=== PATIENT | female | born 1940 | race Caucasian/White ===

== ENCOUNTER 2016-10-11 13:47 | Emergency (ER) | payer BC ==
[~2016-10-11] VITALS: Ht 160 cm; Wt 98.6 kg
[2016-10-11 13:57] VITALS: TEMP 36.8; Ht 160 cm; Wt 98.6 kg
[2016-10-11 14:02] VITALS: O2SAT 97
[2016-10-11] MEDS ORDERED: LISI-787 PO (14:36)
[2016-10-11] MEDS ORDERED: MULT-506 PO (14:38)
[2016-10-11] MEDS ORDERED: IBUP-1050 PO (14:38)
--- NOTE | 2016-10-11 14:57 | EMERGENCY ROOM VISIT NOTE ---
History Report prepared by Francie: Cassandra Yoder Under the Supervision of: Eric RomeroO. First contact with patient: 14:45 Chief Complaint: FOOD BOLUS Stated Complaint: SOMETHING STUCK IN THROAT Nursing Triage Summary: Pt states around noon she was eating chicken and it got stuck in her throat. Wasn't able to swallow, But "it came lose in the waiting room", states she is able to swallow now. This has occured a number of time in the last year and a half, but it never stayed stuck that long, "usually I throw it up" History of Present Illness The patient is a 76 year old female who presents to the Emergency Room with complaints of a resolved food bolus that occurred prior to arrival today. The patient states that she has had them in the past but is usually able to relieve the obstruction with vomiting. The patient states that her bolus resolved upon arrival to the emergency department. She denies any pain or shortness of breath. The patient states that she has not consulted her PCP about this problem yet, but states that she plans to at her 6 month check up next month. She denies being on any reflux medications. The patient denies any tobacco use. Review of Systems See HPI for pertinent positives & negatives. A total of 10 systems reviewed and were otherwise negative. Past Medical & Surgical Medical Problems: (1) Hypertension (2) Pneumonia Surgical Problems: (1) H/O hernia repair (2) H/O: hysterectomy (3) History of breast biopsy Family History Cancer Gallbladder disease Social History Smoking Status: Never Smoker Smokeless Tobacco Use: No Alcohol Use: none Marital Status: Housing Status: lives alone Occupation Status: retired Current/Historical Medications Scheduled Atorvastatin (Lipitor), 10 MG PO HS Cyanocobalamin (Vitamin B-12), 1,000 MCG PO DAILY Lisinopril/Hctz (Zestoretic 20MG/12.5MG), 1 TAB PO DAILY Multivitamin (Multivitamin), 1 TAB PO DAILY Scheduled PRN Ibuprofen (Advil), 400-600 MG PO Q8H PRN for Pain Allergies Coded Allergies: No Known Allergies (Unverified , 10/11/16) Physical Exam Vital Signs Date Time Temp Pulse Resp B/P Pulse Ox O2 Delivery O2 Flow Rate FiO2 10/11/16 15:08 78 18 145/80 99 10/11/16 14:02 97 Room Air 97 10/11/16 13:57 36.8 101 17 148/81 99 Room Air Physical Exam GENERAL: The patient is a pleasant 76 year old female in no acute distress. VITALS: Afebrile, tachycardic, normal pulse oximetry on room air. THROAT: No pharyngeal injection, exudates, or tonsillar hypertrophy. Airway is patent. NECK: Supple, nontender, no lymphadenopathy or nuchal rigidity. THORAX : Symmetrical and nontender to palpation without deformity or palpable crepitus. LUNGS : Clear without wheezing, rhonchi, or rales HEART: Regular rate and rhythm without murmur, S3, S4, or rub. ABDOMEN: Soft and nontender without guarding, rigidity, or rebound tenderness. Bowel sounds are present in all 4 quadrants. There are no palpable masses organomegaly. No CVA tenderness. Femoral pulses are symmetrical EXTREMITIES : Without deformity or point tenderness. There are no palpable cords, edema, or erythema.. NEUROLOGIC: Intact without focal deficits Medical Decision & Procedures ED Course 1450: Past medical records reviewed. The patient was evaluated in room C2B. A complete history and physical examination was performed. On examination she was asymptomatic. Her discomfort and feeling as if she had a food impaction had resolved while she was waiting to be seen. I gave the patient a cup of water and she was able to drink it without problem. At this time I have advised the patient that she may have an esophageal stricture as she has had similar difficulties in the past with swallowing. I advised her to contact her personal physician for further evaluation and workup. In the meantime she is being placed on Zantac twice a day. She's been instructed on diet and symptomatic care. She's to return if she has recurrence or any worsening problems or concerns. The patient is comfortable with this treatment plan. I discussed all the exam findings with her and I discussed the treatment plan. She verbalized complete understanding and agreement. She is ready to go home. Medical Decision EMR, nurse's notes, diagnostic studies personally reviewed Differential diagnosis-see above The chart was completed utilizing [employer] Voice Recognition Software. Grammatical errors, random word insertions, pronoun errors, and incomplete sentences are an occasional consequence of this system due to software limitations, ambient noise, and hardware issues. Any formal questions or concerns about the content, text, or information contained within the body of this dictation should be directly addressed to the physician for clarification. Impression Primary Impression: Esophageal obstruction due to food impaction Scribe Attestation The scribe's documentation has been prepared under my direction and personally reviewed by me in its entirety. I confirm that the note above accurately reflects all work, treatment, procedures, and medical decision making performed by me. Departure Information Dispostion Home / Self-Care Referrals Marvin Viveros M.D. (PCP) Forms HOME CARE DOCUMENTATION FORM, IMPORTANT VISIT INFORMATION, WORK / SCHOOL INSTRUCTIONS Patient Instructions My [facility] Additional Instructions Soft diet as discussed Take [id number] Zantac twice a day Follow-up with Dr. Koenig-call for recheck Return if increasing problems or concerns
[2016-10-11 15:08] VITALS: BP 145/80; PULSE 78; O2SAT 99
[2017-03-29] MEDS ORDERED: CRFL PO (17:45)
[2017-04-12] MEDS ORDERED: LSN20 PO (08:07)
[2017-04-20] MEDS ORDERED: DILT120C43 PO (08:10)
[2017-04-20] MEDS ORDERED: ATOR10TA88 PO (14:36)
[2017-04-20] MEDS ORDERED: CYAN10005 PO (14:36)
== END 2016-10-11 15:10 | disposition home or self-care (01) ==
LOC: C.EDB 13:48 → C.EDC 15:10
DX: T18.128A Food in esophagus causing other injury, initial encounter (principal); X58.XXXA Exposure to other specified factors, initial encounter; I10 Essential (primary) hypertension; Z79.899 Other long term (current) drug therapy; Z90.710 Acquired absence of both cervix and uterus; Z98.890 Other specified postprocedural states; Z80.9 Family history of malignant neoplasm, unspecified; Z83.79 Family history of other diseases of the digestive system

== ENCOUNTER → 2016-11-21 | Outpatient (CLI) | payer BC ==
[~2016-11-21] MED LIST: AGMUDL4005 PO; ALBU18002 INH; AMOX875T PO; ATOR10TA82 PO; CEFD250S3 PO; CHOL1000 PO; CRFL PO; CYAN10005 PO; DILT120C43 PO; DILT120C68 PO; FLNIN NAE; FLUT0.15 NAE; FURO-85 PO; IBUP-1050 PO; LISI-725 PO; LISI-787 PO; LSN/20125 PO; LSN20 PO; MULT-506 PO; OMEP20TA PO; OXGN; PANT40TA PO; PRD5 PO; PRED10TA PO; PRT40 PO; SPRIN INH; SPRIN/30 INH
[2016-11-21 13:16] LABS: BASO % 0.9 %; BASO ABS # 0.07 K/uL (0-0.2); COMPLETE YES; EOS % 6.8 %; HEMATOCRIT 36.5 % (37-47); IG% 0.3 %; LYMPH % 20.6 %; LYMPH ABS # 1.54 K/uL (1.2-3.4); MEAN CELL VOLUME 90.3 fL (80-100); MEAN CORPUSCULAR HEMOGLOBIN 30.4 pg (25-34); MEAN CORPUSCULAR HGB CONC 33.7 g/dl (32-36); MEAN PLATELET VOLUME 9.7 fL (7.4-10.4); MONO % 6.2 %; NEUT % 65.2 %; PLATELET COUNT 245 K/uL (130-400); RED BLOOD COUNT 4.04 M/uL (4.2-5.4); WHITE BLOOD COUNT 7.47 K/uL (4.8-10.8)
--- NOTE | 2016-11-21 13:22 | DIAGNOSTIC IMAGING REPORT ---
(BARIUM SWALLOW) ESOPHAGUS CLINICAL HISTORY: Dysphagia COMPARISON STUDY: None FLUOROSCOPY TIME: 3.8 minutes. 20 fluoroscopic spot images were acquired. FINDINGS: The patient swallowed effervescent granules and barium without difficulty. There is no aspiration. There is a sliding hiatal hernia. There is a mild upper esophageal stricture. This appearance the past of a one half inch barium tablet. Gastroenterology consultation is recommended for direct visualization. IMPRESSION: 1. Mild upper esophageal stricture at approximately the T3 level. This impedes the passage of a one half inch barium tablet. 2. Hiatal hernia 3. Endoscopic correlation is recommended. Electronically signed by: Tomas White M.D. 11/21/2016 1:19 PM Dictated Date/Time: 11/21/2016 1:16 PM
[2016-11-21 13:26] LABS: CALCIUM 9.8 mg/dl (8.5-10.1)
[2016-11-21 13:33] LABS: BLOOD UREA NITROGEN 13 mg/dl (7-18); BUN/CREATININE RATIO 15.5 (10-20); CARBON DIOXIDE 28 mmol/L (21-32); CHLORIDE 100 mmol/L (98-107); CREATININE 0.84 mg/dl (0.60-1.20); GLUCOSE 109 mg/dl (70-99); POTASSIUM 4.1 mmol/L (3.5-5.1); SODIUM 136 mmol/L (136-145)
[2016-11-21 16:59] LABS: LYME DISEASE AB IGG NEG (NEG); LYME DISEASE AB IGM NEG (NEG)
== END | disposition home or self-care (01) ==
LOC: C.RAD 11:55
PROVIDERS: ATTEND Internal Medicine Geriatric Medicine
DX: R13.10 Dysphagia, unspecified (principal); K44.9 Diaphragmatic hernia without obstruction or gangrene; M54.16 Radiculopathy, lumbar region; I10 Essential (primary) hypertension; E78.5 Hyperlipidemia, unspecified; R73.9 Hyperglycemia, unspecified; D64.9 Anemia, unspecified

== ENCOUNTER → 2017-01-02 | Outpatient (CLI) | payer BC ==
--- NOTE | 2017-01-02 16:16 | MAMMOGRAPHY REPORT ---
BILATERAL DIGITAL SCREENING MAMMOGRAM WITH CAD: 01/02/2017 CLINICAL HISTORY: Routine screening examination. TECHNIQUE: Bilateral CC and MLO views were obtained. Current study was also evaluated with a Compute r Aided Detection (CAD) system. COMPARISON: Comparison is made to exams dated: 12/30/2015 mammogram, 12/25/2014 mammogram, 12/11/2013 ma mmogram, 12/05/2012 mammogram, 11/30/2011 mammogram, and 11/22/2010 mammogram - [facility] er. BREAST COMPOSITION: The tissue of both breasts is almost entirely fatty. FINDINGS: There are mild vascular calcifications in the breast. A benign coarse calcification bilate rally. No new suspicious mass, architectural distortion or cluster of microcalcifications is seen. IMPRESSION: ACR BI-RADS CATEGORY 1: NEGATIVE There is no mammographic evidence of malignancy. A 1 year screening mammogram is recommended. The pa tient will receive written notification of the results. Approximately 10% of breast cancers are not detected with mammography. A negative mammographic report should not delay biopsy if a clinically suggestive mass is present. Nina Cox M.D. ay/:01/02/2017 14:22:36 Snow Ranger: Estelle ACEVEDO(R)(M), [facility] letter sent: Normal 1/2 BI-RADS Code: ACR BI-RADS Category 1: Negative
== END | disposition home or self-care (01) ==
LOC: C.MAMM 09:00
PROVIDERS: ATTEND Internal Medicine Geriatric Medicine
DX: Z12.31 Encounter for screening mammogram for malignant neoplasm of breast (principal)

== ENCOUNTER → 2017-02-14 | Outpatient (CLI) | payer BC ==
[~2017-02-14] MED LIST changes: -ATOR10TA82 PO; +ATOR10TA88 PO
--- NOTE | 2017-02-14 09:35 | DIAGNOSTIC IMAGING REPORT ---
CHEST 2 VIEWS ROUTINE CLINICAL HISTORY: 76 years-old Female presenting with cough. TECHNIQUE: PA and lateral views of the chest were obtained. COMPARISON: Chest x-ray from 2008. FINDINGS: Cardiomediastinal silhouette normal. Lungs and pleural spaces clear. Osseous structures and upper abdomen normal. IMPRESSION: 1. No acute cardiopulmonary disease. Electronically signed by: Júnior Arboleda M.D. 02/14/2017 9:33 AM Dictated Date/Time: 02/14/2017 9:32 AM
== END | disposition home or self-care (01) ==
LOC: C.RADBC 09:05
PROVIDERS: ATTEND Internal Medicine Geriatric Medicine
DX: R05 Cough (principal)

== ENCOUNTER → 2017-03-02 | Outpatient (CLI) | payer BC ==
[2017-03-02 12:12] LABS: BASO % 0.7 %; BASO ABS # 0.05 K/uL (0-0.2); COMPLETE YES; EOS % 3.7 %; HEMATOCRIT 35.1 % (37-47); IG% 0.3 %; LYMPH % 18.5 %; MEAN CELL VOLUME 89.8 fL (80-100); MEAN CORPUSCULAR HEMOGLOBIN 29.9 pg (25-34); MEAN CORPUSCULAR HGB CONC 33.3 g/dl (32-36); MEAN PLATELET VOLUME 9.3 fL (7.4-10.4); MONO % 5.9 %; NEUT % 70.9 %; PLATELET COUNT 279 K/uL (130-400); RED BLOOD COUNT 3.91 M/uL (4.2-5.4); WHITE BLOOD COUNT 7.58 K/uL (4.8-10.8)
[2017-03-02 12:27] LABS: ALT/SGPT 25 U/L (12-78); BLOOD UREA NITROGEN 12 mg/dl (7-18); BUN/CREATININE RATIO 14.1 (10-20); CALCIUM 9.4 mg/dl (8.5-10.1); CARBON DIOXIDE 29 mmol/L (21-32); CHLORIDE 100 mmol/L (98-107); CHOLESTEROL 147 mg/dl (0-200); CREATININE 0.86 mg/dl (0.60-1.20); GLUCOSE 102 mg/dl (70-99); POTASSIUM 3.8 mmol/L (3.5-5.1); SODIUM 135 mmol/L (136-145)
[2017-03-02 12:37] LABS: ALB/GLOB RATIO 1.3 (0.9-2); ALKALINE PHOSPHATASE 92 U/L (45-117); AST/SGOT 20 U/L (15-37); CHOLESTEROL/HDL RATIO 2.3; HDL CHOLESTEROL 64 mg/dl; LDL CHOLESTEROL CALCULATED 62 mg/dl; TRIGLYCERIDES 105 mg/dl (0-150); VERY LOW DENSITY LIPOPROT CALC 21 mg/dl
[2017-03-02 12:48] LABS: ESTIMATED AVERAGE GLUCOSE 108 mg/dl; HA1C FLAG Normal (Normal)
== END | disposition home or self-care (01) ==
LOC: C.LAB 09:48
PROVIDERS: ATTEND Internal Medicine Geriatric Medicine
DX: I10 Essential (primary) hypertension (principal); R73.9 Hyperglycemia, unspecified; M19.90 Unspecified osteoarthritis, unspecified site; D64.9 Anemia, unspecified

== ENCOUNTER → 2017-03-08 | Outpatient (CLI) | payer BC ==
[~2017-03-08] MED LIST changes: +OPTIRAY 320 IV PRN
--- NOTE | 2017-03-08 11:05 | DIAGNOSTIC IMAGING REPORT ---
CHEST CTA for PULMONARY ARTERIES CT DOSE: 562.96 mGy.cm HISTORY: Atypical chest pain. Short of breath. TECHNIQUE: Multiaxial CT images of the chest were performed following the intravenous administration of contrast to evaluate the pulmonary arteries. Maximal intensity projection images were also obtained. A dose lowering technique was utilized adhering to the principles of ALARA. COMPARISON STUDY: Chest 02/14/2017. FINDINGS: No evidence for an aortic dissection or pulmonary embolus. No significant mediastinal or hilar lymphadenopathy. No pleural or pericardial effusions. The heart is normal in size. The visualized liver, spleen, and adrenal glands are unremarkable. No fractures within the visualized osseous structures. No pneumothorax. The central airways are patent. Small linear scarlike density within the left lung apex. A 4 mm subpleural nodule within the lingula on image 146. A 2 mm nodule within the right lung apex on image 209. A 5 mm groundglass nodule within the right lung apex on image 215. A 4 mm nodule within the right upper lobe on image 183. A 4 mm nodule within the right lower lobe on image 100. 4 mm subpleural nodule within the right lower lobe on image 110. No focal lung consolidations to suggest pneumonia. IMPRESSION: 1. No evidence for pulmonary embolus. 2. A few scattered subcentimeter indeterminate pulmonary nodules as described above. The largest in the right upper lobe is a 5 mm groundglass nodule. Please refer to the chart below for recommended follow-up. Please refer to below summary of Fleischner criteria recommendations for follow-up of incidental CT nodules (Yess[place], Guidelines for management of small pulmonary nodules detected on CT scans: A statement from the Fleischner Society, Radiology 237: [phone].) SOLID NODULES Solitary nodule size: <6 mm * Low risk patients: no follow-up needed * high risk patients: optional CT at 12 months Solitary nodule size: 6-8 mm * Low risk patients: follow-up at 6-12 months, then consider further follow-up at 18-24 months * high risk patients: initial follow-up CT at 6-12 months and then at 18-24 months if no change Solitary nodule size: >8 mm * either low or high risk patients - consider follow-up CT at 3 months, and/or CT-PET, and/or biopsy Multiple nodules size: <6 mm * Low risk patients: no routine follow-up * high risk patients: optional CT at 12 months Multiple nodules size: 6-8 mm * Low risk patients: follow-up at 3-6 months, then consider further follow-up at 18-24 months * high risk patients: follow-up at 3-6 months, then at 18-24 months if no change Multiple nodules size: >8 mm * Low risk patients: follow-up at 3-6 months, then consider further follow-up at 18-24 months * high risk patients: follow-up at 3-6 months, then at 18-24 months if no change Note: newly detected indeterminate nodule in persons 35 years of age or older. * Low risk patients: minimal or absent history of smoking and/or other known risk factors * high risk patients: history of smoking or of other known risk factors (e.g. first degree relative with lung cancer, or exposure to asbestos, radon, uranium) * if a nodule up to 8 mm is partly solid or is ground glass further follow-up is required after 24 months to exclude possible slow growing adenocarcinoma (MILAGROS) SUBSOLID NODULES Solitary pure ground-glass nodule * nodule size <6 mm - no CT follow-up required * nodule size >=6 mm - follow-up CT at 6-12 months, then every 2 years until 5 years Solitary part-solid nodule * nodule size <6 mm - no CT follow-up required * nodule size >=6 mm - follow-up CT at 3-6 months. If unchanged, and solid component remains <6 mm, then annual follow-up for 5 years Multiple subsolid nodules * nodule size <6 mm - follow-up CT at 3-6 months, consider further follow-up at 2 and 4 years if stable * nodule size >=6 mm - follow-up CT at 3-6 months, subsequent management based on the most suspicious nodule(s) Electronically signed by: Kulwinder Garcia M.D. 03/08/2017 11:04 AM Dictated Date/Time: 03/08/2017 10:55 AM
== END | disposition home or self-care (01) ==
LOC: C.CTS 09:57
PROVIDERS: ATTEND Internal Medicine Geriatric Medicine
DX: R06.02 Shortness of breath (principal); R06.09 Other forms of dyspnea; R91.8 Other nonspecific abnormal finding of lung field

== ENCOUNTER 2017-03-16 22:47 | Emergency (ER) | payer BC ==
[~2017-03-16] VITALS: Ht 162.6 cm; Wt 94.0 kg
[~2017-03-16 22:47] MED LIST changes: -AGMUDL4005 PO; -ALBU18002 INH; -AMOX875T PO; -ATOR10TA88 PO; -CEFD250S3 PO; -CHOL1000 PO; -CRFL PO; -CYAN10005 PO; -DILT120C43 PO; -DILT120C68 PO; -FLNIN NAE; -FLUT0.15 NAE; -FURO-85 PO; -LISI-725 PO; -LSN/20125 PO; -LSN20 PO; -OMEP20TA PO; -OPTIRAY 320 IV PRN; -OXGN; -PANT40TA PO; -PRD5 PO; -PRED10TA PO; -PRT40 PO; -SPRIN INH; -SPRIN/30 INH
[2017-03-16 22:51] VITALS: Ht 162.6 cm; Wt 94.0 kg
[2017-03-16 23:06] VITALS: O2SAT 95
[2017-03-16] MEDS ORDERED: OMEP20TA PO (23:44)
[2017-03-16] MEDS ORDERED: DILT120C68 PO (23:55)
[2017-03-17 00:16] LABS: BASO % 0.5 %; BASO ABS # 0.04 K/uL (0-0.2); COMPLETE YES; EOS % 5.6 %; HEMATOCRIT 35.4 % (37-47); IG% 0.2 %; LYMPH % 20.5 %; LYMPH ABS # 1.79 K/uL (1.2-3.4); MEAN CELL VOLUME 88.5 fL (80-100); MEAN CORPUSCULAR HEMOGLOBIN 30.5 pg (25-34); MEAN CORPUSCULAR HGB CONC 34.5 g/dl (32-36); MEAN PLATELET VOLUME 9.2 fL (7.4-10.4); MONO % 8.6 %; NEUT % 64.6 %; PLATELET COUNT 292 K/uL (130-400); WHITE BLOOD COUNT 8.74 K/uL (4.8-10.8)
--- NOTE | 2017-03-17 00:17 | EMERGENCY ROOM VISIT NOTE ---
History Report prepared by Francie: Umer Cross Under the Supervision of: Dr. Teresa Funez D.O. First contact with patient: 23:06 Chief Complaint: SHORTNESS OF BREATH Stated Complaint: CAN'T BREATH RIGHT - BAD COUGH History of Present Illness The patient is a 76 year old female who presents to the Emergency Room with complaints of a worsening cough beginning four months ago. The patient states her cough has progressively worsened over the past four days. She reports that she has to clear her throat frequently, and her cough is ongoing and productive. The patient notes that she cannot walk anywhere without getting short of breath. She states that she cannot lay down without coughing. The patient reports that she recently had: a CT that showed no PE and multiple, small, pulmonary nodules; a stress test that showed she had a heart rate of 100 ; and a pulmonary function test that she does not know the results of. She notes that she has an appointment with the retail performance specialist on Sunday, but she could not wait until then. The patient states that she takes medication for hypertension, hypercholesteremia, and GERD. She reports that she just started taking medication for GERD because food kept getting stuck in her throat. The patient notes that on the 27 of November she had an esophageal dilation, and she did not notice her symptoms until after then. She states that she has not been scoped since. The patient denies smoking, but everyone in her family did. She also denies abdominal pain, edema to her legs, and a history of asthma. The patient notes that her dad and sister both from emphysema, and her mother of liver disease. Source of History: patient Onset: four months ago Position: chest Quality: other (cough) Timing: worsening Modifying Factors (Worsening): other (lying down) Associated Symptoms: + SOB, No abdominal pain Note: Denies: edema to her legs Review of Systems See HPI for pertinent positives & negatives. A total of 10 systems reviewed and were otherwise negative. Past Medical & Surgical Medical Problems: (1) Hypertension (2) Pneumonia Surgical Problems: (1) H/O hernia repair (2) H/O: hysterectomy (3) History of breast biopsy Family History Cancer Gallbladder disease Hypertension Social History Smoking Status: Never Smoker Alcohol Use: none Marital Status: Housing Status: lives alone Occupation Status: retired Current/Historical Medications Scheduled Atorvastatin (Lipitor), 10 MG PO HS Cholecalciferol (Vitamin D3), 1,000 UNITS PO DAILY Cyanocobalamin (Vitamin B-12), 1,000 MCG PO QAM Diltiazem Hcl Ext Rel (Tiazac), 120 MG PO BID Lisinopril/Hctz (Zestoretic 20MG/12.5MG), 1 TAB PO QAM Omeprazole (Omeprazole), 40 MG PO DAILY Allergies Coded Allergies: Cetirizine (Verified Allergy, Unknown, RASH, 11/27/16) Simvastatin (Verified Allergy, Unknown, ABDOMINAL CRAMPS, 11/27/16) Physical Exam Vital Signs Date Time Temp Pulse Resp B/P (MAP) Pulse Ox O2 Delivery O2 Flow Rate FiO2 03/17/17 02:41 36.4 84 20 118/75 92 03/17/17 02:36 84 20 118/75 92 Room Air 03/17/17 01:30 84 22 140/76 92 Room Air 03/17/17 00:00 78 24 111/70 94 Room Air 03/16/17 23:07 95 Room Air 03/16/17 23:06 95 Room Air 03/16/17 23:03 76 03/16/17 22:51 36.4 76 16 122/84 94 Room Air Physical Exam HEENT: Head - normocephalic and atraumatic Pupils are equal, round, and reactive to light. Extraocular eye muscles are intact, and sclera are anicteric. Nose - moist nasal mucosa without discharge. Mouth - moist buccal mucosa. Oropharynx is nonerythematous and there is no tonsillar exudate or edema noted. Neck: Supple; no JVD, nuchal rigidity, cervical lymphadenopathy, or auscultated bruits. Heart: Regular rate and rhythm. There is a normal S1 and S2 with no murmurs, clicks, or gallops appreciated. Lungs: Clear to auscultation bilaterally with no wheezes, rales, or rhonchi. Abdomen: Soft, completely nontender, nondistended, with good bowel sounds. There are no palpable pulsatile masses or hepatosplenomegaly. There is no guarding, rigidity, or rebound noted. Extremities: No evidence of cyanosis, clubbing, or edema. There are easily palpable peripheral pulses. Skin: warm and dry with good turgor and no rashes. Medical Decision & Procedures ER Provider Diagnostic Interpretation: X-ray results as stated below per interpretation by me: Chest X-ray: no cardiomegaly, no pulmonary findings Laboratory Results 03/16/17 23:10 Red Blood Count 4.00, Mean Corpuscular Volume 88.5, Mean Corpuscular Hemoglobin 30.5, Mean Corpuscular Hemoglobin Concent 34.5, Mean Platelet Volume 9.2, Neutrophils (%) (Auto) 64.6, Lymphocytes (%) (Auto) 20.5, Monocytes (%) (Auto) 8.6, Eosinophils (%) (Auto) 5.6, Basophils (%) (Auto) 0.5, Neutrophils # (Auto) 5.65, Lymphocytes # (Auto) 1.79, Monocytes # (Auto) 0.75, Eosinophils # (Auto) 0.49, Basophils # (Auto) 0.04 03/16/17 23:10 Test 03/16/17 23:10 White Blood Count 8.74 K/uL (4.8-10.8) Red Blood Count 4.00 M/uL (4.2-5.4) Hemoglobin 12.2 g/dL (12.0-16.0) Hematocrit 35.4 % (37-47) Mean Corpuscular Volume 88.5 fL (80-100) Mean Corpuscular Hemoglobin 30.5 pg (25-34) Mean Corpuscular Hemoglobin Concent 34.5 g/dl (32-36) Platelet Count 292 K/uL (130-400) Mean Platelet Volume 9.2 fL (7.4-10.4) Neutrophils (%) (Auto) 64.6 % Lymphocytes (%) (Auto) 20.5 % Monocytes (%) (Auto) 8.6 % Eosinophils (%) (Auto) 5.6 % Basophils (%) (Auto) 0.5 % Neutrophils # (Auto) 5.65 K/uL (1.4-6.5) Lymphocytes # (Auto) 1.79 K/uL (1.2-3.4) Monocytes # (Auto) 0.75 K/uL (0.11-0.59) Eosinophils # (Auto) 0.49 K/uL (0-0.5) Basophils # (Auto) 0.04 K/uL (0-0.2) RDW Standard Deviation 44.7 fL (36.4-46.3) RDW Coefficient of Variation 13.8 % (11.5-14.5) Immature Granulocyte % (Auto) 0.2 % Immature Granulocyte # (Auto) 0.02 K/uL (0.00-0.02) Anion Gap 8.0 mmol/L (3-11) Est Creatinine Clear Calc Drug Dose 59.7 ml/min Estimated GFR () 71.1 Estimated GFR (Non- 61.3 BUN/Creatinine Ratio 22.1 (10-20) Calcium Level 9.3 mg/dl (8.5-10.1) Total Bilirubin 0.5 mg/dl (0.2-1) Aspartate Amino Transf (AST/SGOT) 17 U/L (15-37) Alanine Aminotransferase (ALT/SGPT) 27 U/L (12-78) Alkaline Phosphatase 91 U/L (45-117) Total Creatine Kinase 99 U/L (26-192) Creatine Kinase MB 2.7 ng/ml (0.5-3.6) Creatine Kinase MB Ratio 2.7 (0-3.0) Troponin I < 0.015 ng/ml (0-0.045) Pro-B-Type Natriuretic Peptide 70 pg/ml (0-900) Total Protein 7.5 gm/dl (6.4-8.2) Albumin 4.1 gm/dl (3.4-5.0) Globulin 3.4 gm/dl (2.5-4.0) Albumin/Globulin Ratio 1.2 (0.9-2) Laboratory results per my review. ECG Indication: SOB/dyspnea Rate (beats per minute): 72 Findings: no acute ischemic change, no ectopy ED Course 2346: The patient was evaluated in room A02. A complete history and physical examination were performed. Nursing notes and previous electronic medical records were reviewed. I reviewed her CT scan from last week. It showed no PE and multiple small pulmonary nodules. IV lock was established and labs were drawn as above. A twelve-lead EKG was obtained. The patient was noted to have persistent cough while here in the emergency department. She was continually clearing her throat of mucus. She did have a productive cough. We were able to collect a sputum specimen for culture 0149: Upon reevaluation, the patient's situation is the same. Since she was in there, she was able to produce more mucus. She is going to try and give a larger sample than before. The patient informed me she was prescribed fluticasone, and the sputum production was significantly more, so she stopped using it. I discussed findings and results with her. She verbalized agreement of the treatment plan. The patient was discharged home. Medical Decision The patient is a 76 year old female who presents to the ED with a worsening, productive cough. Differential diagnosis includes CHF, GERD, pneumonia, bronchitis, obstructive lung disease, PE. Lab results show: normal WBC, normal H&H, BUN of 20, Creatinine of 0.9, glucose of 97, normal LFTs, negative cardiac enzymes, BNP of 70. This patient has had a significant workup for her increasing exertional shortness of breath. She's undergone cardiac stress testing, pulmonary function tests, chest x-ray, and CT scan of the chest. She is scheduled to follow-up with Dr. Jimenez on Sunday for review of the pulmonary function tests. On this acute visit to the emergency department, no new findings were noted. We did obtain a sputum specimen for culture. I've encouraged the patient to keep her appointment with pulmonary medicine. We spent some time talking about possible causes of her persistent productive cough and thick mucus in the back of her throat. We talked about GERD and eosinophilia. She will follow with Dr. Jimenez in 2 days. Medication Reconcilliation Current Medication List: was personally reviewed by me Blood Pressure Screening Patient's blood pressure: Normal blood pressure Blood pressure disposition: Did not require urgent referral Impression Primary Impression: Dyspnea Scribe Attestation The scribe's documentation has been prepared under my direction and personally reviewed by me in its entirety. I confirm that the note above accurately reflects all work, treatment, procedures, and medical decision making performed by me. Departure Information Dispostion Home / Self-Care Referrals Marvin Viveros M.D. (PCP) Forms HOME CARE DOCUMENTATION FORM, IMPORTANT VISIT INFORMATION Patient Instructions ED Dyspnea Shortness of Breath, My [facility] Additional Instructions Rest Follow up with Dr. Jimenez on Sunday. Return to the ER if symptoms worsen. Problem Qualifiers Primary Impression: Dyspnea Dyspnea type: dyspnea on exertion Qualified Codes: R06.09 - Other forms of dyspnea
[2017-03-17 00:21] LABS: ALT/SGPT 27 U/L (12-78); AST/SGOT 17 U/L (15-37); BLOOD UREA NITROGEN 20 mg/dl (7-18); BUN/CREATININE RATIO 22.1 (10-20); CALCIUM 9.3 mg/dl (8.5-10.1); CARBON DIOXIDE 28 mmol/L (21-32); CHLORIDE 98 mmol/L (98-107); CREATININE 0.92 mg/dl (0.60-1.20); GLUCOSE 97 mg/dl (70-99); POTASSIUM 3.5 mmol/L (3.5-5.1); SODIUM 134 mmol/L (136-145)
[2017-03-17 00:26] LABS: ALB/GLOB RATIO 1.2 (0.9-2); ALKALINE PHOSPHATASE 91 U/L (45-117); CKMB/CK RATIO 2.7 (0-3.0)
[2017-03-17 02:41] VITALS: BP 118/75; PULSE 84; TEMP 36.4; O2SAT 92
--- NOTE | 2017-03-17 08:04 | DIAGNOSTIC IMAGING REPORT ---
CHEST 2 VIEWS ROUTINE CLINICAL HISTORY: Worsening shortness of breath. COMPARISON STUDY: Chest radiograph February 14, [address] March 08, 2017. FINDINGS: The lung volumes are normal. There is no pneumothorax or pleural effusion. There is no evidence of pulmonary edema. No consolidation is identified. Cardiomediastinal silhouette is normal. IMPRESSION: No acute cardiopulmonary findings. Electronically signed by: Varinder Goode M.D. 03/17/2017 8:03 AM Dictated Date/Time: 03/17/2017 8:02 AM
[2017-03-29] MEDS ORDERED: CRFL PO (17:45)
[2017-04-12] MEDS ORDERED: LSN20 PO (08:07)
[2017-04-20] MEDS ORDERED: DILT120C43 PO (08:10)
[2017-04-20] MEDS ORDERED: ATOR10TA88 PO (14:36)
[2017-04-20] MEDS ORDERED: CYAN10005 PO (14:36)
[2017-05-04] MEDS ORDERED: LISI-725 PO (13:41)
== END 2017-03-17 02:42 | disposition home or self-care (01) ==
LOC: C.EDB 22:48 → C.EDA 03-17 02:42
DX: R06.09 Other forms of dyspnea (principal); I10 Essential (primary) hypertension; E78.00 Pure hypercholesterolemia, unspecified; K21.9 Gastro-esophageal reflux disease without esophagitis; Z87.01 Personal history of pneumonia (recurrent); Z80.9 Family history of malignant neoplasm, unspecified; Z83.79 Family history of other diseases of the digestive system; Z82.49 Family history of ischemic heart disease and other diseases of the circulatory system; Z79.899 Other long term (current) drug therapy

== ENCOUNTER → 2017-03-20 | Outpatient (CLI) | payer BC ==
[~2017-03-20] MED LIST changes: +AGMUDL4005 PO; +ALBU18002 INH; +AMOX875T PO; +ATOR10TA88 PO; +CEFD250S3 PO; +CHOL1000 PO; +CRFL PO; +CYAN10005 PO; +DILT120C43 PO; +DILT120C68 PO; +FLNIN NAE; +FLUT0.15 NAE; +FURO-85 PO; -IBUP-1050 PO; +LISI-725 PO; +LSN/20125 PO; +LSN20 PO; -MULT-506 PO; +OMEP20TA PO; +OXGN; +PANT40TA PO; +PRD5 PO; +PRED10TA PO; +PRT40 PO; +SPRIN INH; +SPRIN/30 INH
[2017-03-20 13:26] LABS: BASO % 0.7 %; BASO ABS # 0.05 K/uL (0-0.2); COMPLETE YES; EOS % 3.4 %; HEMATOCRIT 34.6 % (37-47); IG% 0.3 %; LYMPH % 13.6 %; LYMPH ABS # 1.01 K/uL (1.2-3.4); MEAN CELL VOLUME 86.5 fL (80-100); MEAN CORPUSCULAR HGB CONC 34.7 g/dl (32-36); MEAN PLATELET VOLUME 9.6 fL (7.4-10.4); MONO % 7.7 %; NEUT % 74.3 %; PLATELET COUNT 278 K/uL (130-400)
[2017-03-20 13:34] LABS: PARTIAL THROMBOPLASTIN RATIO 1.1; PROTHROMBIN TIME (PATIENT) 10.8 SECONDS (9.0-12.0)
[2017-03-20 14:09] LABS: ALT/SGPT 23 U/L (12-78); BLOOD UREA NITROGEN 14 mg/dl (7-18); BUN/CREATININE RATIO 17.8 (10-20); CALCIUM 9.3 mg/dl (8.5-10.1); CARBON DIOXIDE 28 mmol/L (21-32); CHLORIDE 95 mmol/L (98-107); CREATININE 0.78 mg/dl (0.60-1.20); GLUCOSE 96 mg/dl (70-99); POTASSIUM 4.1 mmol/L (3.5-5.1); SODIUM 130 mmol/L (136-145)
[2017-03-20 14:11] LABS: ALB/GLOB RATIO 1.4 (0.9-2); ALKALINE PHOSPHATASE 87 U/L (45-117); AST/SGOT 18 U/L (15-37)
== END | disposition home or self-care (01) ==
LOC: C.LAB1850 11:21
PROVIDERS: ATTEND Internal Medicine Pulmonary Disease
DX: J31.0 Chronic rhinitis (principal); R05 Cough; R06.02 Shortness of breath

== ENCOUNTER 2017-03-26 19:58 | Inpatient (IN) | payer BC, OTHER ==
[~2017-03-26] VITALS: Ht 162.6 cm; Wt 92.4 kg
[~2017-03-26 19:58] MED LIST changes: -AGMUDL4005 PO; -ALBU18002 INH; -AMOX875T PO; -ATOR10TA88 PO; -CEFD250S3 PO; -CHOL1000 PO; -CRFL PO; -CYAN10005 PO; -DILT120C43 PO; -FLNIN NAE; -FLUT0.15 NAE; -FURO-85 PO; -LISI-725 PO; -LSN/20125 PO; -LSN20 PO; -OXGN; -PANT40TA PO; -PRD5 PO; -PRED10TA PO; -PRT40 PO; -SPRIN INH; -SPRIN/30 INH
[2017-03-26] MEDS ORDERED: METOCLOPRAMIDE HCL INJ 5 MG/ML 2 ML VIAL IV STA (20:43)
[2017-03-26] MEDS ORDERED: DIAZEPAM INJ 5 MG/ML 2 ML CARP IV STA (20:43)
[2017-03-26] MEDS ORDERED: GLUCAGON INJ 1 MG in SYRINGE 0 ML IV STA (20:43)
[2017-03-26] MEDS ORDERED: NITROGLYCERIN OINT 2% 1GM PACKET EXT STA (20:43)
--- NOTE | 2017-03-26 20:45 | EMERGENCY ROOM VISIT NOTE ---
History Report prepared by Francie: Keyshawn Pacheco Under the Supervision of: Dr. Randy Parada M.D. First contact with patient: 20:34 Chief Complaint: RESPIRATORY PROBLEMS Stated Complaint: PILL STUCK IN THROAT Nursing Triage Summary: Patient states "I have an antibiotic pill stuck in my throat. I also have difficulty breathing not from the pill. I've had difficulty breathing for 4 months but it has gotten worse in the past 2 weeks. I broke out in a sweat tonight." History of Present Illness The patient is a 76 year old female who presents to the Emergency Room with complaints of respiratory problems that began 4 weeks ago. She notes that it has worsened over the past 2 weeks. The patient had her esophagus stretched in November, but then developed a breathing a coughing "condition." Tonight, she took a pill, and it got stuck in her throat. She cannot swallow her own saliva. She also had diaphoresis as well. She denies any other abnormal symptoms. Source of History: patient Onset: 2 weeks ago Position: other (Respiratory System) Symptom Intensity: moderate Quality: other (Respiratory Problems) Timing: worsening Associated Symptoms: + diaphoresis, + cough, + SOB Note: She cannot swallow her saliva. She denies any other abnormal symptoms. Review of Systems See HPI for pertinent positives & negatives. A total of 10 systems reviewed and were otherwise negative. Past Medical & Surgical Medical Problems: (1) Hypertension (2) Pneumonia Surgical Problems: (1) H/O hernia repair (2) H/O: hysterectomy (3) History of breast biopsy Family History Cancer Gallbladder disease Hypertension Social History Smoking Status: Never Smoker Alcohol Use: none Marital Status: Housing Status: lives alone Occupation Status: retired Current/Historical Medications Scheduled Amoxicillin & Pot Clavulanate (Augmentin 875-125 mg), 1 TAB PO BID Amoxicillin/Clavulanate Potas (Augmentin 400MG/5ML), 10 ML PO BID Atorvastatin (Lipitor), 10 MG PO HS Cholecalciferol (Vitamin D3), 1,000 UNITS PO DAILY Cyanocobalamin (Vitamin B-12), 1,000 MCG PO QAM Diltiazem Hcl Ext Rel (Tiazac), 120 MG PO BID Lisinopril/Hctz (Zestoretic 20MG/12.5MG), 1 TAB PO QAM Omeprazole (Omeprazole), 40 MG PO DAILY Prednisone Tab (Prednisone), 10 MG PO DAILY/UD Allergies Coded Allergies: Cetirizine (Verified Allergy, Unknown, RASH, 11/27/16) Simvastatin (Verified Allergy, Unknown, ABDOMINAL CRAMPS, 11/27/16) Physical Exam Vital Signs Date Time Temp Pulse Resp B/P (MAP) Pulse Ox O2 Delivery O2 Flow Rate FiO2 03/27/17 00:21 88 Room Air 03/27/17 00:02 111/82 03/27/17 00:01 100/73 03/27/17 00:00 121 23 96 Nasal Cannula 2.0 03/26/17 23:31 115/80 03/26/17 23:30 122 24 96 Nasal Cannula 2.0 03/26/17 23:01 142/89 03/26/17 23:00 119 20 142/89 99 Nebulizer 10.0 03/26/17 23:00 118 22 100 Nasal Cannula 2.0 03/26/17 22:32 99 18 95 Nasal Cannula 2.0 03/26/17 22:09 99 24 113/80 95 Nasal Cannula 2.0 03/26/17 21:54 102 22 129/86 95 Nasal Cannula 2.0 03/26/17 21:33 91 03/26/17 21:24 93 20 134/88 96 Nasal Cannula 2.0 03/26/17 20:51 94 Nasal Cannula 2.0 03/26/17 20:39 93 Room Air 03/26/17 20:10 93 Room Air 03/26/17 20:04 36.7 105 18 141/90 93 Room Air Physical Exam GENERAL: Patient is a healthy-appearing well-nourished female, actively spitting out saliva. HEAD: Normocephalic atraumatic EYES: Ocular movements intact pupils equal and react to light OROPHARYNX mucous membranes are moist no exudates present no erythema or edema present NECK: Supple no nuchal rigidity CHEST: Good equal expansion LUNGS: Clear and equal to auscultation CARDIAC: Normal S1 and S2 ABDOMEN: Soft nontender no guarding BACK: No CVA tenderness EXTREMITIES: No pain upon palpation normal muscle strength in all groups no clubbing cyanosis or edema NEURO: Patient is following commands and answering questions appropriately. Alert and oriented x3 Cranial Nerves 2-12 grossly intact Medical Decision & Procedures ER Provider Diagnostic Interpretation: Radiology results as stated below per my review and radiologist interpretation: CHEST ONE VIEW PORTABLE CLINICAL HISTORY: Food bolus impaction. COMPARISON STUDY: Chest radiograph March 17, 2017. FINDINGS: Lung volumes are normal. No pneumothorax or pleural effusion is present. Pulmonary vascularity is normal. Cardiomediastinal silhouette is normal. There is no evidence for pneumomediastinum. No radiopaque foreign body is identified. IMPRESSION: No acute cardiopulmonary findings. Electronically signed by: Varinder Goode M.D. 03/26/2017 9:15 PM Dictated Date/Time: 03/26/2017 9:[address] ANGIOGRAPHY OF THE CHEST, PULMONARY EMBOLUS PROTOCOL CLINICAL HISTORY: Shortness of breath. Pill stuck in throat. COMPARISON STUDY: Chest CT March 08, 2017. TECHNIQUE: Following IV administration of 77 mL of Optiray-320, helical axial images of the chest were obtained utilizing the pulmonary embolus protocol. Maximal intensity projections and sagittal and coronal reformats were viewed on an independent 3D workstation. IV contrast was administered without complication. A dose lowering technique was utilized adhering to the principles of ALARA. CT DOSE: 476.82 mGy.cm FINDINGS: No pulmonary emboli are identified. There is no evidence of thoracic aortic dissection. The size of the heart is normal. There is no pericardial effusion. Central airways are patent. There is no consolidation to suggest pneumonia. Multiple pulmonary nodules are similar to exam of March 08, 2017 and include a 5 mm groundglass right upper lobe nodule shown image 203. There is no consolidation to suggest pneumonia. No pneumothorax or pleural effusion is present. Bony thorax and upper abdomen are unremarkable. No radiopaque foreign bodies identified within the chest. IMPRESSION: 1. No pulmonary emboli identified. 2. No acute intrathoracic findings. 3. No change in several pulmonary nodules since exam of March 08, 2017. These can be followed according to recommendations provided on that exam. Electronically signed by: Varinder Goode M.D. 03/26/2017 10:55 PM Dictated Date/Time: 03/26/2017 10:48 PM Laboratory Results 03/26/17 21:19 Red Blood Count 3.97, Mean Corpuscular Volume 85.4, Mean Corpuscular Hemoglobin 30.2, Mean Corpuscular Hemoglobin Concent 35.4, Mean Platelet Volume 9.0, Neutrophils (%) (Auto) 92.0, Lymphocytes (%) (Auto) 6.3, Monocytes (%) (Auto) 1.0, Eosinophils (%) (Auto) 0.1, Basophils (%) (Auto) 0.3, Neutrophils # (Auto) 6.72, Lymphocytes # (Auto) 0.46, Monocytes # (Auto) 0.07, Eosinophils # (Auto) 0.01, Basophils # (Auto) 0.02 03/26/17 21:19 Test 03/26/17 21:19 White Blood Count 7.30 K/uL (4.8-10.8) Red Blood Count 3.97 M/uL (4.2-5.4) Hemoglobin 12.0 g/dL (12.0-16.0) Hematocrit 33.9 % (37-47) Mean Corpuscular Volume 85.4 fL (80-100) Mean Corpuscular Hemoglobin 30.2 pg (25-34) Mean Corpuscular Hemoglobin Concent 35.4 g/dl (32-36) Platelet Count 260 K/uL (130-400) Mean Platelet Volume 9.0 fL (7.4-10.4) Neutrophils (%) (Auto) 92.0 % Lymphocytes (%) (Auto) 6.3 % Monocytes (%) (Auto) 1.0 % Eosinophils (%) (Auto) 0.1 % Basophils (%) (Auto) 0.3 % Neutrophils # (Auto) 6.72 K/uL (1.4-6.5) Lymphocytes # (Auto) 0.46 K/uL (1.2-3.4) Monocytes # (Auto) 0.07 K/uL (0.11-0.59) Eosinophils # (Auto) 0.01 K/uL (0-0.5) Basophils # (Auto) 0.02 K/uL (0-0.2) RDW Standard Deviation 41.7 fL (36.4-46.3) RDW Coefficient of Variation 13.4 % (11.5-14.5) Immature Granulocyte % (Auto) 0.3 % Immature Granulocyte # (Auto) 0.02 K/uL (0.00-0.02) Anion Gap 9.0 mmol/L (3-11) Est Creatinine Clear Calc Drug Dose 65.1 ml/min Estimated GFR () 80.5 Estimated GFR (Non- 69.5 BUN/Creatinine Ratio 17.7 (10-20) Calcium Level 9.1 mg/dl (8.5-10.1) Total Bilirubin 0.5 mg/dl (0.2-1) Aspartate Amino Transf (AST/SGOT) 17 U/L (15-37) Alanine Aminotransferase (ALT/SGPT) 25 U/L (12-78) Alkaline Phosphatase 85 U/L (45-117) Total Creatine Kinase 75 U/L (26-192) Creatine Kinase MB 3.3 ng/ml (0.5-3.6) Creatine Kinase MB Ratio 4.4 (0-3.0) Troponin I < 0.015 ng/ml (0-0.045) Total Protein 7.1 gm/dl (6.4-8.2) Albumin 3.8 gm/dl (3.4-5.0) Globulin 3.3 gm/dl (2.5-4.0) Albumin/Globulin Ratio 1.1 (0.9-2) Labs reviewed by ED physician. Medications Administered Medications (Trade) Dose Ordered Sig/[place] Route Start Time Stop Time Status Last Admin Dose Admin Metoclopramide HCl (Reglan Inj) 10 mg NOW STAT IV 03/26/17 20:43 03/26/17 20:47 DC 03/26/17 21:21 10 MG Diazepam (Valium Inj) 5 mg NOW STAT IV 03/26/17 20:43 03/26/17 20:47 DC 03/26/17 21:21 5 MG Glucagon (Glucagon Inj) 1 mg STK-MED ONCE .ROUTE 03/26/17 21:04 03/26/17 21:05 DC 03/26/17 21:21 1 MG Nitroglycerin (Nitroglycerin 2% Oint) 1 inch STK-MED ONCE .ROUTE 03/26/17 21:04 03/26/17 21:05 DC 03/26/17 21:20 1 INCH Albuterol/ Ipratropium (Duoneb) 12 ml ONE ONCE INH 03/26/17 22:15 03/26/17 22:16 DC 03/26/17 22:32 12 ML Methylprednisolone Sodium Succinate (Solu-Medrol IV) 125 mg NOW STAT IV 03/26/17 22:05 03/26/17 22:07 DC 03/26/17 22:15 125 MG Sodium Chloride 500 ml @ 999 mls/hr Q31M STAT IV 03/26/17 22:05 03/26/17 22:35 DC 03/26/17 22:15 999 MLS/HR Lorazepam (Ativan Inj) 0.5 mg NOW STAT IV 03/26/17 23:15 03/26/17 23:17 DC 03/26/17 23:23 0.5 MG Amoxicillin/ Clavulanate Potassium (Augmentin Susp) 10 ml NOW STAT PO 03/27/17 00:09 03/27/17 00:11 DC 03/27/17 00:09 10 ML ECG Indication: SOB/dyspnea Rate (beats per minute): 96 Rhythm: normal sinus Findings: no acute ischemic change, no ectopy ED Course 2033: Past medical records reviewed. The patient was evaluated in room A4. A complete history and physical examination was performed. 2042: Ordered Valium Inj 5 mg IV, Nitroglycerin 1 inch EXT, Reglan Inj 10 mg IV 2100: Ordered Glucagon 1 mg/ Syringe 1 ml @ 0.333 mls/min IV 2104: Ordered Nitroglycerin 1 inch .ROUTE, Glucagon 1 mg .ROUTE 2205: Ordered Sodium Chloride 500 ml @ 999 mls/hr IV 2214: The patient can swallow water again. 2215: Ordered Duoneb 12 ml INH 1215: Ordered Ativan Inj 0.5 mg IV 2344: She is doing much better at this time. 0009: Ordered Augmentin Susp 10 ml PO 0025: Upon reexamination the patient is resting. I discussed results and treatment plan with the patient. She verbalizes agreement and understanding. I spoke with Dr. Johnson from the [facility]. The patient will be evaluated for further management. Medical Decision This is a 76-year-old female who presents emergency department unable to swallow her own saliva after getting a pill stuck in her throat. The patient has a history of esophageal stretching. Based on the patient's symptoms an IV was established, the patient was given 10 mg of Reglan, Nitropaste, Valium. Repeat examination revealed improvement the patient's symptoms. The patient is also complaining of shortness of breath which has been ongoing for the past several weeks. She was in to see Dr. Ceja today who placed the patient on prednisone as well as Augmentin. After the patient was able swallow her own saliva she began receiving breathing treatments as well as Solu-Medrol. The patient remained hypoxic after her treatments therefore she was discussed with the hospitalist service. Medication Reconcilliation Current Medication List: was personally reviewed by me Blood Pressure Screening Patient's blood pressure: Normal blood pressure Blood pressure disposition: Did not require urgent referral Consults Time Called: 19 Consulting Physician: Dr. Johnson - [facility] Returned Call: [phone] I discussed the patient's case with Dr. Johnson, he has agreed to evaluate the patient for further management and care. Impression Primary Impression: Dysphagia Additional Impression: COPD exacerbation Scribe Attestation The scribe's documentation has been prepared under my direction and personally reviewed by me in its entirety. I confirm that the note above accurately reflects all work, treatment, procedures, and medical decision making performed by me. Departure Information Dispostion Being Evaluated By Hospitalist Prescriptions Amoxicillin/Clavulanate Potas (AUGMENTIN 400MG/5ML) 400 Mg/5 Ml Susp 10 ML PO BID for 7 Days, #140 ML Prov: Randy Parada MD 03/27/17 Referrals Marvin Vivreos M.D. (PCP) Forms HOME CARE DOCUMENTATION FORM, IMPORTANT VISIT INFORMATION, WORK / SCHOOL INSTRUCTIONS Patient Instructions Dysphagia, Dysphagia Tx, ED Diet Clear Liquid, My [facility] Health Problem Qualifiers Primary Impression: Dysphagia Dysphagia type: unspecified Qualified Codes: R13.10 - Dysphagia, unspecified
[2017-03-26] MEDS ORDERED: GLUCAGON INJ 1 MG in SYRINGE 0 ML IV ONE (21:00)
[2017-03-26] MEDS ORDERED: NITROGLYCERIN OINT 2% 1GM PACKET ONE (21:04)
[2017-03-26] MEDS ORDERED: GLUCAGON FOR INJ 1 MG VIAL ONE (21:04)
--- NOTE | 2017-03-26 21:16 | DIAGNOSTIC IMAGING REPORT ---
CHEST ONE VIEW PORTABLE CLINICAL HISTORY: Food bolus impaction. COMPARISON STUDY: Chest radiograph March 17, 2017. FINDINGS: Lung volumes are normal. No pneumothorax or pleural effusion is present. Pulmonary vascularity is normal. Cardiomediastinal silhouette is normal. There is no evidence for pneumomediastinum. No radiopaque foreign body is identified. IMPRESSION: No acute cardiopulmonary findings. Electronically signed by: Varinder Goode M.D. 03/26/2017 9:15 PM Dictated Date/Time: 03/26/2017 9:14 PM
[2017-03-26] MEDS ORDERED: PRED10TA PO ×2 (21:24→21:25)
[2017-03-26] MEDS ORDERED: AMOX875T PO (21:27)
[2017-03-26 21:41] LABS: BASO % 0.3 %; BASO ABS # 0.02 K/uL (0-0.2); COMPLETE YES; EOS % 0.1 %; HEMATOCRIT 33.9 % (37-47); IG% 0.3 %; LYMPH % 6.3 %; LYMPH ABS # 0.46 K/uL (1.2-3.4); MEAN CELL VOLUME 85.4 fL (80-100); MEAN CORPUSCULAR HEMOGLOBIN 30.2 pg (25-34); MEAN CORPUSCULAR HGB CONC 35.4 g/dl (32-36); PLATELET COUNT 260 K/uL (130-400); RED BLOOD COUNT 3.97 M/uL (4.2-5.4)
[2017-03-26 21:59] LABS: ALT/SGPT 25 U/L (12-78); BLOOD UREA NITROGEN 15 mg/dl (7-18); BUN/CREATININE RATIO 17.7 (10-20); CALCIUM 9.1 mg/dl (8.5-10.1); CARBON DIOXIDE 26 mmol/L (21-32); CHLORIDE 94 mmol/L (98-107); CREATININE 0.83 mg/dl (0.60-1.20); GLUCOSE 177 mg/dl (70-99); POTASSIUM 3.9 mmol/L (3.5-5.1); SODIUM 129 mmol/L (136-145)
[2017-03-26 22:04] LABS: ALB/GLOB RATIO 1.1 (0.9-2); ALKALINE PHOSPHATASE 85 U/L (45-117); AST/SGOT 17 U/L (15-37); CKMB/CK RATIO 4.4 (0-3.0)
[2017-03-26] MEDS ORDERED: METHYLPREDNISOLONE 125 MG VIAL IV STA (22:05)
[2017-03-26] MEDS ORDERED: SODIUM CHLORIDE 0.9% 500ML 500 ML IV STA (22:05)
[2017-03-26] MEDS ORDERED: ALBUT/IPRATROP 3MG/0.5MG NEB 3 ML VIAL INH ONE (22:15)
[2017-03-26] MEDS ORDERED: OPTIRAY 320 IV PRN (22:15)
[2017-03-26 22:32] VITALS: PULSE 99; O2SAT 95
--- NOTE | 2017-03-26 22:56 | DIAGNOSTIC IMAGING REPORT ---
CT ANGIOGRAPHY OF THE CHEST, PULMONARY EMBOLUS PROTOCOL CLINICAL HISTORY: Shortness of breath. Pill stuck in throat. COMPARISON STUDY: Chest CT March 08, 2017. TECHNIQUE: Following IV administration of 77 mL of Optiray-320, helical axial images of the chest were obtained utilizing the pulmonary embolus protocol. Maximal intensity projections and sagittal and coronal reformats were viewed on an independent 3D workstation. IV contrast was administered without complication. A dose lowering technique was utilized adhering to the principles of ALARA. CT DOSE: 476.82 mGy.cm FINDINGS: No pulmonary emboli are identified. There is no evidence of thoracic aortic dissection. The size of the heart is normal. There is no pericardial effusion. Central airways are patent. There is no consolidation to suggest pneumonia. Multiple pulmonary nodules are similar to exam of March 08, 2017 and include a 5 mm groundglass right upper lobe nodule shown image 203. There is no consolidation to suggest pneumonia. No pneumothorax or pleural effusion is present. Bony thorax and upper abdomen are unremarkable. No radiopaque foreign bodies identified within the chest. IMPRESSION: 1. No pulmonary emboli identified. 2. No acute intrathoracic findings. 3. No change in several pulmonary nodules since exam of March 08, 2017. These can be followed according to recommendations provided on that exam. Electronically signed by: Varinder Goode M.D. 03/26/2017 10:55 PM Dictated Date/Time: 03/26/2017 10:48 PM
[2017-03-26] MEDS ORDERED: LORAZEPAM 2 MG/ML 1 ML VIAL IV STA (23:15)
[2017-03-27] VITALS (10 sets, daily range): BP systolic 110–153; BP diastolic 75–86; PULSE 77–112; TEMP 36.4–36.9; O2SAT 94–98; Ht 162.6 cm; Wt 92.4 kg
[2017-03-27] MEDS ORDERED: AMOXICILLIN/CLAVULANATE SUSP 400 MG/5 ML PO STA (00:09)
[2017-03-27] MEDS ORDERED: AGMUDL4005 PO (00:12)
[2017-03-27] MEDS ORDERED: ALUMINUM/MAGNESIUM/SIMETH (MAALOX MAX) 30 ML UDC PO PRN (02:15)
[2017-03-27] MEDS ORDERED: ACETAMINOPHEN 325 MG TAB PO PRN (02:15)
[2017-03-27] MEDS ORDERED: ONDANSETRON INJ 2 MG/ML 2 ML VIAL IV PRN (02:15)
[2017-03-27] MEDS ORDERED: MAGNESIUM HYDROXIDE SUSP 30 ML UDC PO PRN (02:15)
[2017-03-27] MEDS ORDERED: POLYETHYLENE (MIRALAX) 17 GM PACK PO PRN (02:15)
[2017-03-27] MEDS ORDERED: LEVALBUTEROL 1.25MG/0.5ML NEB INH PRN (02:15)
--- NOTE | 2017-03-27 02:57 | History and Physical ---
History & Physical Date & Time of Service: Mar 27, 2017 at 02:20 Chief Complaint: Pill Stuck In Throat Primary Care Physician: Marvin Viveros M.D. History of Present Illness Source: patient, family 76 y/o F Hx HTN, HPL, esophageal stricture, chronic dyspnea which is being managed by pulmonary. The pt has been SOB for at least 2 months. She was at her pulmonologists office earlier in the day and had been placed on Augmentin and prednisone to treat a sinus infection. It was thought that this may be the cause of her chronic dyspnea. The pt swallowed an Augmentin tab which became lodged in her throat and she subsequently presented to the ER. She was successfully treated with NTG which lead to expectoration of the pill. Following expectoration however, she was notably hypoxic and tachycardic. She was sent for a CTA to r/o PE which proved negative. She does not normally have oxygen requirement and is requiring 2l 02 to maintain a sat above 90. Her HR has persisted at over 110 and her SBP has been in the 90s. She is therefore assigned to telemetry. She denies any CP, n/v, fevers or dysuria. Past Medical/Surgical History Medical Problems: (1) Hypertension Status: Chronic (2) Pneumonia Status: Resolved Surgical Problems: (1) H/O hernia repair Status: Resolved (2) H/O: hysterectomy Status: Resolved (3) History of breast biopsy Status: Resolved Family History Cancer Gallbladder disease Hypertension Social History Smoking Status: Never Smoker Marital Status: Occupational Status: retired Multi-Drug Resistant Organisms History of MDRO: No Allergies Coded Allergies: Cetirizine (Verified Allergy, Unknown, RASH, 11/27/16) Simvastatin (Verified Allergy, Unknown, ABDOMINAL CRAMPS, 11/27/16) Home Medications Scheduled Amoxicillin & Pot Clavulanate (Augmentin 875-125 mg), 1 TAB PO BID Amoxicillin/Clavulanate Potas (Augmentin 400MG/5ML), 10 ML PO BID Atorvastatin (Lipitor), 10 MG PO HS Cholecalciferol (Vitamin D3), 1,000 UNITS PO DAILY Cyanocobalamin (Vitamin B-12), 1,000 MCG PO QAM Diltiazem Hcl Ext Rel (Tiazac), 120 MG PO BID Lisinopril/Hctz (Zestoretic 20MG/12.5MG), 1 TAB PO QAM Omeprazole (Omeprazole), 40 MG PO DAILY Prednisone Tab (Prednisone), 10 MG PO DAILY/UD Review of Systems Constitutional: No fever, No chills, No sweats Eyes: No worsening of vision, No eye pain ENT: No hearing loss, No nasal symptoms Respiratory: + shortness of breath, + dyspnea on exertion, + dyspnea at rest, No cough, No sputum, No wheezing Cardiovascular: No chest pain, No orthopnea, No PND Abdomen: No pain, No nausea, No vomiting Musculoskeletal: No joint pain Genitourinary - Female: No dysuria, No urinary frequency, No urinary urgency Neurologic: No memory loss, No paralysis, No weakness Psychiatric: No depression symptoms Endocrine: No fatigue Hematologic / Lymphatic: No abnormal bleeding/bruising Allergic / Immunologic: No environmental allergies Physical Exam Vital Signs Date Time Temp Pulse Resp B/P (MAP) Pulse Ox O2 Delivery O2 Flow Rate FiO2 03/27/17 00:21 88 Room Air 03/27/17 00:02 111/82 03/27/17 00:01 100/73 03/27/17 00:00 121 23 96 Nasal Cannula 2.0 03/26/17 23:31 115/80 03/26/17 23:30 122 24 96 Nasal Cannula 2.0 03/26/17 23:01 142/89 03/26/17 23:00 119 20 142/89 99 Nebulizer 10.0 03/26/17 23:00 118 22 100 Nasal Cannula 2.0 03/26/17 22:32 99 18 95 Nasal Cannula 2.0 03/26/17 22:09 99 24 113/80 95 Nasal Cannula 2.0 03/26/17 21:54 102 22 129/86 95 Nasal Cannula 2.0 03/26/17 21:33 91 03/26/17 21:24 93 20 134/88 96 Nasal Cannula 2.0 03/26/17 20:51 94 Nasal Cannula 2.0 03/26/17 20:39 93 Room Air 03/26/17 20:10 93 Room Air 03/26/17 20:04 36.7 105 18 141/90 93 Room Air General Appearance: WD/WN, no apparent distress, + pertinent finding ( Overweight elderly female - resting comfortably with 2L 02 ) Head: normocephalic Eyes: normal inspection ENT: normal ENT inspection, hearing grossly normal, TMs normal Neck: supple, no JVD Respiratory/Chest: chest non-tender, lungs clear Cardiovascular: no edema, no gallop, no JVD, no murmur, normal peripheral pulses, + tachycardia Abdomen/GI: normal bowel sounds, non tender, soft Back: normal inspection, no CVA tenderness Extremities/Musculoskelatal: normal inspection, no calf tenderness, normal capillary refill 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, no motor/sensory deficits, alert, normal reflexes, oriented x 3 Skin: normal color, warm/dry Diagnostics Laboratory Results Results Past 24 Hours Test 03/26/17 21:19 Range/Units White Blood Count 7.30 4.8-10.8 K/uL Red Blood Count 3.97 4.2-5.4 M/uL Hemoglobin 12.0 12.0-16.0 g/dL Hematocrit 33.9 37-47 % Mean Corpuscular Volume 85.4 80-100 fL Mean Corpuscular Hemoglobin 30.2 25-34 pg Mean Corpuscular Hemoglobin Concent 35.4 32-36 g/dl Platelet Count 260 130-400 K/uL Mean Platelet Volume 9.0 7.4-10.4 fL Neutrophils (%) (Auto) 92.0 % Lymphocytes (%) (Auto) 6.3 % Monocytes (%) (Auto) 1.0 % Eosinophils (%) (Auto) 0.1 % Basophils (%) (Auto) 0.3 % Neutrophils # (Auto) 6.72 1.4-6.5 K/uL Lymphocytes # (Auto) 0.46 1.2-3.4 K/uL Monocytes # (Auto) 0.07 0.11-0.59 K/uL Eosinophils # (Auto) 0.01 0-0.5 K/uL Basophils # (Auto) 0.02 0-0.2 K/uL RDW Standard Deviation 41.7 36.4-46.3 fL RDW Coefficient of Variation 13.4 11.5-14.5 % Immature Granulocyte % (Auto) 0.3 % Immature Granulocyte # (Auto) 0.02 0.00-0.02 K/uL Sodium Level 129 136-145 mmol/L Potassium Level 3.9 3.5-5.1 mmol/L Chloride Level 94 98-107 mmol/L Carbon Dioxide Level 26 21-32 mmol/L Anion Gap 9.0 3-11 mmol/L Blood Urea Nitrogen 15 7-18 mg/dl Creatinine 0.83 0.60-1.20 mg/dl Est Creatinine Clear Calc Drug Dose 65.1 ml/min Estimated GFR () 80.5 Estimated GFR (Non- 69.5 BUN/Creatinine Ratio 17.7 10-20 Random Glucose 177 70-99 mg/dl Calcium Level 9.1 8.5-10.1 mg/dl Total Bilirubin 0.5 0.2-1 mg/dl Aspartate Amino Transf (AST/SGOT) 17 15-37 U/L Alanine Aminotransferase (ALT/SGPT) 25 12-78 U/L Alkaline Phosphatase 85 45-117 U/L Total Creatine Kinase 75 26-192 U/L Creatine Kinase MB 3.3 0.5-3.6 ng/ml Creatine Kinase MB Ratio 4.4 0-3.0 Troponin I < 0.015 0-0.045 ng/ml Total Protein 7.1 6.4-8.2 gm/dl Albumin 3.8 3.4-5.0 gm/dl Globulin 3.3 2.5-4.0 gm/dl Albumin/Globulin Ratio 1.1 0.9-[address] chest 1. No pulmonary emboli identified. 2. No acute intrathoracic findings. 3. No change in several pulmonary nodules since exam of March 08, 2017. EKG Sinus tach Impression Assessment and Plan 76 y/o F Hx HTN, HPL, esophageal stricture, chronic dyspnea which is being managed by pulmonary. The pt has been SOB for at least 2 months. She was at her pulmonologists office earlier in the day and had been placed on Augmentin and prednisone to treat a sinus infection. It was thought that this may be the cause of her chronic dyspnea. The pt swallowed an Augmentin tab which became lodged in her throat and she subsequently presented to the ER. She was successfully treated with NTG which lead to expectoration of the pill. Following expectoration however, she was notably hypoxic and tachycardic. She was sent for a CTA to r/o PE which proved negative. She does not normally have oxygen requirement and is requiring 2l 02 to maintain a sat above 90. Her HR has persisted at over 110 and her SBP has been in the 90s. She is therefore assigned to telemetry. She denies any CP, n/v, fevers or dysuria. 1) Choking episode - pill lodged on throat - pt appears to have coughed it up - will need f/u with her GI attending - [facility]. 2) Hypoxia - reason is not clear - maybe due to sinus infection - her CT is clear. We will supplement 02, provide nebs and continue her Augmentin as a suspension. We have provided her with a single dose of Solumedrol and will continue her AM Prednisone. We have requested a pulmonology consult. 3) Hypotension and tachycardia - she is borderline hypotensive, tachycardic and may be dehydrated - we will provide IVF and hold her AM diuretics. BP meds can then be provided with parameters. There is no clear etiology for her vitals - she has been stable since arrival 4) HPL - cont Lipitor Full code - Heparin prophylaxis Total time for this admit including review of labs, meds, imaging, records - discussion with pt, daughter and ER attending 34 min. Level of Care Telemetry Resuscitation Status FULL RESUSCITATION VTE Prophylaxis VTE Risk Assessment Done? Y/N: Yes Risk Level: Moderate Given or contraindicated: Unfractionated heparin SQ
[2017-03-27] MEDS ORDERED: METHYLPREDNISOLONE IV 60 MG in SYRINGE 0 ML IV SCH (04:45)
[2017-03-27] MEDS: SODIUM CHLORIDE 0.9% 1000ML 1,000 ML IV SCH ×2 (04:50→12:09)
[2017-03-27 05:20] LABS: PROTHROMBIN TIME (PATIENT) 10.6 SECONDS (9.0-12.0)
[2017-03-27 06:05] LABS: ESTIMATED AVERAGE GLUCOSE 108 mg/dl; HA1C FLAG Normal (Normal)
[2017-03-27] MEDS: HEPARIN SOD 5000 UNIT/0.5 ML CARP SQ SCH ×3 (06:10→21:16)
[2017-03-27 07:53] LABS: COMPLETE YES; HEMATOCRIT 35.6 % (37-47); IG% 0.3 %; LYMPH % 4.2 %; MEAN CELL VOLUME 85.6 fL (80-100); MEAN CORPUSCULAR HEMOGLOBIN 30.3 pg (25-34); MEAN CORPUSCULAR HGB CONC 35.4 g/dl (32-36); MEAN PLATELET VOLUME 8.8 fL (7.4-10.4); MONO % 0.7 %; NEUT % 94.8 %; PLATELET COUNT 269 K/uL (130-400); RED BLOOD COUNT 4.16 M/uL (4.2-5.4); WHITE BLOOD COUNT 7.13 K/uL (4.8-10.8)
[2017-03-27 08:22] LABS: CALCIUM 9.8 mg/dl (8.5-10.1); CREATININE 0.71 mg/dl (0.60-1.20); POTASSIUM 3.8 mmol/L (3.5-5.1)
[2017-03-27] MEDS: AMOXICILLIN/CLAVULANATE SUSP 400 MG/5 ML PO SCH ×2 (08:33→21:31)
[2017-03-27] MEDS: CHOLECALCIFEROL 1000 INTER.UNIT TAB PO SCH (08:34)
[2017-03-27] MEDS: CYANOCOBALAMIN 500 MCG TAB (VIT B-12) PO SCH (08:34)
[2017-03-27] MEDS: DILTIAZEM HCL 120 MG EXT REL CAP PO SCH ×2 (08:37→21:20)
[2017-03-27] MEDS ORDERED: AMOXICILLIN/CLAVULANATE SUSP 400 MG/5 ML PO SCH (09:00)
[2017-03-27] MEDS ORDERED: PANTOprazole SOD 40 MG TAB PO SCH (09:00)
[2017-03-27] MEDS ORDERED: LISINOPRIL/HCTZ 20/12.5MG TAB PO SCH (09:00)
--- NOTE | 2017-03-27 12:58 | Pulmonary Consultation ---
History General Date of Service: Mar 27, 2017. Stated Complaint: Choking Due To Foreign Body, Hypoxemia HPI The patient is a 76 year old female who presents to [facility] with complaints of Choking Due To Foreign Body, Hypoxemia. The patient's primary care provider is Marvin Viveros M.D.. Ms. Reza is a 76-year-old female with hypertension, hyperlipidemia, chronic sinusitis, esophageal stricture/esophageal web status post esophagus dilatation in November 2016 who has had chronic cough and dyspnea since procedure. She is currently being worked up for chronic cough by pulmonary as outpatient and seen Drs. Jimenez and Marcial. She was seen yesterday in pulmonary office and was prescribed Augmentin for possible sinus infection and steroid taper for COPD for drop in FEV1 of about 20%. She denies any fevers, chills or chest pain. She states that she does have intermittent chest pain when swallowing. She has chronic cough which is worsened when lying supine associated with intermittent mucus production that is yellowish to duffy in color. He uses 2-3 pillows due to orthopnea. She has mild lower extremity swelling. She often does awaken from sleep with episodes of coughing. Of late, she is having worsening exertional dyspnea and only walk a few feet without taking arrest. She denies any abdominal pain, but often has a sensation that food is "stuck" in esophagus which is associated with decreased satiety. She said that over the last few weeks she's had overall generalized weakness and lethargy associated with about a 10-15 pound weight loss. Last evening she swallowed Augmentin pill which got lodged in throat and presented to the emergency room for further evaluation. In the ER she was treated with nitroglycerin, which led to expectoration of the pill. Following expiration she became increasingly anxious and tachycardic. She was also noted to be hypoxic at the time. She was given Solu-Medrol 125 mg IV 1, Ativan 0.5 mg 1 dose, DuoNeb nebulizer as well as is Augmentin suspension. CT of the chest was done to rule out PE and was found to be negative however was consistent with previous CT that showed several subcentimeter pulmonary nodules on the right upper and lower lobes that were unchanged from previous CT done on 03/08/2017. She was admitted to telemetry for acute hypoxia and tachycardia. Vital signs since admission to a MAXIMUM TEMPERATURE of 36.6, blood pressure ranging between 92/64-148/86, pulse 89-121, respiratory rate 16-23, pulse ox 87- 98% on 3 L nasal cannula. Her current medications include atorvastatin 10 mg by mouth, vitamin D 1000 units by mouth daily, vitamin B12 1000 g by mouth daily, diltiazem 120 mg 3 times a day by mouth, prednisone 10 mg daily by mouth, pantoprazole 40 mg by mouth, Augmentin suspension 10 mL twice a day by mouth, acetaminophen 650 mg every 4 hours when necessary, and levalbuterol every 4 hours when necessary inhalation. Pulmonary workup for chronic cough is thus far has consisted of spirometry which showed a FEV1 to/FVC ratio for about 54% without significant bronchodilator response. There was significant air trapping. She underwent an exercise stress echocardiogram to rule out ischemia on 02/27/2017 which was negative. LV function was normal and there is no evidence to suggest pulmonary hypertension at that time. She was also on lisinopril which was thought to be contributing to her cough and this was switched to losartan but has made no significant difference in her symptoms and later recent resumed as. She has history of chronic GERD continues on omeprazole. Historian: patient, other (other notes) Onset: other Severity: moderate Complaint Status: worsened, persistent Modifying Factors: other (sitting forward) Review of Systems Constitutional: reports: malaise, weakness Eyes: reports: no symptoms ENT: reports: sore throat Cardiovascular: reports: chest pain, chest pressure, chest tightness Respiratory: reports: cough, orthopnea, shortness of breath, GIL, PND Gastrointestinal: reports: anorexia (dysphagia), appetite changes Genitourinary - Female: reports: urinary incontinence Musculoskeletal: reports: no symptoms Integumentary: reports: no symptoms Neurologic: reports: no symptoms Psychiatric: reports: no symptoms Endocrine: cold intolerance Hematologic / Lymphatic: no symptoms Allergic / Immunologic: no symptoms Past Medical History Past Medical History: Active Problems 1. Anemia (D64.9) 2. BMI 39.0-39.9,adult (Z68.39) 3. Carpal tunnel syndrome (G56.00) 4. Chronic osteoarthritis (M19.90) 5. Chronic sinusitis (J32.9) 6. Cough (R05) 7. Dermatitis (L30.9) 8. Dyslipidemia (E78.5) 9. Dysphagia (R13.10) 10. Esophagitis (K20.9) 11. Exertional dyspnea (R06.09) 12. Gastroesophageal reflux disease (K21.9) 13. Hyperglycemia (R73.9) 14. Hypertension (I10) 15. Lumbar radiculopathy (M54.16) 16. Multiple pulmonary nodules (R91.8) 17. Postnasal drip (R09.82) 18. Rhinitis (J31.0) 19. Shortness of breath (R06.02) 20. SOB (shortness of breath) on exertion (R06.02) Past Surgical History: Surgical History 1. History of Breast Surgery 2. History of Complete Colonoscopy 3. History of Diagnostic Esophagogastroduodenoscopy 4. History of Hysterectomy Family History Cancer Gallbladder disease Hypertension 1. Family history of Mother At Age 50 2. Family history of Father At Age 50 3. Family history of Emphysema Social History Never a smoker, denies alcohol and illicit drug use. She is . She has remote history of tobacco exposure in her youth from both parents and sister. She denies any active smoking history of her own. Smoking Status: Never Smoker Marital status: Occupational Status: retired History of MDRO History of MDRO: No Allergies Coded Allergies: Cetirizine (Verified Allergy, Unknown, RASH, 11/27/16) Simvastatin (Verified Allergy, Unknown, ABDOMINAL CRAMPS, 11/27/16) Current Medications Reported Home Medications Medications Dose Route/Sig Max Daily Dose Days Date Category Dose Instructions Augmentin 400MG/5ML (Amoxicillin/Clavulanate Potassium) 400 Mg/5 Ml Susp 10 Ml PO BID 7 03/27/17 Rx Augmentin 875-125 mg (Amoxicillin & Pot Clavulanate) 1 Tab Tab 1 Tab PO BID 7 03/26/17 Reported BEGIN 03/26/17 X 7 DAYS. Prednisone 10 Mg Tab 10 Mg PO DAILY/UD 03/26/17 Reported BEGIN 03/26/17 TAKE DAILY IN TAPERED -DOWN DOSE. Vitamin D3 (Cholecalciferol) 1,000 Unit Tab 1,000 Units PO DAILY 03/16/17 Reported Tiazac (Diltiazem HCl) 120 Mg Capcr 120 Mg PO BID 03/16/17 Reported Omeprazole 20 Mg Tab 40 Mg PO DAILY 03/16/17 Reported Lipitor (Atorvastatin Calcium) 10 Mg Tab 10 Mg PO HS 10/11/16 Reported Zestoretic 20MG/12.5MG (HCTZ/Lisinopril) Tab 1 Tab PO QAM 10/11/16 Reported Vitamin B-12 (Cyanocobalamin) 1,000 Mcg Tab 1,000 Mcg PO QAM 10/11/16 Reported Physical Physical Exam Vital Signs: Date Time Temp Pulse Resp B/P (MAP) Pulse Ox O2 Delivery O2 Flow Rate FiO2 03/27/17 08:36 111 137/80 (99) 03/27/17 08:12 36.6 103 18 126/83 (97) 98 2.0 03/27/17 07:30 Nasal Cannula 2.0 03/27/17 07:30 98 Nasal Cannula 2.0 03/27/17 04:25 36.4 112 20 148/86 95 Nasal Cannula 2.0 03/27/17 04:02 108 20 110/79 96 03/27/17 02:30 111 22 106/70 93 Nasal Cannula 2.0 03/27/17 02:00 119 17 112/79 87 Room Air 03/27/17 01:31 92/64 03/27/17 01:30 113 23 94 Nasal Cannula 2.0 03/27/17 01:00 119 20 118/76 97 Nasal Cannula 2.0 03/27/17 00:31 95/66 03/27/17 00:30 118 22 92 Nasal Cannula 2.0 03/27/17 00:21 88 Room Air 03/27/17 00:02 111/82 03/27/17 00:01 100/73 03/27/17 00:00 121 23 96 Nasal Cannula 2.0 03/26/17 23:31 115/80 03/26/17 23:30 122 24 96 Nasal Cannula 2.0 03/26/17 23:01 142/89 03/26/17 23:00 119 20 142/89 99 Nebulizer 10.0 03/26/17 23:00 118 22 100 Nasal Cannula 2.0 03/26/17 22:32 99 18 95 Nasal Cannula 2.0 03/26/17 22:09 99 24 113/80 95 Nasal Cannula 2.0 03/26/17 21:54 102 22 129/86 95 Nasal Cannula 2.0 03/26/17 21:33 91 03/26/17 21:24 93 20 134/88 96 Nasal Cannula 2.0 03/26/17 20:51 94 Nasal Cannula 2.0 03/26/17 20:39 93 Room Air 03/26/17 20:10 93 Room Air 03/26/17 20:04 36.7 105 18 141/90 93 Room Air General Appearance: WELL-APPEARING, WD/WN, NO APPARENT DISTRESS, obese Head: NORMOCEPHALIC, ATRAUMATIC Eyes: PERRLA, NO DISCHARGE, EOMI, SCLERAE NORMAL, CONJUNCTIVAE NORMAL ENT: NORMAL MOUTH EXAM, NORMAL THROAT EXAM (Mallampati 2) Neck: NORMAL RANGE OF MOTION, NO TENDERNESS, TRACHEA MIDLINE Respiratory: BREATH SOUNDS NORMAL Cardiovasular: REGULAR RATE/RHYTHM, NORMAL S1S2 Abdomen: NON TENDER, NORMAL BOWEL SOUNDS, NO REBOUND Back: NORMAL INSPECTION Upper Extremities: NO EDEMA, other (no cyanosis, no clubbing) Lower Extremities: other (trace peripheral edema) Pulses: dorsalis pedis (R) (2+), dorsalis pedis (L) (2+) Neuro: ALERT, ORIENTED x 3, NORMAL MOTOR EXAM, NORMAL SENSATION, NORMAL CEREBELLAR EXAM, NORMAL SPEECH, NORMAL MEMORY Psychiatric: NORMAL AFFECT, NO SUICIDAL IDEATION, CONTRACTS FOR SAFETY Diagnostics Labs Results Past 24 Hours Test 03/26/17 21:19 03/27/17 04:57 03/27/17 07:42 03/27/17 09:55 Range/Units White Blood Count 7.30 7.13 4.8-10.8 K/uL Red Blood Count 3.97 4.16 4.2-5.4 M/uL Hemoglobin 12.0 12.6 12.0-16.0 g/dL Hematocrit 33.9 35.6 37-47 % Mean Corpuscular Volume 85.4 85.6 80-100 fL Mean Corpuscular Hemoglobin 30.2 30.3 25-34 pg Mean Corpuscular Hemoglobin Concent 35.4 35.4 32-36 g/dl Platelet Count 260 269 130-400 K/uL Mean Platelet Volume 9.0 8.8 7.4-10.4 fL Neutrophils (%) (Auto) 92.0 94.8 % Lymphocytes (%) (Auto) 6.3 4.2 % Monocytes (%) (Auto) 1.0 0.7 % Eosinophils (%) (Auto) 0.1 0.0 % Basophils (%) (Auto) 0.3 0.0 % Neutrophils # (Auto) 6.72 6.76 1.4-6.5 K/uL Lymphocytes # (Auto) 0.46 0.30 1.2-3.4 K/uL Monocytes # (Auto) 0.07 0.05 0.11-0.59 K/uL Eosinophils # (Auto) 0.01 0.00 0-0.5 K/uL Basophils # (Auto) 0.02 0.00 0-0.2 K/uL RDW Standard Deviation 41.7 42.3 36.4-46.3 fL RDW Coefficient of Variation 13.4 13.6 11.5-14.5 % Immature Granulocyte % (Auto) 0.3 0.3 % Immature Granulocyte # (Auto) 0.02 0.02 0.00-0.02 K/uL Sodium Level 129 130 136-145 mmol/L Potassium Level 3.9 3.8 3.5-5.1 mmol/L Chloride Level 94 96 98-107 mmol/L Carbon Dioxide Level 26 25 21-32 mmol/L Anion Gap 9.0 9.0 3-11 mmol/L Blood Urea Nitrogen 15 13 7-18 mg/dl Creatinine 0.83 0.71 0.60-1.20 mg/dl Est Creatinine Clear Calc Drug Dose 65.1 76.2 ml/min Estimated GFR () 80.5 97.3 Estimated GFR (Non- 69.5 83.9 BUN/Creatinine Ratio 17.7 18.0 10-20 Random Glucose 177 160 70-99 mg/dl Calcium Level 9.1 9.8 8.5-10.1 mg/dl Total Bilirubin 0.5 0.2-1 mg/dl Aspartate Amino Transf (AST/SGOT) 17 15-37 U/L Alanine Aminotransferase (ALT/SGPT) 25 12-78 U/L Alkaline Phosphatase 85 45-117 U/L Total Creatine Kinase 75 26-192 U/L Creatine Kinase MB 3.3 0.5-3.6 ng/ml Creatine Kinase MB Ratio 4.4 0-3.0 Troponin I < 0.015 0-0.045 ng/ml Total Protein 7.1 6.4-8.2 gm/dl Albumin 3.8 3.4-5.0 gm/dl Globulin 3.3 2.5-4.0 gm/dl Albumin/Globulin Ratio 1.1 0.9-2 Prothrombin Time 10.6 9.0-12.0 SECONDS Prothromb Time International Ratio 1.0 0.9-1.1 Estimated Average Glucose 108 mg/dl Hemoglobin A1c 5.4 4.5-5.6 % Diagnostic Radiology Chest x-ray from 03/26/2017 FINDINGS: Lung volumes are normal. No pneumothorax or pleural effusion is present. Pulmonary vascularity is normal. Cardiomediastinal silhouette is normal. There is no evidence for pneumomediastinum. No radiopaque foreign body is identified. IMPRESSION: No acute cardiopulmonary findings. FINDINGS: No pulmonary emboli are identified. There is no evidence of thoracic aortic dissection. The size of the heart is normal. There is no pericardial effusion. Central airways are patent. There is no consolidation to suggest pneumonia. Multiple pulmonary nodules are similar to exam of March 08, 2017 and include a 5 mm groundglass right upper lobe nodule shown image 203. There is no consolidation to suggest pneumonia. No pneumothorax or pleural effusion is present. Bony thorax and upper abdomen are unremarkable. No radiopaque foreign bodies identified within the chest. CT chest 03/26/2017 IMPRESSION: 1. No pulmonary emboli identified. 2. No acute intrathoracic findings. 3. No change in several pulmonary nodules since exam of March 08, 2017. These can be followed according to recommendations provided on that exam. Sinus CT 03/27/2017 FINDINGS: Focal area of mild mucosal thickening within the lateral aspect of the left frontal sinus and a small retention cyst within the left frontal sinus. The right frontal sinuses, ethmoid air cells, maxillary sinuses, sphenoid sinuses, and mastoid air cells are clear. Left-sided adilene bullosa. The lamina papyracea and orbital floors are intact. No evidence for carotid canal dehiscence. The bilateral ostiomeatal units are patent. No fluid levels within the paranasal sinuses. Mild right nasal septal deviation with a small right nasal spur. The orbits are unremarkable. IMPRESSION: Mild chronic sinus disease within the left frontal sinus as described above. Otherwise, the paranasal sinuses and mastoid air cells are clear. EKG EKG from 03/18/2017 Normal sinus rhythm with ventricular rate of 96 bpm Normal EKG Impression Assessment and Plan Hypoxia Chronic cough Subcentimeter pulmonary nodules Chronic rhinitis COPD Dysphagia GERD Patient has history of chronic cough since dilatation for esophageal web in November 2016. Her symptoms haven't been associated with progressive shortness of breath and dyspnea on exertion. Overnight she had episode of approximately 87% after pill was discharged from the esophagus. This may have been a bronchospasm. CT chest with contrast ruled out PE. PFT from outpatient shows that she does have moderate COPD with significant air trapping. These findings can precipitate increased shortness of breath and dyspnea. Continue with Xopenex every 4 hours when necessary as needed. Start Spiriva while inpatient. She can probably to be discharged home on Xopenex and ipratropium nebulizer. Continue with supplemental oxygen to maintain SaO2 between 88-92%. Continue steroid taper. I would also do overnight spirometry while inpatient. She should have full sleep study as outpatient. Send alpha anti trypsin with strong family history of emphysema and lack of smoking history. V/Q scan to rule out CTEPH. For subcentimeter pulmonary nodules, I recommend interval follow up with pulmonary in 12 months. I also suspect the patient may be silently aspirating and agree with video swallow. I agree with empiric antibiotic for sinusitis/rhinitis. Can consider adding Flonase regimen. For GERD continue with omeprazole. I suggest GI consult for dysphagia/ odynophagia, increased satiety and weight loss. I appreciate the consult and will continue to follow with you. If patients symptoms do not improve will consider bronchoscopy.
[2017-03-27 13:21] LABS: URINE APPEARANCE CLEAR (CLEAR); URINE BILIRUBIN NEG (NEG); URINE COLOR YELLOW; URINE NITRITE NEG (NEG); URINE PH 5.5 (4.5-7.5); URINE SPECIFIC GRAVITY > 1.045 (1.000-1.030); UROBILINOGEN NEG (NEG)
[2017-03-27 13:32] LABS: MANUAL MICROSCOPIC REQUIRED? NO; REVIEW REQ? NO
--- NOTE | 2017-03-27 15:48 | Family Medicine Progress Note ---
Progress Note Date of Service Mar 27, 2017. Subjective Pt evaluation today including: conversation w/ patient, physical exam, chart review, lab review, conversation w/ [facility] health consultant Pain: 0/10 PO Intake: WNL Voiding: no voiding problems Patient notes that she feels very comfortable and without shortness of breath when using 2 L of Oxygen She tried to walk to the bathroom without the oxygen and was SOB by the time she reached the bed She denies any chest pain at this time Constitutional: No fever Eyes: No worsening of vision ENT: No hearing loss Respiratory: + dyspnea on exertion, No cough, No sputum, No wheezing, No shortness of breath, No dyspnea at rest Cardiovascular: No chest pain Abdomen: + problem reported (no dysphagia noted), No pain, No nausea, No vomiting, No diarrhea, No constipation Musculoskeletal: No joint pain, No muscle pain Female : No dysuria Neurologic: No weakness, No balance problems Psychiatric: No depression symptoms Heme: No abnormal bleeding/bruising Endo: No fatigue Skin: No rash Medications Medications Administered Medications (Trade) Dose Ordered Sig/Jonh Paul Route Start Time Stop Time Status Last Admin Dose Admin Metoclopramide HCl (Reglan Inj) 10 mg NOW STAT IV 03/26/17 20:43 03/26/17 20:47 DC 03/26/17 21:21 10 MG Diazepam (Valium Inj) 5 mg NOW STAT IV 03/26/17 20:43 03/26/17 20:47 DC 03/26/17 21:21 5 MG Glucagon (Glucagon Inj) 1 mg STK-MED ONCE .ROUTE 03/26/17 21:04 03/26/17 21:05 DC 03/26/17 21:21 1 MG Nitroglycerin (Nitroglycerin 2% Oint) 1 inch STK-MED ONCE .ROUTE 03/26/17 21:04 03/26/17 21:05 DC 03/26/17 21:20 1 INCH Albuterol/ Ipratropium (Duoneb) 12 ml ONE ONCE INH 03/26/17 22:15 03/26/17 22:16 DC 03/26/17 22:32 12 ML Methylprednisolone Sodium Succinate (Solu-Medrol IV) 125 mg NOW STAT IV 03/26/17 22:05 03/26/17 22:07 DC 03/26/17 22:15 125 MG Sodium Chloride 500 ml @ 999 mls/hr Q31M STAT IV 03/26/17 22:05 03/26/17 22:35 DC 03/26/17 22:15 999 MLS/HR Lorazepam (Ativan Inj) 0.5 mg NOW STAT IV 03/26/17 23:15 03/26/17 23:17 DC 03/26/17 23:23 0.5 MG Amoxicillin/ Clavulanate Potassium (Augmentin Susp) 10 ml NOW STAT PO 03/27/17 00:09 03/27/17 00:11 DC 03/27/17 00:09 10 ML Methylprednisolone Sodium Succinate 60 mg/Syringe 0.96 ml @ 1.5 mls/min TODAY@0445 IV 03/27/17 04:45 03/27/17 04:46 DC 03/27/17 04:59 1.5 MLS/MIN Cholecalciferol (Vitamin D Tab) 1,000 inter.unit DAILY PO 03/27/17 09:00 04/26/17 08:59 03/27/17 08:34 1,000 INTER.UNIT Cyanocobalamin (Vitamin B-12 Tab) 1,000 mcg QAM PO 03/27/17 09:00 04/26/17 08:59 03/27/17 08:34 1,000 MCG Diltiazem HCl (TIAzac CAP) 120 mg BID PO 03/27/17 09:00 04/26/17 08:59 03/27/17 08:37 120 MG Prednisone (PredniSONE TAB) 10 mg DAILY PO 03/27/17 09:00 03/27/17 13:14 DC 03/27/17 08:34 10 MG Pantoprazole Sodium (Protonix Tab) 40 mg QAM PO 03/27/17 09:00 04/26/17 08:59 03/27/17 07:34 40 MG Heparin Sodium (Porcine) (Heparin Sq 5000 Unit/0.5ml) 5,000 unit Q8 SQ 03/27/17 06:00 04/26/17 05:59 03/27/17 14:16 5,000 UNIT Acetaminophen (Tylenol Tab) 650 mg Q4H PRN PO 03/27/17 02:15 04/26/17 02:14 03/27/17 09:52 650 MG Sodium Chloride 1,000 ml @ 125 mls/hr Q8H IV 03/27/17 04:30 03/27/17 20:29 03/27/17 12:09 125 MLS/HR Amoxicillin/ Clavulanate Potassium (Augmentin Susp) 10 ml BID PO 03/27/17 09:00 04/06/17 08:59 03/27/17 08:33 10 ML Prednisone (PredniSONE TAB) 25 mg TODAY@1315 PO 03/27/17 13:15 03/27/17 13:16 DC 03/27/17 15:05 25 MG Objective Vital Signs Date Time Temp Pulse Resp B/P (MAP) Pulse Ox O2 Delivery O2 Flow Rate FiO2 03/27/17 15:25 36.9 81 18 110/75 (87) 98 Nasal Cannula 2.0 03/27/17 12:40 Nasal Cannula 2.0 03/27/17 11:37 36.6 89 16 132/77 (95) 95 Nasal Cannula 3.0 03/27/17 08:36 111 137/80 (99) 03/27/17 08:12 36.6 103 18 126/83 (97) 98 2.0 03/27/17 07:30 Nasal Cannula 2.0 03/27/17 07:30 98 Nasal Cannula 2.0 03/27/17 04:25 36.4 112 20 148/86 95 Nasal Cannula 2.0 03/27/17 04:02 108 20 110/79 96 03/27/17 02:30 111 22 106/70 93 Nasal Cannula 2.0 03/27/17 02:00 119 17 112/79 87 Room Air 03/27/17 01:31 92/64 03/27/17 01:30 113 23 94 Nasal Cannula 2.0 03/27/17 01:00 119 20 118/76 97 Nasal Cannula 2.0 03/27/17 00:31 95/66 03/27/17 00:30 118 22 92 Nasal Cannula 2.0 03/27/17 00:21 88 Room Air 03/27/17 00:02 111/82 03/27/17 00:01 100/73 03/27/17 00:00 121 23 96 Nasal Cannula 2.0 03/26/17 23:31 115/80 03/26/17 23:30 122 24 96 Nasal Cannula 2.0 03/26/17 23:01 142/89 03/26/17 23:00 119 20 142/89 99 Nebulizer 10.0 03/26/17 23:00 118 22 100 Nasal Cannula 2.0 03/26/17 22:32 99 18 95 Nasal Cannula 2.0 03/26/17 22:09 99 24 113/80 95 Nasal Cannula 2.0 03/26/17 21:54 102 22 129/86 95 Nasal Cannula 2.0 03/26/17 21:33 91 03/26/17 21:24 93 20 134/88 96 Nasal Cannula 2.0 03/26/17 20:51 94 Nasal Cannula 2.0 03/26/17 20:39 93 Room Air 03/26/17 20:10 93 Room Air 03/26/17 20:04 36.7 105 18 141/90 93 Room Air Physical Exam General Appearance: no apparent distress Eyes: normal inspection ENT: normal ENT inspection Neck: supple, no adenopathy Respiratory/Chest: normal breath sounds, no respiratory distress, no accessory muscle use, + decreased breath sounds (bilat bases) Assessment and Plan This is a 76 yo f that has a history of HTN, HPL, esophageal stricture and chronic dyspnea that she has been suffering from for the last 2 months. 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 She notes she used to walk on a regular basis however she is now unable to walk a block without SOBOE. A CT of the chest was done by PCP which reveal several ground glass nodules and she was referred to pulmonary. Patient was evaluated with Spirometry . The mary revealed moderate obstructive pattern with no improvement with albuterol. A CT of the sinuses revealed chronic changes so patient was placed on empiric antibiotics and prednisone. After taking her first dose the patient started to choke and she went to the ED. After receiving NTG the pill was expectorated however patient suffered from hypoxia, hypotension and tachycardia requiring 2L of O2 Acute hypoxic respiratory failure; Moderate obs pattern on mary - patient has been hemodynamically stable all afternoon, will change to med surg - pulmonary consult and appreciate recs - Spiriva will be initiated in house - Xopenx and ipratropium nebs for d/c home - plan for overnight O2 sat and agree with rec for assess for sleep apnea - pending speech eval Chronic Sinusitis - continue augmentin however as a suspension - continue the prednisone taper per allscripts rx; 35 mg daily as of today and decrease by 5 mg every 2 days Hyponatremia; mild - this is new in onset since november of 2016 - the patient will be evaluated for SIADH - Serum osm, urine osm and urine sodium reflects a hypovolemic/ hyponatremic state more than SIADH - the serum osmol was 279 which is barely abnormal - will hold NSS IVF and reassess BMP in the am HTN - Patient is currently on Diltiazem 120 mg daily and Lisinopril 20 mg daily per allscripts - When the patient first started to suffer from dyspnea the patient had trialled losartan with no improvement so patient was changed back to lisinopril - the patient states that she had underwent a stress echo which was WNL except for mild diastolic dysfunction HPL - continue atorvastatin 10 mg daily GERD - continue protonix - will order Gi consult per suggestion of Pulmonary DVT Prophylaxis - heparin Continued [facility] stay due to: other Discharge planning: uncertain Reviewed: Pt Seen/Exam by Me History Resident Physician Supervision Note: I interviewed and examined the patient. Discussed with Dr. Lauren and agree with findings and plan as documented in the note. Any exceptions or clarifications are listed here: Pt here with acute hypoxemic respiratory failure after pill impaction in esophagus. She has been having chronic GIL x 3 months after an esophageal dilation and biopsy for esophageal web. 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 She does report that her Dad in his early 50s from emphysema but was a smoker, sister in her early 60s from emphysema but was a smoker, and her 28 yo grandson also has COPD (thought to be from "using drugs" and "being in [place]"). No liver problems in the family except her Mom of cirrhosis in her 50s with chronic hepatitis. Feeling better now, seen by Speech who recommended GI consult. Seen by GI who ordered CT abd/pel and barium swallow as well as Video swallow. CT abd/pel with large ventral hernia but otherwise unremarkable but limited without contrast. Vitals reviewed NAD, sitting up in bed, very pleasant RRR no mgr Lungs with some fine crackles at bases bilat and with decreased breath sounds and poor air movement throughout, no wheezes Abd +BS, +large ventral hernia reducible and nontender Ext no calf tenderness, no edema, 2+ DP pulses, fingers with clubbing, no cyanosis SKin no rashes 76 yo female with mod-severe COPD, with acute respiratory failure s/p pill impaction. Dyspnea could be from GERD, COPD, or combination. -increased PPI to bid as per GI recommendation -checking video swallow and Barium swallow tomorrow -may need repeat EGD in future -continue tx for sinusitis and prednisone taper -2 step prior to dc for home O2 assessment -given significant +FH for COPD, will check for A1-AT deficiency -added Spiriva, needs rescue inhaler at home Documented By: Ellen Maldonado
--- NOTE | 2017-03-27 17:38 | Gastrointestinal Consultation ---
Gastrointestinal Consultation Date of Consultation: Mar 27, 2017 Attending Physician: Kristian Johnson Consulting Physician: Unruly Ferrell Reason for Consultation: pill impaction in esophagus, s/u esophageal web stretching History of Present Illness Patient is a 76 year old female with chief complaint of shortness of breath. On review of [facility] records patient had EGD by DR Knight done 11/29/16 during which esophageal web noted which was dilated and also grade B esophagitis. Random bx of esophagus negative for EOE. Dysphagia overall improved but she noted some more reflux and developed chronic cough and worsening sob since then. Was at doctor office day of admit and given augmentin and prednisone. Augmentin stuck while swallowing. She was unable to handle her saliva. NTG/ Valium and Reglan given with resolution of her acute obstruction but then noted she had desaturation and tachycardia. CTA of chest neg for PE but showed lung nodules She denies bloody or black stools. Since on prilosec post EGD her chronic constipation somewhat better. She states early satiety with unintentional wt loss of 10 lbs over the last 3 weeks. CBC and CMP noted with Na low. Past Medical/Surgical History Medical Problems: (1) COPD exacerbation Status: Acute (2) Dysphagia Status: Acute (3) Dyspnea Status: Acute (4) Esophageal obstruction due to food impaction Status: Acute Family History Cancer Gallbladder disease Hypertension Social History Smoking Status: Never Smoker Alcohol Use: none Marital Status: Housing Status: lives alone Occupation Status: retired Allergies Coded Allergies: Cetirizine (Verified Allergy, Unknown, RASH, 11/27/16) Simvastatin (Verified Allergy, Unknown, ABDOMINAL CRAMPS, 11/27/16) Current Medications Home Meds and Scripts Medications Dose Route/Sig Max Daily Dose Days Date Category Dose Instructions Augmentin 400MG/5ML (Amoxicillin/Clavulanate Potassium) 400 Mg/5 Ml Susp 10 Ml PO BID 7 03/27/17 Rx Augmentin 875-125 mg (Amoxicillin & Pot Clavulanate) 1 Tab Tab 1 Tab PO BID 7 03/26/17 Reported BEGIN 03/26/17 X 7 DAYS. Prednisone 10 Mg Tab 10 Mg PO DAILY/UD 03/26/17 Reported BEGIN 03/26/17 TAKE DAILY IN TAPERED -DOWN DOSE. Vitamin D3 (Cholecalciferol) 1,000 Unit Tab 1,000 Units PO DAILY 03/16/17 Reported Tiazac (Diltiazem HCl) 120 Mg Capcr 120 Mg PO BID 03/16/17 Reported Omeprazole 20 Mg Tab 40 Mg PO DAILY 03/16/17 Reported Lipitor (Atorvastatin Calcium) 10 Mg Tab 10 Mg PO HS 10/11/16 Reported Zestoretic 20MG/12.5MG (HCTZ/Lisinopril) Tab 1 Tab PO QAM 10/11/16 Reported Vitamin B-12 (Cyanocobalamin) 1,000 Mcg Tab 1,000 Mcg PO QAM 10/11/16 Reported Review of Systems 10 sets of ROS otherwise negative. Physical Exam Date Time Temp Pulse Resp B/P (MAP) Pulse Ox O2 Delivery O2 Flow Rate FiO2 03/27/17 15:25 36.9 81 18 110/75 (87) 98 Nasal Cannula 2.0 03/27/17 12:40 Nasal Cannula 2.0 03/27/17 11:37 36.6 89 16 132/77 (95) 95 Nasal Cannula 3.0 03/27/17 08:36 111 137/80 (99) 03/27/17 08:12 36.6 103 18 126/83 (97) 98 2.0 03/27/17 07:30 Nasal Cannula 2.0 03/27/17 07:30 98 Nasal Cannula 2.0 03/27/17 04:25 36.4 112 20 148/86 95 Nasal Cannula 2.0 03/27/17 04:02 108 20 110/79 96 03/27/17 02:30 111 22 106/70 93 Nasal Cannula 2.0 03/27/17 02:00 119 17 112/79 87 Room Air 03/27/17 01:31 92/64 03/27/17 01:30 113 23 94 Nasal Cannula 2.0 03/27/17 01:00 119 20 118/76 97 Nasal Cannula 2.0 03/27/17 00:31 95/66 03/27/17 00:30 118 22 92 Nasal Cannula 2.0 03/27/17 00:21 88 Room Air 03/27/17 00:02 111/82 03/27/17 00:01 100/73 03/27/17 00:00 121 23 96 Nasal Cannula 2.0 03/26/17 23:31 115/80 03/26/17 23:30 122 24 96 Nasal Cannula 2.0 03/26/17 23:01 142/89 03/26/17 23:00 119 20 142/89 99 Nebulizer 10.0 03/26/17 23:00 118 22 100 Nasal Cannula 2.0 03/26/17 22:32 99 18 95 Nasal Cannula 2.0 03/26/17 22:09 99 24 113/80 95 Nasal Cannula 2.0 03/26/17 21:54 102 22 129/86 95 Nasal Cannula 2.0 03/26/17 21:33 91 03/26/17 21:24 93 20 134/88 96 Nasal Cannula 2.0 03/26/17 20:51 94 Nasal Cannula 2.0 03/26/17 20:39 93 Room Air 03/26/17 20:10 93 Room Air 03/26/17 20:04 36.7 105 18 141/90 93 Room Air General Appearance: WD/WN, no apparent distress ENT: hearing grossly normal, pharynx normal Neck: no adenopathy, trachea midline Respiratory/Chest: chest non-tender, no respiratory distress Cardiovascular: no edema, no murmur Abdomen: normal bowel sounds, non tender, soft, no organomegaly Neurologic/Psych: nailer machine II-XII nml as tested, normal mood/affect, oriented x 3 Skin: normal color, no jaundice Laboratory Results Last 24 Hours Test 03/26/17 21:19 03/27/17 04:57 03/27/17 06:20 03/27/17 07:42 White Blood Count 7.30 K/uL 7.13 K/uL Red Blood Count 3.97 M/uL 4.16 M/uL Hemoglobin 12.0 g/dL 12.6 g/dL Hematocrit 33.9 % 35.6 % Mean Corpuscular Volume 85.4 fL 85.6 fL Mean Corpuscular Hemoglobin 30.2 pg 30.3 pg Mean Corpuscular Hemoglobin Concent 35.4 g/dl 35.4 g/dl Platelet Count 260 K/uL 269 K/uL Mean Platelet Volume 9.0 fL 8.8 fL Neutrophils (%) (Auto) 92.0 % 94.8 % Lymphocytes (%) (Auto) 6.3 % 4.2 % Monocytes (%) (Auto) 1.0 % 0.7 % Eosinophils (%) (Auto) 0.1 % 0.0 % Basophils (%) (Auto) 0.3 % 0.0 % Neutrophils # (Auto) 6.72 K/uL 6.76 K/uL Lymphocytes # (Auto) 0.46 K/uL 0.30 K/uL Monocytes # (Auto) 0.07 K/uL 0.05 K/uL Eosinophils # (Auto) 0.01 K/uL 0.00 K/uL Basophils # (Auto) 0.02 K/uL 0.00 K/uL RDW Standard Deviation 41.7 fL 42.3 fL RDW Coefficient of Variation 13.4 % 13.6 % Immature Granulocyte % (Auto) 0.3 % 0.3 % Immature Granulocyte # (Auto) 0.02 K/uL 0.02 K/uL Sodium Level 129 mmol/L 130 mmol/L Potassium Level 3.9 mmol/L 3.8 mmol/L Chloride Level 94 mmol/L 96 mmol/L Carbon Dioxide Level 26 mmol/L 25 mmol/L Anion Gap 9.0 mmol/L 9.0 mmol/L Blood Urea Nitrogen 15 mg/dl 13 mg/dl Creatinine 0.83 mg/dl 0.71 mg/dl Est Creatinine Clear Calc Drug Dose 65.1 ml/min 76.2 ml/min Estimated GFR () 80.5 97.3 Estimated GFR (Non- 69.5 83.9 BUN/Creatinine Ratio 17.7 18.0 Random Glucose 177 mg/dl 160 mg/dl Calcium Level 9.1 mg/dl 9.8 mg/dl Total Bilirubin 0.5 mg/dl Aspartate Amino Transf (AST/SGOT) 17 U/L Alanine Aminotransferase (ALT/SGPT) 25 U/L Alkaline Phosphatase 85 U/L Total Creatine Kinase 75 U/L Creatine Kinase MB 3.3 ng/ml Creatine Kinase MB Ratio 4.4 Troponin I < 0.015 ng/ml Total Protein 7.1 gm/dl Albumin 3.8 gm/dl Globulin 3.3 gm/dl Albumin/Globulin Ratio 1.1 Prothrombin Time 10.6 SECONDS Prothromb Time International Ratio 1.0 Estimated Average Glucose 108 mg/dl Hemoglobin A1c 5.4 % Urine Color YELLOW Urine Appearance CLEAR Urine pH 5.5 Urine Specific [place] > 1.045 Urine Protein NEG Urine Glucose (UA) NEG Urine Ketones NEG Urine Occult Blood NEG Urine Nitrite NEG Urine Bilirubin NEG Urine Urobilinogen NEG Urine Leukocyte Esterase NEG Urine Osmolality 569 mOms/kg Urine Random Sodium 13 mEq/L Test 8/29/17 14:00 03/27/17 17:04 Osmolality 279 mOsm/kg Impression Dysphagia---recommend VFS for oropharyngeal dysphagia and barium swallow with barium tablet as functional study of esophagus Esophagitis--continue PPI but give bid in case reflux causing cough and SOB early satiety/wt loss--check A/P CT of evaluate for intra abdominal malignancy. Dr Wooten assuming GI care now. .
[2017-03-27 17:43] LABS: BUN/CREATININE RATIO 17.5 (10-20); CALCIUM 9.2 mg/dl (8.5-10.1); CREATININE 0.79 mg/dl (0.60-1.20); POTASSIUM 4.2 mmol/L (3.5-5.1)
--- NOTE | 2017-03-27 18:23 | DIAGNOSTIC IMAGING REPORT ---
CT OF THE ABDOMEN AND PELVIS WITHOUT CONTRAST CLINICAL HISTORY: Early satiety. Weight loss. COMPARISON STUDY: No previous studies for comparison. TECHNIQUE: Axial images of the abdomen and pelvis were obtained without IV contrast. Images were reviewed in the axial, sagittal, and coronal planes. A dose lowering technique was utilized adhering to the principles of ALARA. FINDINGS: Visualized portions of the lower chest demonstrate multiple pulmonary nodules which are better depicted on chest CT of March 26, 2017. Evaluation of the abdomen and pelvis is suboptimal given the lack of IV and oral contrast. Unenhanced images of the liver, spleen, adrenal glands and pancreas are unremarkable. There is no biliary or pancreatic ductal dilatation. There is contrast within the collecting systems and bladder from recent contrast-enhanced CT. No hydronephrosis is present. The appendix is normal. Note is made of a large midline lower abdominal ventral hernia which contains multiple loops of small and large bowel. There is no resultant bowel obstruction. The bowel is not completely imaged on this exam as it extends below the inferior aspect of the study. No pneumatosis, free air or portal venous gas is present. This extensive sigmoid diverticulosis without evidence for acute diverticulitis. No abdominal or pelvic lymphadenopathy is present. There are no suspicious osseous lesions. IMPRESSION: 1. No acute process within the abdomen or pelvis. 2. Study compromised given the lack of IV and oral contrast. 3. No evidence for malignancy; however, CT has decreased sensitivity for detection of mucosal lesions. 4. Large lower abdominal ventral hernia which contains multiple loops of small and large bowel which are partially imaged on this exam. No resultant bowel obstruction. 5. Extensive sigmoid diverticulosis without evidence for acute diverticulitis. Electronically signed by: Varinder Goode M.D. 03/27/2017 6:22 PM Dictated Date/Time: 03/27/2017 6:13 PM
[2017-03-27] MEDS: FLUTICASONE PROPIONATE NA SPR 16 GM BTL NAE SCH (21:18)
[2017-03-27] MEDS: PANTOprazole SOD 40 MG TAB PO SCH (21:20)
[2017-03-27] MEDS: ATORVASTATIN 10 MG TAB PO SCH (21:20)
[2017-03-28 00:23] VITALS: BP 148/86; PULSE 71; TEMP 36.4; O2SAT 97
[2017-03-28 06:13] VITALS: BP 158/88; PULSE 70; TEMP 36.5; O2SAT 98
[2017-03-28] MEDS: HEPARIN SOD 5000 UNIT/0.5 ML CARP SQ SCH ×3 (06:25→20:33)
[2017-03-28 07:40] VITALS: BP 137/77; PULSE 74; TEMP 36.6; O2SAT 96
[2017-03-28 07:48] LABS: BASO % 0.1 %; BASO ABS # 0.01 K/uL (0-0.2); BUN/CREATININE RATIO 19.9 (10-20); CALCIUM 9.2 mg/dl (8.5-10.1); COMPLETE YES; CREATININE 0.74 mg/dl (0.60-1.20); HEMATOCRIT 33.4 % (37-47); IG% 0.3 %; LYMPH % 4.4 %; LYMPH ABS # 0.77 K/uL (1.2-3.4); MEAN CELL VOLUME 88.1 fL (80-100); MEAN CORPUSCULAR HEMOGLOBIN 30.3 pg (25-34); MEAN CORPUSCULAR HGB CONC 34.4 g/dl (32-36); NEUT % 91.2 %; PLATELET COUNT 281 K/uL (130-400); POTASSIUM 4.3 mmol/L (3.5-5.1); RED BLOOD COUNT 3.79 M/uL (4.2-5.4); WHITE BLOOD COUNT 17.32 K/uL (4.8-10.8)
[2017-03-28] MEDS: PANTOprazole SOD 40 MG TAB PO SCH ×2 (08:07→20:29)
[2017-03-28] MEDS: CYANOCOBALAMIN 500 MCG TAB (VIT B-12) PO SCH (08:09)
[2017-03-28] MEDS: LISINOPRIL 20 MG TAB PO SCH (08:09)
[2017-03-28] MEDS: DILTIAZEM HCL 120 MG EXT REL CAP PO SCH (08:09)
[2017-03-28] MEDS: CHOLECALCIFEROL 1000 INTER.UNIT TAB PO SCH (08:09)
[2017-03-28] MEDS: FLUTICASONE PROPIONATE NA SPR 16 GM BTL NAE SCH ×2 (08:10→20:30)
[2017-03-28] MEDS: AMOXICILLIN/CLAVULANATE SUSP 400 MG/5 ML PO SCH ×2 (08:18→20:30)
[2017-03-28] MEDS: TIOTROPIUM BROMIDE 5 PUFF/90 MCG INH INH SCH (08:19)
[2017-03-28 13:51] LABS: BASO % 0.1 %; BASO ABS # 0.01 K/uL (0-0.2); COMPLETE YES; IG% 0.3 %; LYMPH % 3.5 %; LYMPH ABS # 0.68 K/uL (1.2-3.4); MEAN CELL VOLUME 88.2 fL (80-100); MEAN CORPUSCULAR HEMOGLOBIN 30.5 pg (25-34); MEAN CORPUSCULAR HGB CONC 34.6 g/dl (32-36); MEAN PLATELET VOLUME 8.7 fL (7.4-10.4); MONO % 1.7 %; NEUT % 94.4 %; PLATELET COUNT 324 K/uL (130-400); RED BLOOD COUNT 3.97 M/uL (4.2-5.4); WHITE BLOOD COUNT 19.37 K/uL (4.8-10.8)
--- NOTE | 2017-03-28 14:41 | DIAGNOSTIC IMAGING REPORT ---
(BARIUM SWALLOW) ESOPHAGUS CLINICAL HISTORY: pill dysphagia, use barium pill also COMPARISON STUDY: Barium swallow 11/21/2016. FLUOROSCOPY TIME: 3.8 minutes.. FINDINGS: 28 images submitted. The patient swallowed barium and a barium tablet for the examination. There is again noted a mild upper esophageal stricture at approximately the T3 level. This has slightly improved compared the prior study. However, the barium tablet remained lodged at this level. The mid to distal esophagus is normal in course and caliber. No hiatus hernia identified at this time. No gastroesophageal reflux. The contours of the hypopharynx are within normal limits. IMPRESSION: Focal mild esophageal stricture which impedes the passage of the barium tablet. This is slightly improved compared to the prior study. Electronically signed by: Kulwinder Garcia M.D. 03/28/2017 2:40 PM Dictated Date/Time: 03/28/2017 2:35 PM
[2017-03-28] MEDS ORDERED: PRD5 PO (15:01)
[2017-03-28] MEDS ORDERED: AGMUDL4005 PO (15:01)
[2017-03-28] MEDS ORDERED: SPRIN INH (15:01)
[2017-03-28] MEDS ORDERED: ALBU18002 INH (15:01)
[2017-03-28] MEDS ORDERED: FLNIN NAE (15:01)
[2017-03-28] MEDS ORDERED: PRT40 PO (15:01)
[2017-03-28] MEDS: POLYETHYLENE (MIRALAX) 17 GM PACK PO SCH (15:19)
[2017-03-28 16:01] VITALS: BP 121/77; PULSE 71; TEMP 36.4; O2SAT 99
--- NOTE | 2017-03-28 16:05 | Pulmonology Progress Note ---
Pulmonary Progress Note Date of Service Mar 28, 2017. Attending Dr. Coreas Subjective I had a conversation with the patient this afternoon. She is feeling much improved. SOB is less when seated, but she continues to have some GIL. She continues to expectorate some duffy/white sputum throughout the day. She has continued swallowing problems. No chest pain/tightness. Feels that she is able to take deeper breath. No complaint of heart burn today. No complaint of post nasal drip today. Continues to have mild frontal sinus pressure. Labs reviewed: WBC 19.37 Hgb 12.1 Kidney and Liver function stable Electrolytes stable Alpha-1 pending Studies reviewed: Barium swallow showed focal mild esophagela stricture impeding the barium tablets which is slightly improved compared to prior study. CT of abdomen/pelvis showed no acute process in the abdomen/pelvis. Large ventral hernia noted along with extensive sigmoid diverticulosis but no diverticulitis. Discussed with Dr. Coreas Reviewed inpatient medications: Continues prednisone, Augmentin suspension, Flonase, Spiriva- tolerating well Objective General: Patient is awake, alert, cooperative, and in no acute distress. Well developed. Well-nourished. Head: Normocephalic, Atraumatic. ENT: PERRLA, No discharge, EOMI, Sclera normal Neck: Normal ROM. Trachea midline. No stridor Respiratory: No adventitious sounds heard on exam. Normal breath sounds. No respiratory distress. No accessory muscle use. Cardiovascular: Regular rate and rhythm. No murmur appreciate. Normal S1/S2. Abdomen: Normal bowel sounds hear throughout. Back: Normal inspection. Extremities: Normal ROM Neuro: Alert, Oriented x 3. CN II-XII grossly intact. Psych: Mood and affect are normal. CT OF THE ABDOMEN AND PELVIS WITHOUT CONTRAST IMPRESSION: 1. No acute process within the abdomen or pelvis. 2. Study compromised given the lack of IV and oral contrast. 3. No evidence for malignancy; however, CT has decreased sensitivity for detection of mucosal lesions. 4. Large lower abdominal ventral hernia which contains multiple loops of small and large bowel which are partially imaged on this exam. No resultant bowel obstruction. 5. Extensive sigmoid diverticulosis without evidence for acute diverticulitis. (BARIUM SWALLOW) ESOPHAGUS IMPRESSION: Focal mild esophageal stricture which impedes the passage of the barium tablet. This is slightly improved compared to the prior study. Assessment & Plan Is my Chronic sinusitis Moderate COPD with air trapping GIL SOB Cough Esophageal stricture s/p dilatation Hypoxia GERD -Patient overall is improving. Continues to have dyspnea on exertion, but is improved with nasal cannula O2. She is currently on 2L. She failed a walk test this afternoon, so likely she will need continued O2 therapy upon discharge pending Pulmonary follow up and re-evaluation. -She continues PO Augmentin suspension- recommend completing course. -Alpha-1 pending. Can follow up as outpatient. -Patient tolerating Spiriva well, and she could continue this upon discharge. Flonase also helping nasal symptoms- can also continue as outpatient. -Continue tapering steroid. Outpatient will likely need full sleep study, follow up on pending studies, and follow up CT scan for small pulmonary nodules in 12 months. Patient states that she will follow up with Dr. Jimenez. Otherwise, she is OK for discharge from pulmonary perspective once home O2 is set up and patient is medically cleared. Data Medications: Current Inpatient Medications Medications (Trade) Dose Ordered Sig/[place] Route Start Time Stop Time Status Last Admin Dose Admin Ioversol (Optiray 320) 100 ml UD PRN IV 03/26/17 22:15 03/30/17 22:14 Atorvastatin Calcium (Lipitor Tab) 10 mg HS PO 03/27/17 21:00 04/26/17 20:59 03/27/17 21:20 10 MG Cholecalciferol (Vitamin D Tab) 1,000 inter.unit DAILY PO 03/27/17 09:00 04/26/17 08:59 03/28/17 08:09 1,000 INTER.UNIT Cyanocobalamin (Vitamin B-12 Tab) 1,000 mcg QAM PO 03/27/17 09:00 04/26/17 08:59 03/28/17 08:09 1,000 MCG Heparin Sodium (Porcine) (Heparin Sq 5000 Unit/0.5ml) 5,000 unit Q8 SQ 03/27/17 06:00 04/26/17 05:59 03/28/17 06:25 5,000 UNIT Acetaminophen (Tylenol Tab) 650 mg Q4H PRN PO 03/27/17 02:15 04/26/17 02:14 03/27/17 09:52 650 MG Al Hydrox/Mg Hydrox/Simethicone (Maalox Max Susp) 15 ml Q4H PRN PO 03/27/17 02:15 04/26/17 02:14 Magnesium Hydroxide (Milk Of Magnesia Susp) 30 ml Q12H PRN PO 03/27/17 02:15 04/26/17 02:14 Ondansetron HCl (Zofran Inj) 4 mg Q6H PRN IV 03/27/17 02:15 04/26/17 02:14 Polyethylene (Miralax Powder Packet) 17 gm DAILY PRN PO 03/27/17 02:15 04/26/17 02:14 Levalbuterol (Xopenex 1.25MG/ 0.5ML Neb) 1.25 mg Q4H PRN INH 03/27/17 02:15 04/26/17 02:14 Amoxicillin/ Clavulanate Potassium (Augmentin Susp) 10 ml BID PO 03/27/17 09:00 04/06/17 08:59 03/28/17 08:18 10 ML Lisinopril (Zestril Tab) 20 mg QAM PO 03/28/17 09:00 04/27/17 08:59 03/28/17 08:09 20 MG Fluticasone Propionate (Flonase Nasal [place]) 1 sprays BID NINO 03/27/17 21:00 04/26/17 20:59 03/28/17 08:10 1 SPRAYS Tiotropium [place] (Spiriva Handihaler Inhaler) 1 puff QAM INH 03/28/17 09:00 04/27/17 08:59 03/28/17 08:19 1 PUFF Prednisone (PredniSONE TAB) 35 mg DAILY PO 03/28/17 09:00 04/26/17 08:59 03/28/17 08:08 35 MG Pantoprazole Sodium (Protonix Tab) 40 mg BID PO 03/27/17 21:00 04/26/17 08:59 03/28/17 08:07 40 MG Polyethylene (Miralax Powder Packet) 17 gm DAILY PO 03/28/17 09:00 04/27/17 08:59 Diltiazem HCl (Cardizem Tab) 30 mg QID PO 03/28/17 17:00 04/27/17 16:59 Vital Signs: Date Time Temp Pulse Resp B/P (MAP) Pulse Ox O2 Delivery O2 Flow Rate FiO2 03/28/17 09:00 Nasal Cannula 2.0 03/28/17 07:40 36.6 74 16 137/77 (97) 96 Nasal Cannula 2.0 03/28/17 06:13 36.5 70 18 158/88 (111) 98 2.0 03/28/17 00:23 36.4 71 18 148/86 (106) 97 Room Air 03/28/17 00:00 Nasal Cannula 2.0 03/27/17 20:45 36.6 77 20 130/83 (99) 96 Nasal Cannula 2.0 03/27/17 19:28 36.8 94 20 153/76 (101) 94 Nasal Cannula 2.0 03/27/17 19:20 98 Nasal Cannula 2.0 03/27/17 16:00 98 Nasal Cannula 2.0 Laboratory Results: Last 24 Hours Test 03/27/17 17:04 03/28/17 06:42 03/28/17 13:33 Sodium Level 131 mmol/L 133 mmol/L Potassium Level 4.2 mmol/L 4.3 mmol/L Chloride Level 99 mmol/L 100 mmol/L Carbon Dioxide Level 26 mmol/L 28 mmol/L Anion Gap 6.0 mmol/L 5.0 mmol/L Blood Urea Nitrogen 14 mg/dl 15 mg/dl Creatinine 0.79 mg/dl 0.74 mg/dl Est Creatinine Clear Calc Drug Dose 68.4 ml/min 73.5 ml/min Estimated GFR () 85.5 92.5 Estimated GFR (Non- 73.7 79.8 BUN/Creatinine Ratio 17.5 19.9 Random Glucose 145 mg/dl 115 mg/dl Calcium Level 9.2 mg/dl 9.2 mg/dl White Blood Count 17.32 K/uL 19.37 K/uL Red Blood Count 3.79 M/uL 3.97 M/uL Hemoglobin 11.5 g/dL 12.1 g/dL Hematocrit 33.4 % 35.0 % Mean Corpuscular Volume 88.1 fL 88.2 fL Mean Corpuscular Hemoglobin 30.3 pg 30.5 pg Mean Corpuscular Hemoglobin Concent 34.4 g/dl 34.6 g/dl Platelet Count 281 K/uL 324 K/uL Mean Platelet Volume 9.0 fL 8.7 fL Neutrophils (%) (Auto) 91.2 % 94.4 % Lymphocytes (%) (Auto) 4.4 % 3.5 % Monocytes (%) (Auto) 4.0 % 1.7 % Eosinophils (%) (Auto) 0.0 % 0.0 % Basophils (%) (Auto) 0.1 % 0.1 % Neutrophils # (Auto) 15.78 K/uL 18.29 K/uL Lymphocytes # (Auto) 0.77 K/uL 0.68 K/uL Monocytes # (Auto) 0.70 K/uL 0.33 K/uL Eosinophils # (Auto) 0.00 K/uL 0.00 K/uL Basophils # (Auto) 0.01 K/uL 0.01 K/uL RDW Standard Deviation 45.7 fL 45.4 fL RDW Coefficient of Variation 14.1 % 14.0 % Immature Granulocyte % (Auto) 0.3 % 0.3 % Immature Granulocyte # (Auto) 0.06 K/uL 0.06 K/uL
[2017-03-28] MEDS: DILTIAZEM HCL 30 MG TAB PO SCH ×2 (16:49→20:30)
--- NOTE | 2017-03-28 17:36 | Family Medicine Progress Note ---
Progress Note Date of Service Mar 28, 2017. Subjective Pt evaluation today including: conversation w/ patient, physical exam, chart review, lab review, review of studies Pain: 0/10 PO Intake: NPO Voiding: no voiding problems Patient notes she continues to have SOB with exertion especially without the oxygen. She feels very comfortable with the oxygen on She notes she was having a lot of trouble with the " big pill" this morning which was the diltiazem other [place] the other pills she had no issues She did discuss her barium results with Dr Knight and plan was for dilation tomorrow afternoon Constitutional: No fever Eyes: No worsening of vision ENT: No hearing loss Respiratory: + dyspnea on exertion, No cough, No sputum, No wheezing, No shortness of breath, No dyspnea at rest, No hemoptysis Cardiovascular: No chest pain Abdomen: + problem reported, No pain, No nausea, No vomiting, No diarrhea, No constipation Female : No dysuria Neurologic: No weakness, No balance problems Psychiatric: No depression symptoms Heme: No abnormal bleeding/bruising Endo: No fatigue Skin: No rash Medications Medications Administered Medications (Trade) Dose Ordered Sig/John Paul Route Start Time Stop Time Status Last Admin Dose Admin Metoclopramide HCl (Reglan Inj) 10 mg NOW STAT IV 03/26/17 20:43 03/26/17 20:47 DC 03/26/17 21:21 10 MG Diazepam (Valium Inj) 5 mg NOW STAT IV 03/26/17 20:43 03/26/17 20:47 DC 03/26/17 21:21 5 MG Glucagon (Glucagon Inj) 1 mg STK-MED ONCE .ROUTE 03/26/17 21:04 03/26/17 21:05 DC 03/26/17 21:21 1 MG Nitroglycerin (Nitroglycerin 2% Oint) 1 inch STK-MED ONCE .ROUTE 03/26/17 21:04 03/26/17 21:05 DC 03/26/17 21:20 1 INCH Albuterol/ Ipratropium (Duoneb) 12 ml ONE ONCE INH 03/26/17 22:15 03/26/17 22:16 DC 03/26/17 22:32 12 ML Methylprednisolone Sodium Succinate (Solu-Medrol IV) 125 mg NOW STAT IV 03/26/17 22:05 03/26/17 22:07 DC 03/26/17 22:15 125 MG Sodium Chloride 500 ml @ 999 mls/hr Q31M STAT IV 03/26/17 22:05 03/26/17 22:35 DC 03/26/17 22:15 999 MLS/HR Lorazepam (Ativan Inj) 0.5 mg NOW STAT IV 03/26/17 23:15 03/26/17 23:17 DC 03/26/17 23:23 0.5 MG Amoxicillin/ Clavulanate Potassium (Augmentin Susp) 10 ml NOW STAT PO 03/27/17 00:09 03/27/17 00:11 DC 03/27/17 00:09 10 ML Methylprednisolone Sodium Succinate 60 mg/Syringe 0.96 ml @ 1.5 mls/min TODAY@0445 IV 03/27/17 04:45 03/27/17 04:46 DC 03/27/17 04:59 1.5 MLS/MIN Atorvastatin Calcium (Lipitor Tab) 10 mg HS PO 03/27/17 21:00 04/26/17 20:59 03/27/17 21:20 10 MG Cholecalciferol (Vitamin D Tab) 1,000 inter.unit DAILY PO 03/27/17 09:00 04/26/17 08:59 03/28/17 08:09 1,000 INTER.UNIT Cyanocobalamin (Vitamin B-12 Tab) 1,000 mcg QAM PO 03/27/17 09:00 04/26/17 08:59 03/28/17 08:09 1,000 MCG Diltiazem HCl (TIAzac CAP) 120 mg BID PO 03/27/17 09:00 03/28/17 15:16 DC 03/28/17 08:09 120 MG Prednisone (PredniSONE TAB) 10 mg DAILY PO 03/27/17 09:00 03/27/17 13:14 DC 03/27/17 08:34 10 MG Pantoprazole Sodium (Protonix Tab) 40 mg QAM PO 03/27/17 09:00 03/27/17 18:27 DC 03/27/17 07:34 40 MG Heparin Sodium (Porcine) (Heparin Sq 5000 Unit/0.5ml) 5,000 unit Q8 SQ 03/27/17 06:00 04/26/17 05:59 03/28/17 06:25 5,000 UNIT Acetaminophen (Tylenol Tab) 650 mg Q4H PRN PO 03/27/17 02:15 04/26/17 02:14 03/27/17 09:52 650 MG Sodium Chloride 1,000 ml @ 125 mls/hr Q8H IV 03/27/17 04:30 03/27/17 17:09 DC 03/27/17 12:09 125 MLS/HR Amoxicillin/ Clavulanate Potassium (Augmentin Susp) 10 ml BID PO 03/27/17 09:00 04/06/17 08:59 03/28/17 08:18 10 ML Lisinopril (Zestril Tab) 20 mg QAM PO 03/28/17 09:00 04/27/17 08:59 03/28/17 08:09 20 MG Fluticasone Propionate (Flonase Nasal [place]) 1 sprays BID NINO 03/27/17 21:00 04/26/17 20:59 03/28/17 08:10 1 SPRAYS Tiotropium [place] (Spiriva Handihaler Inhaler) 1 puff QAM INH 03/28/17 09:00 04/27/17 08:59 03/28/17 08:19 1 PUFF Prednisone (PredniSONE TAB) 35 mg DAILY PO 03/28/17 09:00 03/28/17 17:18 DC 03/28/17 08:08 35 MG Prednisone (PredniSONE TAB) 25 mg TODAY@1315 PO 03/27/17 13:15 03/27/17 13:16 DC 03/27/17 15:05 25 MG Pantoprazole Sodium (Protonix Tab) 40 mg BID PO 03/27/17 21:00 04/26/17 08:59 03/28/17 08:07 40 MG Diltiazem HCl (Cardizem Tab) 30 mg QID PO 03/28/17 17:00 04/27/17 16:59 03/28/17 16:49 30 MG Objective Vital Signs Date Time Temp Pulse Resp B/P (MAP) Pulse Ox O2 Delivery O2 Flow Rate FiO2 03/28/17 16:01 36.4 71 18 121/77 (92) 99 Nasal Cannula 2.0 03/28/17 16:00 Nasal Cannula 2.0 03/28/17 09:00 Nasal Cannula 2.0 03/28/17 07:40 36.6 74 16 137/77 (97) 96 Nasal Cannula 2.0 03/28/17 06:13 36.5 70 18 158/88 (111) 98 2.0 03/28/17 00:23 36.4 71 18 148/86 (106) 97 Room Air 03/28/17 00:00 Nasal Cannula 2.0 03/27/17 20:45 36.6 77 20 130/83 (99) 96 Nasal Cannula 2.0 03/27/17 19:28 36.8 94 20 153/76 (101) 94 Nasal Cannula 2.0 03/27/17 19:20 98 Nasal Cannula 2.0 Physical Exam General Appearance: no apparent distress Eyes: normal inspection ENT: normal ENT inspection Neck: supple Respiratory/Chest: no respiratory distress, no accessory muscle use, + decreased breath sounds (bilat bases) Cardiovascular: regular rate, rhythm, no murmur Abdomen: normal bowel sounds, non tender, soft Extremities: normal range of motion, non-tender, no pedal edema, no calf tenderness Neurologic/Psychiatric: alert, normal mood/affect, oriented x 3 Skin: normal color, warm/dry, no rash Lymphatic: no adenopathy Laboratory Results Results Past 24 Hours Test 03/28/17 06:42 03/28/17 13:33 Range/Units White Blood Count 17.32 19.37 4.8-10.8 K/uL Red Blood Count 3.79 3.97 4.2-5.4 M/uL Hemoglobin 11.5 12.1 12.0-16.0 g/dL Hematocrit 33.4 35.0 37-47 % Mean Corpuscular Volume 88.1 88.2 80-100 fL Mean Corpuscular Hemoglobin 30.3 30.5 25-34 pg Mean Corpuscular Hemoglobin Concent 34.4 34.6 32-36 g/dl Platelet Count 281 324 130-400 K/uL Mean Platelet Volume 9.0 8.7 7.4-10.4 fL Neutrophils (%) (Auto) 91.2 94.4 % Lymphocytes (%) (Auto) 4.4 3.5 % Monocytes (%) (Auto) 4.0 1.7 % Eosinophils (%) (Auto) 0.0 0.0 % Basophils (%) (Auto) 0.1 0.1 % Neutrophils # (Auto) 15.78 18.29 1.4-6.5 K/uL Lymphocytes # (Auto) 0.77 0.68 1.2-3.4 K/uL Monocytes # (Auto) 0.70 0.33 0.11-0.59 K/uL Eosinophils # (Auto) 0.00 0.00 0-0.5 K/uL Basophils # (Auto) 0.01 0.01 0-0.2 K/uL RDW Standard Deviation 45.7 45.4 36.4-46.3 fL RDW Coefficient of Variation 14.1 14.0 11.5-14.5 % Immature Granulocyte % (Auto) 0.3 0.3 % Immature Granulocyte # (Auto) 0.06 0.06 0.00-0.02 K/uL Sodium Level 133 136-145 mmol/L Potassium Level 4.3 3.5-5.1 mmol/L Chloride Level 100 98-107 mmol/L Carbon Dioxide Level 28 21-32 mmol/L Anion Gap 5.0 3-11 mmol/L Blood Urea Nitrogen 15 7-18 mg/dl Creatinine 0.74 0.60-1.20 mg/dl Est Creatinine Clear Calc Drug Dose 73.5 ml/min Estimated GFR () 92.5 Estimated GFR (Non- 79.8 BUN/Creatinine Ratio 19.9 10-20 Random Glucose 115 70-99 mg/dl Calcium Level 9.2 8.5-10.1 mg/dl Assessment and Plan This is a 76 yo f that has a history of HTN, HPL, esophageal stricture and chronic dyspnea that she has been suffering from for the last 2 months. 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 She notes she used to walk on a regular basis however she is now unable to walk a block without SOBOE. A CT of the chest was done by PCP which reveal several ground glass nodules and she was referred to pulmonary. Patient was evaluated with Spirometry . The mary revealed moderate obstructive pattern with no improvement with albuterol. A CT of the sinuses revealed chronic changes so patient was placed on empiric antibiotics and prednisone. After taking her first dose the patient started to choke and she went to the ED. After receiving NTG the pill was expectorated however patient suffered from hypoxia, hypotension and tachycardia requiring 2L of O2. She was evaluated with a barium swallow considering her dysphagia and it revealed ongoing stricture. Plan was for EGD tomorrow. Acute hypoxic respiratory failure; Moderate obs pattern on mary - pulmonary consult and appreciate recs - Spiriva cont'd, rx will be given on d/c - Xopenx and ipratropium nebs and plan for proair on d/c home - Multiple family members with early onset COPD in patient's family; will order alpha 1antitrypsin - pending Esophageal stricture/ ongoing dysphagia - patient continues to have distress secondary to her dysphagia - patient was seen by GI and a video swallow/ barium was ordered for evaluation of her stricture - Barium reflected ongoing stricture and as patient continues to suffer from symptoms will plan for EGD and dilation tomorrow - NPO after midnight - also plan to change diltiazem ER to 30 mg qid so that it is easier to swallow , crush pills when not NPO for EGD - Soft mechanical diet as per speech rec, appreciate rec Chronic Sinusitis - continue augmentin however as a suspension - continue the prednisone taper per allscripts rx; 30 mg daily as of ihsan and decrease by 5 mg every 2 days, continue taper on d/c Hyponatremia; mild - this is new in onset since november of 2016 - the patient will be evaluated for SIADH - Serum osm, urine osm and urine sodium reflects a hypovolemic/ hyponatremic state more than SIADH - the serum osmol was 279 which is barely abnormal - will hold NSS IVF and reassess BMP in the am HTN - Patient is currently on Diltiazem 120 mg daily (changed as noted above) and Lisinopril 20 mg daily per allscripts - When the patient first started to suffer from dyspnea the patient had trialled losartan with no improvement so patient was changed back to lisinopril - the patient states that she had underwent a stress echo which was WNL except for mild diastolic dysfunction HPL - continue atorvastatin 10 mg daily GERD/ Hiatal hernia - continue protonix however at 40 mg bid DVT Prophylaxis - heparin Continued [facility] stay due to: other Discharge planning: uncertain Reviewed: Pt Seen/Exam by Me History Resident Physician Supervision Note: I interviewed and examined the patient. Discussed with Dr. Lauren and agree with findings and plan as documented in the note. Any exceptions or clarifications are listed here: Pt here with acute hypoxemic respiratory failure after pill impaction in esophagus. She has been having chronic GIL x 3 months after an esophageal dilation and biopsy for esophageal web. 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 She does report that her Dad in his early 50s from emphysema but was a smoker, sister in her early 60s from emphysema but was a smoker, and her 28 yo grandson also has COPD (thought to be from "using drugs" and "being in [place]"). No liver problems in the family except her Mom of cirrhosis in her 50s with chronic hepatitis. Feeling better now, seen by Speech who recommended GI consult. Seen by GI who ordered CT abd/pel and barium swallow as well as Video swallow. CT abd/pel with large ventral hernia but otherwise unremarkable but limited without contrast. Patient still feeling dyspneic on exertion, failed her two-step test today and will require 2 L of oxygen via nasal cannula at home. She will stay overnight and have an EGD tomorrow Vitals reviewed NAD, sitting up in bed, very pleasant RRR no mgr Lungs with some fine crackles at bases bilat and with decreased breath sounds and poor air movement throughout, no wheezes Abd +BS, +large ventral hernia reducible and nontender Ext no calf tenderness, no edema, 2+ DP pulses, fingers with clubbing, no cyanosis SKin no rashes Barium swallow test shows proximal stricture esophagus I discussed at length with GI today 76 yo female with mod-severe COPD, with acute respiratory failure s/p pill impaction. Dyspnea could be from GERD, COPD, or combination. -Continue PPI bid EGD tomorrow with possible dilation -continue tx for sinusitis with Augmentin and prednisone taper -O2 for home use -given significant +FH for COPD, will check for A1-AT deficiency-test pending -added Spiriva, needs rescue inhaler at home Documented By: Ellen Maldonado
[2017-03-28] MEDS: ATORVASTATIN 10 MG TAB PO SCH (20:30)
[2017-03-29] VITALS (8 sets, daily range): BP systolic 109–156; BP diastolic 67–93; PULSE 66–114; TEMP 36.4–36.9; O2SAT 95–98
[2017-03-29] MEDS: HEPARIN SOD 5000 UNIT/0.5 ML CARP SQ SCH ×2 (06:00→13:58)
--- NOTE | 2017-03-29 06:28 | GASTROENTEROLOGY PROGRESS NOTE ---
DATE: 03/28/2017 The patient with newly diagnosed COPD, who experienced a pill lodging in the throat, from which she reports difficulty handling saliva earlier this week. Initially, she had undergone upper endoscopy in November and reports that she had no symptoms since dilation in November and this was the first event where pills get stuck which historically have been a problem for her. She underwent a barium study and this revealed that the barium tablet does hang up in the esophagus, although the degree of dilation appears to be less so on this study than previous studies and is likely a result of dilation. The patient is resting comfortably sitting at the bedside and is able to tolerate her solid meals without difficulty. MEDICATIONS: Reviewed and updated version is in the EMR medical list. She is on pantoprazole 40 mg twice daily in addition to her other medications. ALLERGIES: SHE IS ALLERGIC TO CETIRIZINE AND SIMVASTATIN. REVIEW OF SYSTEMS: Otherwise noncontributory based on 13-point exam. PHYSICAL EXAMINATION: VITAL SIGNS: Include afebrile at 36.4, heart rate 71, respirations 18, blood pressure 121/77, she is 99% on 2 liters. GENERAL: The patient is awake, alert and oriented x3. HEENT: Sclerae anicteric. Conjunctivae moist. Oral mucosa moist. HEART: Normal S1, S2. LUNGS: Show diminished breath sounds bilaterally. No crackles are heard. ABDOMEN: Soft, nontender, nondistended with good bowel sounds. EXTREMITIES: Without clubbing, cyanosis or edema. RECTAL: Deferred. LABORATORY STUDIES: On 03/28/2017 in the afternoon showed a white count that is elevated at 19.3, hemoglobin 12.1, MCV is 88, platelets 324. Sodium 133, potassium is 4.3, BUN and creatinine are 15 and 0.74. INR is normal at 1.0. IMPRESSION: I spoke with the patient at length this evening regarding upper endoscopy. As she had perceived an essentially completely resolution of her dysphagia symptoms since her endoscopy in November, I believe it is reasonable to reassess this and dilate if necessary. We will plan this for afternoon. Would continue the Protonix twice daily. Regarding her pills, as she is able to tolerate solid food, it is difficult to know why she struggles with occasional tablets. However, in order to facilitate an endoscopy, I asked her to return to taking one tablet at a time with sips of water tomorrow morning in anticipation of endoscopy, to avoid any solid food intake or apple sauce. Further recommendation to follow. Thank you for allowing me to participate in this patient's care.
[2017-03-29] MEDS: CHOLECALCIFEROL 1000 INTER.UNIT TAB PO SCH ×2 (08:09→08:12)
[2017-03-29] MEDS: FLUTICASONE PROPIONATE NA SPR 16 GM BTL NAE SCH (08:10)
[2017-03-29] MEDS: TIOTROPIUM BROMIDE 5 PUFF/90 MCG INH INH SCH (08:11)
[2017-03-29] MEDS: PANTOprazole SOD 40 MG TAB PO SCH (08:11)
[2017-03-29] MEDS: CYANOCOBALAMIN 500 MCG TAB (VIT B-12) PO SCH ×2 (08:12→08:13)
[2017-03-29] MEDS: POLYETHYLENE (MIRALAX) 17 GM PACK PO SCH (08:12)
[2017-03-29] MEDS: DILTIAZEM HCL 30 MG TAB PO SCH ×3 (08:12→17:45)
[2017-03-29] MEDS: AMOXICILLIN/CLAVULANATE SUSP 400 MG/5 ML PO SCH (08:13)
[2017-03-29] MEDS: LISINOPRIL 20 MG TAB PO SCH (08:14)
[2017-03-29 10:53] LABS: HEMATOCRIT 37.2 % (37-47); MEAN CELL VOLUME 90.3 fL (80-100); MEAN CORPUSCULAR HEMOGLOBIN 29.9 pg (25-34); MEAN CORPUSCULAR HGB CONC 33.1 g/dl (32-36); MEAN PLATELET VOLUME 8.6 fL (7.4-10.4); PLATELET COUNT 272 K/uL (130-400); RED BLOOD COUNT 4.12 M/uL (4.2-5.4); WHITE BLOOD COUNT 10.38 K/uL (4.8-10.8)
[2017-03-29 11:17] LABS: BUN/CREATININE RATIO 23.5 (10-20); CALCIUM 9.7 mg/dl (8.5-10.1); CREATININE 0.81 mg/dl (0.60-1.20); POTASSIUM 3.7 mmol/L (3.5-5.1)
--- NOTE | 2017-03-29 12:04 | History & Physical Bridge Note ---
H&P Re-Evaluation Bridge Note: I have examined the patient, reviewed the History & Physical and in the interval since the performance of the History & Physical I have noted the following changes of clinical significance: No changes noted
--- NOTE | 2017-03-29 12:30 | Clinical Documentation Query ---
CLINICAL DOCUMENTATION QUERY 76 year old female who presents to the Emergency Room with complaints of pill in throat and difficulty breathing. Query #1/2 In your clinical opinion is this patient being managed for: ( ) COPD exacerbation in setting of pill impaction and chronic sinusitis treated with O2, Nebs, and IV Solumedrol. ( ) Not Agree ( ) Other explanation of clinical findings (Please Explain) ( ) Unable to determine (Please Define) ( ) Need to Discuss The medical record reflects the following clinical findings, treatment, and risk factors. Clinical Indicators: Per pulmonology patient has moderate to severe COPD by PFT's with significant air trapping. Episodic hypoxia (88%) & SOB with exertion. Treatment: O2, IV Solumedrol, Duonebs, Risk Factors: Age, COPD, sinusitis, pill impaction and airway irritation. Query #2/2 This patient is diagnosed with acute hypoxic respiratory failure. Diagnoses such as respiratory failure are being targeted by RAC audit for denial purposes. The RAC are stating lack of clinical evidence and or treatment as the reason for the denial. The only criteria that I can find is room air hypoxia of 88% by documented vitals. ED physician or any other physician/provider has not made any reference of this patient being in distress. Please provide more clinical evidence of respiratory failure to assure its' capture. In your clinical opinion is this patient being managed for: ( ) Acute respiratory failure with hypoxia (Please provide more clinical data other that episodic hypoxia) ( ) Acute hypoxic respiratory failure ruled out IF IN AGREEMENT, YOU MUST DOCUMENT ABOVE DIAGNOSTIC STATEMENT IN DAILY PROGRESS NOTES AND DISCHARGE SUMMARY. This document is not part of the patient's record. Thank You, Gene Neri, DEANNA [phone]
[2017-03-29] MEDS ORDERED: KETAMINE HCL INJ 50 MG/ML 10 ML VIAL ONE (12:43)
--- NOTE | 2017-03-29 13:25 | GI REPORT ---
Procedure Date: 03/29/2017 1:00 PM Procedure: Upper GI endoscopy Indications: Esophageal dysphagia Medicines: Propofol per Anesthesia Complications: No immediate complications. Estimated Blood Loss: Estimated blood loss was minimal. Procedure: Pre-Anesthesia Assessment: - Prior to the procedure, a History and Physical was performed, and patient medications and allergies were reviewed. The patient's tolerance of previous anesthesia was also reviewed. The risks and benefits of the procedure and the sedation options and risks were discussed with the patient. All questions were answered, and informed consent was obtained. Prior Anticoagulants: The patient has taken no previous anticoagulant or antiplatelet agents. ASA Grade Assessment: III - A patient with severe systemic disease. After reviewing the risks and benefits, the patient was deemed in satisfactory condition to undergo the procedure. After obtaining informed consent, the endoscope was passed under direct vision. Throughout the procedure, the patient's blood pressure, pulse, and oxygen saturations were monitored continuously. The scope was introduced through the mouth, and advanced to the second part of duodenum. The upper GI endoscopy was accomplished without difficulty. The patient tolerated the procedure well. Findings: A few mild benign-appearing, intrinsic stenoses were found in the upper third and lower third of the esophagus. The narrowest stenosis measured 1 cm (in length) and were easily traversed. A guidewire was placed and the scope was withdrawn. Dilation was performed with a Savary dilator with no resistance at 48 Fr and 51 Fr and mild resistance at 54 Fr. The middle third of the esophagus was normal. Biopsies were taken with a cold forceps for histology. Estimated blood loss was minimal. Verification of patient identification for the specimen was done by the physician and automobile technician using the patient's name and medical record number. The entire examined stomach was normal. The examined duodenum was normal. The cardia and gastric fundus were normal on retroflexion. A small hiatus hernia was present. Impression: - Benign-appearing esophageal stenoses. Dilated. - Normal middle third of esophagus. Biopsied. - Normal stomach. - Normal examined duodenum. Recommendation: - [facility]. - Advance diet as tolerated and mechanical soft diet today. - Continue present medications. - Use sucralfate suspension 1 gram PO QID for 2 weeks. MD Umer Alejandre MD 03/29/2017 1:25:07 PM This report has been signed electronically. Note Initiated On: 03/29/2017 1:00 PM I attest to the content of the Intraoperative Record and orders documented therein, exceptions below
--- NOTE | 2017-03-29 13:28 | Anesthesiology Progress Note ---
Anesthesia Post Op Note Date & Time Mar 29, 2017 at 13:28 Vital Signs Pain Intensity: 0.0 Vital Signs Past 12 Hours Date Time Temp Pulse Resp B/P (MAP) Pulse Ox O2 Delivery O2 Flow Rate FiO2 03/29/17 13:22 90 18 166/93 (117) 100 Nasal Cannula 2 03/29/17 11:42 36.8 88 18 148/84 (105) 95 Room Air 03/29/17 08:08 36.6 66 18 130/84 (99) 98 2.0 03/29/17 08:00 98 Nasal Cannula 2.0 Notes Mental Status: alert / awake / arousable, participated in evaluation Pt Amnestic to Procedure: Yes Nausea / Vomiting: adequately controlled Pain: adequately controlled Airway Patency, RR, SpO2: stable & adequate BP & HR: stable & adequate Hydration State: stable & adequate Anesthetic Complications: no major complications apparent Respiratory status equivalent to pre op. No pulmonary complications of procedure.
[2017-03-29] MEDS ORDERED: PROPOFOL IV EMULSION 10 MG/ML 20 ML VIAL IV ONE (13:31)
[2017-03-29] MEDS ORDERED: LIDOCAINE HCL 2% 2 ML VIAL (20MG/ML) ONE (13:31)
--- NOTE | 2017-03-29 16:53 | Discharge Instructions ---
Discharge Instructions Date of Service Mar 28, 2017. Admission Reason for Admission: Choking Due To Foreign Body, Hypoxemia Discharge Discharge Diagnosis / Problem: hypoxia Discharge Goals Goal(s): Diagnostic testing, Therapeutic intervention Activity Recommendations Activity Limitations: per Instructions/Follow-up section . Instructions / Follow-Up Instructions / Follow-Up You were admitted to the hospital for the evaluation of your shortness of breath and hypoxia ( low oxygen level) after an episode of choking/ inability to swallow a pill. We did check your blood work while you were in the hospital and fortunately there was no indication of infection. We did continue your antibiotics however in a liquid form as you did have signs of chronic sinusitis. We also continued your prednisone taper and sent a prescription to the pharmacy with new instructions for this taper which will be listed below. A road machine operator, Dr Coreas, had visited you in the hospital and felt that you would benefit from an inhaler called spiriva so a prescription for this inhaler has also been sent to the pharmacy. We have arranged a follow up for you with pulmonology. We have also arranged to send you home on oxygen as we completed a test called the " 2 step test" which allows us to evaluate your oxygen level while walking. As your oxygen level dropped we believe you would benefit from having the oxygen available to you at home. Pulmonology also suggested that you be evaluated by GI as an exacerbation of your acid reflux can also cause the symptom of shortness of breath. The Barium swallow was done and revealed your esophageal stricture but improved since the last time you had this test completed however as you are still symptomatic you had an EGD ( scope) completed to dilate the esophagus. They also recommended that you be placed on a PPI ( a medicine that helps control acid production) twice a day and Sucralfate Suspension four times a day for your GERD so a prescription was sent for this. You will take the sucralfate for two weeks. 1. Continue augmentin for a full 10 day course of antibiotics ( 7 more days) 2. Continue prednisone with the following instructions: 30 mg day 1 ( received while in the hospital today) and day 2 25 mg day 3 and day 4 20 mg day 5 and day 6 15 mg day 7 and day 8 10 mg day 9 and day 10 5 mg day 11 and day 12 3. Please follow the following instructions regarding your diet 1.SLIPPERY-Moist Mechanical soft diet (as pt. reguests)with thins for at least the next 48 hours, if you tolerate this you can return to regular diet 2.Safe swallow strategies (small bites, small sips, slow rate) 3.GERD precautions -Upright for all intake Remain upright for 30 min after all intake and no intake 30 min before bed. Keep head of bed elevated at least 30 degrees at all times-even sleep 4. Please follow up with Dr Jimenez, your PCP and Dr Knight 5. When you follow up with GI please discuss if you need to continue using the PPI twice daily and continue Sucralfate for 2 weeks. The follow up with GI is expected to be in 3-4 weeks. 6. For your breathing continue Spiriva daily and we provided you with a "rescue " inhaler which can be used when you are acutely short of breath, the oxygen has been arranged for at home use. We wish you well, Dr Andrea Lauren and Dr Andrea Maldonado Current Hospital Diet Patient's current hospital diet: AHA Diet (Heart Healthy) Discharge Diet Recommended Diet: Regular Diet Diet Texture: Mechanical Soft (ground) Procedures Procedures Performed: EGD with Dilation - few benign appearing intrinsic stenosis in the upper third and lower third of esophagus which were dilated - normal middle esophagus - biopsies taken of the esophagus Pending Studies Studies pending at discharge: yes List of pending studies: Alpha one antitrypsin level - biopsies of esophagus- histology Laboratory Results Hemoglobin A1c Test 03/27/17 04:57 Range/Units Estimated Average Glucose 108 mg/dl Hemoglobin A1c 5.4 4.5-5.6 % Lipid Panel Test 03/02/17 09:53 Range/Units Triglycerides Level 105 0-150 mg/dl Cholesterol Level 147 0-200 mg/dl HDL Cholesterol 64 mg/dl Cholesterol/HDL Ratio 2.3 LDL Cholesterol, Calculated 62 mg/dl Medical Emergencies . Who to Call and When: Medical Emergencies: If at any time you feel your situation is an emergency, please call 911 immediately. . Non-Emergent Contact Non-Emergency issues call your: Primary Care Provider . . "Provider Documentation" section prepared by Ela Lauren. . VTE Core Measure Inpt VTE Proph given/why not?: Unfractionated heparin SQ
[2017-03-29] MEDS ORDERED: CRFL PO (17:45)
--- NOTE | 2017-03-29 18:40 | Discharge Summary ---
Discharge Summary Date of Service Mar 29, 2017. (Ela Lauren MD) Discharge Summary Admission Date: Mar 27, 2017 at 02:11 Discharge Date: Mar 29, 2017 Discharge Disposition: Home Principal Diagnosis: Hypoxic respiratory failure Problems/Secondary Diagnoses: 1. esophageal stricture 2. COPD 3 HTN Procedures: EGD completed by Dr Knight- [place] esophageal strictures dilated in the upper 1/3rd and lower 1/3 of the esophagus Consultations: Dr Knight- GI Dr Coreas- Pulmonary (Ela Lauren MD) Problems/Secondary Diagnoses: Acute hypoxemic respiratory failure after pill impaction in esophagus Mod-severe COPD Large ventral hernia GERD Chronic sinusitis HTN B12 deficiency (Ellen Maldonado MD) Medication Reconciliation New Medications: Albuterol Sulfate (Proair Respiclick) 108 Mcg/Act Aer 1 PUFF INH Q6H for Shortness of Breath for 30 Days, #1 EA Prednisone (Prednisone) 5 Mg Tab 1 TAB PO DIRECTED, #45 TAB start at 30 mg daily and decrease by 5 mg every 2 days Sucralfate (Carafate) 1 Gm/10 Ml Caterina 10 ML PO QID for 14 Days, #560 ML Fluticasone Propionate (Fluticasone Propionate) 50 Mcg/Act Spr 1 SPRAYS NINO BID for 30 Days, #1 EA Pantoprazole (Pantoprazole Sodium) 40 Mg Tab 40 MG PO BID for 30 Days, #60 TAB Tiotropium [place] (Spiriva Handihaler) 5 Puff/90 Mcg Aerp 1 PUFF INH QAM for 30 Days, #1 EA Continued Medications: Amoxicillin/Clavulanate Pot[place] (Augmentin 400MG/5ML) 400 Mg/5 Ml Susp 10 ML PO BID for 8 Days, #160 ML (This prescription has been renewed) Atorvastatin (Lipitor) 10 Mg Tab 10 MG PO HS, TAB Cholecalciferol (Vitamin D3) 1,000 Unit Tab 1000 UNITS PO DAILY, TAB Cyanocobalamin (Vitamin B-12) 1,000 Mcg Tab 1000 MCG PO QAM, TAB Diltiazem Hcl Ext Rel (Tiazac) 120 Mg Capcr 120 MG PO BID, CAP Lisinopril (Lisinopril) 20 Mg Tab 1 TAB PO DAILY for 30 Days Discontinued Medications: Amoxicillin & Pot Clavulanate (Augmentin 875-125 mg) 1 Tab Tab 1 TAB PO BID for 7 Days, #14 TAB BEGIN 03/26/17 X 7 DAYS. Lisinopril/Hctz (Zestoretic 20MG/12.5MG) Tab 1 TAB PO QAM, TAB Omeprazole (Omeprazole) 20 Mg Tab 40 MG PO DAILY, TAB Prednisone Tab (Prednisone) 10 Mg Tab 10 MG PO DAILY/UD, TAB BEGIN 03/26/17 TAKE DAILY IN TAPERED -DOWN DOSE. Discharge Exam Patient notes that she is feeling very comfortable on the 2L of oxygen We did discuss discharge instructions, patient is anticipating discharge and concerns and questions were addressed Patient reflected understanding and agreeable to d/c home with the current instructions Review of Systems: Constitutional: No fever Eyes: No worsening of vision ENT: No hearing loss Respiratory: + dyspnea on exertion, No cough, No sputum, No wheezing, No shortness of breath, No dyspnea at rest Cardiovascular: No chest pain Abdomen: No pain, No nausea, No vomiting, No diarrhea, No constipation Musculoskeletal: No joint pain, No muscle pain Genitourinary - Female: No dysuria Neurologic: No weakness, No numbness/tingling, No balance problems Psychiatric: No depression symptoms Endocrine: No fatigue Hematologic / Lymphatic: No abnormal bleeding/bruising Integumentary: No rash Physical Exam: General Appearance: no apparent distress Eyes: normal inspection ENT: normal ENT inspection Neck: supple Respiratory/Chest: no respiratory distress, no accessory muscle use, + pertinent finding (improved air movement since admission) Cardiovascular: regular rate, rhythm, normal peripheral pulses Abdomen / GI: normal bowel sounds, non tender, soft Extremities: normal inspection, no calf tenderness, no pedal edema, normal range of motion Neurologic/Psychiatric: alert, normal mood/affect, oriented x 3 Skin: normal color, warm/dry, no rash (Ela Lauren MD) Hospital Course This is a 76 yo f that has a history of HTN, HPL, esophageal stricture and chronic dyspnea that she has been suffering from for the last 2 months. 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 She notes she used to walk on a regular basis however she is now unable to walk a block without SOBOE. A CT of the chest was done by PCP which reveal several ground glass nodules and she was referred to pulmonary. Patient was evaluated with Spirometry . The mary revealed moderate obstructive pattern with no improvement with albuterol. A CT of the sinuses revealed chronic changes so patient was placed on empiric antibiotics and prednisone. After taking her first dose the patient started to choke and she went to the ED. After receiving NTG the pill was expectorated however patient suffered from hypoxia, hypotension and tachycardia requiring 2L of O2. She was evaluated with a barium swallow considering her dysphagia and it revealed ongoing stricture. EGD was completed and the patient was noted to have a intrinsic stricture in the upper 1/3 and lower 1/3rd of the esophagus and dilation was completed. Esophageal biopsies were also completed and results are pending. As she was suffering from ongoing hypoxemia and failure of 2 Step test she was d/c home with home oxygen and Spiriva. Acute hypoxic respiratory failure; Moderate obs pattern on mary concerning for COPD - pulmonary consult - Dr Coreas - recs included initiation of Spiriva - A prescription for Proair was given as well as a "rescue inhaler" - Multiple family members with early onset COPD in patient's family; will order alpha 1antitrypsin - pending - Plan for follow up with pulmonary Esophageal stricture/ ongoing dysphagia/ s/p dilation of stricture - Barium reflected ongoing stricture and patient underwent EGD with dilation of the two strictures as noted above - Esophageal biopsies taken and pathology pending - soft mechanical diet x 48 hours from d/c and patient tolerates can return to normal diet - Speech therapy was consulted and recommended GERD precautions as well - GI rec was to continue sucralfate 1 Gm qid x 2 weeks - they recommend follow up in 3-4 weeks Chronic Sinusitis - continued augmentin however as a suspension x 7 more days to complete a full 10 day course - continued the prednisone taper per allscripts rx; 30 mg daily as of ihsan and decrease by 5 mg every 2 days, continued taper on d/c Hyponatremia; mild - this is new in onset since november of 2016 - the patient was evaluated for SIADH - Serum osm, urine osm and urine sodium reflects a hypovolemic/ hyponatremic state more than SIADH - the serum osmol was 279 which is barely abnormal - Would recommend follow up BMP in outpt setting during follow up HTN - Stable - Patient is currently on Diltiazem 120 mg daily (changed as noted above) and Lisinopril 20 mg daily per allscripts - When the patient first started to suffer from dyspnea the patient had trialled losartan with no improvement so patient was changed back to lisinopril - the patient states that she had underwent a stress echo which was WNL except for mild diastolic dysfunction - No changes in those medications were made HPL - continued atorvastatin 10 mg daily GERD/ Hiatal hernia - Changed omeprazole to protonix 40 mg bid per GI rec - Recommend reevaluate GERD at hospital follow and need to continue high dose PPI DVT Prophylaxis - heparin received while on inpatient Total Time Spent: Greater than 30 minutes This includes examination of the patient, discharge planning, medication reconciliation, and communication with other providers. (Ela Lauren MD) Discharge Instructions Please refer to the electronic Patient Visit Report (Discharge Instructions) for additional information. (Ela Lauren MD) Additional Copies To Júnior Viveros M.D. Reviewed: Pt Seen/Exam by Me (Ellen Maldonado MD) History Resident Physician Supervision Note: I interviewed and examined the patient. Discussed with Dr. Lauren and agree with findings and plan as documented in the note. Any exceptions or clarifications are listed here: Pt here with acute hypoxemic respiratory failure after pill impaction in esophagus. She has been having chronic GIL x 3 months after an esophageal dilation and biopsy for esophageal web. 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 She does report that her Dad in his early 50s from emphysema but was a smoker, sister in her early 60s from emphysema but was a smoker, and her 28 yo grandson also has COPD (thought to be from "using drugs" and "being in [place]"). No liver problems in the family except her Mom of cirrhosis in her 50s with chronic hepatitis. Feeling much better now, seen by Speech who recommended GI consult. Seen by GI who ordered CT abd/pel and barium swallow as well as Video swallow. CT abd/pel with large ventral hernia but otherwise unremarkable but limited without contrast. She will require 2 L of oxygen via nasal cannula at home. EGD with esophageal dilation performed on day of discharge and tolerating full liquid diet prior to discharge, feeling much better Vitals reviewed NAD, sitting up in bed, very pleasant RRR no mgr Lungs clear to auscultation bilat and moving wir better throughout today, no wheezes Abd +BS, +large ventral hernia reducible and nontender Ext no calf tenderness, no edema, 2+ DP pulses, fingers with clubbing, no cyanosis SKin no rashes 76 yo female with mod-severe COPD, with acute respiratory failure s/p pill impaction. Dyspnea could be from GERD, COPD, or combination. -Continue PPI bid and f/u with GI as outpt -continue tx for sinusitis with Augmentin and prednisone taper -O2 for home use -given significant +FH for COPD, will check for A1-AT deficiency-test pending at time of dc -added Spiriva, needs rescue inhaler at home Documented By: Ellen Maldonado (Ellen Maldonado MD)
[2017-04-12] MEDS ORDERED: LSN20 PO (08:07)
[2017-04-20] MEDS ORDERED: DILT120C43 PO (08:10)
[2017-04-20] MEDS ORDERED: CYAN10005 PO (14:36)
[2017-04-20] MEDS ORDERED: ATOR10TA88 PO (14:36)
[2017-05-04] MEDS ORDERED: LISI-725 PO (13:41)
== END 2017-03-29 19:51 | disposition home or self-care (01) | DRG 392 ==
LOC: C.EDB 20:03 → C.2T 03-27 02:11 → ENRESERV 03-27 03:53 → C.MED 03-27 18:50 → C.MS4W 03-28 22:22
PROVIDERS: ADMIT Internal Medicine; ATTEND Family Medicine
PROC: 0D718ZZ Dilation of Upper Esophagus, Via Natural or Artificial Opening Endoscopic (ICD-10-PCS; principal; 2017-03-29 11:38)
PROC: 0DB28ZX Excision of Middle Esophagus, Via Natural or Artificial Opening Endoscopic, Diagnostic (ICD-10-PCS; principal; 2017-03-29 11:38)
PROC: 0D738ZZ Dilation of Lower Esophagus, Via Natural or Artificial Opening Endoscopic (ICD-10-PCS; principal; 2017-03-29 11:38)
DX: K22.2 Esophageal obstruction (principal); E87.1 Hypo-osmolality and hyponatremia; J44.9 Chronic obstructive pulmonary disease, unspecified; K21.0 Gastro-esophageal reflux disease with esophagitis; R13.12 Dysphagia, oropharyngeal phase; R68.81 Early satiety; R63.4 Abnormal weight loss; J32.9 Chronic sinusitis, unspecified; T18.108A Unspecified foreign body in esophagus causing other injury, initial encounter; X58.XXXA Exposure to other specified factors, initial encounter; I10 Essential (primary) hypertension; E78.5 Hyperlipidemia, unspecified; Z79.899 Other long term (current) drug therapy; Z82.49 Family history of ischemic heart disease and other diseases of the circulatory system; J31.0 Chronic rhinitis; R05 Cough

== ENCOUNTER → 2017-03-26 | Outpatient (CLI) | payer BC ==
--- NOTE | 2017-03-26 09:22 | DIAGNOSTIC IMAGING REPORT ---
SINUS CT CT DOSE: 624.42 mGy.cm HISTORY: J31.0 [id number] Shortness of [id number] Chronic s TECHNIQUE: Multiaxial CT images of the paranasal sinuses were performed and reformatted in the coronal plane without the use of contrast. A dose lowering technique was utilized adhering to the principles of ALARA. COMPARISON: None. FINDINGS: Focal area of mild mucosal thickening within the lateral aspect of the left frontal sinus and a small retention cyst within the left frontal sinus. The right frontal sinuses, ethmoid air cells, maxillary sinuses, sphenoid sinuses, and mastoid air cells are clear. Left-sided adilene bullosa. The lamina papyracea and orbital floors are intact. No evidence for carotid canal dehiscence. The bilateral ostiomeatal units are patent. No fluid levels within the paranasal sinuses. Mild right nasal septal deviation with a small right nasal spur. The orbits are unremarkable. IMPRESSION: Mild chronic sinus disease within the left frontal sinus as described above. Otherwise, the paranasal sinuses and mastoid air cells are clear. Electronically signed by: Kulwinder Garcia M.D. 03/26/2017 9:21 AM Dictated Date/Time: 03/26/2017 9:16 AM
== END | disposition home or self-care (01) ==
LOC: C.CTS 09:01
PROVIDERS: ATTEND Internal Medicine Pulmonary Disease
DX: J31.0 Chronic rhinitis (principal); J32.9 Chronic sinusitis, unspecified; R06.02 Shortness of breath; R05 Cough

== ENCOUNTER 2017-04-09 07:24 | Day surgery (SDC) | payer BC ==
[2017-04-09] VITALS (15 sets, daily range): BP systolic 110–177; BP diastolic 73–116; PULSE 72–104; TEMP 36.4–36.7; O2SAT 96–100; Ht 160 cm; Wt 91.4 kg
[~2017-04-09] VITALS: Ht 160 cm; Wt 91.4 kg
[~2017-04-09 07:24] MED LIST changes: +AGMUDL4005 PO; +ALBU18002 INH; +CRFL PO; +FLNIN NAE; -LISI-787 PO; -OMEP20TA PO; +PRD5 PO; +PRT40 PO; +SPRIN INH
[2017-04-09] MEDS ORDERED: LEVALBUTEROL 1.25MG/3ML NEB INH ONE (07:25)
[2017-04-09] MEDS ORDERED: MIDAZOLAM HCL 5 MG/ML 1 ML VIAL IV ONE ×2 (07:25→10:15)
[2017-04-09] MEDS ORDERED: FENTANYL CITRATE 100 MCG 2 ML CARP IV ONE (07:25)
[2017-04-09] MEDS ORDERED: IPRATROPIUM BROMIDE NEB SOLN 0.02% 2.5 ML VIAL INH ONE (07:25)
--- NOTE | 2017-04-09 08:23 | Procedure Note ---
Pre-Mod Sedation Assessment General Date of Moderate Sedation: Apr 09, 2017. Pre-Sedation Airway Assessment Smoking Status: Never Smoker Mallampati Classification: Class II ASA Classification: Class II Procedure Planning Contraindications-for Mod Sed: None Yes Notes The planned sedation has been discussed with the patient and consent obtained. I have identified the patient, determined the appropriateness of sedation and have assessed the patient immediately prior to the procedure. All medicine(s) and interventions are by my order.
[2017-04-09] MEDS ORDERED: OXYMETAZOLINE HCL 0.05% NA SPR 15 ML BTL NAE ONE (10:15)
[2017-04-09] MEDS ORDERED: FENTANYL CITRATE INJ 50 MCG/1 ML 2 ML VIAL IV ONE (10:15)
[2017-04-09] MEDS ORDERED: NURSING VERBAL MED ORDER ONE (10:15)
--- NOTE | 2017-04-09 10:27 | Discharge Instructions ---
Discharge Instructions Date of Service Apr 09, 2017. Admission Reason for Admission: Cough, Shortness Of Breath Discharge Discharge Diagnosis / Problem: Epistaxis Discharge Goals Goal(s): Diagnostic testing, Therapeutic intervention Activity Recommendations Activity Limitations: resume your previous activity Lifting Limitations: none Exercise/Sports Limitations: none May Resume Sexual Activity: when tolerated Shower/Bathe: no limitations Driving or Machine Use: resume 1 day after discharge none . Instructions / Follow-Up Instructions / Follow-Up ACTIVITY RECOMMENDATIONS: * Rest today, resume normal activity tomorrow. * Do not drive today. SPECIAL CARE INSTRUCTIONS: * Call your physician if you experience any chest or shoulder pain, fever, coughing, spitting up blood (more than 2 teaspoons) or excessive shortness of breath. * Remove dressing from IV site (where needle was placed into the vein) after 2 hours. Apply a warm, moist compress to site if irritation occurs. Call physician if site becomes red or painful to touch. FOLLOW UP VISIT: * Keep any scheduled doctor appointments. Current Hospital Diet regularPatient's current hospital diet: Discharge Diet Recommended Diet: Regular Diet Fluid Restriction: None Pending Studies Studies pending at discharge: no Laboratory Results Hemoglobin A1c Test 03/27/17 04:57 Range/Units Estimated Average Glucose 108 mg/dl Hemoglobin A1c 5.4 4.5-5.6 % Lipid Panel Test 03/02/17 09:53 Range/Units Triglycerides Level 105 0-150 mg/dl Cholesterol Level 147 0-200 mg/dl HDL Cholesterol 64 mg/dl Cholesterol/HDL Ratio 2.3 LDL Cholesterol, Calculated 62 mg/dl Medical Emergencies . Who to Call and When: Medical Emergencies: If at any time you feel your situation is an emergency, please call 911 immediately. . Non-Emergent Contact Non-Emergency issues call your: Prototype Technician Call Non-Emergent contact if: temperature is above 101 . . "Provider Documentation" section prepared by Jose Eduardo Jimenez. . VTE Core Measure Inpt VTE Proph given/why not?: Treatment not indicated
--- NOTE | 2017-04-09 21:57 | OPERATIVE REPORT ---
DATE OF OPERATION: 04/09/2017 PROCEDURE: Fiberoptic bronchoscopy with bronchoalveolar lavage. INDICATIONS: Persistent chest congestion, refractory to outpatient therapy. ANESTHESIA PREOPERATIVELY: None. ANESTHESIA DURING PROCEDURE: 5 mg IV Versed, 50 mcg IV fentanyl, 20 mL 2% Xylocaine spray above the cords, 4% viscous intranasal Xylocaine. SURGEON: The fiberoptic bronchoscope was attempted to be inserted into the right naris, but was unable to pass the scope to the level of the cords after multiple attempts. No bleeding was encountered. The scope was then introduced into the left naris and although, I was able to pass the scope to the level of the vocal cords, a significant amount of bleeding was encountered. Just distal to the cords in the subglottic area, I was able to visualize a thick amount of mucopurulent secretion adherent to the tracheal wall in the subglottic region. But because of bleeding, I withdrew the scope and bleeding persisted for approximately 7 or 8 minutes. The patient was hemodynamically stable and never exhibited any respiratory embarrassment. Because of persistent bleeding, an oral guard was placed while the patient was being supplemented with oxygen. Dr. Ceja was called to assist the fiberoptic bronchoscope ____ orally and retroflexed into the nasopharynx. At that point, there was some dry blood involving the inferior turbinates on the left side, but there was no active bleeding, just some dry blood from previous bleeding. The scope was withdrawn and the patient was then transferred back to the medical treatment and hemodynamically stable with no signs of respiratory compromise and no further bleeding. The patient was informed that we were unable to complete the procedure because of significant epistaxis and that the patient will be rescheduled with the procedure to be done orally with the route being an oropharyngeal route in the future. ____ for her home oxygen would be ordered as well as an outpatient. I attest to the content of the Intraoperative Record and any orders documented therein. Any exception s are noted below.
[2017-04-12] MEDS ORDERED: LSN20 PO (08:07)
[2017-04-20] MEDS ORDERED: DILT120C43 PO (08:10)
[2017-04-20] MEDS ORDERED: ATOR10TA88 PO (14:36)
[2017-04-20] MEDS ORDERED: CYAN10005 PO (14:36)
[2017-05-04] MEDS ORDERED: LISI-725 PO (13:41)
== END 2017-04-09 12:34 | disposition home or self-care (01) ==
LOC: C.ACU 07:24
PROVIDERS: ATTEND Internal Medicine Pulmonary Disease
DX: R05 Cough (principal); J95.61 Intraoperative hemorrhage and hematoma of a respiratory system organ or structure complicating a respiratory system procedure; R04.0 Epistaxis; Y83.9 Surgical procedure, unspecified as the cause of abnormal reaction of the patient, or of later complication, without mention of misadventure at the time of the procedure; R06.02 Shortness of breath; R06.09 Other forms of dyspnea; K21.9 Gastro-esophageal reflux disease without esophagitis; R91.8 Other nonspecific abnormal finding of lung field; J44.9 Chronic obstructive pulmonary disease, unspecified

== ENCOUNTER 2017-04-12 16:38 | Emergency (ER) | payer BC ==
[~2017-04-12 16:38] MED LIST changes: -AGMUDL4005 PO; -DILT120C68 PO; +LSN20 PO
[2017-04-12 16:41] VITALS: TEMP 36.6; Ht 160 cm
[2017-04-12] MEDS ORDERED: FUROSEMIDE 40 MG/4 ML VIAL IV STA (17:01)
--- NOTE | 2017-04-12 17:31 | EMERGENCY ROOM VISIT NOTE ---
History First contact with patient: 16:48 Chief Complaint: SHORTNESS OF BREATH Stated Complaint: SHORTNESS OF BREATH,SWELLING IN LEGS AND FEET Nursing Triage Summary: Pt. reports increased difficulty breathing and shortness of breath x1 week. She was to have a bronch done on Sunday, but was unable to have it completed because she developed epistaxis. She reports not being able to lay flat because of difficulty breathing. Also reports lower extremity edema and decreased appetite , but no change in her weight. She wears 2L O2 chronically. History of Present Illness The patient is a 77 year old female who presents to the Emergency Room with complaints of increased shortness of breath over the last week. The patient does have a history of chronic respiratory failure and is typically on 2 L of oxygen per nasal cannula at all times. She was admitted to the hospital 2 weeks ago. She is currently undergoing pulmonary testing to nail down her respiratory failure. She does say that she was diagnosed with mild COPD. She does not have a history of smoking. She complains of a nonproductive cough that is not new. No fever or chills. Her symptoms are much worse when she tries to lay flat. She also notes swelling in her lower extremities bilaterally. She denies any pain. She denies any weight gain. She was seen a doctor Pro's office today and sent to the emergency department for evaluation. Of note, the patient has undergone to esophageal dilations over the last several months. She denies any choking symptoms or coughing while eating. Review of Systems 10 system review performed and negative unless noted in HPI or below Past Medical/Surgical History Medical Problems: (1) Choking due to foreign body (2) Hypertension (3) Hypoxemia (4) Pneumonia Surgical Problems: (1) H/O hernia repair (2) H/O: hysterectomy (3) History of breast biopsy Family History Cancer Gallbladder disease Hypertension Social History Smoking Status: Never Smoker Alcohol Use: none Marital Status: Housing Status: lives alone Occupation Status: retired Current/Historical Medications Scheduled Atorvastatin (Lipitor), 10 MG PO HS Cholecalciferol (Vitamin D3), 1,000 INTER.UNIT PO QAM Cyanocobalamin (Vitamin B-12), 1,000 MCG PO QAM Diltiazem Hcl Coated Beads (Cartia Xt), 120 MG PO QPM Fluticasone Propionate (Nasal) (Flonase Allergy Relief), 1 SPRAY NINO BID Furosemide (Lasix), 1 TAB PO DAILY Home O2 Therapy (Oxygen), 2 LITERS NA CONTINOUS Lisinopril (Lisinopril), 20 MG PO DAILY Pantoprazole (Protonix), 40 MG PO BID Sucralfate (Carafate), 10 ML PO QID Tiotropium [place] (Spiriva Handihaler), 1 CAP INH QAM Scheduled PRN Albuterol Sulfate (Proair Respiclick), 1 PUFF INH Q6H PRN for Shortness of Breath Physical Exam Vital Signs Date Time Temp Pulse Resp B/P (MAP) Pulse Ox O2 Delivery O2 Flow Rate FiO2 04/12/17 21:13 92 22 127/80 96 Room Air 04/12/17 20:46 84 20 113/82 94 Nasal Cannula 2.0 04/12/17 19:08 85 20 133/82 100 Nasal Cannula 2.0 04/12/17 18:00 86 22 154/87 99 Nasal Cannula 2.0 04/12/17 17:55 74 24 149/102 100 Nasal Cannula 2.0 04/12/17 17:14 78 04/12/17 17:05 99 Nasal Cannula 2.0 04/12/17 16:41 36.6 82 20 146/89 98 Nasal Cannula 2.0 Physical Exam VITALS: Vitals are noted on the nurse's note and reviewed by myself. Vital signs stable. GENERAL: 77-year-old female, mildly tachypneic,, in no acute distress, nondiaphoretic, SKIN: The skin was without rashes, erythema, edema, or bruising. HEAD: Normocephalic atraumatic. MOUTH: Mucous membranes slightly dry. NECK:. No JVD. HEART: Regular rate and rhythm questionable rub. LUNGS: Clear to auscultation bilaterally without wheezes, rales or rhonchi. Positive tachypnea ABDOMEN: Positive bowel sounds x 4.Soft, nontender, without organomegaly. No guarding or rebound tenderness. MUSCULOSKELETAL: +1 pitting edema in the lower extremities bilaterally without any erythema, tenderness or warmth appreciated. Strength 5/5 throughout. NEURO: Patient was alert and oriented to person place and time. Normal sensation to touch. No focal neurological deficits. Medical Decision & Procedures ER Provider Diagnostic Interpretation: CHEST 2 VIEWS ROUTINE CLINICAL HISTORY: SOB LEG SWELLING COMPARISON STUDY: 03/26/2017 FINDINGS: The cardiac and mediastinal contours are normal. There is no evidence of focal pulmonary consolidation. There is no evidence of failure. No pleural effusions are visualized.[ IMPRESSION: No active disease in the chest. Electronically signed by: Tomas White M.D. 04/12/2017 5:36 PM Dictated Date/Time: 04/12/2017 5:35 PM The status of this report is Signed. Draft = Not yet reviewed or approved by Radiologist. Signed = Reviewed and approved by Radiologist. <AttendingPhy></AttendingPhy> <FamilyPhy>Marvin Viveros M.D.</FamilyPhy> < PrimaryPhy>Marvin Viveros M.D.</PrimaryPhy> <UnitNumber>[id number]</UnitNumber > <VisitNumber>[id number]</VisitNumber> <PatientName>JASPAL RASMUSSENRA Garcia</PatientName > <DateOfBirth>1940</DateOfBirth> <Location>[facility]</Location> <ServiceDate> 04/12/17</ServiceDate> <MNE>ESINDI</MNE> <OrderingPhy>Alisa Huerta PA-C</ OrderingPhy> <OrderingPhyMNE>f rep ord dr phillips</OrderingPhyMNE> <DictatingPhyMNE> f rep dict dr phillips</DictatingPhyMNE> <CCListMNE>f rep ct mne</CCListMNE> < AdmittingPhyMNE>f pt admit dr phillips</AdmittingPhyMNE> <AttendingPhyMNE>f pt attend dr phillips</AttendingPhyMNE> <ConsultingPhyMNE>f pt consult dr phillips</ConsultingPhyMNE> <FamilyPhyMNE>f pt fam dr phillips</FamilyPhyMNE> <OtherPhyMNE>f pt other dr phillips</OtherPhyMNE> < PrimaryPhyMNE>f pt prim care dr phillips</PrimaryPhyMNE> <ReferringPhyMNE>f pt referring Laboratory Results 04/12/17 17:10 Red Blood Count 3.81, Mean Corpuscular Volume 91.1, Mean Corpuscular Hemoglobin 29.9, Mean Corpuscular Hemoglobin Concent 32.9, Mean Platelet Volume 8.9, Neutrophils (%) (Auto) 80.6, Lymphocytes (%) (Auto) 10.7, Monocytes (%) (Auto) 6.1, Eosinophils (%) (Auto) 1.9, Basophils (%) (Auto) 0.3, Neutrophils # (Auto) 7.61, Lymphocytes # (Auto) 1.01, Monocytes # (Auto) 0.58, Eosinophils # (Auto) 0.18, Basophils # (Auto) 0.03 04/12/17 17:10 Test 04/12/17 17:10 White Blood Count 9.45 K/uL (4.8-10.8) Red Blood Count 3.81 M/uL (4.2-5.4) Hemoglobin 11.4 g/dL (12.0-16.0) Hematocrit 34.7 % (37-47) Mean Corpuscular Volume 91.1 fL (80-100) Mean Corpuscular Hemoglobin 29.9 pg (25-34) Mean Corpuscular Hemoglobin Concent 32.9 g/dl (32-36) Platelet Count 218 K/uL (130-400) Mean Platelet Volume 8.9 fL (7.4-10.4) Neutrophils (%) (Auto) 80.6 % Lymphocytes (%) (Auto) 10.7 % Monocytes (%) (Auto) 6.1 % Eosinophils (%) (Auto) 1.9 % Basophils (%) (Auto) 0.3 % Neutrophils # (Auto) 7.61 K/uL (1.4-6.5) Lymphocytes # (Auto) 1.01 K/uL (1.2-3.4) Monocytes # (Auto) 0.58 K/uL (0.11-0.59) Eosinophils # (Auto) 0.18 K/uL (0-0.5) Basophils # (Auto) 0.03 K/uL (0-0.2) RDW Standard Deviation 47.1 fL (36.4-46.3) RDW Coefficient of Variation 14.2 % (11.5-14.5) Immature Granulocyte % (Auto) 0.4 % Immature Granulocyte # (Auto) 0.04 K/uL (0.00-0.02) D-Dimer 260 ug/L FEU (0-500) Anion Gap 5.0 mmol/L (3-11) Estimated GFR () 101.2 Estimated GFR (Non- 87.3 BUN/Creatinine Ratio 19.5 (10-20) Calcium Level 9.6 mg/dl (8.5-10.1) Magnesium Level 1.7 mg/dl (1.8-2.4) Total Bilirubin 0.7 mg/dl (0.2-1) Aspartate Amino Transf (AST/SGOT) 14 U/L (15-37) Alanine Aminotransferase (ALT/SGPT) 25 U/L (12-78) Alkaline Phosphatase 77 U/L (45-117) Total Creatine Kinase 49 U/L (26-192) Creatine Kinase MB 2.2 ng/ml (0.5-3.6) Creatine Kinase MB Ratio 4.5 (0-3.0) Troponin I < 0.015 ng/ml (0-0.045) Pro-B-Type Natriuretic Peptide 198 pg/ml (0-900) Total Protein 6.6 gm/dl (6.4-8.2) Albumin 3.8 gm/dl (3.4-5.0) Globulin 2.8 gm/dl (2.5-4.0) Albumin/Globulin Ratio 1.4 (0.9-2) Medications Administered Medications (Trade) Dose Ordered Sig/[place] Route Start Time Stop Time Status Last Admin Dose Admin Furosemide (Lasix Inj) 40 mg NOW STAT IV 04/12/17 17:01 04/12/17 17:04 DC 04/12/17 17:52 40 MG Methylprednisolone Sodium Succinate (Solu-Medrol IV) 125 mg NOW STAT IV 04/12/17 18:27 04/12/17 18:28 DC 04/12/17 19:08 125 MG Albuterol/ Ipratropium (Duoneb) 3 ml ONE STAT INH 04/12/17 18:27 04/12/17 18:28 DC 04/12/17 19:08 3 ML ECG Indication: SOB/dyspnea Rate (beats per minute): 80 Rhythm: normal sinus ED Course Patient was seen and examined Vital signs including blood pressure were reviewed medications list was verified with patient Labs were obtained, and a saline lock was established The patient was given 1 dose of Lasix 40 mg IV Imaging was performed and reviewed The patient was reevaluated. She was diuresing. She did not feel any better. The patient was given a dose of Solu-Medrol 125 mg IV. She was given a DuoNeb. Upon reevaluation again, the patient was still feeling the same. The case was discussed with my supervising physician who personally evaluated the patient. He spoke with pulmonology electronics detail draftsperson. The case was discussed. The findings were thoroughly discussed with the patient. She voiced understanding. She was comfortable being discharged home. I reviewed discharge instructions the patient. They voiced understanding and had no further questions. Medical Decision Differential diagnosis: Chronic respiratory failure, CHF exacerbation, pericardial effusion, PE Acute myocardial infarction, cardiac arrhythmia, anemia , thyroid abnormality, pneumothorax, pneumonia, bronchitis, pericarditis, electrolyte imbalance This patient is a pleasant 77-year-old female that presents to emergency department with worsening dyspnea over the last week or so. She also notes swelling in the legs. She does however state there has been no changes in her weight. Upon exam, she did have edema in her legs. No tenderness or warmth. Her lungs sounded clear. She was oxygenating at 100% on her typical 2 L. Her labs were unremarkable. Cardiac enzymes were negative. BNP was within normal limits. D-dimer was negative. I do not suspect PE. Chest x-ray was clear. EKG shows normal sinus rhythm with no signs of ischemia. The patient has a history of chronic respiratory failure. She is currently undergoing a workup with pulmonology. Her oxygen is stable on her current 2 L. After discussion with pulmonology, I believe she is stable to be discharged home with close follow-up. She is instructed to call the chief accountant office in the morning. She was started on a low-dose diuretic for the next 3 days to see if there is any improvement. She was instructed to weigh herself daily. She was also told to return to the emergency department with any new or worsening symptoms. She was comfortable with this plan, discharged in stable condition. This chart was completed in part utilizing [email or web address] Speech Voice Recognition software. Attempts were made to minimize the grammatical errors, random word insertions, pronoun errors and incomplete sentences. Any formal questions or concerns about the content, text or information contained within the body of this dictation should be directly addressed to the provider for clarification. Medication Reconcilliation Current Medication List: was personally reviewed by me Blood Pressure Screening Patient's blood pressure: Normal blood pressure Impression Primary Impression: Dyspnea Departure Information Dispostion Home / Self-Care Condition GOOD Prescriptions Furosemide (LASIX) 20 Mg Tab 1 TAB PO DAILY for 3 Days, #3 TAB 1 Refill Prov: Alisa Huerta PA-C 04/12/17 Referrals Marvin Viveros M.D. (PCP) Julius Ceja MD Patient Instructions My [facility] Additional Instructions You were evaluated in the emergency department for difficulty breathing. Please begin Lasix 20 mg 1 pill daily for the next 3 days Please weigh yourself daily. Please call Dr. Ceja's office in the morning for a follow-up appointment. Continue oxygen at 2 liters Activity as tolerated for shortness of breath. Return to the emergency department if you have any of the following symptoms: -Fever of 103F or greater -Chest pain -Worsening or severe Shortness of breath
[2017-04-12 17:33] LABS: BASO % 0.3 %; BASO ABS # 0.03 K/uL (0-0.2); COMPLETE YES; EOS % 1.9 %; HEMATOCRIT 34.7 % (37-47); IG% 0.4 %; LYMPH % 10.7 %; LYMPH ABS # 1.01 K/uL (1.2-3.4); MEAN CELL VOLUME 91.1 fL (80-100); MEAN CORPUSCULAR HEMOGLOBIN 29.9 pg (25-34); MEAN CORPUSCULAR HGB CONC 32.9 g/dl (32-36); MEAN PLATELET VOLUME 8.9 fL (7.4-10.4); MONO % 6.1 %; NEUT % 80.6 %; PLATELET COUNT 218 K/uL (130-400); RED BLOOD COUNT 3.81 M/uL (4.2-5.4); WHITE BLOOD COUNT 9.45 K/uL (4.8-10.8)
--- NOTE | 2017-04-12 17:38 | DIAGNOSTIC IMAGING REPORT ---
CHEST 2 VIEWS ROUTINE CLINICAL HISTORY: SOB LEG SWELLING COMPARISON STUDY: 03/26/2017 FINDINGS: The cardiac and mediastinal contours are normal. There is no evidence of focal pulmonary consolidation. There is no evidence of failure. No pleural effusions are visualized.[ IMPRESSION: No active disease in the chest. Electronically signed by: Tomas White M.D. 04/12/2017 5:36 PM Dictated Date/Time: 04/12/2017 5:35 PM
[2017-04-12 17:42] LABS: ALT/SGPT 25 U/L (12-78); BLOOD UREA NITROGEN 13 mg/dl (7-18); BUN/CREATININE RATIO 19.5 (10-20); CALCIUM 9.6 mg/dl (8.5-10.1); CARBON DIOXIDE 32 mmol/L (21-32); CHLORIDE 101 mmol/L (98-107); CREATININE 0.64 mg/dl (0.60-1.20); GLUCOSE 92 mg/dl (70-99); MAGNESIUM 1.7 mg/dl (1.8-2.4); POTASSIUM 3.5 mmol/L (3.5-5.1); SODIUM 138 mmol/L (136-145)
[2017-04-12 17:47] LABS: ALB/GLOB RATIO 1.4 (0.9-2); ALKALINE PHOSPHATASE 77 U/L (45-117); AST/SGOT 14 U/L (15-37); CKMB/CK RATIO 4.5 (0-3.0)
[2017-04-12] MEDS ORDERED: ALBUT/IPRATROP 3MG/0.5MG NEB 3 ML VIAL INH STA (18:27)
[2017-04-12] MEDS ORDERED: METHYLPREDNISOLONE 125 MG VIAL IV STA (18:27)
--- NOTE | 2017-04-12 18:47 | EMERGENCY ROOM VISIT NOTE ---
ED Visit Note First contact with patient: 16:48 The patient was seen and examined with Alisa Huerta PA-C. I agree with the history, physical and findings. Please see the note for disposition and details. I discussed the case with Dr. Coreas of pulmonology. She had seen the patient in the hospital and consultation. The underlying diagnosis is still unknown. She recommended close outpatient follow-up at the patient's vital signs and testing here are unremarkable. She will contact the patient's tank house supervisor, Dr. Ceja and the patient will call the office tomorrow. She will continue current medication. She felt it was not unreasonable to try a small dose of Lasix. If the patient worsens back to the emergency department.
[2017-04-12] MEDS ORDERED: FURO-85 PO (21:56)
[2017-04-12 22:52] VITALS: BP 136/101; PULSE 90; O2SAT 96
[2017-04-20] MEDS ORDERED: DILT120C43 PO (08:10)
[2017-04-20] MEDS ORDERED: CYAN10005 PO (14:36)
[2017-04-20] MEDS ORDERED: ATOR10TA88 PO (14:36)
[2017-05-04] MEDS ORDERED: LISI-725 PO (13:41)
== END 2017-04-12 22:35 | disposition home or self-care (01) ==
LOC: C.EDB 16:40
DX: R06.00 Dyspnea, unspecified (principal); J96.10 Chronic respiratory failure, unspecified whether with hypoxia or hypercapnia; I10 Essential (primary) hypertension; R60.0 Localized edema; Z87.01 Personal history of pneumonia (recurrent); Z99.81 Dependence on supplemental oxygen; Z90.710 Acquired absence of both cervix and uterus; Z98.890 Other specified postprocedural states; Z82.49 Family history of ischemic heart disease and other diseases of the circulatory system; Z79.899 Other long term (current) drug therapy

== ENCOUNTER 2017-04-20 14:48 | Emergency (ER) | payer BC ==
[~2017-04-20] VITALS: Ht 160 cm; Wt 88.0 kg
[~2017-04-20 14:48] MED LIST changes: -ALBU18002 INH; +ATOR10TA88 PO; -CRFL PO; +CYAN10005 PO; +DILT120C43 PO; -FLNIN NAE; +FURO-85 PO; -PRD5 PO; -PRT40 PO; -SPRIN INH
[2017-04-20 14:50] VITALS: TEMP 36.6; Ht 160 cm; Wt 88.0 kg
[2017-04-20] MEDS ORDERED: ONDANSETRON INJ 2 MG/ML 2 ML VIAL IV STA (15:54)
--- NOTE | 2017-04-20 16:05 | EMERGENCY ROOM VISIT NOTE ---
History Report prepared by Francie: Diego Hartley Under the Supervision of: Dr. Jose Eduardo Long D.O. First contact with patient: 15:47 Chief Complaint: HYPOTENSION Stated Complaint: LOW BLOOD PRESSURE, SOB History of Present Illness The patient is a 77 year old female who presents to the Emergency Room with complaints of an episode of low blood pressure that was detected earlier today. She says that she felt "funny" and unwell yesterday, in addition to some back pain, so she took her blood pressure earlier today, which revealed a low blood pressure. She adds that she has not taken her blood pressure medication yesterday or today. The patient notes that she was here last week for dyspnea, and saw her primary care doctor (Dr. Viveros) 2 days ago, who had the patient stop taking Lasix. The patient adds that she had a flu shot there. She says that while she was in the hospital last week, she was taking Lisinopril with HCTZ, but had the HCTZ removed. The patient states that Dr. Viveros then started the patient back on HCTZ 2 days ago. The patient says that she still does not feel well today, and she noticed that her legs were swollen upon waking today. She adds that she has been urinating more than usual. She says that she started to feel nauseated in the waiting room. The patient states that she called Dr. Viveros's office earlier today, and was told to come here. She denies any fevers, diarrhea, constipation, or leg redness. The patient also denies any worsened shortness of breath or cough. She says that she started being chronically short of breath in November, and they have been unable to determine why she has been having breathing difficulties. The patient is not on any blood thinners. Source of History: patient Onset: Detected earlier today Position: other (global - low blood pressure) Symptom Intensity: told to come to ED Associated Symptoms: + nausea, + urinary symptoms (increased frequency), No fevers, No cough (no worsening), No SOB (no worsening), No diarrhea Note: Associated symptoms: Feeling unwell. Leg swelling starting today. Denies constipation or leg redness. Review of Systems See HPI for pertinent positives & negatives. A total of 10 systems reviewed and were otherwise negative. Past Medical & Surgical Medical Problems: (1) Choking due to foreign body (2) Hypertension (3) Hypoxemia (4) Pneumonia Surgical Problems: (1) H/O hernia repair (2) H/O: hysterectomy (3) History of breast biopsy Family History Cancer Gallbladder disease Hypertension Social History Smoking Status: Never Smoker Alcohol Use: none Marital Status: Housing Status: lives alone Occupation Status: retired Current/Historical Medications Scheduled Atorvastatin (Lipitor), 10 MG PO HS Cefdinir (Omnicef), 6 ML PO Q12H Cholecalciferol (Vitamin D3), 1,000 INTER.UNIT PO QAM Cyanocobalamin (Vitamin B-12), 1,000 MCG PO QAM Diltiazem Hcl Coated Beads (Cartia Xt), 120 MG PO QPM Fluticasone Propionate (Nasal) (Flonase Allergy Relief), 1 SPRAY NINO BID Hctz/Lisinopril (Zestoretic 20MG/12.5MG), 1 TAB PO DAILY Home O2 Therapy (Oxygen), 2 LITERS NA CONTINOUS Pantoprazole (Protonix), 40 MG PO BID Tiotropium [place] (Spiriva Handihaler), 1 CAP INH QAM Scheduled PRN Albuterol Sulfate (Proair Respiclick), 1 PUFF INH Q6H PRN for Shortness of Breath Furosemide (Lasix), 20 MG PO DAILY PRN for Swelling of Feet Allergies Coded Allergies: Cetirizine (Verified Allergy, Unknown, RASH, 04/09/17) Simvastatin (Verified Allergy, Unknown, ABDOMINAL CRAMPS, 04/09/17) Physical Exam Vital Signs Date Time Temp Pulse Resp B/P (MAP) Pulse Ox O2 Delivery O2 Flow Rate FiO2 04/20/17 20:00 78 18 123/91 100 04/20/17 18:40 80 16 84/66 97 Nasal Cannula 2.0 04/20/17 16:45 80 16 97/66 79 Room Air 04/20/17 16:12 81 04/20/17 14:50 36.6 78 16 92/61 96 Nasal Cannula Physical Exam GENERAL: Patient is awake, alert, and in no acute distress. Patient is resting comfortably and showing no signs of anxiety EYES: The conjunctivae are clear. The pupils are round and reactive. EARS, NOSE, MOUTH AND THROAT: The nose is without any evidence of any deformity. Mucous membranes are moist tongue is midline NECK: The neck is nontender and supple. RESPIRATORY: Lung sounds were diminished throughout with rales at both bases. No tachypnea or conversational dyspnea. CARDIOVASCULAR: Regular rate and rhythm noted there no murmurs rubs or gallops normal S1 normal S2 GASTROINTESTINAL: The abdomen was mildly distended but soft. No tenderness, guarding or rigidity. MUSCULOSKELETAL/EXTREMITIES: There is no evidence of gross deformity full range of motion is noted in the hips and shoulders SKIN: Pedal edema bilaterally. NEUROLOGIC: Patient is awake alert and oriented x3. Medical Decision & Procedures ER Provider Diagnostic Interpretation: X-ray results as stated below per interpretation by me and the radiologist. CHEST ONE VIEW PORTABLE CLINICAL HISTORY: ABDOMINAL PAIN/GI pain COMPARISON STUDY: 04/12/2017 FINDINGS: The bones soft tissues and hemidiaphragms are normal. The cardiomediastinal silhouette is normal. The lungs are clear. The pulmonary vasculature is normal. IMPRESSION: Negative chest. The above report was generated using voice recognition software. It may contain grammatical, syntax or spelling errors. Electronically signed by: Palomo Keys M.D. 04/20/2017 4:23 PM Dictated Date/Time: 04/20/2017 4:23 PM Laboratory Results 04/20/17 16:25 Red Blood Count 3.80, Mean Corpuscular Volume 90.8, Mean Corpuscular Hemoglobin 29.7, Mean Corpuscular Hemoglobin Concent 32.8, Mean Platelet Volume 9.2, Neutrophils (%) (Auto) 70.5, Lymphocytes (%) (Auto) 15.9, Monocytes (%) (Auto) 6.6, Eosinophils (%) (Auto) 6.3, Basophils (%) (Auto) 0.4, Neutrophils # (Auto) 5.15, Lymphocytes # (Auto) 1.16, Monocytes # (Auto) 0.48, Eosinophils # (Auto) 0.46, Basophils # (Auto) 0.03 04/20/17 16:25 Test 04/20/17 16:15 04/20/17 16:25 04/20/17 16:47 Urine Color YELLOW Urine Appearance CLEAR (CLEAR) Urine pH 8.0 (4.5-7.5) Urine Specific [place] 1.017 (1.000-1.030) Urine Protein NEG (NEG) Urine Glucose (UA) NEG (NEG) Urine Ketones TRACE (NEG) Urine Occult Blood NEG (NEG) Urine Nitrite NEG (NEG) Urine Bilirubin NEG (NEG) Urine Urobilinogen NEG (NEG) Urine Leukocyte Esterase SMALL (NEG) Urine WBC (Auto) 10-30 /hpf (0-5) Urine RBC (Auto) 0-4 /hpf (0-4) Urine Hyaline Casts (Auto) 5-10 /lpf (0-5) Urine Epithelial Cells (Auto) 10-20 /lpf (0-5) Urine Bacteria (Auto) NEG (NEG) White Blood Count 7.30 K/uL (4.8-10.8) Red Blood Count 3.80 M/uL (4.2-5.4) Hemoglobin 11.3 g/dL (12.0-16.0) Hematocrit 34.5 % (37-47) Mean Corpuscular Volume 90.8 fL (80-100) Mean Corpuscular Hemoglobin 29.7 pg (25-34) Mean Corpuscular Hemoglobin Concent 32.8 g/dl (32-36) Platelet Count 263 K/uL (130-400) Mean Platelet Volume 9.2 fL (7.4-10.4) Neutrophils (%) (Auto) 70.5 % Lymphocytes (%) (Auto) 15.9 % Monocytes (%) (Auto) 6.6 % Eosinophils (%) (Auto) 6.3 % Basophils (%) (Auto) 0.4 % Neutrophils # (Auto) 5.15 K/uL (1.4-6.5) Lymphocytes # (Auto) 1.16 K/uL (1.2-3.4) Monocytes # (Auto) 0.48 K/uL (0.11-0.59) Eosinophils # (Auto) 0.46 K/uL (0-0.5) Basophils # (Auto) 0.03 K/uL (0-0.2) RDW Standard Deviation 46.3 fL (36.4-46.3) RDW Coefficient of Variation 13.9 % (11.5-14.5) Immature Granulocyte % (Auto) 0.3 % Immature Granulocyte # (Auto) 0.02 K/uL (0.00-0.02) Erythrocyte Sedimentation Rate 2 mm/hr (0-21) Prothrombin Time 10.7 SECONDS (9.0-12.0) Prothromb Time International Ratio 1.0 (0.9-1.1) Activated Partial Thromboplast Time 24.6 SECONDS (21.0-31.0) Partial Thromboplastin Ratio 0.9 Anion Gap 7.0 mmol/L (3-11) Est Creatinine Clear Calc Drug Dose 72.0 ml/min Estimated GFR () 96.6 Estimated GFR (Non- 83.3 BUN/Creatinine Ratio 15.4 (10-20) Calcium Level 9.6 mg/dl (8.5-10.1) Magnesium Level 1.8 mg/dl (1.8-2.4) Total Bilirubin 0.8 mg/dl (0.2-1) Direct Bilirubin 0.2 mg/dl (0-0.2) Aspartate Amino Transf (AST/SGOT) 14 U/L (15-37) Alanine Aminotransferase (ALT/SGPT) 23 U/L (12-78) Alkaline Phosphatase 77 U/L (45-117) Total Creatine Kinase 42 U/L (26-192) Creatine Kinase MB 1.6 ng/ml (0.5-3.6) Creatine Kinase MB Ratio 3.8 (0-3.0) Troponin I < 0.015 ng/ml (0-0.045) C-Reactive Protein 0.83 mg/dl (0-0.29) Pro-B-Type Natriuretic Peptide 64 pg/ml (0-900) Total Protein 6.7 gm/dl (6.4-8.2) Albumin 3.8 gm/dl (3.4-5.0) Lipase 246 U/L (73-393) Random Cortisol 14.10 mcg/dl Bedside Lactic Acid Venous 0.58 mmol/L (0.90-1.70) Laboratory results per my review. Medications Administered Medications (Trade) Dose Ordered Sig/[place] Route Start Time Stop Time Status Last Admin Dose Admin Ondansetron HCl (Zofran Inj) 4 mg NOW STAT IV 04/20/17 15:54 04/20/17 15:56 DC 04/20/17 15:54 4 MG Sodium Chloride 1,000 ml @ 999 mls/hr Q1H1M STAT IV 04/20/17 17:54 04/20/17 18:54 DC 04/20/17 17:54 999 MLS/HR Ceftriaxone Sodium (Rocephin Inj) 1 gm NOW STAT IV 04/20/17 17:54 04/20/17 17:55 DC 04/20/17 18:55 1 GM ECG Indication: nausea Rate (beats per minute): 86 Rhythm: normal sinus Findings: no ectopy, other (no acute ST segment abnormalities) Change: no significant change (from April 12 this year) ED Course 1548: The patient was evaluated in room A4B. A complete history and physical examination were performed. 1553: Ordered Zofran Inj 4 mg IV. 1753: Ordered Rocephin Inj 1 gm IV, NSS 1000 ml @ 999 mls/hr IV. 1757: I reevaluated the patient and we are giving her fluids. 1899: Upon reevaluation, the patient feeling much better and her pressure has improved. I discussed the results and treatment plan with her. She verbalized agreement of the treatment plan. She was discharged home. Medical Decision Differential diagnosis: Etiologies such as metabolic, infection, hypo/hyperglycemia, electrolyte abnormalities, cardiac sources, intracerebral event, toxicologic, neurologic, as well as others were entertained. Nursing notes reviewed. The patient's previous electronic medical records reviewed. The patient is a 77-year-old female who presented to the emergency department for an evaluation of fluctuations in blood pressure. The patient has had recent changes to her medication regimen including Lasix as well as HCTZ changes. The patient was found have signs of urinary tract infection on urinalysis. She was treated with IV fluids and IV antibiotics. Her blood pressure significantly improved. I reviewed the patient's recent history and she has had a CT the chest recently. She states that she's had ongoing issues that are still being worked up by her family doctor. I discussed the patient's laboratory and radiographic studies with her and her family nurse. She was encouraged to rest and avoid any strenuous activity. She was also encouraged to continue all medications as prescribed and follow-up with her family doctor soon as possible. She was also encouraged return to the emergency Department immediately if symptoms change worsen or the need arises. Medication Reconcilliation Current Medication List: was personally reviewed by me Blood Pressure Screening Patient's blood pressure: Normal blood pressure Impression Primary Impression: UTI (urinary tract infection) Additional Impressions: Dehydration Hypotension Scribe Attestation The scribe's documentation has been prepared under my direction and personally reviewed by me in its entirety. I confirm that the note above accurately reflects all work, treatment, procedures, and medical decision making performed by me. Departure Information Dispostion Home / Self-Care Prescriptions Cefdinir (OMNICEF) 250 Mg/5 Ml [place] 6 ML PO Q12H for 10 Days, #85 ML Prov: Jose Eduardo Long, DO 04/20/17 Referrals Marvin Viveros M.D. (PCP) Forms HOME CARE DOCUMENTATION FORM, IMPORTANT VISIT INFORMATION, WORK / SCHOOL INSTRUCTIONS Patient Instructions My [facility], Urinary Tract Infecs Women Additional Instructions Call your family to schedule a follow-up appointment. Rest and avoid any strenuous activity. Drink plenty of clear liquids. Return to the emergency Department immediately if symptoms change worsen or the need arises. Problem Qualifiers
--- NOTE | 2017-04-20 16:24 | DIAGNOSTIC IMAGING REPORT ---
CHEST ONE VIEW PORTABLE CLINICAL HISTORY: ABDOMINAL PAIN/GI pain COMPARISON STUDY: 04/12/2017 FINDINGS: The bones soft tissues and hemidiaphragms are normal. The cardiomediastinal silhouette is normal. The lungs are clear. The pulmonary vasculature is normal. IMPRESSION: Negative chest. The above report was generated using voice recognition software. It may contain grammatical, syntax or spelling errors. Electronically signed by: Palomo Keys M.D. 04/20/2017 4:23 PM Dictated Date/Time: 04/20/2017 4:23 PM
[2017-04-20 16:59] LABS: BASO % 0.4 %; BASO ABS # 0.03 K/uL (0-0.2); COMPLETE YES; EOS % 6.3 %; HEMATOCRIT 34.5 % (37-47); IG% 0.3 %; LYMPH % 15.9 %; LYMPH ABS # 1.16 K/uL (1.2-3.4); MEAN CELL VOLUME 90.8 fL (80-100); MEAN CORPUSCULAR HEMOGLOBIN 29.7 pg (25-34); MEAN CORPUSCULAR HGB CONC 32.8 g/dl (32-36); MEAN PLATELET VOLUME 9.2 fL (7.4-10.4); MONO % 6.6 %; NEUT % 70.5 %; PLATELET COUNT 263 K/uL (130-400)
[2017-04-20] MEDS ORDERED: LSN/20125 PO (17:03)
[2017-04-20] MEDS ORDERED: FURO-85 PO (17:04)
[2017-04-20 17:08] LABS: PARTIAL THROMBOPLASTIN RATIO 0.9; PROTHROMBIN TIME (PATIENT) 10.7 SECONDS (9.0-12.0)
[2017-04-20 17:11] LABS: URINE APPEARANCE CLEAR (CLEAR); URINE BILIRUBIN NEG (NEG); URINE COLOR YELLOW; URINE NITRITE NEG (NEG); URINE SPECIFIC GRAVITY 1.017 (1.000-1.030); UROBILINOGEN NEG (NEG)
[2017-04-20 17:16] LABS: CHLORIDE 95 mmol/L (98-107); POTASSIUM 3.4 mmol/L (3.5-5.1); SODIUM 135 mmol/L (136-145)
[2017-04-20 17:18] LABS: MANUAL MICROSCOPIC REQUIRED? NO; REVIEW REQ? NO
[2017-04-20 17:21] LABS: ALT/SGPT 23 U/L (12-78); BLOOD UREA NITROGEN 11 mg/dl (7-18); BUN/CREATININE RATIO 15.4 (10-20); C-REACTIVE PROTEIN 0.83 mg/dl (0-0.29); CALCIUM 9.6 mg/dl (8.5-10.1); CARBON DIOXIDE 33 mmol/L (21-32); CREATININE 0.71 mg/dl (0.60-1.20); GLUCOSE 112 mg/dl (70-99)
[2017-04-20 17:24] LABS: ALKALINE PHOSPHATASE 77 U/L (45-117); AST/SGOT 14 U/L (15-37); CKMB/CK RATIO 3.8 (0-3.0); MAGNESIUM 1.8 mg/dl (1.8-2.4)
[2017-04-20] MEDS ORDERED: SODIUM CHLORIDE 0.9% 1000ML 1,000 ML IV STA (17:54)
[2017-04-20] MEDS ORDERED: CEFTRIAXONE SOD INJ 1 GM ADDVIAL IV STA (17:54)
[2017-04-20] MEDS ORDERED: FLUT0.15 NAE (17:55)
[2017-04-20] MEDS ORDERED: SPRIN/30 INH (17:55)
[2017-04-20] MEDS ORDERED: PANT40TA PO (17:55)
[2017-04-20] MEDS ORDERED: ALBU18002 INH (17:55)
[2017-04-20] MEDS ORDERED: OXGN (17:56)
[2017-04-20] MEDS ORDERED: CEFD250S3 PO (19:35)
[2017-04-20 20:00] VITALS: BP 123/91; PULSE 78; O2SAT 100
[2017-04-20] MEDS ORDERED: CHOL1000 PO (23:58)
[2017-05-04] MEDS ORDERED: LISI-725 PO (13:41)
== END 2017-04-20 19:54 | disposition home or self-care (01) ==
LOC: C.EDB 14:50 → C.EDA 19:54
DX: N39.0 Urinary tract infection, site not specified (principal); E86.0 Dehydration; I95.9 Hypotension, unspecified; I10 Essential (primary) hypertension; Z87.01 Personal history of pneumonia (recurrent); Z90.710 Acquired absence of both cervix and uterus; Z98.890 Other specified postprocedural states; Z82.49 Family history of ischemic heart disease and other diseases of the circulatory system; Z79.899 Other long term (current) drug therapy

== ENCOUNTER 2017-04-25 07:26 | Day surgery (SDC) | payer BC ==
[~2017-04-25] VITALS: Ht 160 cm; Wt 88.0 kg
[2017-04-25] VITALS (19 sets, daily range): BP systolic 102–158; BP diastolic 71–116; PULSE 89–114; TEMP 36.4–36.9; O2SAT 91–100; Ht 160 cm; Wt 88.0 kg
[~2017-04-25 07:26] MED LIST changes: +ALBU18002 INH; +CEFD250S3 PO; +CHOL1000 PO; +FLUT0.15 NAE; +LSN/20125 PO; -LSN20 PO; +OXGN; +PANT40TA PO; +SPRIN/30 INH
[2017-04-25] MEDS ORDERED: LIDOCAINE HCL 2% LOCAL 50ML VIAL INFIL ONE (07:27)
[2017-04-25] MEDS ORDERED: LIDOCAINE 4% INH SOLN 4 ML BTL ONE (07:27)
[2017-04-25] MEDS ORDERED: FENTANYL CITRATE INJ 50 MCG/1 ML 2 ML VIAL IV ONE ×2 (07:27→10:15)
[2017-04-25] MEDS ORDERED: MIDAZOLAM HCL 5 MG/ML 1 ML VIAL IV ONE ×3 (07:27→10:15)
--- NOTE | 2017-04-25 08:02 | History and Physical ---
History & Physical Date Apr 25, 2017. Chief Complaint Progressive GIL with associated chronic cough History of Present Illness The patient is a 77 year old female with complaints of progressive GIL with associated chronic cough Dr. Jimenez saw the patient on 03/20/2017 for chronic cough and progressive dyspnea on exertion. She has been we simply worked up with CT angio on 2016 show no evidence of pulmonary embolism but there were multiple subcentimeter nodules with the largest in the right upper lobe 5 mm which is ground-glass in nature. Spirometry noted and FEV1/FVC ratio 54 with no significant bronchodilator response. Patient was noted to have dysphagia with food getting stuck and underwent EGD like dilation on 11/27/2016. She was sent for bronchoscopy for further evaluation of her chronic cough. Active Problems 1. Anemia 2. BMI 39.0-39.9,adult 3. Carpal tunnel syndrome 4. Chronic osteoarthritis 5. Chronic sinusitis 6. Cough 7. Dermatitis 8. Dyslipidemia 9. Dysphagia (status post EGD dilation) 10. Esophagitis 11. Exertional dyspnea 12. Gastroesophageal reflux disease 13. Hypertension 14. Lumbar radiculopathy 15. Multiple pulmonary nodules 16. Postnasal drip 17. Rhinitis 18. Shortness of breath 19. SOB (shortness of breath) on exertion Surgical History 1. History of Breast Surgery 2. History of Complete Colonoscopy 3. History of Diagnostic Esophagogastroduodenoscopy 4. History of Hysterectomy Family History 1. Family history of Mother At Age 50 2. Family history of Father At Age 50 3. Family history of Emphysema Social History Never a smoker Current Meds 1. B-12 1000 MCG Oral Capsule; one daily; 2. Atorvastatin Calcium 10 MG Oral Tablet; Take 1 tablet daily; 3. DilTIAZem HCl ER Coated Beads 120 MG Oral Capsule Extended Release TAKE 1 CAPSULE ONCE DAILY 4. Cartia XT 120 MG Oral Capsule Extended Release 24 Hour 5. Lisinopril 20 MG Oral Tablet; 6. Omeprazole 40 MG Oral Capsule Delayed Release; TAKE 1 CAPSULE BY MOUTH DAILY 7. Vitamin D 1000 UNIT Oral Tablet; TAKE DIRECTED Allergies 1. Lisinopril TABS 2. Zocor TABS Past Medical/Surgical History Medical Problems: (1) Choking due to foreign body (2) Hypertension (3) Hypoxemia (4) Pneumonia Surgical Problems: (1) H/O hernia repair (2) H/O: hysterectomy (3) History of breast biopsy Additional History Hepatic Disease: No Endocrine Disorder: No Kidney Disease: No Hypertension: Yes Heart Disease: No Bleeding Tendencies: No Infectious Diseases: No Allergies Coded Allergies: Cetirizine (Verified Allergy, Unknown, RASH, 04/25/17) Simvastatin (Verified Allergy, Unknown, ABDOMINAL CRAMPS, 04/25/17) Home Medications Scheduled Atorvastatin (Lipitor), 10 MG PO HS Cefdinir (Omnicef), 6 ML PO Q12H Cholecalciferol (Vitamin D3), 1,000 INTER.UNIT PO QAM Cyanocobalamin (Vitamin B-12), 1,000 MCG PO QAM Diltiazem Hcl Coated Beads (Cartia Xt), 120 MG PO QPM Fluticasone Propionate (Nasal) (Flonase Allergy Relief), 1 SPRAY NINO BID Hctz/Lisinopril (Zestoretic 20MG/12.5MG), 1 TAB PO DAILY Home O2 Therapy (Oxygen), 2 LITERS NA CONTINOUS Pantoprazole (Protonix), 40 MG PO BID Tiotropium [place] (Spiriva Handihaler), 1 CAP INH QAM Scheduled PRN Albuterol Sulfate (Proair Respiclick), 1 PUFF INH Q6H PRN for Shortness of Breath Furosemide (Lasix), 20 MG PO DAILY PRN for Swelling of Feet Physical Examination Skin: warm/dry, no rash Eyes: normal inspection, EOMI, sclerae normal ENT: normal ENT inspection, pharynx normal Head: normocephalic, atraumatic Neck: supple, no adenopathy, trachea midline Respiratory/Chest: lungs clear, normal breath sounds, no respiratory distress Cardiovascular: regular rate, rhythm, no edema, no murmur Abdomen / GI: normal bowel sounds, non tender Back: normal inspection Extremities: normal inspection, normal range of motion Neurologic/Psych: no motor/sensory deficits, alert, normal reflexes, oriented x 3 Diagnosis Progressive GIL with associated chronic cough ASA Classification: ASA Class III Plan of Treatment Bronchoscopy with BAL
--- NOTE | 2017-04-25 08:24 | Procedure Note ---
Pre-Mod Sedation Assessment General Date of Moderate Sedation: Apr 25, 2017. Review Cardiovascular: regular rate, rhythm, no edema, no gallop, no JVD Abdomen: normal bowel sounds, non tender, soft, no organomegaly, no pulsatile mass Lungs: chest non-tender, lungs clear, normal breath sounds, no respiratory distress, + pertinent finding (on O@ support) Pre-Sedation Airway Assessment Oral Cavity: WNL Able to Visualize Vocal Cords: Yes Short Thick Neck: Yes Hx of Sleep Apnea: No Smoking Status: Never Smoker ASA Classification: Class III Procedure Planning Contraindications-for Mod Sed: None Yes Notes The planned sedation has been discussed with the patient and consent obtained. I have identified the patient, determined the appropriateness of sedation and have assessed the patient immediately prior to the procedure. All medicine(s) and interventions are by my order.
[2017-04-25] MEDS ORDERED: NURSING VERBAL MED ORDER ONE ×2 (08:30→10:00)
[2017-04-25] MEDS ORDERED: SODIUM CHLORIDE 0.9% 1000ML 1,000 ML IV SCH (09:00)
--- NOTE | 2017-04-25 09:52 | Bronchoscopy Procedure Note ---
Bronchoscopy Procedure Note Procedure: Bronchoscopy, conscious sedation, bronchial washing left upper lobe Consent: Obtained through the patient placed into the chart Pre-procedural diagnosis: Progressive shortness of breath with chronic cough Post-procedural diagnosis: Progressive shortness of breath with chronic cough Start time: 924 End time: 939 Total time: minutes Analgesia: 2% liquid lidocaine: Via nebulizer 4% gel lidocaine: Via right naris 2% liquid lidocaine: Via bronchoscopy Sedation: Versed IV: 4mg Fentanyl IV: 50 g Procedure: The Olympus video bronchoscope was used for this procedure and passed down through the right naris Right naris/posterior naris/posterior oropharynx: Anatomically within normal limits Glottis: Anatomically within normal limits, diffuse secretions. The glottis and vocal cords possibly from the lung vs. esophagitis Vocal cords: Proper abduction and abduction, anatomically within normal limits Subglottis/trachea/[place]: Anatomically within normal limits Right bronchial tree: Right mainstem bronchus: Anatomically within normal limits Right upper lobe: Anatomically within normal limits, diffuse mucous secretions Bronchus intermedius: Anatomically within normal limits Right middle lobe: Anatomically within normal limits, mucous secretions Right lower lobe: Anatomically within normal limits Findings: No significant findings noted Left bronchial tree: Left mainstem bronchus: Anatomically within normal limits Left upper lobe: Anatomically within normal limits, mucous secretions Lingula: Anatomically within normal limits Left lower lobe: Anatomically within normal limits Findings: No significant findings noted Bronchial washing lavage: Left upper lobe EBL: None Complications: None Follow-up: In the [facility]
--- NOTE | 2017-04-25 09:52 | Procedure Note ---
Post-Moderate Sedation Plan General Date of Moderate Sedation Apr 25, 2017. Vital Signs: Vital Signs Past 12 Hours Date Time Temp Pulse Resp B/P (MAP) Pulse Ox O2 Delivery O2 Flow Rate FiO2 04/25/17 08:51 36.5 89 20 107/75 98 2.0 04/25/17 07:54 36.5 89 20 107/75 (86) 98 Nasal Cannula 2 Review - Discharge Plan Post Moderate Sedation Plan: On clinical assessment, the patient appears to have tolerated the conscious sedation without complications. Patient is recovering as anticipated. Patient will continue to be monitored by nursing and may be discharged when conscious sedation discharge criteria are met.
--- NOTE | 2017-04-25 09:55 | Discharge Instructions ---
Discharge Instructions Date of Service Apr 25, 2017. Admission Reason for Admission: Cough, Shortness Of Breath Discharge Discharge Diagnosis / Problem: progressive dyspnea on exertion with associated cough Discharge Goals Goal(s): Diagnostic testing Activity Recommendations Activity Limitations: resume your previous activity . Instructions / Follow-Up Instructions / Follow-Up Follow-up in the nontender pulmonary division Current Hospital Diet Patient's current hospital diet: Discharge Diet Recommended Diet: Regular Diet Procedures Procedures Performed: Bronchoscopy with bronchial washing of the left upper lobe Pending Studies Studies pending at discharge: no Laboratory Results Hemoglobin A1c Test 03/27/17 04:57 Range/Units Estimated Average Glucose 108 mg/dl Hemoglobin A1c 5.4 4.5-5.6 % Lipid Panel Test 03/02/17 09:53 Range/Units Triglycerides Level 105 0-150 mg/dl Cholesterol Level 147 0-200 mg/dl HDL Cholesterol 64 mg/dl Cholesterol/HDL Ratio 2.3 LDL Cholesterol, Calculated 62 mg/dl Medical Emergencies . Who to Call and When: Medical Emergencies: If at any time you feel your situation is an emergency, please call 911 immediately. . Non-Emergent Contact Non-Emergency issues call your: Cloth Shrinking Machine Operator Helper . . "Provider Documentation" section prepared by Julius Ceja. . VTE Core Measure Inpt VTE Proph given/why not?: Other Anticoagulation (on Plavix and aspirin)
[2017-05-04] MEDS ORDERED: LISI-725 PO (13:41)
== END 2017-04-25 12:52 | disposition home or self-care (01) ==
LOC: C.ACU 07:26
PROVIDERS: ATTEND Internal Medicine Critical Care Medicine
DX: R06.09 Other forms of dyspnea (principal); R05 Cough; R91.8 Other nonspecific abnormal finding of lung field; D64.9 Anemia, unspecified; M19.90 Unspecified osteoarthritis, unspecified site; J32.9 Chronic sinusitis, unspecified; E78.5 Hyperlipidemia, unspecified; K21.9 Gastro-esophageal reflux disease without esophagitis; I10 Essential (primary) hypertension; Z90.710 Acquired absence of both cervix and uterus

== ENCOUNTER 2017-04-30 18:28 | Emergency (ER) | payer BC ==
[~2017-04-30] VITALS: Ht 160 cm; Wt 87.0 kg
[2017-04-30 18:38] VITALS: TEMP 36.5; Ht 160 cm; Wt 87.0 kg
--- NOTE | 2017-04-30 19:09 | EMERGENCY ROOM VISIT NOTE ---
History Report prepared by Scribe: Radha Russo Under the Supervision of: Dr. Jose Eduardo Long D.O. First contact with patient: 19:01 Chief Complaint: RESPIRATORY PROBLEMS Stated Complaint: TO MUCH FLUID, HARD TO BREATH Nursing Triage Summary: patient presents with c/o increased shortness of breath since yesterday and patietn c/o retaining fluid in her legs. patient states she was seen by her project analyst today and was told to come here for further evaulation. patient wears 2L oxygen via nasal cannula at all times. denies COPD. History of Present Illness The patient is a 77 year old female who presents to the Emergency Room with complaints of worsening shortness of breath that started yesterday. She wears 2L NC chronically. Exertion worsens her symptoms. She has also experienced an intermittently productive cough. Inhalers have provided minimal relief. She last saw her Director Of Curriculum And Instruction earlier today and was referred here to the ED for further evaluation. She reports she recently underwent a bronchoscopy and a "small tear in the esophagus" and "extra fluid" was found. She admits to increased swelling in her legs and states she has lost 6 pounds in the past 2 weeks. She denies any recent fevers. She has experienced some chest pressure but denies any acute chest pain. She was recently on antibiotics for a UTI but states she finished the course. The patient denies any history of COPD. Source of History: patient Onset: yesterday Position: chest Timing: worsening Modifying Factors (Relieving): oxygen, other (inhalers) Associated Symptoms: + cough, No fevers, No chest pain Review of Systems See HPI for pertinent positives & negatives. A total of 10 systems reviewed and were otherwise negative. Past Medical & Surgical Medical Problems: (1) Choking due to foreign body (2) Hypertension (3) Hypoxemia (4) Pneumonia Surgical Problems: (1) H/O hernia repair (2) H/O: hysterectomy (3) History of breast biopsy Family History Cancer Gallbladder disease Hypertension Social History Smoking Status: Never Smoker Alcohol Use: none Marital Status: Housing Status: lives alone Occupation Status: retired Current/Historical Medications Scheduled Atorvastatin (Lipitor), 10 MG PO HS Cholecalciferol (Vitamin D3), 1,000 INTER.UNIT PO QAM Cyanocobalamin (Vitamin B-12), 1,000 MCG PO QAM Diltiazem Hcl Coated Beads (Cartia Xt), 120 MG PO QPM Fluticasone Propionate (Nasal) (Flonase Allergy Relief), 1 SPRAY NINO BID Hctz/Lisinopril (Zestoretic 20MG/12.5MG), 1 TAB PO DAILY Home O2 Therapy (Oxygen), 2 LITERS NA CONTINOUS Pantoprazole (Protonix), 40 MG PO BID Tiotropium Newton (Spiriva Handihaler), 1 CAP INH QAM Scheduled PRN Albuterol Sulfate (Proair Respiclick), 1 PUFF INH Q6H PRN for Shortness of Breath Furosemide (Lasix), 20 MG PO DAILY PRN for Swelling of Feet Allergies Coded Allergies: Cetirizine (Verified Allergy, Unknown, RASH, 04/25/17) Simvastatin (Verified Allergy, Unknown, ABDOMINAL CRAMPS, 04/25/17) Physical Exam Vital Signs Date Time Temp Pulse Resp B/P (MAP) Pulse Ox O2 Delivery O2 Flow Rate FiO2 04/30/17 21:24 78 20 119/70 98 Room Air 04/30/17 21:03 86 20 94/59 98 Room Air 04/30/17 19:42 83 20 121/79 100 Nasal Cannula 2.0 04/30/17 19:16 83 04/30/17 19:14 98 Nasal Cannula 2.0 04/30/17 19:14 98 Nasal Cannula 2.0 04/30/17 18:48 98 Nasal Cannula 2.0 04/30/17 18:38 36.5 85 20 106/67 100 Nasal Cannula 2.0 Physical Exam GENERAL: Patient is awake, alert, in no acute distress, patient is resting comfortably and showing no signs of anxiety EYES: The conjunctivae are clear. The pupils are round and reactive. EARS, NOSE, MOUTH AND THROAT: The nose is without any evidence of any deformity. Mucous membranes are moist tongue is midline NECK: The neck is nontender and supple. RESPIRATORY: Lung sounds are diminished at both bases, no tachypnea or conversational dyspnea CARDIOVASCULAR: Regular rate and rhythm noted to auscultation, there are no definite murmurs, rubs or gallops normal S1 normal S2 GASTROINTESTINAL: The abdomen is soft. Bowel sounds are present in all quadrants. Abdomen is nontender MUSCULOSKELETAL/EXTREMITIES: There is no evidence of gross deformity full range of motion is noted in the hips and shoulders SKIN: Venous stasis changes, no calf tenderness elicited. There is no obvious evidence of any rash. There are no petechiae, pallor or cyanosis noted. NEUROLOGIC: Patient is awake alert and oriented x3 Medical Decision & Procedures ER Provider Diagnostic Interpretation: Radiology results as stated below per my review and radiologist interpretation: CHEST ONE VIEW PORTABLE HISTORY: 77 years-old Female EVALUATE RESPIRATORY DISTRESS.DYSPNEA acute respiratory distress COMPARISON: Chest radiograph 04/20/2017 TECHNIQUE: Portable upright AP view of the chest FINDINGS: Cardiomediastinal and hilar silhouettes are within normal limits. No pneumothorax, pleural effusion or focal airspace consolidation. No overt pulmonary edema. Degenerative changes are seen about the shoulders and spine. IMPRESSION: No acute cardiopulmonary process. The above report was generated using voice recognition software. It may contain grammatical, syntax or spelling errors. Electronically signed by: Ronald Rahman M.D. 04/30/2017 7:30 PM Laboratory Results 04/30/17 19:25 Red Blood Count 3.55, Mean Corpuscular Volume 89.6, Mean Corpuscular Hemoglobin 30.1, Mean Corpuscular Hemoglobin Concent 33.6, Mean Platelet Volume 8.9, Neutrophils (%) (Auto) 73.1, Lymphocytes (%) (Auto) 14.1, Monocytes (%) (Auto) 8.0, Eosinophils (%) (Auto) 4.1, Basophils (%) (Auto) 0.4, Neutrophils # (Auto) 4.93, Lymphocytes # (Auto) 0.95, Monocytes # (Auto) 0.54, Eosinophils # (Auto) 0.28, Basophils # (Auto) 0.03 04/30/17 19:25 Test 04/30/17 19:25 White Blood Count 6.75 K/uL (4.8-10.8) Red Blood Count 3.55 M/uL (4.2-5.4) Hemoglobin 10.7 g/dL (12.0-16.0) Hematocrit 31.8 % (37-47) Mean Corpuscular Volume 89.6 fL (80-100) Mean Corpuscular Hemoglobin 30.1 pg (25-34) Mean Corpuscular Hemoglobin Concent 33.6 g/dl (32-36) Platelet Count 205 K/uL (130-400) Mean Platelet Volume 8.9 fL (7.4-10.4) Neutrophils (%) (Auto) 73.1 % Lymphocytes (%) (Auto) 14.1 % Monocytes (%) (Auto) 8.0 % Eosinophils (%) (Auto) 4.1 % Basophils (%) (Auto) 0.4 % Neutrophils # (Auto) 4.93 K/uL (1.4-6.5) Lymphocytes # (Auto) 0.95 K/uL (1.2-3.4) Monocytes # (Auto) 0.54 K/uL (0.11-0.59) Eosinophils # (Auto) 0.28 K/uL (0-0.5) Basophils # (Auto) 0.03 K/uL (0-0.2) RDW Standard Deviation 46.4 fL (36.4-46.3) RDW Coefficient of Variation 14.0 % (11.5-14.5) Immature Granulocyte % (Auto) 0.3 % Immature Granulocyte # (Auto) 0.02 K/uL (0.00-0.02) Prothrombin Time 11.0 SECONDS (9.0-12.0) Prothromb Time International Ratio 1.0 (0.9-1.1) Activated Partial Thromboplast Time 25.3 SECONDS (21.0-31.0) Partial Thromboplastin Ratio 1.0 Anion Gap 8.0 mmol/L (3-11) Est Creatinine Clear Calc Drug Dose 63.5 ml/min Estimated GFR () 83.6 Estimated GFR (Non- 72.1 BUN/Creatinine Ratio 13.6 (10-20) Calcium Level 9.6 mg/dl (8.5-10.1) Total Bilirubin 0.9 mg/dl (0.2-1) Aspartate Amino Transf (AST/SGOT) 16 U/L (15-37) Alanine Aminotransferase (ALT/SGPT) 21 U/L (12-78) Alkaline Phosphatase 82 U/L (45-117) Total Creatine Kinase 50 U/L (26-192) Creatine Kinase MB 1.8 ng/ml (0.5-3.6) Creatine Kinase MB Ratio 3.6 (0-3.0) Troponin I < 0.015 ng/ml (0-0.045) Pro-B-Type Natriuretic Peptide 98 pg/ml (0-900) Total Protein 6.9 gm/dl (6.4-8.2) Albumin 3.6 gm/dl (3.4-5.0) Globulin 3.3 gm/dl (2.5-4.0) Albumin/Globulin Ratio 1.1 (0.9-2) Laboratory results per my review. Medications Administered Medications (Trade) Dose Ordered Sig/John [place] Route Start Time Stop Time Status Last Admin Dose Admin Furosemide (Lasix Inj) 40 mg NOW STAT IV 04/30/17 20:55 04/30/17 20:56 DC 04/30/17 21:03 40 MG ECG Indication: SOB/dyspnea Rate (beats per minute): 78 Findings: no ectopy, other (No acute ST segments) Change: no significant change (No change from EKG on 04/20/17) ED Course 1903: The patient was evaluated in room A4B. A complete history and physical examination were performed. 2054: Lasix 40mg IV. 2119: I reevaluated the patient. She is feeling much better. I discussed her results and discharge instructions and she verbalized complete understanding and agreement. Medical Decision Prior records/ancillary studies reviewed. Triage Nursing notes reviewed. The patient's history was concerning for respiratory difficulties. Differential diagnosis: Etiologies such as infections, reactive airway disease, pneumonia, pneumothorax , COPD, CHF, cardiac ischemia, pulmonary embolism, musculoskeletal, gastrointestinal, as well as others were entertained. The patient is a 77-year-old female who presented to the emergency department for an evaluation of shortness of breath and lower extremity edema. The patient was seen by her primary project analyst today and was sent to the emergency department for further evaluation and for IV Lasix because of the peripheral edema. The patient did not appear to be in congestive heart failure. She was not tachycardic. She normally wears supplement oxygen and her oxygen saturation was acceptable. I discussed the patient's laboratory radiographic studies with her. She was given a dose of IV Lasix in the emergency department. She was encouraged to rest and avoid any strenuous activity. She was also encouraged to follow-up with her primary care physician for further evaluation but return to emergency department immediately if symptoms change worsen or the need arises. Medication Reconcilliation Current Medication List: was personally reviewed by me Blood Pressure Screening Patient's blood pressure: Normal blood pressure Blood pressure disposition: Did not require urgent referral Impression Primary Impression: Shortness of breath Additional Impression: Peripheral edema Scribe Attestation The scribe's documentation has been prepared under my direction and personally reviewed by me in its entirety. I confirm that the note above accurately reflects all work, treatment, procedures, and medical decision making performed by me. Departure Information Dispostion Home / Self-Care Referrals No Doctor, Assigned (PCP) Patient Instructions ED Leg Swelling Bilateral, My [facility] Additional Instructions Continue all medications as prescribed. Rest and avoid any strenuous activity. Follow-up with your family DrCarlton if this is possible. Return to the emergency apartment immediately if symptoms change, worsen, or need arises. Problem Qualifiers
[2017-04-30 19:14] VITALS: O2SAT 98
--- NOTE | 2017-04-30 19:32 | DIAGNOSTIC IMAGING REPORT ---
CHEST ONE VIEW PORTABLE HISTORY: 77 years-old Female EVALUATE RESPIRATORY DISTRESS.DYSPNEA acute respiratory distress COMPARISON: Chest radiograph 04/20/2017 TECHNIQUE: Portable upright AP view of the chest FINDINGS: Cardiomediastinal and hilar silhouettes are within normal limits. No pneumothorax, pleural effusion or focal airspace consolidation. No overt pulmonary edema. Degenerative changes are seen about the shoulders and spine. IMPRESSION: No acute cardiopulmonary process. The above report was generated using voice recognition software. It may contain grammatical, syntax or spelling errors. Electronically signed by: Ronald Rahman M.D. 04/30/2017 7:30 PM Dictated Date/Time: 04/30/2017 7:29 PM
[2017-04-30 19:43] LABS: BASO % 0.4 %; BASO ABS # 0.03 K/uL (0-0.2); COMPLETE YES; EOS % 4.1 %; HEMATOCRIT 31.8 % (37-47); IG% 0.3 %; LYMPH % 14.1 %; LYMPH ABS # 0.95 K/uL (1.2-3.4); MEAN CELL VOLUME 89.6 fL (80-100); MEAN CORPUSCULAR HEMOGLOBIN 30.1 pg (25-34); MEAN CORPUSCULAR HGB CONC 33.6 g/dl (32-36); MEAN PLATELET VOLUME 8.9 fL (7.4-10.4); NEUT % 73.1 %; PLATELET COUNT 205 K/uL (130-400); RED BLOOD COUNT 3.55 M/uL (4.2-5.4); WHITE BLOOD COUNT 6.75 K/uL (4.8-10.8)
[2017-04-30 20:06] LABS: ALT/SGPT 21 U/L (12-78); BLOOD UREA NITROGEN 11 mg/dl (7-18); BUN/CREATININE RATIO 13.6 (10-20); CALCIUM 9.6 mg/dl (8.5-10.1); CARBON DIOXIDE 33 mmol/L (21-32); CHLORIDE 94 mmol/L (98-107); GLUCOSE 89 mg/dl (70-99); POTASSIUM 3.4 mmol/L (3.5-5.1); SODIUM 135 mmol/L (136-145)
[2017-04-30 20:11] LABS: ALB/GLOB RATIO 1.1 (0.9-2); ALKALINE PHOSPHATASE 82 U/L (45-117); AST/SGOT 16 U/L (15-37); CKMB/CK RATIO 3.6 (0-3.0)
[2017-04-30] MEDS ORDERED: FUROSEMIDE 40 MG/4 ML VIAL IV STA (20:55)
[2017-04-30 21:24] VITALS: BP 119/70; PULSE 78; O2SAT 98
[2017-05-04] MEDS ORDERED: LISI-725 PO (13:41)
== END 2017-04-30 21:31 | disposition home or self-care (01) ==
LOC: C.EDB 18:30 → C.ED 21:31
DX: R06.02 Shortness of breath (principal); R60.9 Edema, unspecified; I10 Essential (primary) hypertension; R09.02 Hypoxemia; Z87.01 Personal history of pneumonia (recurrent); Z80.9 Family history of malignant neoplasm, unspecified; Z83.79 Family history of other diseases of the digestive system; Z82.49 Family history of ischemic heart disease and other diseases of the circulatory system; Z79.899 Other long term (current) drug therapy; Z99.81 Dependence on supplemental oxygen

== ENCOUNTER → 2017-05-03 | Outpatient (CLI) | payer BC ==
[~2017-05-03] MED LIST changes: -CEFD250S3 PO; +LISI-725 PO
[2017-05-03 12:52] LABS: HEMATOCRIT 34.8 % (37-47); MEAN CELL VOLUME 89.5 fL (80-100); MEAN CORPUSCULAR HEMOGLOBIN 28.8 pg (25-34); MEAN CORPUSCULAR HGB CONC 32.2 g/dl (32-36); MEAN PLATELET VOLUME 10.1 fL (7.4-10.4); PLATELET COUNT 253 K/uL (130-400); RED BLOOD COUNT 3.89 M/uL (4.2-5.4); WHITE BLOOD COUNT 8.08 K/uL (4.8-10.8)
[2017-05-03 13:05] LABS: BLOOD UREA NITROGEN 15 mg/dl (7-18); BUN/CREATININE RATIO 15.4 (10-20); CALCIUM 9.8 mg/dl (8.5-10.1); CARBON DIOXIDE 38 mmol/L (21-32); CHLORIDE 92 mmol/L (98-107); GLUCOSE 103 mg/dl (70-99); POTASSIUM 3.2 mmol/L (3.5-5.1); SODIUM 136 mmol/L (136-145)
== END | disposition home or self-care (01) ==
LOC: C.LAB1850 10:01
PROVIDERS: ATTEND Internal Medicine Interventional Cardiology
DX: Z01.818 Encounter for other preprocedural examination (principal); R60.9 Edema, unspecified; J44.9 Chronic obstructive pulmonary disease, unspecified

== ENCOUNTER → 2017-05-04 | Day surgery (SDC) | payer BC ==
[~2017-05-04] VITALS: Ht 160 cm; Wt 84.0 kg
[~2017-05-04] MED LIST changes: +FENTANYL CITRATE INJ 50 MCG/1 ML 2 ML VIAL ONE; +MIDAZOLAM HCL 1 MG/ML 2ML VIAL ONE
[2017-05-04 13:30] VITALS: BP 134/112; PULSE 109; TEMP 36.4; O2SAT 97; Ht 160 cm; Wt 84.0 kg
[2017-05-04 14:54] LABS: ISTAT ARTERIAL BLOOD GAS HCO3 35 meq/L (19-24); ISTAT ARTERIAL BLOOD GAS PCO2 52 mmHg (35-46); ISTAT ARTERIAL BLOOD GAS PO2 34 mmHg (80-95); ISTAT ARTERIAL BLOOD GAS pH 7.44 (7.35-7.45); ISTAT CARBON DIOXIDE 37 mEq/l (24-31)
--- NOTE | 2017-05-04 15:13 | Cardiac Catheterization ---
Procedure Note Procedure Date May 04, 2017. Pre-Procedure Diagnosis Cardiothoracic Symptom AUC Score 7 Post-Procedure Diagnosis Elevated Intracardiac Pressures Procedure(s) Performed Right Heart Cath Director [employer] Database [employer] Manager(s) Onel Estimated Blood Loss 15 Medication(s) Lidocaine 1% Summary of Findings RIGHT HEART CATHETERIZATION Indication: Progressive dyspnea on exertion. Access: 6Fr Slender right antecubital vein Resting SaO2 sat 100% on 2L RA 10 RV 24/9 PA 26/14 (18) PCW 12 PaSat 64% Jessie CO/CI 4.2/2.3 Thermo CO/CI 3.9/2.1 TPG 6 PVR 1.4 Summary: 1. Normal left sided filling pressures. 2. Elevated right sided filling pressures. 3. Preserved cardiac output. 4. No significant pulmonary hypertension. Recommendations: Follow-up with Dr. Ceja for further management of pulmonary disease Consider repeat limited echo to evaluate for constriction Hemodynamics Rest Ao: -- Final Ao: -- LV: -- Recommendations Medical therapy and/or Counseling Specimens None Radiation Exposure (mGy) 31 Contrast (mls) -- Fluids (cc crystalloids) 13 Drains none Anesthesia local Procedural Complication(s) None Disposition Degree Clerk Holding/Recovery ACC Data Cardiac Status Clinical evaluation leading to the procedure CAD Presntation: Sx unlikely to be ischemic Intraprocedure Events Significant Dissection: No Perforation: No
--- NOTE | 2017-05-04 15:16 | Discharge Instructions ---
Discharge Instructions Procedure Procedure Date: May 04, 2017. Reason for Visit: R Heart Cath, Chronic Obstructive Pulmonary Diseas. Discharge Discharge Date: May 04, 2017. Discharge Diagnosis: COPD Last Recorded Wt (Kilograms): 84 Anesthesia Post Anesthesia Instructions: * Do not drive today. * Call surgeon for: 1. Temperature elevations greater than 101 degrees F. 2. Uncontrollable pain. 3. Excessive bleeding. 4. Persistent nausea and vomiting. 5. Medication intolerance (nausea, vomiting or rash). * For nausea and vomiting use only clear liquids such as: tea, soda, bouillon until nausea subsides, then gradually increase diet as tolerated. * If you have any concerns or questions, call your surgeon's office. If physician is unavailable and it is an emergency, call 911 or go to the nearest emergency room. Instructions Activity Recommendations: limitations as noted below Recommended Home Diet: resume previous diet Allergies: Coded Allergies: Cetirizine (Verified Allergy, Unknown, RASH, 04/25/17) Simvastatin (Verified Allergy, Unknown, ABDOMINAL CRAMPS, 04/25/17) Follow Up Additional Instructions: ACTIVITY RECOMMENDATIONS: * Do not lift anything heavier than 10 pounds for the next three days. * Do not engage in vigorous exercise or any sports for the next 2 days. * You may shower the day after your procedure, but do not immerse the area for three days. Cleanse the site gently with soap and water. SPECIAL CARE INSTRUCTIONS: * You may replace the pressure dressing or band-aid the morning after the procedure. * After your procedure, it is normal to have a small bruise or small lump at the site. Examine your site daily for any change in the bruise or lump, redness, swelling, drainage or numbness. Notify your doctor if any change. BLEEDING: * If there is a small amount of bleeding at the site, lie down and apply firm pressure with a clean cloth for ten minutes. When the bleeding stops, lie quietly keeping the procedure limb straight for six hours. Notify your doctor as soon as possible. * If the bleeding does not stop after ten minutes or if there is a large amount of bleeding or spurting, call 911 immediately. Continue to lie down and hold firm pressure until help arrives. SKIN IRRITATION: * You may experience some redness and/or swelling in the area where radiation was administered. If any skin irritation occurs, please contact your family physician. FOLLOW UP VISIT: Keep any scheduled doctor appointments. Follow-up with: As scheduled with Dr. Marcial Nava Recommendations: Call your doctor if: * Temperature above 101 degrees * Pain not relieved by pain medicine ordered * There is increased drainage or redness from any incision * You have any unanswered questions or concerns. Your Doctors Instructions noted above were prepared by provider Navdeep Sharp. Patient Signature Section: Patient Instructions Signature Page Binta Reza Patient (or Guardian) Signature/Date: I have read and understand the instructions given to me by my caregivers. Caregiver/RN/Doctor Signature/Date: The above-named patient and/or guardian has received patient instructions on this date. + Original Patient Signature Page (only) stays with chart. Please make copy for patient.
[2017-05-04 15:31] VITALS: BP 98/60; PULSE 107; O2SAT 99
== END | disposition home or self-care (01) ==
LOC: C.CATH 13:09
PROVIDERS: ATTEND Internal Medicine Interventional Cardiology
DX: J44.9 Chronic obstructive pulmonary disease, unspecified (principal); R06.09 Other forms of dyspnea; R09.02 Hypoxemia; I10 Essential (primary) hypertension; E78.5 Hyperlipidemia, unspecified; K21.9 Gastro-esophageal reflux disease without esophagitis; M19.90 Unspecified osteoarthritis, unspecified site; M54.16 Radiculopathy, lumbar region; Z99.81 Dependence on supplemental oxygen; Z79.899 Other long term (current) drug therapy

== ENCOUNTER → 2017-06-29 | Outpatient (CLI) | payer BC ==
[~2017-06-29] MED LIST changes: +ATOR10TA82 PO; -ATOR10TA88 PO; -FENTANYL CITRATE INJ 50 MCG/1 ML 2 ML VIAL ONE; -LSN/20125 PO; -MIDAZOLAM HCL 1 MG/ML 2ML VIAL ONE
[2017-06-29 17:18] LABS: BLOOD UREA NITROGEN 19 mg/dl (7-18); BUN/CREATININE RATIO 18.1 (10-20); CALCIUM 8.7 mg/dl (8.5-10.1); CARBON DIOXIDE 36 mmol/L (21-32); CHLORIDE 97 mmol/L (98-107); CREATININE 1.06 mg/dl (0.60-1.20); GLUCOSE 103 mg/dl (70-99); POTASSIUM 3.8 mmol/L (3.5-5.1); SODIUM 137 mmol/L (136-145)
== END | disposition home or self-care (01) ==
LOC: C.LABBFT 13:38
PROVIDERS: ATTEND Internal Medicine
DX: I10 Essential (primary) hypertension (principal); E87.6 Hypokalemia

== ENCOUNTER → 2017-10-23 | Outpatient (CLI) | payer BC ==
--- NOTE | 2017-10-23 14:58 | DIAGNOSTIC IMAGING REPORT ---
CHEST 2 VIEWS ROUTINE CLINICAL HISTORY: 77 years-old Female presenting with R06.02 SOB (shortness of breath) on [id number]. TECHNIQUE: PA and lateral views of the chest were obtained. COMPARISON: 04/30/2017. FINDINGS: Atherosclerosis of the aortic arch. Cardiac silhouette normal in size. Lungs and pleural spaces clear. Degenerative changes of the thoracic spine. Upper abdomen normal. IMPRESSION: 1. No acute cardiopulmonary disease. Electronically signed by: Júnior Arboleda M.D. 10/23/2017 2:57 PM Dictated Date/Time: 10/23/2017 2:55 PM
[2017-10-23 15:33] LABS: BASO % 0.4 %; BASO ABS # 0.02 K/uL (0-0.2); EOS % 2.5 %; EOS ABS # 0.12 K/uL (0-0.5); HEMATOCRIT 33.1 % (37-47); HEMOGLOBIN 10.2 g/dL (12.0-16.0); IG# 0.01 K/uL (0.00-0.02); LYMPH % 18.9 %; LYMPH ABS # 0.92 K/uL (1.2-3.4); MEAN CELL VOLUME 96.2 fL (80-100); MEAN CORPUSCULAR HEMOGLOBIN 29.7 pg (25-34); MEAN CORPUSCULAR HGB CONC 30.8 g/dl (32-36); MEAN PLATELET VOLUME 10.3 fL (7.4-10.4); MONO % 7.2 %; MONO ABS # 0.35 K/uL (0.11-0.59); NEUT % 70.8 %; NEUT ABS # 3.45 K/uL (1.4-6.5); PLATELET COUNT 155 K/uL (130-400); RED CELL DISTRIBUTION WIDTH CV 13.4 % (11.5-14.5); RED CELL DISTRIBUTION WIDTH SD 47.4 fL (36.4-46.3); WHITE BLOOD COUNT 4.87 K/uL (4.8-10.8)
[2017-10-23 15:48] LABS: ALBUMIN 3.2 gm/dl (3.4-5.0); ALT/SGPT 14 U/L (12-78); AST/SGOT 14 U/L (15-37); BLOOD UREA NITROGEN 16 mg/dl (7-18); CALCIUM 9.1 mg/dl (8.5-10.1); CREATININE 0.54 mg/dl (0.60-1.20); GLUCOSE 84 mg/dl (70-99); POTASSIUM 3.8 mmol/L (3.5-5.1); SODIUM 134 mmol/L (136-145)
[2017-10-23 15:51] LABS: ALKALINE PHOSPHATASE 57 U/L (45-117); TOTAL PROTEIN 6.1 gm/dl (6.4-8.2)
[2017-10-23 16:04] LABS: CARBON DIOXIDE 48 mmol/L (21-32)
== END | disposition home or self-care (01) ==
LOC: C.RAD 13:22
PROVIDERS: ATTEND Physician Assistant
DX: R06.02 Shortness of breath (principal); J44.9 Chronic obstructive pulmonary disease, unspecified; R41.82 Altered mental status, unspecified

== ENCOUNTER 2017-11-09 15:22 | Inpatient (IN) | payer BC, OTHER ==
[~2017-11-09] VITALS: Ht 162.6 cm; Wt 63.4 kg
--- NOTE | 2017-11-09 15:31 | EMERGENCY ROOM VISIT NOTE ---
History Report prepared by Francie: Liliana Garrido Under the Supervision of: Dr. Unruly Hayes M.D. 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 She is accompanied by her daughter who reports that she has noticed her mother hallucinating which is abnormal for her. She reports that her mother is supposed to be wearing 2 liters of oxygen but has turned it up to 3, and her daughter turned it back down to 2. She states her mother denies any recent falls, coughing, abdominal pain, fevers, or urinary symptoms. She notes she is not eating, has SOB, and leg swelling and pain. Movement is a worsening factor for her SOB and weakness and oxygen improves it. Dr. Calle is her PCP at [facility]. 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 Negative recent falls Review of Systems See HPI for pertinent positives & negatives. A total of 10 systems reviewed and were otherwise negative. Past Medical & Surgical Medical Problems: (1) Choking due to foreign body (2) COPD (chronic obstructive pulmonary disease) (3) Hypercapnic respiratory failure (4) Hypertension (5) Hypoxemia (6) Pneumonia Surgical Problems: (1) H/O hernia repair (2) H/O: hysterectomy (3) History of breast biopsy Old medical records were reviewed. Nurse's notes were reviewed and I agree with. Family History Cancer Gallbladder disease Hypertension Social History Smoking Status: Never Smoker Alcohol Use: none Marital Status: Housing Status: lives alone Occupation Status: retired Current/Historical Medications Scheduled Atorvastatin (Lipitor), 10 MG PO HS Cholecalciferol (Vitamin D3), 1,000 INTER.UNIT PO QAM Cyanocobalamin (Vitamin B-12), 1,000 MCG PO QAM Diltiazem Hcl Coated Beads (Cartia Xt), 120 MG PO QPM Fluticasone Propionate (Nasal) (Flonase Allergy Relief), 1 SPRAY NINO BID Home O2 Therapy (Oxygen), 2 LITERS NA CONTINOUS Ipratropium-Albuterol (Duoneb), 1 TREATMENT INH QID Metoprolol Succinate (Toprol Xl), 25 MG PO DAILY Pantoprazole (Protonix), 40 MG PO BID Potassium Ext Rel (Klor-Con), 20 MEQ PO DAILY Tiotropium [place] (Spiriva Handihaler), 1 CAP INH QAM Scheduled PRN Albuterol Sulfate (Proair Respiclick), 1 PUFF INH Q6H PRN for Shortness of Breath Azelastine Hcl (Astelin Nasal [place]), 1 SPRAYS NA BID PRN for USE IN AFFECTED NOSTRIL Furosemide (Lasix), 20 MG PO DAILY PRN for Swelling of Feet Miscellaneous Medications Lisinopril (Zestril), 20 MG PO Allergies Coded Allergies: Cetirizine (Verified Allergy, Unknown, RASH, 04/25/17) Simvastatin (Verified Allergy, Unknown, ABDOMINAL CRAMPS, 04/25/17) Physical Exam Vital Signs Date Time Temp Pulse Resp B/P (MAP) Pulse Ox O2 Delivery O2 Flow Rate FiO2 11/09/17 18:14 85 20 142/75 92 Nasal Cannula 3.0 11/09/17 17:00 83 18 142/96 98 Room Air 11/09/17 15:25 36.6 87 18 112/69 95 Nasal Cannula 3.0 Physical Exam General: Chronically-ill appearing older female in no acute distress. On baseline oxygen nasal canula. HEENT: Normal cephalic atraumatic. Pupils are equal round and reactive to light. Extraocular movements are intact. Oropharynx is pink with moist mucous membranes. No swelling of the mouth lips or tongue. Neck: Supple with a midline trachea. No meningeal signs or stiffness, no JVD or bruits. No Stridor. Chest: Diminished breath sounds bilaterally. Heart: regular rate and rhythm. Abdomen: Soft nontender, nondistended without rebound guarding or rigidity. Extremities: Trace pedal edema bilaterally in the LE. Spine/Back. Non tender to palpation. No CVA tenderness Skin: Good turgor without rashes. Neurologic exam: Cranial nerves two through 12 are intact. Motor and sensation are intact and symmetrical throughout. Medical Decision & Procedures ER Provider Diagnostic Interpretation: Radiology results as stated below per my review and radiologist interpretation: CHEST ONE VIEW PORTABLE HISTORY: Atypical CHEST PAIN COMPARISON: Chest 10/23/2017. FINDINGS: The patient's chin overlaps the right lung apex. No definite pneumothorax. Small linear scarlike density within the right midlung zone. Otherwise, the lungs are clear. The heart is normal in size. No pleural effusions. No pneumothorax. IMPRESSION: No acute process. Electronically signed by: Kulwinder Garcia M.D. 11/09/2017 4:01 PM Dictated Date/Time: 11/09/2017 3:59 PM Laboratory Results 11/09/17 16:04 Red Blood Count 3.74, Mean Corpuscular Volume 95.2, Mean Corpuscular Hemoglobin 30.2, Mean Corpuscular Hemoglobin Concent 31.7, Mean Platelet Volume 9.5, Neutrophils (%) (Auto) 84.3, Lymphocytes (%) (Auto) 7.1, Monocytes (%) (Auto) 7.0, Eosinophils (%) (Auto) 1.1, Basophils (%) (Auto) 0.4, Neutrophils # (Auto) 6.16, Lymphocytes # (Auto) 0.52, Monocytes # (Auto) 0.51, Eosinophils # (Auto) 0.08, Basophils # (Auto) 0.03 11/09/17 16:04 Test 11/09/17 16:04 11/09/17 16:11 11/09/17 16:13 11/09/17 18:13 White Blood Count 7.31 K/uL (4.8-10.8) Red Blood Count 3.74 M/uL (4.2-5.4) Hemoglobin 11.3 g/dL (12.0-16.0) Hematocrit 35.6 % (37-47) Mean Corpuscular Volume 95.2 fL (80-100) Mean Corpuscular Hemoglobin 30.2 pg (25-34) Mean Corpuscular Hemoglobin Concent 31.7 g/dl (32-36) Platelet Count 182 K/uL (130-400) Mean Platelet Volume 9.5 fL (7.4-10.4) Neutrophils (%) (Auto) 84.3 % Lymphocytes (%) (Auto) 7.1 % Monocytes (%) (Auto) 7.0 % Eosinophils (%) (Auto) 1.1 % Basophils (%) (Auto) 0.4 % Neutrophils # (Auto) 6.16 K/uL (1.4-6.5) Lymphocytes # (Auto) 0.52 K/uL (1.2-3.4) Monocytes # (Auto) 0.51 K/uL (0.11-0.59) Eosinophils # (Auto) 0.08 K/uL (0-0.5) Basophils # (Auto) 0.03 K/uL (0-0.2) RDW Standard Deviation 46.0 fL (36.4-46.3) RDW Coefficient of Variation 13.2 % (11.5-14.5) Immature Granulocyte % (Auto) 0.1 % Immature Granulocyte # (Auto) 0.01 K/uL (0.00-0.02) Prothrombin Time 10.4 SECONDS (9.0-12.0) Prothromb Time International Ratio 1.0 (0.9-1.1) Activated Partial Thromboplast Time 24.5 SECONDS (21.0-31.0) Partial Thromboplastin Ratio 0.9 Anion Gap 2.0 mmol/L (3-11) Estimated GFR () 83.6 Estimated GFR (Non- 72.1 BUN/Creatinine Ratio 37.9 (10-20) Calcium Level 9.4 mg/dl (8.5-10.1) Total Bilirubin 0.5 mg/dl (0.2-1) Direct Bilirubin 0.2 mg/dl (0-0.2) Aspartate Amino Transf (AST/SGOT) 24 U/L (15-37) Alanine Aminotransferase (ALT/SGPT) 20 U/L (12-78) Alkaline Phosphatase 68 U/L (45-117) Total Creatine Kinase 130 U/L (26-192) Creatine Kinase MB 6.7 ng/ml (0.5-3.6) Creatine Kinase MB Ratio 5.2 (0-3.0) Total Protein 6.8 gm/dl (6.4-8.2) Albumin 3.5 gm/dl (3.4-5.0) Lipase 185 U/L (73-393) Bedside Troponin I < 0.030 ng/ml (0-0.045) Urine Color YELLOW Urine Appearance CLEAR (CLEAR) Urine pH 5.0 (4.5-7.5) Urine Specific [place] 1.017 (1.000-1.030) Urine Protein NEG (NEG) Urine Glucose (UA) NEG (NEG) Urine Ketones TRACE (NEG) Urine Occult Blood NEG (NEG) Urine Nitrite NEG (NEG) Urine Bilirubin NEG (NEG) Urine Urobilinogen NEG (NEG) Urine Leukocyte Esterase NEG (NEG) Venous Blood pH 7.22 (7.36-7.41) Venous Blood Partial Pressure CO2 112 mmHg (38.0-50.0) Venous Blood Partial Pressure O2 44 mmHg Venous Blood HCO3 45 mmol/L Venous Blood Oxygen Saturation 71.7 % Venous Blood Base Excess 13.1 mEq/L Laboratory studies as stated above per my review. Medications Administered Medications (Trade) Dose Ordered Sig/[place] Route Start Time Stop Time Status Last Admin Dose Admin Albuterol/ Ipratropium (Duoneb) 3 ml NOW STAT INH 11/09/17 15:41 11/09/17 15:43 DC 11/09/17 16:05 3 ML Lorazepam (Ativan Tab) 0.5 mg NOW STAT SL 11/09/17 19:01 11/09/17 19:31 DC 11/09/17 19:07 0.5 MG ECG Per My Interpretation Indication: SOB/dyspnea Rate (beats per minute): 76 Rhythm: normal sinus Findings: no acute ischemic change Comparison ECG Date: April 30, 2017 Change: no significant change ED Course 1531: Past medical records reviewed. The patient was evaluated in room B8, and a complete history and physical examination were performed. 1541: Duoneb 3 ml INH 1901: Lorazepam 0.5 mg SL 1904: Discussed the patient's case with Dr. Chaudhry, [facility] Hospitalist. The patient will be evaluated for further management. Medical Decision Differential diagnosis: Etiologies such as COPD exacerbation, OC2 retention, infection, cardiac disease , electrolyte or metabolic abnormality, as well as others were entertained. This patient comes in as described above. She was placed in room B8. She is brought in by daughter after this concerned that she has had some increasing confusion and hallucinations. She does have COPD and wears 2 L of oxygen. I reviewed her records and her CO2 about 2 and half weeks ago was in the 70s. She looks well on exam is alert oriented 3 at present. She has chronic shortness of breath but feels unchanged. Chest x-ray was obtained and shows no congestive heart failure, pneumonia, or pneumothorax. EKG does not show any ischemic changes. Blood testing was obtained. She was given a DuoNeb. She was observed and reassessed frequently. She seemed a little sleepier when I came back and checked her but she says she sleeps a lot recently subsequently she was much more awake. Her chest x-ray was clear. Blood work shows no acute abnormalities with exception of elevated CO2. Her VBG was very concerning however as she appears to have a respiratory acidosis. Her pH 722 and her CO2 is markedly high in the 110s. In light of this, I did order BiPAP and I do think she needs to be admitted unfortunate she did not tolerate the BiPAP as it made her very anxious. She was given a very small dose of Ativan 0.5 mg and this relaxed her but did not sedate her very much and she was able to tolerate the BiPAP well. I do think she needs to be admitted/observe for further treatment and evaluation of her hypercapnic respiratory failure. I have consulted Dr. Chaudhry who saw her in the ER for these measures. Medication Reconcilliation Current Medication List: was personally reviewed by me Blood Pressure Screening Patient's blood pressure: Normal blood pressure Blood pressure disposition: Did not require urgent referral Consults Time Called: 1899 Consulting Physician: Dr. Chaudhry, [facility] Hospitalist Returned Call: [phone] He will further evaluate the patient. Impression Primary Impression: Hypercapnic respiratory failure Additional Impressions: Altered mental status COPD (chronic obstructive pulmonary disease) Critical Care Due to the patient's need for BiPAP and frequent reassessment and reevaluation of her respiratory status, I have personally spent greater than 30 minutes of critical care time in the direct management of this patient. This includes bedside care, interpretation of diagnostic studies, and testing, discussion with consultants, patient, and family members, and other required patient management activities. This 30 minutes is in excess of all separately billable procedures. Scribe Attestation The scribe's documentation has been prepared under my direction and personally reviewed by me in its entirety. I confirm that the note above accurately reflects all work, treatment, procedures, and medical decision making performed by me. Departure Information Dispostion Being Evaluated By Hospitalist (Dr. Chaudhry, [facility] Hospitalist) Referrals Marcello Calle M.D. (PCP) Patient Instructions My [facility] Problem Qualifiers
[2017-11-09] MEDS ORDERED: ALBUT/IPRATROP 3MG/0.5MG NEB 3 ML VIAL INH STA (15:41)
--- NOTE | 2017-11-09 16:03 | DIAGNOSTIC IMAGING REPORT ---
CHEST ONE VIEW PORTABLE HISTORY: Atypical CHEST PAIN COMPARISON: Chest 10/23/2017. FINDINGS: The patient's chin overlaps the right lung apex. No definite pneumothorax. Small linear scarlike density within the right midlung zone. Otherwise, the lungs are clear. The heart is normal in size. No pleural effusions. No pneumothorax. IMPRESSION: No acute process. Electronically signed by: Kulwinder Garcia M.D. 11/09/2017 4:01 PM Dictated Date/Time: 11/09/2017 3:59 PM
[2017-11-09 16:18] LABS: BASO % 0.4 %; BASO ABS # 0.03 K/uL (0-0.2); EOS % 1.1 %; EOS ABS # 0.08 K/uL (0-0.5); HEMATOCRIT 35.6 % (37-47); HEMOGLOBIN 11.3 g/dL (12.0-16.0); IG# 0.01 K/uL (0.00-0.02); LYMPH % 7.1 %; LYMPH ABS # 0.52 K/uL (1.2-3.4); MEAN CELL VOLUME 95.2 fL (80-100); MEAN CORPUSCULAR HEMOGLOBIN 30.2 pg (25-34); MEAN CORPUSCULAR HGB CONC 31.7 g/dl (32-36); MEAN PLATELET VOLUME 9.5 fL (7.4-10.4); MONO ABS # 0.51 K/uL (0.11-0.59); NEUT % 84.3 %; NEUT ABS # 6.16 K/uL (1.4-6.5); PLATELET COUNT 182 K/uL (130-400); RED CELL DISTRIBUTION WIDTH CV 13.2 % (11.5-14.5); WHITE BLOOD COUNT 7.31 K/uL (4.8-10.8)
[2017-11-09 16:46] LABS: ALBUMIN 3.5 gm/dl (3.4-5.0); ALKALINE PHOSPHATASE 68 U/L (45-117); ALT/SGPT 20 U/L (12-78); AST/SGOT 24 U/L (15-37); BLOOD UREA NITROGEN 30 mg/dl (7-18); CALCIUM 9.4 mg/dl (8.5-10.1); CARBON DIOXIDE 42 mmol/L (21-32); CKMB 6.7 ng/ml (0.5-3.6); GLUCOSE 85 mg/dl (70-99); LIPASE 185 U/L (73-393); POTASSIUM 3.9 mmol/L (3.5-5.1); SODIUM 131 mmol/L (136-145); TOTAL PROTEIN 6.8 gm/dl (6.4-8.2)
[2017-11-09] MEDS ORDERED: LORAZEPAM 0.5 MG TAB SL STA (19:01)
[2017-11-09] MEDS ORDERED: ALUMINUM/MAGNESIUM/SIMETH (MAALOX MAX) 30 ML UDC PO PRN (19:15)
[2017-11-09] MEDS ORDERED: ALBUTEROL HFA 8 GM INHALER INH PRN (19:15)
[2017-11-09] MEDS ORDERED: ACETAMINOPHEN 325 MG TAB PO PRN (19:15)
[2017-11-09] MEDS ORDERED: POLYETHYLENE (MIRALAX) 17 GM PACK PO PRN (19:15)
[2017-11-09] MEDS ORDERED: ONDANSETRON INJ 2 MG/ML 2 ML VIAL IV PRN (19:15)
[2017-11-09] MEDS ORDERED: FUROSEMIDE 20 MG TAB PO PRN (19:15)
[2017-11-09] MEDS ORDERED: ASTN (19:46)
[2017-11-09] MEDS ORDERED: IPRASOL4 INH (19:46)
[2017-11-09] MEDS ORDERED: METO25TA4 PO (19:51)
[2017-11-09] MEDS ORDERED: POTA-639 PO (19:51)
[2017-11-09 20:06] VITALS: PULSE 78; O2SAT 92
[2017-11-09] MEDS ORDERED: ALBUT/IPRATROP 3MG/0.5MG NEB 3 ML VIAL INH PRN (20:45)
--- NOTE | 2017-11-09 21:05 | History and Physical ---
History & Physical Date & Time of Service: Nov 09, 2017 at 21:04 Chief Complaint: Weak,Sleeping All The Time, Altered Mental Status Primary Care Physician: Marcello Calle M.D. Past Medical/Surgical History Medical Problems: (1) Choking due to foreign body (2) COPD (chronic obstructive pulmonary disease) (3) COPD exacerbation (4) Dehydration (5) Dysphagia (6) Dyspnea (7) Dyspnea (8) Esophageal obstruction due to food impaction (9) Hypertension (10) Hypotension (11) Hypoxemia (12) Peripheral edema (13) Pneumonia (14) Shortness of breath (15) UTI (urinary tract infection) Surgical Problems: (1) H/O hernia repair (2) H/O: hysterectomy (3) History of breast biopsy Family History Cancer Gallbladder disease Hypertension Social History Smoking Status: Never Smoker Marital Status: Occupational Status: retired Allergies Coded Allergies: Cetirizine (Verified Allergy, Unknown, RASH, 04/25/17) Simvastatin (Verified Allergy, Unknown, ABDOMINAL CRAMPS, 04/25/17) Home Medications Scheduled Atorvastatin (Lipitor), 10 MG PO HS Cholecalciferol (Vitamin D3), 1,000 INTER.UNIT PO QAM Cyanocobalamin (Vitamin B-12), 1,000 MCG PO QAM Diltiazem Hcl Coated Beads (Cartia Xt), 120 MG PO QPM Fluticasone Propionate (Nasal) (Flonase Allergy Relief), 1 SPRAY NINO BID Home O2 Therapy (Oxygen), 2 LITERS NA CONTINOUS Ipratropium-Albuterol (Duoneb), 1 TREATMENT INH QID Metoprolol Succinate (Toprol Xl), 25 MG PO DAILY Pantoprazole (Protonix), 40 MG PO BID Potassium Ext Rel (Klor-Con), 20 MEQ PO DAILY Tiotropium [place] (Spiriva Handihaler), 1 CAP INH QAM Scheduled PRN Albuterol Sulfate (Proair Respiclick), 1 PUFF INH Q6H PRN for Shortness of Breath Azelastine Hcl (Astelin Nasal [place]), 1 SPRAYS NA BID PRN for USE IN AFFECTED NOSTRIL Furosemide (Lasix), 20 MG PO DAILY PRN for Swelling of Feet Miscellaneous Medications Lisinopril (Zestril), 20 MG PO Physical Exam Vital Signs Date Time Temp Pulse Resp B/P (MAP) Pulse Ox O2 Delivery O2 Flow Rate FiO2 11/09/17 20:20 66 28 94/64 95 BiPAP 30 11/09/17 20:06 78 92 30 11/09/17 18:14 85 20 142/75 92 Nasal Cannula 3.0 11/09/17 17:00 83 18 142/96 98 Room Air 11/09/17 15:25 36.6 87 18 112/69 95 Nasal Cannula 3.0 Diagnostics Laboratory Results Results Past 24 Hours Test 11/09/17 15:41 11/09/17 16:04 11/09/17 16:11 11/09/17 16:13 Range/Units Creatine Kinase MB Ratio 5.2 0-3.0 White Blood Count 7.31 4.8-10.8 K/uL Red Blood Count 3.74 4.2-5.4 M/uL Hemoglobin 11.3 12.0-16.0 g/dL Hematocrit 35.6 37-47 % Mean Corpuscular Volume 95.2 80-100 fL Mean Corpuscular Hemoglobin 30.2 25-34 pg Mean Corpuscular Hemoglobin Concent 31.7 32-36 g/dl Platelet Count 182 130-400 K/uL Mean Platelet Volume 9.5 7.4-10.4 fL Neutrophils (%) (Auto) 84.3 % Lymphocytes (%) (Auto) 7.1 % Monocytes (%) (Auto) 7.0 % Eosinophils (%) (Auto) 1.1 % Basophils (%) (Auto) 0.4 % Neutrophils # (Auto) 6.16 1.4-6.5 K/uL Lymphocytes # (Auto) 0.52 1.2-3.4 K/uL Monocytes # (Auto) 0.51 0.11-0.59 K/uL Eosinophils # (Auto) 0.08 0-0.5 K/uL Basophils # (Auto) 0.03 0-0.2 K/uL RDW Standard Deviation 46.0 36.4-46.3 fL RDW Coefficient of Variation 13.2 11.5-14.5 % Immature Granulocyte % (Auto) 0.1 % Immature Granulocyte # (Auto) 0.01 0.00-0.02 K/uL Sodium Level 131 136-145 mmol/L Potassium Level 3.9 3.5-5.1 mmol/L Chloride Level 87 98-107 mmol/L Carbon Dioxide Level 42 21-32 mmol/L Anion Gap 2.0 3-11 mmol/L Blood Urea Nitrogen 30 7-18 mg/dl Creatinine 0.80 0.60-1.20 mg/dl Estimated GFR () 83.6 Estimated GFR (Non- 72.1 BUN/Creatinine Ratio 37.9 10-20 Random Glucose 85 70-99 mg/dl Calcium Level 9.4 8.5-10.1 mg/dl Total Bilirubin 0.5 0.2-1 mg/dl Direct Bilirubin 0.2 0-0.2 mg/dl Aspartate Amino Transf (AST/SGOT) 24 15-37 U/L Alanine Aminotransferase (ALT/SGPT) 20 12-78 U/L Alkaline Phosphatase 68 45-117 U/L Total Creatine Kinase 130 26-192 U/L Creatine Kinase MB 6.7 0.5-3.6 ng/ml Total Protein 6.8 6.4-8.2 gm/dl Albumin 3.5 3.4-5.0 gm/dl Lipase 185 73-393 U/L Bedside Troponin I < 0.030 0-0.045 ng/ml Urine Color YELLOW Urine Appearance CLEAR CLEAR Urine pH 5.0 4.5-7.5 Urine Specific [place] 1.017 1.000-1.030 Urine Protein NEG NEG Urine Glucose (UA) NEG NEG Urine Ketones TRACE NEG Urine Occult Blood NEG NEG Urine Nitrite NEG NEG Urine Bilirubin NEG NEG Urine Urobilinogen NEG NEG Urine Leukocyte Esterase NEG NEG Test 11/09/17 18:13 11/09/17 20:33 Range/Units Venous Blood pH 7.22 7.36-7.41 Venous Blood Partial Pressure CO2 112 38.0-50.0 mmHg Venous Blood Partial Pressure O2 44 mmHg Venous Blood HCO3 45 mmol/L Venous Blood Oxygen Saturation 71.7 % Venous Blood Base Excess 13.1 mEq/L Microbiology Results 11/09/17 Urine Culture, Received Pending Impression Assessment and Plan admit #[id number] Resuscitation Status VTE Prophylaxis Will order VTE Prophylaxis: Yes
[2017-11-09 21:52] VITALS: PULSE 69; O2SAT 95
[2017-11-09 22:03] VITALS: BP 135/70; PULSE 75; TEMP 36.5; BMI 21.3
[2017-11-09 22:05] VITALS: BP 135/70; PULSE 75; TEMP 36.5; O2SAT 99; Ht 162.6 cm; Wt 63.4 kg
[2017-11-09 22:05] LABS: PTT PATIENT 24.5 SECONDS (21.0-31.0)
--- NOTE | 2017-11-09 22:07 | HISTORY & PHYSICAL EXAMINATION ---
DATE OF ADMISSION: 11/09/2017 CHIEF COMPLAINT: Confusion. HISTORY OF PRESENT ILLNESS: Patient is a very pleasant 77-year-old female accompanied by her family who notes about 2 days ago she started hallucinating and being a lot more sleepy. She turned up her oxygen, she probably feels a little bit more short of breath than her baseline. She definitely notes more dyspnea on exertion. She does not really notice any change in falls, fevers, chills, or sweats. She does get hot flashes late in the evening, but it is unclear if this is really related. She has no change in her cough. REVIEW OF SYSTEMS: Mostly only positive for above, most notably for the fatigue and the not acting right. Review of systems is otherwise negative except for as above. PAST MEDICAL HISTORY: Includes severe COPD, anxiety, arthritis, chronic respiratory failure related to COPD, dyslipidemia, GERD with esophagitis, hyperglycemia, hypertension, lumbar radiculopathy. MEDICATIONS: Include Lipitor, Astelin, Lexapro, Flonase, ipratropium/albuterol, lisinopril, hydrochlorothiazide, metoprolol succinate, Protonix, potassium, albuterol p.r.n., Spiriva daily, vitamin D 1000 IU daily. PAST SURGICAL HISTORY: Includes breast surgery, colonoscopy, hysterectomy, and an EGD. FAMILY HISTORY: Emphysema. SOCIAL HISTORY: She is not a current smoker. She is and has a very supportive family. ALLERGIES: CETIRIZINE AND SIMVASTATIN. PHYSICAL EXAMINATION: VITAL SIGNS: Temp 36.6, pulse 87, respiratory rate 18, blood pressure 112/69, 95% on 3 liters. GENERAL: She is awake, alert at times, somnolent at times. She is oriented, conversive, and appropriate but appears very fatigued. HEENT: Normocephalic, atraumatic. Mucous membranes are moist. CARDIOVASCULAR: Distant. No rubs, murmurs, or gallops. LUNGS: Markedly diminished even with amplification. There is barely any air entry. No rales, rhonchi, or wheezes. Good effort. No accessory muscle use. ABDOMEN: Soft, nondistended, nontender. No masses or organomegaly. EXTREMITIES: Without cyanosis, clubbing. She has trace bilateral lower extremity edema that she notes is chronic. SKIN: Shows no rashes, no pallor or icterus. NEUROLOGIC: Shows cranial nerves II-XII to be grossly intact. Gross motor and sensory are intact. MUSCULOSKELETAL: Yields no gross lesions. LABORATORY DATA AND DIAGNOSTICS: CBC shows a white count of 7.31, hemoglobin 11.3, platelets of 182. Venous blood gas shows a pH of 7.22 with a pCO2 of 112 and a pO2 of 44 and ABG only a few weeks ago showed a pH of 7.42 with a pCO2 of 77, a pO2 of 82, and the patient and family noted that was a fairly normal day for her. Complete metabolic panel with sodium 131, potassium 3.9, chloride 87, CO2 of 42, BUN 30, creatinine 0.8, calcium 9.4, glucose 85. Total bilirubin 0.5 with a direct of 0.2, AST 24, ALT 20, alkaline phosphatase 68. CK total of 130 with an MB of 6.7, troponin of less than 0.030. Total protein is 6.8, albumin 3.5, lipase 185. Urinalysis, yellow, clear, specific gravity of 1.017, trace ketones. Chest x-ray showed no active disease. EKG is sinus. ASSESSMENT AND PLAN: 1. Hypercapnic respiratory failure. This appears to be acute on very severe chronic reviewing her outpatient ABGs. Reviewing her outpatient PFTs shows that she has severe if not end-stage chronic obstructive pulmonary disease. She may not even have any acute exacerbating factors at play right now, which is very frightening and I discussed this with the patient and her daughters quite frankly in this respect. Because she does feel a little more short of breath and certainly with the severity of her chronic obstructive pulmonary disease signs would be subtle, we will treat as though there is acute exacerbation with steroids, nebulizers, and doxycycline in the hopes that we may be able to effect a degree of relief; however, more importantly we will need to utilize respiratory assistance in trying to blow off her CO2. The ER had ordered BiPAP, she had refused, and I expressed my fear that she is severe enough that without it she may . She does not currently want to . She also does not want to be intubated. We discussed this frankly and the daughters are in agreement. In that respect, will need to try again with the BiPAP. I have ordered a repeat ABG for about an hour from now and I have signed out the case to nighttime coverage and it appears that she would benefit from noninvasive home ventilator due to her chronic respiratory failure consequent to chronic obstructive pulmonary disease as something in the form of bilevel therapy without a rate would be an effective as the patient requires volume targeted mode and the ventilation is required to decrease the work of breathing and improve pulmonary status. Interruption of ventilator support would lead to decline in health status and I discussed this quite frankly with patient and daughter as the patient's refusal for having this set up at home just yet in her desire to get a second opinion is quite honestly the most likely factor as to why she is being admitted today. I discussed that whenever she is being told that she has a severe process such as severe chronic obstructive pulmonary disease or near end-stage chronic obstructive pulmonary disease, it is very reasonable to want to get second opinions and we will even try to facilitate this. However, in the meantime, we do not want her to come in to harm for not getting treatment that has been recommended and I discussed with them quite frankly that I fear for her even ability to survive without devices out of the hospital. 2. Deep venous thrombosis prophylaxis, Lovenox. 3. Hypertension. Continue her home meds. 4. Hyperglycemia. Her last A1c was 5.4 less than a year ago. DISPOSITION: [facility] and I confirmed with the patient and her daughters that she is a no code DNR for both cardiac and respiratory arrest.
[2017-11-09 22:19] VITALS: PULSE 71; O2SAT 100
[2017-11-09] MEDS: ALBUT/IPRATROP 3MG/0.5MG NEB 3 ML VIAL INH SCH (22:25)
[2017-11-09] MEDS: PATIENT'S HEIGHT AND/OR WEIGHT NEEDED SCH (22:46)
[2017-11-09] MEDS: FLUTICASONE PROPIONATE NA SPR 16 GM BTL NAE SCH (22:47)
[2017-11-09] MEDS: METHYLPREDNISOLONE IV 60 MG in SYRINGE 0 ML IV SCH (22:47)
[2017-11-09] MEDS: DILTIAZEM HCL 120 MG CAPCR PO SCH (22:49)
[2017-11-09] MEDS: DOXYCYCLINE HYCLATE 100 MG CAP PO SCH (22:50)
[2017-11-09] MEDS: PANTOprazole SOD 40 MG TAB PO SCH (22:50)
[2017-11-09] MEDS: ATORVASTATIN 10 MG TAB PO SCH (22:50)
[2017-11-10] VITALS (12 sets, daily range): BP systolic 85–126; BP diastolic 47–83; PULSE 67–108; TEMP 36.5–37.2; O2SAT 92–100
[2017-11-10] MEDS: ALBUT/IPRATROP 3MG/0.5MG NEB 3 ML VIAL INH SCH ×4 (06:55→19:25)
[2017-11-10] MEDS: PATIENT'S HEIGHT AND/OR WEIGHT NEEDED SCH (07:03)
[2017-11-10] MEDS: FLUTICASONE PROPIONATE NA SPR 16 GM BTL NAE SCH (07:33)
[2017-11-10] MEDS: ENOXAPARIN 40 MG/0.4 ML SYR SQ SCH (07:33)
[2017-11-10] MEDS: LISINOPRIL 20 MG TAB PO SCH (07:34)
[2017-11-10] MEDS: METHYLPREDNISOLONE IV 60 MG in SYRINGE 0 ML IV SCH ×3 (07:34→21:38)
[2017-11-10] MEDS: DOXYCYCLINE HYCLATE 100 MG CAP PO SCH ×2 (07:34→21:39)
[2017-11-10] MEDS: CHOLECALCIFEROL 1000 INTER.UNIT TAB PO SCH (07:34)
[2017-11-10] MEDS: PANTOprazole SOD 40 MG TAB PO SCH ×2 (07:34→21:39)
[2017-11-10] MEDS: CYANOCOBALAMIN 500 MCG TAB (VIT B-12) PO SCH (07:34)
[2017-11-10 08:02] LABS: HEMATOCRIT 33.8 % (37-47); HEMOGLOBIN 10.7 g/dL (12.0-16.0); IG# 0.01 K/uL (0.00-0.02); LYMPH % 13.9 %; LYMPH ABS # 0.69 K/uL (1.2-3.4); MEAN CELL VOLUME 94.9 fL (80-100); MEAN CORPUSCULAR HEMOGLOBIN 30.1 pg (25-34); MEAN CORPUSCULAR HGB CONC 31.7 g/dl (32-36); MEAN PLATELET VOLUME 9.6 fL (7.4-10.4); MONO % 2.2 %; MONO ABS # 0.11 K/uL (0.11-0.59); NEUT % 83.7 %; NEUT ABS # 4.14 K/uL (1.4-6.5); PLATELET COUNT 177 K/uL (130-400); RED CELL DISTRIBUTION WIDTH CV 13.1 % (11.5-14.5); RED CELL DISTRIBUTION WIDTH SD 45.8 fL (36.4-46.3); WHITE BLOOD COUNT 4.95 K/uL (4.8-10.8)
[2017-11-10 08:29] LABS: CALCIUM 9.2 mg/dl (8.5-10.1); CREATININE 0.63 mg/dl (0.60-1.20); PHOSPHORUS 4.2 mg/dl (2.5-4.9); POTASSIUM 4.3 mmol/L (3.5-5.1)
[2017-11-10] MEDS ORDERED: TIOTROPIUM BROMIDE 5 PUFF/90 MCG INH INH SCH (09:00)
--- NOTE | 2017-11-10 14:21 | Progress Note ---
Subjective Date of Service: Nov 10, 2017. Subjective Pt evaluation today including: conversation w/ patient, conversation w/ family , physical exam, chart review, review of studies, conversation w/ data migration consultant, review of inpatient medication list Off BiPAP from this morning, feeding doing a little bit better, but still has very labored breathing, on nasal cannula oxygen now, no wheezing however speaking a little broken sentences, awake alert orientated Problem List Medical Problems: (1) Altered mental status Status: Acute (2) COPD exacerbation Status: Acute (3) Dehydration Status: Acute (4) Dysphagia Status: Acute (5) Dyspnea Status: Acute (6) Dyspnea Status: Acute (7) Esophageal obstruction due to food impaction Status: Acute (8) Hypercapnia Status: Acute (9) Hypotension Status: Acute (10) Peripheral edema Status: Acute (11) Shortness of breath Status: Acute (12) UTI (urinary tract infection) Status: Acute Review of Systems Constitutional: + weakness, + fatigue Eyes: No worsening of vision, No eye pain, No redness, No discharge, No diplopia ENT: No hearing loss, No unusual epistaxis, No nasal symptoms, No sore throat, No tinnitus, No dental problems, No trouble swallowing Respiratory: + shortness of breath, + dyspnea on exertion, + dyspnea at rest, No cough, No sputum, No wheezing, No hemoptysis Cardiac: + edema (Trace), No chest pain, No orthopnea, No PND, No claudication , No palpitations Abdomen: No pain, No nausea, No vomiting, No diarrhea, No constipation Musculoskeletal: No joint pain, No muscle pain, No swelling, No calf pain Female : No dysuria, No urinary frequency, No hematuria, No incontinence, No abnormal vaginal bleeding, No vaginal discharge Neurologic: No memory loss, No paralysis, No weakness, No numbness/tingling, No vertigo, No balance problems Psychiatric: No depression symptoms, No anhedonism, No anxiety, No insomnia, No substance abuse Heme: No abnormal bleeding/bruising, No clotting problems, No swollen lymph nodes, No night sweats Endo: No fatigue, No excessive thirst, No excessive urination Skin: No rash, No itch, No new/changing skin lesions, No color change, No bleeding Objective Vital Signs Date Time Temp Pulse Resp B/P (MAP) Pulse Ox O2 Delivery O2 Flow Rate FiO2 11/10/17 14:00 36.5 79 22 85/47 (60) 97 BiPAP 30 11/10/17 13:22 68 21 95 BiPAP/CPAP 30 11/10/17 11:11 82 18 97 Nasal Cannula 3.0 11/10/17 08:00 Nasal Cannula 3.0 11/10/17 07:39 36.5 98 18 126/83 (97) 92 Nasal Cannula 3.0 11/10/17 06:55 75 18 92 BiPAP/CPAP 30 11/10/17 01:48 67 95 30 11/10/17 00:11 100 BiPAP 3.0 50 11/09/17 22:19 71 100 30 11/09/17 22:05 36.5 75 22 135/70 99 BiPAP 50 11/09/17 22:03 36.5 75 22 135/70 11/09/17 21:52 69 95 50 11/09/17 20:20 66 28 94/64 95 BiPAP 30 11/09/17 20:06 78 92 30 11/09/17 18:14 85 20 142/75 92 Nasal Cannula 3.0 11/09/17 17:00 83 18 142/96 98 Room Air 11/09/17 15:25 36.6 87 18 112/69 95 Nasal Cannula 3.0 Physical Exam General Appearance: WD/WN, no apparent distress, + thin, + pertinent finding ( Frail, chronically ill looking, mild pale) Eyes: normal inspection, PERRL, EOMI, sclerae normal ENT: normal ENT inspection, hearing grossly normal, pharynx normal Neck: supple, no adenopathy, thyroid normal, no JVD, no carotid bruits, trachea midline Respiratory/Chest: chest non-tender, + decreased breath sounds (Significant) Cardiovascular: regular rate, rhythm, no gallop, no JVD, no murmur, + pertinent finding (Trace edema) Abdomen: normal bowel sounds, non tender, soft, no organomegaly, no pulsatile mass Extremities: normal range of motion, non-tender, normal inspection, no pedal edema, no calf tenderness, normal capillary refill, pelvis stable Neurologic/Psychiatric: 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-XII nml as tested, no motor/sensory deficits, alert, normal mood/affect, oriented x 3 Skin: normal color, warm/dry, no rash Lymphatic: no adenopathy Laboratory Results Last 24 Hours Test 11/09/17 15:41 11/09/17 16:04 11/09/17 16:11 11/09/17 16:13 Creatine Kinase MB Ratio 5.2 White Blood Count 7.31 K/uL Red Blood Count 3.74 M/uL Hemoglobin 11.3 g/dL Hematocrit 35.6 % Mean Corpuscular Volume 95.2 fL Mean Corpuscular Hemoglobin 30.2 pg Mean Corpuscular Hemoglobin Concent 31.7 g/dl Platelet Count 182 K/uL Mean Platelet Volume 9.5 fL Neutrophils (%) (Auto) 84.3 % Lymphocytes (%) (Auto) 7.1 % Monocytes (%) (Auto) 7.0 % Eosinophils (%) (Auto) 1.1 % Basophils (%) (Auto) 0.4 % Neutrophils # (Auto) 6.16 K/uL Lymphocytes # (Auto) 0.52 K/uL Monocytes # (Auto) 0.51 K/uL Eosinophils # (Auto) 0.08 K/uL Basophils # (Auto) 0.03 K/uL RDW Standard Deviation 46.0 fL RDW Coefficient of Variation 13.2 % Immature Granulocyte % (Auto) 0.1 % Immature Granulocyte # (Auto) 0.01 K/uL Prothrombin Time 10.4 SECONDS Prothromb Time International Ratio 1.0 Activated Partial Thromboplast Time 24.5 SECONDS Partial Thromboplastin Ratio 0.9 Sodium Level 131 mmol/L Potassium Level 3.9 mmol/L Chloride Level 87 mmol/L Carbon Dioxide Level 42 mmol/L Anion Gap 2.0 mmol/L Blood Urea Nitrogen 30 mg/dl Creatinine 0.80 mg/dl Estimated GFR () 83.6 Estimated GFR (Non- 72.1 BUN/Creatinine Ratio 37.9 Random Glucose 85 mg/dl Calcium Level 9.4 mg/dl Total Bilirubin 0.5 mg/dl Direct Bilirubin 0.2 mg/dl Aspartate Amino Transf (AST/SGOT) 24 U/L Alanine Aminotransferase (ALT/SGPT) 20 U/L Alkaline Phosphatase 68 U/L Total Creatine Kinase 130 U/L Creatine Kinase MB 6.7 ng/ml Total Protein 6.8 gm/dl Albumin 3.5 gm/dl Lipase 185 U/L Bedside Troponin I < 0.030 ng/ml Urine Color YELLOW Urine Appearance CLEAR Urine pH 5.0 Urine Specific [place] 1.017 Urine Protein NEG Urine Glucose (UA) NEG Urine Ketones TRACE Urine Occult Blood NEG Urine Nitrite NEG Urine Bilirubin NEG Urine Urobilinogen NEG Urine Leukocyte Esterase NEG Test 11/09/17 18:13 11/09/17 20:33 11/10/17 07:52 Venous Blood pH 7.22 Venous Blood Partial Pressure CO2 112 mmHg Venous Blood Partial Pressure O2 44 mmHg Venous Blood HCO3 45 mmol/L Venous Blood Oxygen Saturation 71.7 % Venous Blood Base Excess 13.1 mEq/L Arterial Blood pH 7.30 7.35 Arterial Blood Partial Pressure CO2 91 mmHg 79 mmHg Arterial Blood Partial Pressure O2 65 mm/Hg 72 mm/Hg Arterial Blood HCO3 43 mmol/L 42 mmol/L Arterial Blood Oxygen Saturation 89.5 % 92.6 % Arterial Blood Base Excess 14.3 mEq/L 14.0 mEq/L Arterial Blood Gas Delivery 30% 2.5L [place] Test POS POS White Blood Count 4.95 K/uL Red Blood Count 3.56 M/uL Hemoglobin 10.7 g/dL Hematocrit 33.8 % Mean Corpuscular Volume 94.9 fL Mean Corpuscular Hemoglobin 30.1 pg Mean Corpuscular Hemoglobin Concent 31.7 g/dl Platelet Count 177 K/uL Mean Platelet Volume 9.6 fL Neutrophils (%) (Auto) 83.7 % Lymphocytes (%) (Auto) 13.9 % Monocytes (%) (Auto) 2.2 % Eosinophils (%) (Auto) 0.0 % Basophils (%) (Auto) 0.0 % Neutrophils # (Auto) 4.14 K/uL Lymphocytes # (Auto) 0.69 K/uL Monocytes # (Auto) 0.11 K/uL Eosinophils # (Auto) 0.00 K/uL Basophils # (Auto) 0.00 K/uL RDW Standard Deviation 45.8 fL RDW Coefficient of Variation 13.1 % Immature Granulocyte % (Auto) 0.2 % Immature Granulocyte # (Auto) 0.01 K/uL Sodium Level 133 mmol/L Potassium Level 4.3 mmol/L Chloride Level 87 mmol/L Carbon Dioxide Level 40 mmol/L Anion Gap 5.0 mmol/L Blood Urea Nitrogen 28 mg/dl Creatinine 0.63 mg/dl Est Creatinine Clear Calc Drug Dose 66.7 ml/min Estimated GFR () 101.7 Estimated GFR (Non- 87.7 BUN/Creatinine Ratio 43.9 Random Glucose 63 mg/dl Calcium Level 9.2 mg/dl Phosphorus Level 4.2 mg/dl Magnesium Level 2.0 mg/dl Assessment and Plan 77-year-old white female admitted on November 09, 2017 because of acute on chronic respirator failure and COPD exacerbation Severe COPD exacerbation Acute on chronic respiratory failure Hypercapnia and hypoxic upon admission Respiratory acidosis from acute respiratory failure upon admission In the emergency room patient declined options of intubation, Has been on BiPAP machine, Repeat ABG in this morning, pH normalized, Off BiPAP machine Severe medical conditions of acute on chronic respiratory failure COPD exacerbation, Continue Solu-Medrol, nebulizer treatment, IV antibiotic, supportive care, BiPAP machine, and cma or lpn consultation For BiPAP because of pH is compensated and PCO2 and PaO2 is improving, we can change to BiPAP 4 hours on and 4 hrs off, and can be up for meals Talk to patient and family about severe medical conditions confirmed again of her CODE STATUS which is do not resuscitation anxiety, arthritis, chronic, dyslipidemia, GERD with esophagitis, hypertension, lumbar radiculopathy; stable continue home medication hyperglycemia history and has no history of diabetic, when on Solu-Medrol will target blood glucose level at 180 highest GI DVT prophylaxis, Transfer to PCU for better monitoring Continued [facility] stay due to: multiple IV medications needed Discharge planning: home
--- NOTE | 2017-11-10 15:24 | Pulmonary Consultation ---
History General Date of Service: Nov 10, 2017. Stated Complaint: Copd (Chronic Obstructive Pulmonary Disease) HPI The patient is a 77 year old female who presents to [facility] with complaints of Copd (Chronic Obstructive Pulmonary Disease). The patient's primary care provider is Marcello Calle M.D.. 77-year-old female admitted for acute on chronic respiratory insufficiency/ failure with altered mental status. Patient is followed by the pulmonary division with a known history of severe COPD last FEV1 39% and a known history of hypercapnic respiratory insufficiency/failure. The patient has had progressive fatigue, increased work of breathing and mental status changes since 10/23/2017 when she was seen in the outpatient setting and an ABG 10/23/2017 : 7.4 2/77/82/48 on 3 L nasal cannula. During the patient's workup her VBG is an ABG is noted more CO2 retention and the patient was started on BiPAP therapy. Patient's mental status is overall improving on steroids, antibiotics and BiPAP therapy per the family. During our conversation she was still confused but orientated to person and place. She also denies: Fever, chills, productive cough, rhinitis, pleurisy or classic cardiac chest pain. PmHx: Severe COPD (FEV1: 39%), chronic hypoxemia: Oxygen-dependent, osteoarthritis, chronic sinusitis, dyslipidemia, esophageal stricture/web s/p dilation 11/2016, ventral hernia, GERD, hypertension, lumbar radiculopathy, pulmonary nodules, admission 02/2017 with hypoxic respiratory failure secondary to pill impaction in the esophagus CXR: No acute process EKG: Normal sinus rhythm rate 76 no signs of ischemic changes VBG 11/09/17-1812: 7.22/112 ABG 3: 7.30/91/65/43 on 30% ABG 11/10/20177.35/79/72/422.5L Previous prescriptions: Utibron, Spiriva (discontinue that she follows making her breathing worse), Pro-Air, canceled nebulized order by her PCP Inpatient medications/treatment 1. Enoxaparin 40 mg 2. Spiriva 1 puff q.day 3. Flonase nasal spray b.i.d. 4. Protonix b.i.d. 5. Methylprednisolone 60 mg IV t.i.d. 6. Doxycycline 100 mg b.i.d. 7. DuoNeb q.i.d./Q 2 p.r.n. 8. BiPAP 15/5, FiO2-30%, leak 41% Right heart catheterization performed 01/06/2017 Resting SaO2 sat 100% on 2L RA 10 RV 24/9 PA 26/14 (18) PCW 12 PaSat 64% Jessie CO/CI 4.2/2.3 Thermo CO/CI 3.9/2.1 TP TD PVR 1.4 Spirometry 04/30/2017 FEV1/FVC 32 FEV1 0.71/39% FVC 2.22/90% Review of Systems Constitutional: reports: as stated in HPI Eyes: reports: no symptoms ENT: reports: as stated in HPI Cardiovascular: reports: as stated in HPI Respiratory: reports: as stated in HPI Gastrointestinal: reports: no symptoms Genitourinary - Female: reports: no symptoms Musculoskeletal: reports: no symptoms Integumentary: reports: no symptoms Neurologic: reports: no symptoms Psychiatric: reports: no symptoms Endocrine: no symptoms Hematologic / Lymphatic: no symptoms Allergic / Immunologic: no symptoms Past Medical History Past Medical History: Please refer to HPI Past Surgical History: Please refer to HPI Family History Cancer Gallbladder disease Hypertension Please refer to HPI Social History Please refer to HPI Hx Tobacco Use In Past Year?: No Smoking Status: Former Smoker Marital status: Occupational Status: retired History of MDRO History of MDRO: No Allergies Coded Allergies: Cetirizine (Verified Allergy, Unknown, RASH, 04/25/17) Simvastatin (Verified Allergy, Unknown, ABDOMINAL CRAMPS, 04/25/17) Current Medications Reported Home Medications Medications Dose Route/Sig Max Daily Dose Days Date Category Klor-Con (Potassium Chloride) 20 Meq Tabcr 20 Meq PO DAILY 11/09/17 Reported Toprol Xl (Metoprolol Succinate) 25 Mg Tabcr 25 Mg PO DAILY 11/09/17 Reported Duoneb (Ipratropium-Albuterol) 3 Ml Nebu 1 Treatment INH QID 11/09/17 Reported Astelin Nasal [place] (Azelastine Hcl) 200 Sprays/30 Ml [place] 1 Sprays NA BID PRN 11/09/17 Reported Zestril (Lisinopril) 20 Mg Tab 20 Mg PO 05/04/17 Reported Lasix (Furosemide) 20 Mg Tab 20 Mg PO DAILY PRN 04/20/17 Reported Oxygen Gas 2 Liters NA CONTINOUS 04/12/17 Reported Protonix (Pantoprazole Sodium) 40 Mg Tab 40 Mg PO BID 04/12/17 Reported Spiriva [place]haler (Tiotropium [place]) 30 Puff/540 Mcg Aerp 1 Cap INH QAM 04/12/17 Reported Proair Respiclick (Albuterol Sulfate) 108 Mcg/Act Aer 1 Puff INH Q6H PRN 04/12/17 Reported Flonase Allergy Relief (Fluticasone Propionate (Nasal)) 50 Mcg/Act Spr 1 [place] NINO BID 04/12/17 Reported Cartia Xt (Diltiazem Hcl Coated Beads) 120 Mg Cap 120 Mg PO QPM 04/09/17 Reported Vitamin D3 (Cholecalciferol) 1,000 Unit Tab 1,000 Inter.unit PO QAM 03/16/17 Reported Lipitor (Atorvastatin Calcium) 10 Mg Tab 10 Mg PO HS 10/11/16 Reported Vitamin B-12 (Cyanocobalamin) 1,000 Mcg Tab 1,000 Mcg PO QAM 10/11/16 Reported Physical Physical Exam Vital Signs: Date Time Temp Pulse Resp B/P (MAP) Pulse Ox O2 Delivery O2 Flow Rate FiO2 11/10/17 14:00 36.5 79 22 85/47 (60) 97 BiPAP 30 11/10/17 13:22 68 21 95 BiPAP/CPAP 30 11/10/17 11:11 82 18 97 Nasal Cannula 3.0 11/10/17 08:00 Nasal Cannula 3.0 11/10/17 07:39 36.5 98 18 126/83 (97) 92 Nasal Cannula 3.0 11/10/17 06:55 75 18 92 BiPAP/CPAP 30 11/10/17 01:48 67 95 30 11/10/17 00:11 100 BiPAP 3.0 50 11/09/17 22:19 71 100 30 11/09/17 22:05 36.5 75 22 135/70 99 BiPAP 50 11/09/17 22:03 36.5 75 22 135/70 11/09/17 21:52 69 95 50 11/09/17 20:20 66 28 94/64 95 BiPAP 30 11/09/17 20:06 78 92 30 11/09/17 18:14 85 20 142/75 92 Nasal Cannula 3.0 11/09/17 17:00 83 18 142/96 98 Room Air 11/09/17 15:25 36.6 87 18 112/69 95 Nasal Cannula 3.0 General Appearance: severe distress, cachetic Head: NORMOCEPHALIC, ATRAUMATIC Eyes: PERRLA, NO DISCHARGE, EOMI ENT: other (BiPAP mask in place with audible leak at times) Neck: NORMAL RANGE OF MOTION, NO TENDERNESS, TRACHEA MIDLINE Respiratory: other (Decreased breath sounds globally) Cardiovasular: other (Tachycardic but regular rhythm) Abdomen: NON TENDER, NORMAL BOWEL SOUNDS, NO REBOUND, NO MASSES Genitourinary - Female: EXTERNAL GENITALIA NORMAL Back: NORMAL INSPECTION, NO MIDLINE TENDERNESS, NO CVA TENDERNESS Upper Extremities: NO EDEMA, NO DEFORMITY, NORMAL ROM Edema: Bilateral LE (1+) Pulses: carotid (R) (2+), carotid (L) (2+), dorsalis pedis (R) (2+), dorsalis pedis (L) (2+) Neuro: other (Orientated to person and place) Reflexes: biceps (R) (2+), bicpes (L) (2+), patellar (R) (2+), patellar (L) (2+ ) Babinski Testing: right (downgoing), left (downgoing) Psychiatric: NORMAL AFFECT Diagnostics Labs Results Past 24 Hours Test 11/09/17 15:41 11/09/17 16:04 11/09/17 16:11 11/09/17 16:13 Range/Units Creatine Kinase MB Ratio 5.2 0-3.0 White Blood Count 7.31 4.8-10.8 K/uL Red Blood Count 3.74 4.2-5.4 M/uL Hemoglobin 11.3 12.0-16.0 g/dL Hematocrit 35.6 37-47 % Mean Corpuscular Volume 95.2 80-100 fL Mean Corpuscular Hemoglobin 30.2 25-34 pg Mean Corpuscular Hemoglobin Concent 31.7 32-36 g/dl Platelet Count 182 130-400 K/uL Mean Platelet Volume 9.5 7.4-10.4 fL Neutrophils (%) (Auto) 84.3 % Lymphocytes (%) (Auto) 7.1 % Monocytes (%) (Auto) 7.0 % Eosinophils (%) (Auto) 1.1 % Basophils (%) (Auto) 0.4 % Neutrophils # (Auto) 6.16 1.4-6.5 K/uL Lymphocytes # (Auto) 0.52 1.2-3.4 K/uL Monocytes # (Auto) 0.51 0.11-0.59 K/uL Eosinophils # (Auto) 0.08 0-0.5 K/uL Basophils # (Auto) 0.03 0-0.2 K/uL RDW Standard Deviation 46.0 36.4-46.3 fL RDW Coefficient of Variation 13.2 11.5-14.5 % Immature Granulocyte % (Auto) 0.1 % Immature Granulocyte # (Auto) 0.01 0.00-0.02 K/uL Prothrombin Time 10.4 9.0-12.0 SECONDS Prothromb Time International Ratio 1.0 0.9-1.1 Activated Partial Thromboplast Time 24.5 21.0-31.0 SECONDS Partial Thromboplastin Ratio 0.9 Sodium Level 131 136-145 mmol/L Potassium Level 3.9 3.5-5.1 mmol/L Chloride Level 87 98-107 mmol/L Carbon Dioxide Level 42 21-32 mmol/L Anion Gap 2.0 3-11 mmol/L Blood Urea Nitrogen 30 7-18 mg/dl Creatinine 0.80 0.60-1.20 mg/dl Estimated GFR () 83.6 Estimated GFR (Non- 72.1 BUN/Creatinine Ratio 37.9 10-20 Random Glucose 85 70-99 mg/dl Calcium Level 9.4 8.5-10.1 mg/dl Total Bilirubin 0.5 0.2-1 mg/dl Direct Bilirubin 0.2 0-0.2 mg/dl Aspartate Amino Transf (AST/SGOT) 24 15-37 U/L Alanine Aminotransferase (ALT/SGPT) 20 12-78 U/L Alkaline Phosphatase 68 45-117 U/L Total Creatine Kinase 130 26-192 U/L Creatine Kinase MB 6.7 0.5-3.6 ng/ml Total Protein 6.8 6.4-8.2 gm/dl Albumin 3.5 3.4-5.0 gm/dl Lipase 185 73-393 U/L Bedside Troponin I < 0.030 0-0.045 ng/ml Urine Color YELLOW Urine Appearance CLEAR CLEAR Urine pH 5.0 4.5-7.5 Urine Specific [place] 1.017 1.000-1.030 Urine Protein NEG NEG Urine Glucose (UA) NEG NEG Urine Ketones TRACE NEG Urine Occult Blood NEG NEG Urine Nitrite NEG NEG Urine Bilirubin NEG NEG Urine Urobilinogen NEG NEG Urine Leukocyte Esterase NEG NEG Test 11/09/17 18:13 11/09/17 20:33 11/10/17 07:52 Range/Units Venous Blood pH 7.22 7.36-7.41 Venous Blood Partial Pressure CO2 112 38.0-50.0 mmHg Venous Blood Partial Pressure O2 44 mmHg Venous Blood HCO3 45 mmol/L Venous Blood Oxygen Saturation 71.7 % Venous Blood Base Excess 13.1 mEq/L Arterial Blood pH 7.30 7.35 7.35-7.45 Arterial Blood Partial Pressure CO2 91 79 35-46 mmHg Arterial Blood Partial Pressure O2 65 72 80-95 mm/Hg Arterial Blood HCO3 43 42 19-24 mmol/L Arterial Blood Oxygen Saturation 89.5 92.6 90-95 % Arterial Blood Base Excess 14.3 14.0 -9-1.8 mEq/L Arterial Blood Gas Delivery 30% 2.5L [place] Test POS POS POS White Blood Count 4.95 4.8-10.8 K/uL Red Blood Count 3.56 4.2-5.4 M/uL Hemoglobin 10.7 12.0-16.0 g/dL Hematocrit 33.8 37-47 % Mean Corpuscular Volume 94.9 80-100 fL Mean Corpuscular Hemoglobin 30.1 25-34 pg Mean Corpuscular Hemoglobin Concent 31.7 32-36 g/dl Platelet Count 177 130-400 K/uL Mean Platelet Volume 9.6 7.4-10.4 fL Neutrophils (%) (Auto) 83.7 % Lymphocytes (%) (Auto) 13.9 % Monocytes (%) (Auto) 2.2 % Eosinophils (%) (Auto) 0.0 % Basophils (%) (Auto) 0.0 % Neutrophils # (Auto) 4.14 1.4-6.5 K/uL Lymphocytes # (Auto) 0.69 1.2-3.4 K/uL Monocytes # (Auto) 0.11 0.11-0.59 K/uL Eosinophils # (Auto) 0.00 0-0.5 K/uL Basophils # (Auto) 0.00 0-0.2 K/uL RDW Standard Deviation 45.8 36.4-46.3 fL RDW Coefficient of Variation 13.1 11.5-14.5 % Immature Granulocyte % (Auto) 0.2 % Immature Granulocyte # (Auto) 0.01 0.00-0.02 K/uL Sodium Level 133 136-145 mmol/L Potassium Level 4.3 3.5-5.1 mmol/L Chloride Level 87 98-107 mmol/L Carbon Dioxide Level 40 21-32 mmol/L Anion Gap 5.0 3-11 mmol/L Blood Urea Nitrogen 28 7-18 mg/dl Creatinine 0.63 0.60-1.20 mg/dl Est Creatinine Clear Calc Drug Dose 66.7 ml/min Estimated GFR () 101.7 Estimated GFR (Non- 87.7 BUN/Creatinine Ratio 43.9 10-20 Random Glucose 63 70-99 mg/dl Calcium Level 9.2 8.5-10.1 mg/dl Phosphorus Level 4.2 2.5-4.9 mg/dl Magnesium Level 2.0 1.8-2.4 mg/dl Microbiology Results 11/09/17 Urine Culture - Preliminary, Resulted PIN-POINT GROWTH PRESENT, REINCUBATING. Diagnostic Radiology Please refer to HPI EKG Please refer to HPI Impression Assessment and Plan 77-year-old female admitted for acute on chronic hypercapnic respiratory failure : 1. Hypercapnic: Patient has a long history of COPD based off ATS standards very severe with progressive weight loss and CO2 retention over the last year. I had a long discussion with the family about her poor prognosis. The patient and the family were in [place] about the patient being a DNR/DNI. At this time the patient is responding well to BiPAP therapy, methylprednisolone and DuoNeb' s. Family does note decrease efficacy of her outpatient nebulizer treatment in the last 3-4 months. The patient is getting duo nebs at this time and she is unable to perform proper inhalation technique for a metered-dose inhaler I will stop her Spiriva, also the patient is on steroids I will discontinue her Flonase nasal spray as well per 2. ID: Patient currently on doxycycline but will chest x-ray as well as white blood cell count. Will order pro-calcitonin if within normal limits will discontinue current antibiotic therapy. 3. CODE STATUS: DNR/DNI.
[2017-11-10] MEDS: ATORVASTATIN 10 MG TAB PO SCH (21:38)
[2017-11-10] MEDS: DILTIAZEM HCL 120 MG CAPCR PO SCH (21:39)
[2017-11-11] VITALS (19 sets, daily range): BP systolic 95–145; BP diastolic 59–81; PULSE 64–104; TEMP 36.6–37; O2SAT 93–99
[2017-11-11] MEDS: ALBUT/IPRATROP 3MG/0.5MG NEB 3 ML VIAL INH SCH ×4 (07:19→19:09)
[2017-11-11] MEDS: ENOXAPARIN 40 MG/0.4 ML SYR SQ SCH (07:51)
[2017-11-11] MEDS: CYANOCOBALAMIN 500 MCG TAB (VIT B-12) PO SCH (07:51)
[2017-11-11] MEDS: METHYLPREDNISOLONE IV 60 MG in SYRINGE 0 ML IV SCH ×3 (07:51→21:11)
[2017-11-11] MEDS: PANTOprazole SOD 40 MG TAB PO SCH ×2 (07:52→21:11)
[2017-11-11] MEDS: CHOLECALCIFEROL 1000 INTER.UNIT TAB PO SCH (07:52)
[2017-11-11 07:54] LABS: BASO % 0.2 %; BASO ABS # 0.01 K/uL (0-0.2); HEMATOCRIT 31.9 % (37-47); HEMOGLOBIN 10.2 g/dL (12.0-16.0); IG# 0.01 K/uL (0.00-0.02); LYMPH % 7.3 %; LYMPH ABS # 0.41 K/uL (1.2-3.4); MEAN CELL VOLUME 93.8 fL (80-100); MEAN PLATELET VOLUME 9.7 fL (7.4-10.4); MONO % 6.6 %; MONO ABS # 0.37 K/uL (0.11-0.59); NEUT % 85.7 %; NEUT ABS # 4.79 K/uL (1.4-6.5); PLATELET COUNT 173 K/uL (130-400); RED CELL DISTRIBUTION WIDTH CV 13.5 % (11.5-14.5); RED CELL DISTRIBUTION WIDTH SD 46.3 fL (36.4-46.3); WHITE BLOOD COUNT 5.59 K/uL (4.8-10.8)
[2017-11-11 08:12] LABS: CALCIUM 9.2 mg/dl (8.5-10.1); CREATININE 0.92 mg/dl (0.60-1.20); PHOSPHORUS 2.8 mg/dl (2.5-4.9); POTASSIUM 3.7 mmol/L (3.5-5.1)
[2017-11-11] MEDS: LISINOPRIL 20 MG TAB PO SCH (09:07)
--- NOTE | 2017-11-11 10:23 | Pulmonology Progress Note ---
Pulmonary Progress Note Date of Service Nov 11, 2017. Attending Dr. Ceja Subjective Patient notably improving on 3 L nasal cannula at this time PmHx: Severe COPD (FEV1: 39%), chronic hypoxemia: Oxygen-dependent, osteoarthritis, chronic sinusitis, dyslipidemia, esophageal stricture/web s/p dilation 11/2016, ventral hernia, GERD, hypertension, lumbar radiculopathy, pulmonary nodules, admission 02/2017 with hypoxic respiratory failure secondary to pill impaction in the esophagus Vital signs: Stable on 3 L Respiratory: Decreased breath sounds Cardiac: S1-S2 regular rate Abdomen: Positive bowel sounds soft nontender Extremities: 1+ pitting edema but no clubbing or cyanosis noted SAMPLE PROCESSOR: Orientated 3 this morning LABS: WBC: 6K VBG 11/09/17-1813: 7.22/112 ABG 033: 7.30/91/65/43 on 30% ABG 11/10/20177.35/79/72/422.5L ABG (11/11/2017) 7.42/68/101/44 3Lnc Inpatient medications/treatment 1. Enoxaparin 40 mg 2. Protonix b.i.d. 3. Methylprednisolone 60 mg IV t.i.d. 4. DuoNeb q.i.d./Q 2 p.r.n. 5. BiPAP 15/5, FiO2-30%, leak 41% 6. 3Lnc Oxygen support Assessment & Plan 77-year-old female admitted for acute on chronic respiratory insufficiency with severe COPD FEV1 75%: #1 Acute on Chronic Respiratory Insufficiency/Hypercapnic Respiratory Insufficiency: Patient is currently responding well to medical regimen and BiPAP. This time I will order nocturnal desaturation study for evaluation of home BiPAP. Treated with continuing current medical regimen patient improving taper down tomorrow to p.o. steroids. Patient is difficult as we have tried multiple medical regimens in the past and the patient has been noncompliant or returned multiple inhalers. At this time to keep her regimen simple I suggest we continue duo nebs 4 times daily and steroids at this time. The patient can be reevaluated as an outpatient for inhalers and/or Brovana as well as steroid taper. #2 Infectious Disease: Patient currently doing well off doxycycline and pro- calcitonin level pending. #3 CODE STATUS: DNR/DNI. Data Medications: Current Inpatient Medications Medications (Trade) Dose Ordered Sig/John Paul Route Start Time Stop Time Status Last Admin Dose Admin Enoxaparin Sodium (Lovenox Inj) 40 mg Q24H SQ 11/10/17 09:00 12/10/17 08:59 11/11/17 07:51 40 MG Acetaminophen (Tylenol Tab) 650 mg Q4H PRN PO 11/09/17 19:15 12/09/17 19:14 Al Hydrox/Mg Hydrox/Simethicone (Maalox Max Susp) 15 ml Q4H PRN PO 11/09/17 19:15 12/09/17 19:14 Magnesium Hydroxide (Milk Of Magnesia Susp) 30 ml Q6H PRN PO 11/09/17 19:15 12/09/17 19:14 Polyethylene (Miralax Powder Packet) 17 gm DAILY PRN PO 11/09/17 19:15 12/09/17 19:14 Ondansetron HCl (Zofran Inj) 4 mg Q6H PRN IV 11/09/17 19:15 12/09/17 19:14 Atorvastatin Calcium (Lipitor Tab) 10 mg HS PO 11/09/17 21:00 12/09/17 20:59 11/10/17 21:38 10 MG Cholecalciferol (Vitamin D Tab) 1,000 inter.unit QAM PO 11/10/17 09:00 12/10/17 08:59 11/11/17 07:52 1,000 INTER.UNIT Cyanocobalamin (Vitamin B-12 Tab) 1,000 mcg QAM PO 11/10/17 09:00 12/10/17 08:59 11/11/17 07:51 1,000 MCG Diltiazem HCl (Cardizem Cd Cap) 120 mg QPM PO 11/09/17 21:00 12/09/17 20:59 11/10/17 21:39 120 MG Furosemide (Lasix Tab) 20 mg DAILY PRN PO 11/09/17 19:15 12/09/17 19:14 Lisinopril (Zestril Tab) 20 mg DAILY PO 11/10/17 09:00 12/10/17 08:59 11/11/17 09:07 20 MG Pantoprazole Sodium (Protonix Tab) 40 mg BID PO 4/13/18 21:00 12/09/17 20:59 11/11/17 07:52 40 MG Albuterol (Ventolin Hfa Inhaler) 1 puffs Q6H PRN INH 11/09/17 19:15 12/09/17 19:14 Methylprednisolone Sodium Succinate 60 mg/Syringe 0.96 ml @ 1.5 mls/min TID IV 11/09/17 21:00 12/09/17 20:59 11/11/17 07:51 1.5 MLS/MIN Albuterol/ Ipratropium (Duoneb) 3 ml QIDR INH 11/09/17 20:00 12/09/17 19:59 11/11/17 07:19 3 ML Albuterol/ Ipratropium (Duoneb) 3 ml Q2H PRN INH 11/09/17 20:45 12/09/17 20:44 Vital Signs: Date Time Temp Pulse Resp B/P (MAP) Pulse Ox O2 Delivery O2 Flow Rate FiO2 11/11/17 08:00 94 Nasal Cannula 3.0 11/11/17 07:36 83 22 98 Nasal Cannula 3.0 11/11/17 07:33 37.0 80 20 130/81 (97) 99 Nasal Cannula 4.5 11/11/17 04:00 BiPAP 30 11/11/17 03:11 36.8 73 20 95/59 (71) 97 BiPAP 11/11/17 02:26 68 95 30 11/11/17 00:52 64 95 30 11/11/17 00:03 37.0 104 19 145/71 (95) 95 Nasal Cannula 11/10/17 23:59 Nasal Cannula 3.0 11/10/17 20:00 BiPAP 30 11/10/17 19:50 67 95 30 11/10/17 19:42 36.8 108 26 120/71 (87) 93 Nasal Cannula 3.0 11/10/17 19:25 78 22 94 Nasal Cannula 3.0 11/10/17 16:00 97 BiPAP 30 11/10/17 15:29 37.2 93 22 106/69 (81) 92 BiPAP 11/10/17 14:00 36.5 79 22 85/47 (60) 97 BiPAP 30 11/10/17 13:22 68 21 95 BiPAP/CPAP 30 11/10/17 11:11 82 18 97 Nasal Cannula 3.0 Laboratory Results: Last 24 Hours Test 11/11/17 07:21 White Blood Count 5.59 K/uL Red Blood Count 3.40 M/uL Hemoglobin 10.2 g/dL Hematocrit 31.9 % Mean Corpuscular Volume 93.8 fL Mean Corpuscular Hemoglobin 30.0 pg Mean Corpuscular Hemoglobin Concent 32.0 g/dl Platelet Count 173 K/uL Mean Platelet Volume 9.7 fL Neutrophils (%) (Auto) 85.7 % Lymphocytes (%) (Auto) 7.3 % Monocytes (%) (Auto) 6.6 % Eosinophils (%) (Auto) 0.0 % Basophils (%) (Auto) 0.2 % Neutrophils # (Auto) 4.79 K/uL Lymphocytes # (Auto) 0.41 K/uL Monocytes # (Auto) 0.37 K/uL Eosinophils # (Auto) 0.00 K/uL Basophils # (Auto) 0.01 K/uL RDW Standard Deviation 46.3 fL RDW Coefficient of Variation 13.5 % Immature Granulocyte % (Auto) 0.2 % Immature Granulocyte # (Auto) 0.01 K/uL Arterial Blood pH 7.42 Arterial Blood Partial Pressure CO2 68 mmHg Arterial Blood Partial Pressure O2 101 mm/Hg Arterial Blood HCO3 44 mmol/L Arterial Blood Oxygen Saturation 97.2 % Arterial Blood Base Excess 16.7 mEq/L Arterial Blood Gas Delivery 3L [place] Test POS Sodium Level 131 mmol/L Potassium Level 3.7 mmol/L Chloride Level 87 mmol/L Carbon Dioxide Level 44 mmol/L Anion Gap 0.0 mmol/L Blood Urea Nitrogen 31 mg/dl Creatinine 0.92 mg/dl Est Creatinine Clear Calc Drug Dose 45.7 ml/min Estimated GFR () 70.6 Estimated GFR (Non- 60.9 BUN/Creatinine Ratio 34.0 Random Glucose 118 mg/dl Calcium Level 9.2 mg/dl Phosphorus Level 2.8 mg/dl Magnesium Level 1.9 mg/dl
--- NOTE | 2017-11-11 14:26 | Progress Note ---
Subjective Date of Service: Nov 11, 2017. Subjective Pt evaluation today including: conversation w/ patient, conversation w/ family , physical exam, chart review, lab review, review of studies, conversation w/ computing consultant, review of inpatient medication list Off BiPAP machine, eating lunch, generally feeling a little bit better, generally looks better, however still have wheezing and difficulty breathing, on NC O2 when eating lunch now Problem List Medical Problems: (1) Altered mental status Status: Acute (2) COPD exacerbation Status: Acute (3) Dehydration Status: Acute (4) Dysphagia Status: Acute (5) Dyspnea Status: Acute (6) Dyspnea Status: Acute (7) Esophageal obstruction due to food impaction Status: Acute (8) Hypercapnia Status: Acute (9) Hypotension Status: Acute (10) Peripheral edema Status: Acute (11) Shortness of breath Status: Acute (12) UTI (urinary tract infection) Status: Acute Review of Systems Constitutional: No fever, No chills, No sweats, No weight loss, No weakness, No fatigue, No problem reported Eyes: No worsening of vision, No eye pain, No redness, No discharge, No diplopia ENT: No hearing loss, No unusual epistaxis, No nasal symptoms, No sore throat, No tinnitus, No dental problems, No trouble swallowing Respiratory: + see HPI, + sputum, + wheezing, + shortness of breath, No cough, No dyspnea on exertion, No dyspnea at rest, No hemoptysis Cardiac: + edema (Trace), No chest pain, No orthopnea, No PND, No claudication , No palpitations Abdomen: No pain, No nausea, No vomiting, No diarrhea, No constipation Musculoskeletal: No joint pain, No muscle pain, No swelling, No calf pain Female : No dysuria, No urinary frequency, No hematuria, No incontinence, No abnormal vaginal bleeding, No vaginal discharge Neurologic: No memory loss, No paralysis, No weakness, No numbness/tingling, No vertigo, No balance problems Psychiatric: No depression symptoms, No anhedonism, No anxiety, No insomnia, No substance abuse Heme: No abnormal bleeding/bruising, No clotting problems, No swollen lymph nodes, No night sweats Endo: No fatigue, No excessive thirst, No excessive urination Skin: No rash, No itch, No new/changing skin lesions, No color change, No bleeding Objective Vital Signs Date Time Temp Pulse Resp B/P (MAP) Pulse Ox O2 Delivery O2 Flow Rate FiO2 11/11/17 12:00 94 Nasal Cannula 3.0 11/11/17 11:16 98 22 95 Nasal Cannula 3.0 11/11/17 10:51 36.8 102 20 106/65 (79) 93 Nasal Cannula 5.0 11/11/17 08:00 94 Nasal Cannula 3.0 11/11/17 07:36 83 22 98 Nasal Cannula 3.0 11/11/17 07:33 37.0 80 20 130/81 (97) 99 Nasal Cannula 4.5 11/11/17 04:00 BiPAP 30 11/11/17 03:11 36.8 73 20 95/59 (71) 97 BiPAP 11/11/17 02:26 68 95 30 11/11/17 00:52 64 95 30 11/11/17 00:03 37.0 104 19 145/71 (95) 95 Nasal Cannula 11/10/17 23:59 Nasal Cannula 3.0 11/10/17 20:00 BiPAP 30 11/10/17 19:50 67 95 30 11/10/17 19:42 36.8 108 26 120/71 (87) 93 Nasal Cannula 3.0 11/10/17 19:25 78 22 94 Nasal Cannula 3.0 11/10/17 16:00 97 BiPAP 30 11/10/17 15:29 37.2 93 22 106/69 (81) 92 BiPAP Physical Exam General Appearance: WD/WN, no apparent distress, + thin Eyes: normal inspection, PERRL, EOMI, sclerae normal ENT: normal ENT inspection, hearing grossly normal, pharynx normal Neck: supple, no adenopathy, thyroid normal, no JVD, no carotid bruits, trachea midline Respiratory/Chest: chest non-tender, normal breath sounds, no respiratory distress, no accessory muscle use, + decreased breath sounds (Significant), + wheezing (Occasional) Cardiovascular: regular rate, rhythm, no edema, no gallop, no JVD, no murmur Abdomen: normal bowel sounds, non tender, soft, no organomegaly, no pulsatile mass Extremities: normal range of motion, non-tender, normal inspection, no pedal edema, no calf tenderness, normal capillary refill, pelvis stable, + swelling ( Trace edema) Neurologic/Psychiatric: pattern generator operator II-XII nml as tested, no motor/sensory deficits, alert, normal mood/affect, oriented x 3 Skin: normal color, warm/dry, no rash Lymphatic: no adenopathy Laboratory Results Last 24 Hours Test 11/11/17 07:21 11/11/17 10:24 White Blood Count 5.59 K/uL Red Blood Count 3.40 M/uL Hemoglobin 10.2 g/dL Hematocrit 31.9 % Mean Corpuscular Volume 93.8 fL Mean Corpuscular Hemoglobin 30.0 pg Mean Corpuscular Hemoglobin Concent 32.0 g/dl Platelet Count 173 K/uL Mean Platelet Volume 9.7 fL Neutrophils (%) (Auto) 85.7 % Lymphocytes (%) (Auto) 7.3 % Monocytes (%) (Auto) 6.6 % Eosinophils (%) (Auto) 0.0 % Basophils (%) (Auto) 0.2 % Neutrophils # (Auto) 4.79 K/uL Lymphocytes # (Auto) 0.41 K/uL Monocytes # (Auto) 0.37 K/uL Eosinophils # (Auto) 0.00 K/uL Basophils # (Auto) 0.01 K/uL RDW Standard Deviation 46.3 fL RDW Coefficient of Variation 13.5 % Immature Granulocyte % (Auto) 0.2 % Immature Granulocyte # (Auto) 0.01 K/uL Arterial Blood pH 7.42 Arterial Blood Partial Pressure CO2 68 mmHg Arterial Blood Partial Pressure O2 101 mm/Hg Arterial Blood HCO3 44 mmol/L Arterial Blood Oxygen Saturation 97.2 % Arterial Blood Base Excess 16.7 mEq/L Arterial Blood Gas Delivery 3L [place] Test POS Sodium Level 131 mmol/L Potassium Level 3.7 mmol/L Chloride Level 87 mmol/L Carbon Dioxide Level 44 mmol/L Anion Gap 0.0 mmol/L Blood Urea Nitrogen 31 mg/dl Creatinine 0.92 mg/dl Est Creatinine Clear Calc Drug Dose 45.7 ml/min Estimated GFR () 70.6 Estimated GFR (Non- 60.9 BUN/Creatinine Ratio 34.0 Random Glucose 118 mg/dl Calcium Level 9.2 mg/dl Phosphorus Level 2.8 mg/dl Magnesium Level 1.9 mg/dl Procalcitonin < 0.05 ng/ml Assessment and Plan 77-year-old white female admitted on November 09, 2017 because of acute on chronic respirator failure and COPD exacerbation Severe COPD exacerbation Acute on chronic respiratory failure Hypercapnia and hypoxic upon admission Respiratory acidosis from acute respiratory failure upon admission In the emergency room patient declined options of intubation, Has been on BiPAP machine, PH was normalized in the repeated ABG in the second morning, Has changed BiPAP 4 hour on 4 hour of and continuous at nighttime, this morning ABG significantly improved, with PCO2 around 60s and PaO2 more than 100 patient general condition looks better Has been on steroid, nebulizer treatment, antibiotics, supportive care, BiPAP machine food service manager consultation reviewed and input appreciated, the patient can be reevaluated as an outpatient for inhalers and/or Brovana as well as steroid taper, follow-up nocturnal possible studies, possible need to evaluation for home BiPAP, needed to discuss with food service manager about anxiety, arthritis, chronic, dyslipidemia, GERD with esophagitis, hypertension, lumbar radiculopathy: stable continue home medication hyperglycemia history and has no history of diabetic, when on Solu-Medrol will target blood glucose level at 180 highest GI DVT prophylaxis Patient is DNR Continued [facility] stay due to: multiple IV medications needed Discharge planning: home
[2017-11-11] MEDS: ATORVASTATIN 10 MG TAB PO SCH (21:11)
[2017-11-11] MEDS: DILTIAZEM HCL 120 MG CAPCR PO SCH (21:11)
[2017-11-12] VITALS (11 sets, daily range): BP systolic 110–133; BP diastolic 65–76; PULSE 67–95; TEMP 36.6–37; O2SAT 96–98
[2017-11-12 06:20] LABS: HEMATOCRIT 31.7 % (37-47); HEMOGLOBIN 10.1 g/dL (12.0-16.0); MEAN CELL VOLUME 94.9 fL (80-100); MEAN CORPUSCULAR HEMOGLOBIN 30.2 pg (25-34); MEAN CORPUSCULAR HGB CONC 31.9 g/dl (32-36); MEAN PLATELET VOLUME 9.6 fL (7.4-10.4); PLATELET COUNT 167 K/uL (130-400); RED CELL DISTRIBUTION WIDTH CV 13.7 % (11.5-14.5); RED CELL DISTRIBUTION WIDTH SD 47.7 fL (36.4-46.3); WHITE BLOOD COUNT 4.22 K/uL (4.8-10.8)
[2017-11-12 06:56] LABS: CREATININE 0.75 mg/dl (0.60-1.20)
[2017-11-12] MEDS: ALBUT/IPRATROP 3MG/0.5MG NEB 3 ML VIAL INH SCH ×4 (07:05→19:14)
[2017-11-12] MEDS: METHYLPREDNISOLONE IV 60 MG in SYRINGE 0 ML IV SCH ×2 (09:39→13:17)
[2017-11-12] MEDS: ENOXAPARIN 40 MG/0.4 ML SYR SQ SCH (09:39)
[2017-11-12] MEDS: PANTOprazole SOD 40 MG TAB PO SCH ×2 (09:40→20:13)
[2017-11-12] MEDS: CHOLECALCIFEROL 1000 INTER.UNIT TAB PO SCH (09:40)
[2017-11-12] MEDS: CYANOCOBALAMIN 500 MCG TAB (VIT B-12) PO SCH (09:40)
[2017-11-12] MEDS: LISINOPRIL 20 MG TAB PO SCH (09:41)
[2017-11-12] MEDS ORDERED: DOCUSATE SODIUM 100 MG CAP PO ONE (11:43)
--- NOTE | 2017-11-12 11:58 | Hospitalist Progress Note ---
Hospitalist Progress Note Date of Service Nov 12, 2017. (Melisa Viveros .BABAK) Subjective Pt evaluation today including: conversation w/ patient, physical exam, chart review, lab review, review of inpatient medication list Voiding: no voiding problems Ms. Reza is breathing somewhat better today though she is still visibly working to breathe. She is on 4.5 liters O2, 3L NC is her baseline. Her urine output is low but she reports this is inaccurate as she missed the hat, however she does feel she has not been able to drink enough due to time on the bipap ROS Constitutional: no chills, aches, sweats or fever Respiratory: no sob,cough, sputum, or wheezing Cardiac: no chest pain, palpitations, edema, orthopnea or lightheadedness GI: no abdominal pain, nausea, vomiting, diarrhea or constipation : no dysuria or hesitancy Extremities: no joint pain or weakness Skin: no rash All other systems reviewed and negative (Melisa Viveros CRNP) Medications Medications Administered Medications (Trade) Dose Ordered Sig/John Paul Route Start Time Stop Time Status Last Admin Dose Admin Albuterol/ Ipratropium (Duoneb) 3 ml NOW STAT INH 11/09/17 15:41 11/09/17 15:43 DC 11/09/17 16:05 3 ML Lorazepam (Ativan Tab) 0.5 mg NOW STAT SL 11/09/17 19:01 11/09/17 19:31 DC 11/09/17 19:07 0.5 MG Enoxaparin Sodium (Lovenox Inj) 40 mg Q24H SQ 11/10/17 09:00 12/10/17 08:59 11/12/17 09:39 40 MG Atorvastatin Calcium (Lipitor Tab) 10 mg HS PO 11/09/17 21:00 12/09/17 20:59 11/11/17 21:11 10 MG Cholecalciferol (Vitamin D Tab) 1,000 inter.unit QAM PO 11/10/17 09:00 12/10/17 08:59 11/12/17 09:40 1,000 INTER.UNIT Cyanocobalamin (Vitamin B-12 Tab) 1,000 mcg QAM PO 11/10/17 09:00 12/10/17 08:59 11/12/17 09:40 1,000 MCG Diltiazem HCl (Cardizem Cd Cap) 120 mg QPM PO 11/09/17 21:00 12/09/17 20:59 11/11/17 21:11 120 MG Fluticasone Propionate (Flonase Nasal [place]) 1 sprays BID NINO 11/09/17 21:00 11/10/17 15:25 DC 11/10/17 07:33 1 SPRAYS Lisinopril (Zestril Tab) 20 mg DAILY PO 11/10/17 09:00 12/10/17 08:59 11/12/17 09:41 20 MG Pantoprazole Sodium (Protonix Tab) 40 mg BID PO 11/09/17 21:00 12/09/17 20:59 11/12/17 09:40 40 MG Tiotropium Ariton (Spiriva Handihaler Inhaler) 1 puff QAM INH 11/10/17 09:00 11/10/17 15:25 DC 11/10/17 07:32 1 PUFF Methylprednisolone Sodium Succinate 60 mg/Syringe 0.96 ml @ 1.5 mls/min TID IV 11/09/17 21:00 12/09/17 20:59 11/12/17 09:39 1.5 MLS/MIN Doxycycline Hyclate (Vibramycin Cap) 100 mg BID PO 11/09/17 21:00 11/11/17 07:31 DC 11/10/17 21:39 100 MG Albuterol/ Ipratropium (Duoneb) 3 ml QIDR INH 11/09/17 20:00 12/09/17 19:59 11/12/17 07:05 3 ML Miscellaneous Information (Patient'S Height And/Or Weight Needed) 1 ea Q2H N/A 11/09/17 20:00 11/10/17 07:48 DC 11/10/17 07:03 1 EA (Melisa Viveros CRNP) Objective Vital Signs Date Time Temp Pulse Resp B/P (MAP) Pulse Ox O2 Delivery O2 Flow Rate FiO2 11/12/17 10:38 80 97 11/12/17 07:25 36.6 73 20 132/75 (94) 98 BiPAP 11/12/17 07:06 67 20 98 BiPAP/CPAP 30 11/12/17 07:06 67 98 30 11/12/17 04:00 BiPAP 30 11/12/17 03:25 37.0 73 20 133/76 (95) 96 BiPAP 11/12/17 02:15 78 96 30 11/11/17 23:59 BiPAP 30 11/11/17 23:30 36.6 83 22 111/70 (84) 98 BiPAP 11/11/17 22:57 80 95 30 11/11/17 21:39 36.9 11/11/17 20:11 85 18 109/70 (83) 94 BiPAP 11/11/17 20:00 94 BiPAP 30 11/11/17 19:20 74 95 30 11/11/17 19:09 89 22 94 BiPAP/CPAP 30 11/11/17 16:00 36.8 94 22 128/68 (88) 96 BiPAP 30 11/11/17 16:00 BiPAP 11/11/17 15:12 85 22 94 Nasal Cannula 3.0 11/11/17 12:00 94 Nasal Cannula 3.0 (Melisa Viveros CRNP) Physical Exam Notes: General: no distress Eyes: normal inspection, PERLL Respiratory: chest non tender, diminished breath sounds throughout with faint scattered expiratory wheeze, no respiratory distress, no accessory muscle use Cardiac: regular rate and rhythm, no rub or gallop, no murmur, no edema, no jvd GI/: active bowel sounds, no abd pain or tenderness, soft, non distended Extremities: normal range of motion, normal strength, non tender Neuro/Psych: alert and oriented x 3, normal mood and affect Skin: normal color, dry (Melisa Viveros CRNP) Laboratory Results Last 24 Hours Test 11/12/17 05:17 White Blood Count 4.22 K/uL Red Blood Count 3.34 M/uL Hemoglobin 10.1 g/dL Hematocrit 31.7 % Mean Corpuscular Volume 94.9 fL Mean Corpuscular Hemoglobin 30.2 pg Mean Corpuscular Hemoglobin Concent 31.9 g/dl RDW Standard Deviation 47.7 fL RDW Coefficient of Variation 13.7 % Platelet Count 167 K/uL Mean Platelet Volume 9.6 fL Creatinine 0.75 mg/dl Est Creatinine Clear Calc Drug Dose 56.0 ml/min Estimated GFR () 90.4 Estimated GFR (Non- 78.0 (Melisa Viveros CRNP) Assessment and Plan Ms. 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 - continue steroids, nebulizers, and doxycycline - Continue bipap hs and prn, titrate O2 to baseline 3L per protocol - nocturnal pulse ox when able to tolerate off bipap - Palliative consult - Pulmonary consult Hypertension. - Continue lisinopril, diltiazem, furosemide Hyperglycemia. - Her last A1c was 5.4 less than a year ago. - continue to monitor, no ss necessary at this time Constipation - stool softners DNR Enoxaprin, SCDs (Melisa Viveros CRNP) [employer]IVET [employer] Physician Supervision Note: I interviewed and examined the patient. Discussed with Melisa Viveros RIVET [employer]ROWER and agree with findings and plan as documented in the note. Any exceptions or clarifications are listed here: None Patient feels better after sleeping with BiPAP overnight her COPD is slowly but gently improving she is currently still requiring oxygen her hypertension is treated with lisinopril and her diabetes is in acceptable control Temperature 37 pulse 67 respiration 20 BP 133/67 her lungs have prolonged expiratory phase no focal air loss but scant extra Tory wheezing her cardiac exam is distant but regular Acute and chronic respiratory failure with hypoxia with diagnosis of COPD continue supportive care with steroids will look towards having her qualify for home noninvasive ventilation as without noninvasive ventilation she seems to have recurrent hospitalizations Documented By: Julius Monroy (Julius Monroy M.D.)
--- NOTE | 2017-11-12 16:30 | Palliative Care Consultation ---
Consultation Date of Consultation: Nov 12, 2017. Requesting Physician: Yary HILLIARD Attending Physician: Dr Monroy Reason for Consultation: Discuss goals of care History of Present Illness Briefly patient is a 77-year-old with stage III COPD, FEV1 39%, hypertension, hyperlipidemia, GERD and anxiety who was admitted on 413 for increased weakness and shortness of breath 2 days prior to admission. Daughter noticed patient was more confused and her oxygen had been turned up to 3 L, of note in the ER her PCO2 on her blood gas was 112. Patient was placed on BiPAP , which required a as needed Ativan for her to tolerate it, and her CO2 is now down into the 60s. Patient has great insight into her disease as does her family, and they are very realistic in their expectations. Patient has a daughter that lives 2 doors away and 2 other children that live within approximately 30 minutes of her home. Patient already has a hospital bed in the home and O2. Patient will require home BiPAP. Discussed trajectory of patient's disease, patient would qualify for in-home hospice at this time since she has O2 dependent COPD, however she is not quite yet at that point. Gave daughter a list of area hospices to refer to in the future. With using home BiPAP patient' s prognosis could be greater than 6 months. Discussed when and how to contact hospice. Patient currently is a DNR. Past Medical/Surgical History Medical History: COPD, HTN, HLD, GERD, anxiety, history of esophageal web/stricture Surgical History: Hernia repair, [facility], breast biopsy, EGD with dilation in November 2016, colonoscopy Family History Positive for cancer, hypertension, COPD Social History Smoking Status: Never Smoker (Positive for secondhand smoke as a child, also worked in [employer]) History of Alcohol Use: No Marital Status: ( in 2007) Housing Status: lives alone (A daughter lives 2 doors away) Occupation Status: retired Daughter Jacqueline at bedside Review of Systems Constitutional: No fever, No chills Eyes: No worsening of vision ENT: No hearing loss Respiratory: + cough, + shortness of breath, + dyspnea on exertion Cardiac: + edema (Trace, patient states she controls it with diuretics), No chest pain Abdomen: No pain, No nausea Musculoskeletal: No joint pain Female : No dysuria Neurologic: No memory loss (Exceptionally sharp memory) Psychiatric: + anxiety (Only when wearing BiPAP, and has been improving), No depression symptoms Heme: No abnormal bleeding/bruising Endo: + fatigue Skin: No rash Allergies Coded Allergies: Cetirizine (Verified Allergy, Unknown, RASH, 04/25/17) Simvastatin (Verified Allergy, Unknown, ABDOMINAL CRAMPS, 04/25/17) Medications Current Inpatient Medications Medications (Trade) Dose Ordered Sig/John Paul Route Start Time Stop Time Status Last Admin Dose Admin Enoxaparin Sodium (Lovenox Inj) 40 mg Q24H SQ 11/10/17 09:00 12/10/17 08:59 11/12/17 09:39 40 MG Acetaminophen (Tylenol Tab) 650 mg Q4H PRN PO 11/09/17 19:15 12/09/17 19:14 Al Hydrox/Mg Hydrox/Simethicone (Maalox Max Susp) 15 ml Q4H PRN PO 11/09/17 19:15 12/09/17 19:14 Magnesium Hydroxide (Milk Of Magnesia Susp) 30 ml Q6H PRN PO 11/09/17 19:15 12/09/17 19:14 Polyethylene (Miralax Powder Packet) 17 gm DAILY PRN PO 11/09/17 19:15 12/09/17 19:14 Ondansetron HCl (Zofran Inj) 4 mg Q6H PRN IV 11/09/17 19:15 12/09/17 19:14 Atorvastatin Calcium (Lipitor Tab) 10 mg HS PO 11/09/17 21:00 12/09/17 20:59 11/11/17 21:11 10 MG Cholecalciferol (Vitamin D Tab) 1,000 inter.unit QAM PO 11/10/17 09:00 12/10/17 08:59 11/12/17 09:40 1,000 INTER.UNIT Cyanocobalamin (Vitamin B-12 Tab) 1,000 mcg QAM PO 11/10/17 09:00 12/10/17 08:59 11/12/17 09:40 1,000 MCG Diltiazem HCl (Cardizem Cd Cap) 120 mg QPM PO 11/09/17 21:00 12/09/17 20:59 11/11/17 21:11 120 MG Furosemide (Lasix Tab) 20 mg DAILY PRN PO 4/13/18 19:15 12/09/17 19:14 Lisinopril (Zestril Tab) 20 mg DAILY PO 11/10/17 09:00 12/10/17 08:59 11/12/17 09:41 20 MG Pantoprazole Sodium (Protonix Tab) 40 mg BID PO 11/09/17 21:00 12/09/17 20:59 11/12/17 09:40 40 MG Albuterol (Ventolin Hfa Inhaler) 1 puffs Q6H PRN INH 11/09/17 19:15 12/09/17 19:14 Methylprednisolone Sodium Succinate 60 mg/Syringe 0.96 ml @ 1.5 mls/min TID IV 11/09/17 21:00 12/09/17 20:59 11/12/17 13:17 1.5 MLS/MIN Albuterol/ Ipratropium (Duoneb) 3 ml QIDR INH 11/09/17 20:00 12/09/17 19:59 11/12/17 15:32 3 ML Albuterol/ Ipratropium (Duoneb) 3 ml Q2H PRN INH 11/09/17 20:45 12/09/17 20:44 Docusate Sodium (coLACE CAP) 100 mg BID PO 11/12/17 21:00 12/12/17 20:59 Miscellaneous Information (Order Awaiting Action) 1 ea QS N/A 11/12/17 16:00 12/12/17 15:59 Physical Exam Date Time Temp Pulse Resp B/P (MAP) Pulse Ox O2 Delivery O2 Flow Rate FiO2 11/12/17 15:32 70 18 96 Nasal Cannula 3.0 11/12/17 12:00 Nasal Cannula 3.0 11/12/17 11:24 36.8 82 20 113/75 (88) 97 Nasal Cannula 4.5 11/12/17 10:38 80 97 11/12/17 08:00 BiPAP 3.0 30 11/12/17 07:25 36.6 73 20 132/75 (94) 98 BiPAP 11/12/17 07:06 67 20 98 BiPAP/CPAP 30 11/12/17 07:06 67 98 30 11/12/17 04:00 BiPAP 30 11/12/17 03:25 37.0 73 20 133/76 (95) 96 BiPAP 11/12/17 02:15 78 96 30 11/11/17 23:59 BiPAP 30 11/11/17 23:30 36.6 83 22 111/70 (84) 98 BiPAP 11/11/17 22:57 80 95 30 11/11/17 21:39 36.9 11/11/17 20:11 85 18 109/70 (83) 94 BiPAP 11/11/17 20:00 94 BiPAP 30 11/11/17 19:20 74 95 30 11/11/17 19:09 89 22 94 BiPAP/CPAP 30 General Appearance: + pertinent finding (Very talkative, shortness of breath with speech, able to get out at least half to three quarters of a sentence between breaths) Eyes: EOMI ENT: hearing grossly normal Neck: supple Respiratory: + decreased breath sounds (Poor breath sounds all lung campa, no rhonchi or wheezes on exam) Cardiovascular: regular rate, rhythm Abdomen: non tender Musculoskeletal: normal tone Neurologic/Psychiatric: alert, oriented x 3 Skin: warm/dry Laboratory Results Last 24 Hours Test 11/12/17 05:17 White Blood Count 4.22 K/uL Red Blood Count 3.34 M/uL Hemoglobin 10.1 g/dL Hematocrit 31.7 % Mean Corpuscular Volume 94.9 fL Mean Corpuscular Hemoglobin 30.2 pg Mean Corpuscular Hemoglobin Concent 31.9 g/dl RDW Standard Deviation 47.7 fL RDW Coefficient of Variation 13.7 % Platelet Count 167 K/uL Mean Platelet Volume 9.6 fL Creatinine 0.75 mg/dl Est Creatinine Clear Calc Drug Dose 56.0 ml/min Estimated GFR () 90.4 Estimated GFR (Non- 78.0 Assessment & Plan Palliative Performance Scale: 40 % (Patient can walk 3 feet before she has to stop and rest) (1) Palliative care encounter Assessment & Plan: Discussed safety as patient wishes to return to her home where she lives alone. Discussed contacting hospice several months down the road if her condition continues to deteriorate. Patient excepting of future hospice care, list of area hospice is given to her daughter Jacqueline. Patient is currently a DNR (2) COPD (chronic obstructive pulmonary disease) Status: Chronic Assessment & Plan: Acute exacerbation with CO2 retention resulting in altered mental status, much improved on BiPAP (3) Hypercapnia Status: Acute Assessment & Plan: Improved on BiPAP, patient will require BiPAP at home and possibly as needed Ativan (4) Altered mental status Status: Acute Assessment & Plan: Resolved, due to hypercapnia Counseling and Coordination Total time spent 70 minutes with greater than 50% of the time spent at bedside discussing patient's prognosis, safety living alone, goals of care, and projecting needs in the near future, including hospice.
--- NOTE | 2017-11-12 17:10 | Pulmonology Progress Note ---
Pulmonary Progress Note Date of Service Nov 12, 2017. Attending Dr. Webb Subjective The patient continue to have shortness of breath, her dyspnea on exertion has been within 5-10 feet, has been worsening since November 2016, and review of her previous records, the patient did have a CAT scan last year which revealed mild bronchiectasis, the lung parenchyma appeared to be well preserved. I do not see any mucoid impaction. Small nodularity was noted which is insignificant. The patient retained carbon dioxide significantly and she just started on the BiPAP at night. She seems to tolerate it according to her overnight. She continues to have shortness of breath even with minimal exertion. Extensive workup done in the past including PA catheter which revealed mild reduction in the cardiac output but there is no significant elevation in her pulmonary artery. The patient also had a bronchoscopy done by Dr. Ceja without any revealing cause. All cultures were negative. Objective Her physical exam revealed vital signs remained stable, she does have distant breath sounds bilaterally with minimal wheezing in the right upper lung campa, heart examination S1-S2 regular rate and rhythm, abdomen is obese but benign no edema. I have reviewed her previous imaging as well including a CAT scan of the chest which revealed mild bronchiectasis. I did not see any evidence of significant COPD or bullae disease. Previous workup including PA catheter revealed mildly decreased cardiac output and mildly increased pulmonary hypertension. The patient did have a bronchoscopy by Dr. Ceja which did not reveal any pathology. Assessment & Plan 1. COPD, FEV1 of 39% dropped down from 56% within a period of 3 months. It is concerning to me that the patient might have been developing muscular weakness as well. This may not represent on the COPD exacerbation. 2. Hypoxia which is disproportionate to her level of exercise. 3. Acute on chronic hypercapnic respiratory failure, could be related to pump failure with muscular weakness. Plan: 1. I would repeat a CAT scan of the chest. And compared with the previous one done last year. 2. Continue with current doses of steroids but change of frequency and the dose to 40 mg every 6 hours. 3. Continue with bronchodilators and oxygen. 4. Continue with BiPAP, the patient qualifies for trilogy as an outpatient. 5. Obtain acetylcholine esterase antibodies level. 6. Recent echocardiogram was done which showed diastolic heart failure, I did not see any evidence of LV dysfunction. 7. If the above failed, the patient would benefit from EMG, can be done electively as an outpatient. Thank you, will follow. Data Medications: Current Inpatient Medications Medications (Trade) Dose Ordered Sig/John Paul Route Start Time Stop Time Status Last Admin Dose Admin Enoxaparin Sodium (Lovenox Inj) 40 mg Q24H SQ 11/10/17 09:00 12/10/17 08:59 11/12/17 09:39 40 MG Acetaminophen (Tylenol Tab) 650 mg Q4H PRN PO 11/09/17 19:15 12/09/17 19:14 Al Hydrox/Mg Hydrox/Simethicone (Maalox Max Susp) 15 ml Q4H PRN PO 11/09/17 19:15 12/09/17 19:14 Magnesium Hydroxide (Milk Of Magnesia Susp) 30 ml Q6H PRN PO 11/09/17 19:15 12/09/17 19:14 Polyethylene (Miralax Powder Packet) 17 gm DAILY PRN PO 11/09/17 19:15 12/09/17 19:14 Ondansetron HCl (Zofran Inj) 4 mg Q6H PRN IV 11/09/17 19:15 12/09/17 19:14 Atorvastatin Calcium (Lipitor Tab) 10 mg HS PO 11/09/17 21:00 12/09/17 20:59 11/11/17 21:11 10 MG Cholecalciferol (Vitamin D Tab) 1,000 inter.unit QAM PO 11/10/17 09:00 12/10/17 08:59 11/12/17 09:40 1,000 INTER.UNIT Cyanocobalamin (Vitamin B-12 Tab) 1,000 mcg QAM PO 11/10/17 09:00 12/10/17 08:59 11/12/17 09:40 1,000 MCG Diltiazem HCl (Cardizem Cd Cap) 120 mg QPM PO 11/09/17 21:00 12/09/17 20:59 11/11/17 21:11 120 MG Furosemide (Lasix Tab) 20 mg DAILY PRN PO 11/09/17 19:15 12/09/17 19:14 Lisinopril (Zestril Tab) 20 mg DAILY PO 11/10/17 09:00 12/10/17 08:59 11/12/17 09:41 20 MG Pantoprazole Sodium (Protonix Tab) 40 mg BID PO 11/09/17 21:00 12/09/17 20:59 11/12/17 09:40 40 MG Albuterol (Ventolin Hfa Inhaler) 1 puffs Q6H PRN INH 11/09/17 19:15 12/09/17 19:14 Albuterol/ Ipratropium (Duoneb) 3 ml QIDR INH 11/09/17 20:00 12/09/17 19:59 11/12/17 15:32 3 ML Albuterol/ Ipratropium (Duoneb) 3 ml Q2H PRN INH 11/09/17 20:45 12/09/17 20:44 Docusate Sodium (coLACE CAP) 100 mg BID PO 11/12/17 21:00 12/12/17 20:59 Miscellaneous Information (Order Awaiting Action) 1 ea QS N/A 11/12/17 16:00 12/12/17 15:59 Methylprednisolone Sodium Succinate 40 mg/Syringe 0.64 ml @ 1.5 mls/min Q6H IV 11/12/17 18:00 12/12/17 17:59 I & O: 24-Hour Column 11/13/17 08:00 Intake Total 220 ml Output Total 100 ml Balance 120 ml Vital Signs: Date Time Temp Pulse Resp B/P (MAP) Pulse Ox O2 Delivery O2 Flow Rate FiO2 11/12/17 15:32 70 18 96 Nasal Cannula 3.0 11/12/17 12:00 Nasal Cannula 3.0 11/12/17 11:24 36.8 82 20 113/75 (88) 97 Nasal Cannula 4.5 11/12/17 10:38 80 97 11/12/17 08:00 BiPAP 3.0 30 11/12/17 07:25 36.6 73 20 132/75 (94) 98 BiPAP 11/12/17 07:06 67 20 98 BiPAP/CPAP 30 11/12/17 07:06 67 98 30 11/12/17 04:00 BiPAP 30 11/12/17 03:25 37.0 73 20 133/76 (95) 96 BiPAP 11/12/17 02:15 78 96 30 11/11/17 23:59 BiPAP 30 11/11/17 23:30 36.6 83 22 111/70 (84) 98 BiPAP 11/11/17 22:57 80 95 30 11/11/17 21:39 36.9 11/11/17 20:11 85 18 109/70 (83) 94 BiPAP 11/11/17 20:00 94 BiPAP 30 11/11/17 19:20 74 95 30 11/11/17 19:09 89 22 94 BiPAP/CPAP 30 Laboratory Results: Last 24 Hours Test 11/12/17 05:17 11/12/17 16:45 White Blood Count 4.22 K/uL Red Blood Count 3.34 M/uL Hemoglobin 10.1 g/dL Hematocrit 31.7 % Mean Corpuscular Volume 94.9 fL Mean Corpuscular Hemoglobin 30.2 pg Mean Corpuscular Hemoglobin Concent 31.9 g/dl RDW Standard Deviation 47.7 fL RDW Coefficient of Variation 13.7 % Platelet Count 167 K/uL Mean Platelet Volume 9.6 fL Creatinine 0.75 mg/dl Est Creatinine Clear Calc Drug Dose 56.0 ml/min Estimated GFR () 90.4 Estimated GFR (Non- 78.0
--- NOTE | 2017-11-12 17:44 | DIAGNOSTIC IMAGING REPORT ---
(CHEST) THORAX WITHOUT CT DOSE: 286.55 mGy.cm CLINICAL HISTORY: 77 years-old Female with high resolution ct , eval for ILD. Chronic shortness of breath. TECHNIQUE: Multiaxial CT images of the chest were performed without contrast. A dose lowering technique was utilized adhering to the principles of ALARA. COMPARISON: Chest radiograph 11/09/2017, CTA of the chest 03/26/2017 and 03/08/2017. FINDINGS: Heterogeneous thyroid with a millimeter right thyroid nodule. Evaluation for adenopathy is limited without the use of IV contrast. No pathologically enlarged lymph nodes by CT size criteria. Heart is normal in size with trace pericardial effusion. Coronary arterial disease. No thoracic aortic aneurysm identified. No pneumothorax, pleural effusion, focal airspace consolidation or overt pulmonary edema. There is mild bronchiectasis without honeycombing or subpleural reticulation to suggest interstitial lung disease. Mild biapical pleural-parenchymal scarring. Mild tree-in-bud subsegmental nodularity of the right lower lobe as seen on images 147 and 160 of series 4 for example compatible with areas of infectious bronchiolitis. There are scattered solid pulmonary nodules of the bilateral lungs redemonstrated measuring up to 4 mm within the inferior segment lingula and 5 mm within the apical segment right upper lobe which are unchanged dating back to 03/08/2017 no new or progressively enlarged pulmonary nodules are identified. Central airways are patent. No acute process of the imaged upper abdomen. Mild subcutaneous body wall edema. Degenerative changes are seen about the shoulders and spine. The bones appear mildly demineralized. Mild levoscoliosis of the thoracic spine. IMPRESSION: 1. No acute intrathoracic abnormality identified. 2. Mild bilateral bronchiectasis without evidence of significant honeycombing or subpleural reticulation to suggest associated interstitial lung disease. 3. Subsegmental tree-in-bud nodularity of the right lower lobe compatible with infectious bronchiolitis. 4. Scattered unchanged pulmonary nodules throughout the bilateral lungs appear stable dating back to 03/08/2017 study measuring up to 5 mm. No new or progressively enlarged pulmonary nodules are identified. Electronically signed by: Ronald Rahman M.D. 11/12/2017 5:43 PM Dictated Date/Time: 11/12/2017 5:34 PM
[2017-11-12] MEDS: METHYLPREDNISOLONE IV 40 MG in SYRINGE 0 ML IV SCH (18:13)
[2017-11-12] MEDS: ATORVASTATIN 10 MG TAB PO SCH (20:13)
[2017-11-12] MEDS: DOCUSATE SODIUM 100 MG CAP PO SCH (20:14)
[2017-11-12] MEDS: DILTIAZEM HCL 120 MG CAPCR PO SCH (20:14)
[2017-11-13] VITALS (13 sets, daily range): BP systolic 111–132; BP diastolic 69–82; PULSE 69–100; TEMP 36.3–36.8; O2SAT 94–100
[2017-11-13] MEDS: METHYLPREDNISOLONE IV 40 MG in SYRINGE 0 ML IV SCH ×5 (06:05→23:46)
[2017-11-13] MEDS: ALBUT/IPRATROP 3MG/0.5MG NEB 3 ML VIAL INH SCH ×4 (06:59→19:24)
[2017-11-13] MEDS: CYANOCOBALAMIN 500 MCG TAB (VIT B-12) PO SCH (09:14)
[2017-11-13] MEDS: ENOXAPARIN 40 MG/0.4 ML SYR SQ SCH (09:14)
[2017-11-13] MEDS: DOCUSATE SODIUM 100 MG CAP PO SCH ×2 (09:14→21:11)
[2017-11-13] MEDS: PANTOprazole SOD 40 MG TAB PO SCH ×2 (09:14→21:11)
[2017-11-13] MEDS: LISINOPRIL 20 MG TAB PO SCH (09:15)
[2017-11-13] MEDS: CHOLECALCIFEROL 1000 INTER.UNIT TAB PO SCH (09:15)
[2017-11-13] MEDS ORDERED: DOCUSATE SODIUM 100 MG CAP PO ONE (11:00)
--- NOTE | 2017-11-13 11:34 | Pulmonology Progress Note ---
Pulmonary Progress Note Date of Service Nov 13, 2017. Attending Dr. Webb Subjective The patient continued to have shortness of breath with exercise, however he she has not tried any physical therapy yet. She did not have any wheezing, she tolerated overnight sleep with the BiPAP. Did not have any chest pain. No new data available yet except for the CAT scan which I repeated and showed mild case of bronchiectasis. No evidence of mucoid impaction interstitial changes or fibrotic changes. Objective Her physical exam revealed vital signs remained stable, she does have distant breath sounds bilaterally with minimal wheezing in the right upper lung campa, heart examination S1-S2 regular rate and rhythm, abdomen is obese but benign no edema. I have reviewed her previous imaging as well including a CAT scan of the chest which revealed mild bronchiectasis. I did not see any evidence of significant COPD or bullae disease. Previous workup including PA catheter revealed mildly decreased cardiac output and mildly increased pulmonary hypertension. The patient did have a bronchoscopy by Dr. Ceja which did not reveal any pathology. Her physical exam on 11/13/2017 revealed vital signs were stable, O2 saturation 95% on nasal cannula at 3 L, distant breath sounds bilaterally without wheezing , S1-S2 regular rate and rhythm, abdomen is benign, trace edema in the periphery. No new data. Imaging showed on the CAT scan findings consistent with mild bronchiectasis. Otherwise it was unremarkable. However the bronchiectasis appeared to be slightly increased compared to the previous exam. Assessment & Plan 1. COPD, FEV1 of 39% dropped down from 56% within a period of 3 months. 2. Mild bronchiectasis noted on the CAT scan that has been increasing in size. The patient started to have symptoms after esophageal dilation. Unclear to me the patient could have GERD that has gone untreated. 3. Hypoxia which is disproportionate to her level of exercise. Which is concerning for muscular weakness, MG antibodies has been sent. 4. Acute on chronic hypercapnic respiratory failure, could be related to pump failure with muscular weakness. 5. Echocardiogram with normal EF and no significant pulmonary hypertension. Only mild case. Plan: 1. Ambulate the patient with physical therapy. 2. Continue with current doses of steroids at 40 mg IV every 6 hours for another day then change the patient to prednisone 40 mg p.o. twice daily. 3. Continue with bronchodilators and oxygen. 4. Continue with BiPAP, the patient qualifies for trilogy as an outpatient. Please arrange for trilogy with the disease case manager rn as an outpatient. 5. acetylcholine esterase antibodies level was sent, results are pending.. 6. Recent echocardiogram was done which showed diastolic heart failure, I did not see any evidence of LV dysfunction. Pulmonary artery pressure was just slightly above than 25. 7. Consider EMG as an outpatient. Thank you, will follow. Data Medications: Current Inpatient Medications Medications (Trade) Dose Ordered Sig/John Paul Route Start Time Stop Time Status Last Admin Dose Admin Enoxaparin Sodium (Lovenox Inj) 40 mg Q24H SQ 11/10/17 09:00 12/10/17 08:59 11/13/17 09:14 40 MG Acetaminophen (Tylenol Tab) 650 mg Q4H PRN PO 11/09/17 19:15 12/09/17 19:14 Al Hydrox/Mg Hydrox/Simethicone (Maalox Max Susp) 15 ml Q4H PRN PO 11/09/17 19:15 12/09/17 19:14 Magnesium Hydroxide (Milk Of Magnesia Susp) 30 ml Q6H PRN PO 11/09/17 19:15 12/09/17 19:14 Polyethylene (Miralax Powder Packet) 17 gm DAILY PRN PO 11/09/17 19:15 12/09/17 19:14 Ondansetron HCl (Zofran Inj) 4 mg Q6H PRN IV 11/09/17 19:15 12/09/17 19:14 Atorvastatin Calcium (Lipitor Tab) 10 mg HS PO 11/09/17 21:00 12/09/17 20:59 11/12/17 20:13 10 MG Cholecalciferol (Vitamin D Tab) 1,000 inter.unit QAM PO 11/10/17 09:00 12/10/17 08:59 11/13/17 09:15 1,000 INTER.UNIT Cyanocobalamin (Vitamin B-12 Tab) 1,000 mcg QAM PO 11/10/17 09:00 12/10/17 08:59 11/13/17 09:14 1,000 MCG Diltiazem HCl (Cardizem Cd Cap) 120 mg QPM PO 11/09/17 21:00 12/09/17 20:59 11/12/17 20:14 120 MG Furosemide (Lasix Tab) 20 mg DAILY PRN PO 11/09/17 19:15 5/13/18 19:14 Lisinopril (Zestril Tab) 20 mg DAILY PO 11/10/17 09:00 12/10/17 08:59 11/13/17 09:15 20 MG Pantoprazole Sodium (Protonix Tab) 40 mg BID PO 11/09/17 21:00 12/09/17 20:59 11/13/17 09:14 40 MG Albuterol (Ventolin Hfa Inhaler) 1 puffs Q6H PRN INH 11/09/17 19:15 12/09/17 19:14 Albuterol/ Ipratropium (Duoneb) 3 ml QIDR INH 11/09/17 20:00 12/09/17 19:59 11/13/17 11:15 3 ML Albuterol/ Ipratropium (Duoneb) 3 ml Q2H PRN INH 11/09/17 20:45 12/09/17 20:44 Docusate Sodium (coLACE CAP) 100 mg BID PO 11/12/17 21:00 12/12/17 20:59 11/13/17 09:14 100 MG Miscellaneous Information (Order Awaiting Action) 1 ea QS N/A 11/12/17 16:00 12/12/17 15:59 Methylprednisolone Sodium Succinate 40 mg/Syringe 0.64 ml @ 1.5 mls/min Q6H IV 11/12/17 18:00 12/12/17 17:59 11/13/17 06:05 1.5 MLS/MIN Vital Signs: Date Time Temp Pulse Resp B/P (MAP) Pulse Ox O2 Delivery O2 Flow Rate FiO2 11/13/17 11:18 81 18 97 Nasal Cannula 3.0 11/13/17 11:13 36.8 89 20 124/70 (88) 97 Nasal Cannula 3.0 11/13/17 08:00 36.5 83 16 132/75 (94) 100 Nasal Cannula 3.0 11/13/17 08:00 Nasal Cannula 3.0 11/13/17 07:00 78 18 98 Nasal Cannula 3.0 11/13/17 05:31 77 16 94 11/13/17 04:05 99 Nasal Cannula 3.0 11/13/17 03:51 36.5 69 19 111/69 (83) 99 Nasal Cannula 3.0 11/13/17 00:05 98 Nasal Cannula 3.0 11/12/17 23:46 36.8 85 20 110/67 (81) 98 Nasal Cannula 3.0 11/12/17 20:15 97 Nasal Cannula 3.5 11/12/17 19:40 36.8 95 18 111/65 (80) 97 Nasal Cannula 3.5 11/12/17 19:14 91 18 97 Nasal Cannula 3.0 11/12/17 16:00 Nasal Cannula 3.0 11/12/17 15:32 70 18 96 Nasal Cannula 3.0 11/12/17 12:00 Nasal Cannula 3.0 Laboratory Results: Last 24 Hours Test 11/13/17 07:14
--- NOTE | 2017-11-13 12:37 | Hospitalist Progress Note ---
Hospitalist Progress Note Date of Service Nov 13, 2017. (Melisa Viveros CRNP) Subjective Pt evaluation today including: conversation w/ patient, physical exam, chart review, lab review, review of inpatient medication list Voiding: no voiding problems Ms. Reza continues to be sob especially with exertion. She is back to her baseline 3L NC. ROS Constitutional: no chills, aches, sweats or fever Respiratory: see HPI Cardiac: no chest pain, palpitations, edema, orthopnea or lightheadedness GI: no abdominal pain, nausea, vomiting, diarrhea or constipation : no dysuria or hesitancy Extremities: no joint pain or weakness Skin: no rash All other systems reviewed and negative (Melisa Viveros CRNP) Medications Medications Administered Medications (Trade) Dose Ordered Sig/John Paul Route Start Time Stop Time Status Last Admin Dose Admin Albuterol/ Ipratropium (Duoneb) 3 ml NOW STAT INH 11/09/17 15:41 11/09/17 15:43 DC 11/09/17 16:05 3 ML Lorazepam (Ativan Tab) 0.5 mg NOW STAT SL 11/09/17 19:01 11/09/17 19:31 DC 11/09/17 19:07 0.5 MG Enoxaparin Sodium (Lovenox Inj) 40 mg Q24H SQ 11/10/17 09:00 12/10/17 08:59 11/13/17 09:14 40 MG Atorvastatin Calcium (Lipitor Tab) 10 mg HS PO 11/09/17 21:00 12/09/17 20:59 11/12/17 20:13 10 MG Cholecalciferol (Vitamin D Tab) 1,000 inter.unit QAM PO 11/10/17 09:00 12/10/17 08:59 11/13/17 09:15 1,000 INTER.UNIT Cyanocobalamin (Vitamin B-12 Tab) 1,000 mcg QAM PO 11/10/17 09:00 12/10/17 08:59 11/13/17 09:14 1,000 MCG Diltiazem HCl (Cardizem Cd Cap) 120 mg QPM PO 11/09/17 21:00 12/09/17 20:59 11/12/17 20:14 120 MG Fluticasone Propionate (Flonase Nasal [place]) 1 sprays BID NINO 11/09/17 21:00 11/10/17 15:25 DC 11/10/17 07:33 1 SPRAYS Lisinopril (Zestril Tab) 20 mg DAILY PO 11/10/17 09:00 12/10/17 08:59 11/13/17 09:15 20 MG Pantoprazole Sodium (Protonix Tab) 40 mg BID PO 11/09/17 21:00 12/09/17 20:59 11/13/17 09:14 40 MG Tiotropium [place] (Spiriva Handihaler Inhaler) 1 puff QAM INH 11/10/17 09:00 11/10/17 15:25 DC 11/10/17 07:32 1 PUFF Methylprednisolone Sodium Succinate 60 mg/Syringe 0.96 ml @ 1.5 mls/min TID IV 11/09/17 21:00 11/12/17 16:58 DC 11/12/17 13:17 1.5 MLS/MIN Doxycycline Hyclate (Vibramycin Cap) 100 mg BID PO 11/09/17 21:00 11/11/17 07:31 DC 11/10/17 21:39 100 MG Albuterol/ Ipratropium (Duoneb) 3 ml QIDR INH 11/09/17 20:00 12/09/17 19:59 11/13/17 11:15 3 ML Miscellaneous Information (Patient'S Height And/Or Weight Needed) 1 ea Q2H N/A 11/09/17 20:00 11/10/17 07:48 DC 11/10/17 07:03 1 EA Docusate Sodium (coLACE CAP) 100 mg BID PO 11/12/17 21:00 12/12/17 20:59 11/13/17 09:14 100 MG Docusate Sodium (coLACE CAP) 100 mg 1143 ONCE PO 11/12/17 11:43 11/12/17 11:51 DC 11/12/17 13:17 100 MG Methylprednisolone Sodium Succinate 40 mg/Syringe 0.64 ml @ 1.5 mls/min Q6H IV 11/12/17 18:00 12/12/17 17:59 11/13/17 11:42 1.5 MLS/MIN Docusate Sodium (coLACE CAP) 100 mg NOW ONCE PO 11/13/17 11:00 11/13/17 11:16 DC 11/13/17 11:41 100 MG (Melisa Viveros CRNP) Objective Vital Signs Date Time Temp Pulse Resp B/P (MAP) Pulse Ox O2 Delivery O2 Flow Rate FiO2 11/13/17 12:00 Nasal Cannula 3.0 11/13/17 11:18 81 18 97 Nasal Cannula 3.0 11/13/17 11:13 36.8 89 20 124/70 (88) 97 Nasal Cannula 3.0 11/13/17 08:00 36.5 83 16 132/75 (94) 100 Nasal Cannula 3.0 11/13/17 08:00 Nasal Cannula 3.0 11/13/17 07:00 78 18 98 Nasal Cannula 3.0 11/13/17 05:31 77 16 94 11/13/17 04:05 99 Nasal Cannula 3.0 11/13/17 03:51 36.5 69 19 111/69 (83) 99 Nasal Cannula 3.0 11/13/17 00:05 98 Nasal Cannula 3.0 11/12/17 23:46 36.8 85 20 110/67 (81) 98 Nasal Cannula 3.0 11/12/17 20:15 97 Nasal Cannula 3.5 11/12/17 19:40 36.8 95 18 111/65 (80) 97 Nasal Cannula 3.5 11/12/17 19:14 91 18 97 Nasal Cannula 3.0 11/12/17 16:00 Nasal Cannula 3.0 11/12/17 15:32 70 18 96 Nasal Cannula 3.0 (Melisa Viveros CRNP) Physical Exam Notes: General: no distress Eyes: normal inspection, PERLL Respiratory: chest non tender, diminished breath sounds bilaterally, labored breathing Cardiac: regular rate and rhythm, no rub or gallop, no murmur, no edema, no jvd GI/: active bowel sounds, no abd pain or tenderness, soft, non distended Extremities: normal range of motion, normal strength, non tender Neuro/Psych: alert and oriented x 3, normal mood and affect Skin: normal color, dry (Melisa Viveros CRNP) Laboratory Results Last 24 Hours Test 11/13/17 07:14 (Melisa Viveros CRNP) Assessment and Plan Ms. 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 - continue 40 mg IV solu medrol today, titrate down to 40 prednisone bid tomorrow per pulm rec, continue nebulizers, abx dc'd - Continue bipap hs and prn, titrate O2 to baseline 3L per protocol - nocturnal pulse ox completed, pulm recommending Trilogy for home - CT chest yesterday showed mild bronchiectasis but otherwise no acute changes - Palliative consult - Pulmonary consult Hypertension. - Continue lisinopril, diltiazem, furosemide - blood pressures well controlled Hyperglycemia. - Her last A1c was 5.4 less than a year ago. - continue to monitor, no ss necessary at this time Constipation - continue stool softners DNR Enoxaprin, SCDs Dispo - transfer to med surg (Melisa Viveros ., BABAK) [employer]ICAN [employer]UD[employer] PROFESSOR Physician Supervision Note: I interviewed and examined the patient. Discussed with Melisa Viveros AFRICAN STUDIES PROFESSOR and agree with findings and plan as documented in the note. Any exceptions or clarifications are listed here: None Patient is improving slightly last p.m. did not have CPAP because she was with a nocturnal oximetry study she has improved breathing by her account during the day temperature 36 5 pulse 70 respiration 18 BP 111/69 her pulmonary exam still has prolonged expiratory phase with some scant wheezes her cardiac exam is regular Patient is improving COPD with is really acute and chronic respiratory failure with hypoxia likely going to require noninvasive ventilation at home to help prevent decompensation and frequent hospitalizations her diabetes and hypertension are acceptable at this time Documented By: Julius Monroy (Julius Monroy M.D.)
[2017-11-13] MEDS: DILTIAZEM HCL 120 MG CAPCR PO SCH (21:11)
[2017-11-13] MEDS: ATORVASTATIN 10 MG TAB PO SCH (21:11)
[2017-11-14] VITALS (9 sets, daily range): BP systolic 114–132; BP diastolic 70–82; PULSE 61–100; TEMP 36.6–36.9; O2SAT 94–99
[2017-11-14] MEDS: METHYLPREDNISOLONE IV 40 MG in SYRINGE 0 ML IV SCH ×2 (06:08→12:38)
[2017-11-14 06:28] LABS: CALCIUM 8.8 mg/dl (8.5-10.1); CREATININE 0.69 mg/dl (0.60-1.20); POTASSIUM 4.3 mmol/L (3.5-5.1)
[2017-11-14] MEDS: ALBUT/IPRATROP 3MG/0.5MG NEB 3 ML VIAL INH SCH ×5 (07:10→19:33)
[2017-11-14] MEDS: PANTOprazole SOD 40 MG TAB PO SCH ×2 (08:24→20:01)
[2017-11-14] MEDS: CHOLECALCIFEROL 1000 INTER.UNIT TAB PO SCH (08:24)
[2017-11-14] MEDS: CYANOCOBALAMIN 500 MCG TAB (VIT B-12) PO SCH (08:24)
[2017-11-14] MEDS: DOCUSATE SODIUM 100 MG CAP PO SCH ×2 (08:24→20:02)
[2017-11-14] MEDS: LISINOPRIL 20 MG TAB PO SCH (08:24)
[2017-11-14] MEDS: ENOXAPARIN 40 MG/0.4 ML SYR SQ SCH (08:25)
[2017-11-14] MEDS: MAGNESIUM HYDROXIDE SUSP 30 ML UDC PO PRN (08:36)
--- NOTE | 2017-11-14 13:19 | Pulmonology Progress Note ---
Pulmonary Progress Note Date of Service Nov 14, 2017. Attending Dr. Webb Subjective The patient is feeling better, however she was minimally ambulatory, she was able to ambulate with the nursing staff and with oxygen. Denies any chest pain or shortness of breath. She is using the oxygen at 3 L/min. No events occurred overnight. Laboratory for myasthenia gravis is still pending Objective Her physical exam revealed vital signs remained stable, she does have distant breath sounds bilaterally with minimal wheezing in the right upper lung campa, heart examination S1-S2 regular rate and rhythm, abdomen is obese but benign no edema. I have reviewed her previous imaging as well including a CAT scan of the chest which revealed mild bronchiectasis. I did not see any evidence of significant COPD or bullae disease. Previous workup including PA catheter revealed mildly decreased cardiac output and mildly increased pulmonary hypertension. The patient did have a bronchoscopy by Dr. Ceja which did not reveal any pathology. Her physical exam on 11/13/2017 revealed vital signs were stable, O2 saturation 95% on nasal cannula at 3 L, distant breath sounds bilaterally without wheezing , S1-S2 regular rate and rhythm, abdomen is benign, trace edema in the periphery. No new data. Imaging showed on the CAT scan findings consistent with mild bronchiectasis. Otherwise it was unremarkable. However the bronchiectasis appeared to be slightly increased compared to the previous exam. Her physical exam on 11/14/2017 revealed stable vital signs, O2 saturation is 96 % on 3 L, S1-S2 regular rate and rhythm, distant breath sounds bilaterally, minimal crackles mainly at the right base, abdomen is benign, no edema. Assessment & Plan 1. COPD, FEV1 of 39% dropped down from 56% within a period of 3 months. 2. Mild bronchiectasis noted on the CAT scan that has been increasing in size. 3. Hypoxia which is disproportionate to her level of exercise. Which is concerning for muscular weakness, MG antibodies has been sent. 4. Acute on chronic hypercapnic respiratory failure, responded well to BiPAP. 5. Multiple small pulmonary nodules. Plan: 1. Ambulate the patient with physical therapy. 2. Change steroids to 40 mg p.o. twice daily. 3. Continue with bronchodilators and oxygen. 4. Continue with BiPAP, I have signed out the prescription for trilogy for this patient who had PCO2 higher than 55, and she was trialed before on BiPAP and she did better with it. The patient does have also evidence of bronchiectasis, respiratory muscle fatigue, she is on 3 L of oxygen. She did have multiple admissions to the hospital due to altered mental status from CO2 retention. 5. acetylcholine esterase antibodies level was sent, results are pending.. 6. Recent echocardiogram was done which showed diastolic heart failure, I did not see any evidence of LV dysfunction. Pulmonary artery pressure was just slightly above than 25. 7. Consider EMG as an outpatient. 8. Disposition plan to pulmonary rehab. Thank you, will follow. Data Medications: Current Inpatient Medications Medications (Trade) Dose Ordered Sig/John [place] Route Start Time Stop Time Status Last Admin Dose Admin Enoxaparin Sodium (Lovenox Inj) 40 mg Q24H SQ 11/10/17 09:00 12/10/17 08:59 11/14/17 08:25 40 MG Acetaminophen (Tylenol Tab) 650 mg Q4H PRN PO 11/09/17 19:15 12/09/17 19:14 Al Hydrox/Mg Hydrox/Simethicone (Maalox Max Susp) 15 ml Q4H PRN PO 11/09/17 19:15 12/09/17 19:14 Magnesium Hydroxide (Milk Of Magnesia Susp) 30 ml Q6H PRN PO 11/09/17 19:15 12/09/17 19:14 11/14/17 08:36 30 ML Polyethylene (Miralax Powder Packet) 17 gm DAILY PRN PO 11/09/17 19:15 12/09/17 19:14 Ondansetron HCl (Zofran Inj) 4 mg Q6H PRN IV 11/09/17 19:15 12/09/17 19:14 Atorvastatin Calcium (Lipitor Tab) 10 mg HS PO 11/09/17 21:00 12/09/17 20:59 11/13/17 21:11 10 MG Cholecalciferol (Vitamin D Tab) 1,000 inter.unit QAM PO 11/10/17 09:00 12/10/17 08:59 11/14/17 08:24 1,000 INTER.UNIT Cyanocobalamin (Vitamin B-12 Tab) 1,000 mcg QAM PO 11/10/17 09:00 12/10/17 08:59 11/14/17 08:24 1,000 MCG Diltiazem HCl (Cardizem Cd Cap) 120 mg QPM PO 11/09/17 21:00 12/09/17 20:59 11/13/17 21:11 120 MG Furosemide (Lasix Tab) 20 mg DAILY PRN PO 11/09/17 19:15 12/09/17 19:14 Lisinopril (Zestril Tab) 20 mg DAILY PO 11/10/17 09:00 12/10/17 08:59 11/14/17 08:24 20 MG Pantoprazole Sodium (Protonix Tab) 40 mg BID PO 11/09/17 21:00 12/09/17 20:59 11/14/17 08:24 40 MG Albuterol (Ventolin Hfa Inhaler) 1 puffs Q6H PRN INH 11/09/17 19:15 12/09/17 19:14 Albuterol/ Ipratropium (Duoneb) 3 ml QIDR INH 11/09/17 20:00 12/09/17 19:59 11/14/17 11:06 3 ML Albuterol/ Ipratropium (Duoneb) 3 ml Q2H PRN INH 11/09/17 20:45 12/09/17 20:44 Docusate Sodium (coLACE CAP) 100 mg BID PO 11/12/17 21:00 12/12/17 20:59 11/14/17 08:24 100 MG Miscellaneous Information (Order Awaiting Action) 1 ea QS N/A 11/12/17 16:00 12/12/17 15:59 Methylprednisolone Sodium Succinate 40 mg/Syringe 0.64 ml @ 1.5 mls/min Q6H IV 11/12/17 18:00 12/12/17 17:59 11/14/17 12:38 1.5 MLS/MIN Vital Signs: Date Time Temp Pulse Resp B/P (MAP) Pulse Ox O2 Delivery O2 Flow Rate FiO2 11/14/17 11:06 61 18 96 Nasal Cannula 3.0 11/14/17 08:00 Nasal Cannula 3.0 11/14/17 07:14 80 18 96 Nasal Cannula 3.0 11/14/17 07:00 36.6 74 18 132/82 (99) 99 Nasal Cannula 3.0 11/13/17 23:59 Nasal Cannula 3.0 11/13/17 23:25 72 98 30 11/13/17 22:45 36.3 100 18 129/82 (98) 97 Nasal Cannula 3.0 11/13/17 19:26 88 18 98 Nasal Cannula 3.0 11/13/17 16:30 Nasal Cannula 3.0 11/13/17 15:45 36.6 75 18 114/71 (85) 98 3.0 11/13/17 15:36 75 18 97 Nasal Cannula 3.0 Laboratory Results: Last 24 Hours Test 11/14/17 05:48 Sodium Level 135 mmol/L Potassium Level 4.3 mmol/L Chloride Level 93 mmol/L Carbon Dioxide Level 41 mmol/L Anion Gap 1.0 mmol/L Blood Urea Nitrogen 24 mg/dl Creatinine 0.69 mg/dl Est Creatinine Clear Calc Drug Dose 60.9 ml/min Estimated GFR () 98.7 Estimated GFR (Non- 85.2 BUN/Creatinine Ratio 35.3 Random Glucose 115 mg/dl Calcium Level 8.8 mg/dl
--- NOTE | 2017-11-14 13:49 | Hospitalist Progress Note ---
Hospitalist Progress Note Date of Service Nov 14, 2017. (Melisa Viveros .BABAK) Subjective Pt evaluation today including: conversation w/ patient, physical exam, chart review, lab review, review of inpatient medication list Voiding: no voiding problems Ms. Reza is feeling somewhat better today. She has continued sob especially on exertion. She is requiring 3L NC which is her baseline. She did have a small bowel movement this morning. ROS Constitutional: no chills, aches, sweats or fever Respiratory: see HPI Cardiac: no chest pain, palpitations, edema, orthopnea or lightheadedness GI: no abdominal pain, nausea, vomiting, diarrhea or constipation : no dysuria or hesitancy Extremities: no joint pain or weakness Skin: no rash All other systems reviewed and negative (Melisa Viveros CRNP) Medications Medications Administered Medications (Trade) Dose Ordered Sig/John [place] Route Start Time Stop Time Status Last Admin Dose Admin Albuterol/ Ipratropium (Duoneb) 3 ml NOW STAT INH 11/09/17 15:41 11/09/17 15:43 DC 11/09/17 16:05 3 ML Lorazepam (Ativan Tab) 0.5 mg NOW STAT SL 11/09/17 19:01 11/09/17 19:31 DC 11/09/17 19:07 0.5 MG Enoxaparin Sodium (Lovenox Inj) 40 mg Q24H SQ 11/10/17 09:00 12/10/17 08:59 11/14/17 08:25 40 MG Magnesium Hydroxide (Milk Of Magnesia Susp) 30 ml Q6H PRN PO 11/09/17 19:15 12/09/17 19:14 11/14/17 08:36 30 ML Atorvastatin Calcium (Lipitor Tab) 10 mg HS PO 11/09/17 21:00 12/09/17 20:59 11/13/17 21:11 10 MG Cholecalciferol (Vitamin D Tab) 1,000 inter.unit QAM PO 11/10/17 09:00 12/10/17 08:59 11/14/17 08:24 1,000 INTER.UNIT Cyanocobalamin (Vitamin B-12 Tab) 1,000 mcg QAM PO 11/10/17 09:00 12/10/17 08:59 11/14/17 08:24 1,000 MCG Diltiazem HCl (Cardizem Cd Cap) 120 mg QPM PO 11/09/17 21:00 12/09/17 20:59 11/13/17 21:11 120 MG Fluticasone Propionate (Flonase Nasal [place]) 1 sprays BID NINO 11/09/17 21:00 11/10/17 15:25 DC 11/10/17 07:33 1 SPRAYS Lisinopril (Zestril Tab) 20 mg DAILY PO 11/10/17 09:00 12/10/17 08:59 11/14/17 08:24 20 MG Pantoprazole Sodium (Protonix Tab) 40 mg BID PO 11/09/17 21:00 12/09/17 20:59 11/14/17 08:24 40 MG Tiotropium [place] (Spiriva Handihaler Inhaler) 1 puff QAM INH 11/10/17 09:00 11/10/17 15:25 DC 11/10/17 07:32 1 PUFF Methylprednisolone Sodium Succinate 60 mg/Syringe 0.96 ml @ 1.5 mls/min TID IV 11/09/17 21:00 11/12/17 16:58 DC 11/12/17 13:17 1.5 MLS/MIN Doxycycline Hyclate (Vibramycin Cap) 100 mg BID PO 11/09/17 21:00 11/11/17 07:31 DC 11/10/17 21:39 100 MG Albuterol/ Ipratropium (Duoneb) 3 ml QIDR INH 11/09/17 20:00 12/09/17 19:59 11/14/17 11:06 3 ML Miscellaneous Information (Patient'S Height And/Or Weight Needed) 1 ea Q2H N/A 11/09/17 20:00 11/10/17 07:48 DC 11/10/17 07:03 1 EA Docusate Sodium (coLACE CAP) 100 mg BID PO 11/12/17 21:00 12/12/17 20:59 11/14/17 08:24 100 MG Docusate Sodium (coLACE CAP) 100 mg 1143 ONCE PO 11/12/17 11:43 11/12/17 11:51 DC 11/12/17 13:17 100 MG Methylprednisolone Sodium Succinate 40 mg/Syringe 0.64 ml @ 1.5 mls/min Q6H IV 11/12/17 18:00 11/14/17 13:16 DC 11/14/17 12:38 1.5 MLS/MIN Docusate Sodium (coLACE CAP) 100 mg NOW ONCE PO 11/13/17 11:00 11/13/17 11:16 DC 11/13/17 11:41 100 MG (Melisa Viveros CRNP) Objective Vital Signs Date Time Temp Pulse Resp B/P (MAP) Pulse Ox O2 Delivery O2 Flow Rate FiO2 11/14/17 11:06 61 18 96 Nasal Cannula 3.0 11/14/17 08:00 Nasal Cannula 3.0 11/14/17 07:14 80 18 96 Nasal Cannula 3.0 11/14/17 07:00 36.6 74 18 132/82 (99) 99 Nasal Cannula 3.0 11/13/17 23:59 Nasal Cannula 3.0 11/13/17 23:25 72 98 30 11/13/17 22:45 36.3 100 18 129/82 (98) 97 Nasal Cannula 3.0 11/13/17 19:26 88 18 98 Nasal Cannula 3.0 11/13/17 16:30 Nasal Cannula 3.0 11/13/17 15:45 36.6 75 18 114/71 (85) 98 3.0 11/13/17 15:36 75 18 97 Nasal Cannula 3.0 (Melisa Viveros CRNP) Physical Exam Notes: General: no distress Eyes: normal inspection, PERLL Respiratory: chest non tender, clear to auscultation, diminished breath sounds bilaterally, no respiratory distress, no accessory muscle use Cardiac: regular rate and rhythm, no rub or gallop, no murmur, no edema, no jvd GI/: active bowel sounds, no abd pain or tenderness, soft, non distended Extremities: normal range of motion, normal strength, non tender Neuro/Psych: alert and oriented x 3, normal mood and affect Skin: normal color, dry (Melisa Viveros, BABAK) Laboratory Results Last 24 Hours Test 11/14/17 05:48 Sodium Level 135 mmol/L Potassium Level 4.3 mmol/L Chloride Level 93 mmol/L Carbon Dioxide Level 41 mmol/L Anion Gap 1.0 mmol/L Blood Urea Nitrogen 24 mg/dl Creatinine 0.69 mg/dl Est Creatinine Clear Calc Drug Dose 60.9 ml/min Estimated GFR () 98.7 Estimated GFR (Non- 85.2 BUN/Creatinine Ratio 35.3 Random Glucose 115 mg/dl Calcium Level 8.8 mg/dl (Melisa Viveros CRNP) Assessment and Plan Ms. 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 - Titrated down to 40 prednisone bid tomorrow by pulmonology, continue nebulizers, abx dc'd - Continue bipap hs and prn, continue baseline 3L per protocol - nocturnal pulse ox completed, pulm recommending Trilogy for home - CT chest yesterday showed mild bronchiectasis but otherwise no acute changes - Palliative consult - Pulmonary consult - recommending pulm rehab Hypertension. - Continue lisinopril, diltiazem, furosemide - blood pressures well controlled Hyperglycemia. - Her last A1c was 5.4 less than a year ago. - continue to monitor, no ss necessary at this time Constipation - continue stool softners DNR Enoxaprin, SCDs Dispo - PT recommending rehab, patient requests [facility] (Melisa Viveros CRNP) SALES STOCK ASSOCIATE Physician Supervision Note: I interviewed and examined the patient. Discussed with Melisa Viveros SALES STOCK ASSOCIATE and agree with findings and plan as documented in the note. Any exceptions or clarifications are listed here: None Patient is improving slowly but steadily still trying to receive home approval for noninvasive ventilation tolerating tapering of steroids Vital signs show temp 36 6 pulse 80 respiration 16 Her lung exam still has prolonged expiratory phase with better air movement in all lung campa are cardiac exam is regular COPD exacerbation with acute respiratory failure with hypoxia, support with supplemental oxygen attempting to qualify for home noninvasive ventilator tapering steroids continuing bronchodilators PTOT evaluation for appropriateness to return to home Documented By: Julius Monroy (Julius Monroy M.D.)
[2017-11-14] MEDS: DILTIAZEM HCL 120 MG CAPCR PO SCH (20:00)
[2017-11-14] MEDS: ATORVASTATIN 10 MG TAB PO SCH (20:01)
[2017-11-15] VITALS (9 sets, daily range): BP systolic 103–149; BP diastolic 64–88; PULSE 74–100; TEMP 36.4–36.6; O2SAT 95–100
[2017-11-15] MEDS: ALBUT/IPRATROP 3MG/0.5MG NEB 3 ML VIAL INH SCH ×4 (07:21→19:36)
[2017-11-15 07:53] LABS: HEMATOCRIT 35.4 % (37-47); HEMOGLOBIN 11.1 g/dL (12.0-16.0); MEAN CELL VOLUME 95.9 fL (80-100); MEAN CORPUSCULAR HEMOGLOBIN 30.1 pg (25-34); MEAN CORPUSCULAR HGB CONC 31.4 g/dl (32-36); MEAN PLATELET VOLUME 11.2 fL (7.4-10.4); PLATELET COUNT 110 K/uL (130-400); RED CELL DISTRIBUTION WIDTH CV 13.5 % (11.5-14.5); WHITE BLOOD COUNT 4.35 K/uL (4.8-10.8)
[2017-11-15 08:23] LABS: CALCIUM 9.1 mg/dl (8.5-10.1); CREATININE 0.74 mg/dl (0.60-1.20)
[2017-11-15] MEDS: DOCUSATE SODIUM 100 MG CAP PO SCH ×2 (09:55→19:48)
[2017-11-15] MEDS: CHOLECALCIFEROL 1000 INTER.UNIT TAB PO SCH (09:56)
[2017-11-15] MEDS: LISINOPRIL 20 MG TAB PO SCH (09:57)
[2017-11-15] MEDS: ENOXAPARIN 40 MG/0.4 ML SYR SQ SCH (09:57)
[2017-11-15] MEDS: CYANOCOBALAMIN 500 MCG TAB (VIT B-12) PO SCH (09:57)
[2017-11-15] MEDS: PANTOprazole SOD 40 MG TAB PO SCH ×2 (09:57→19:49)
--- NOTE | 2017-11-15 10:43 | Hospitalist Progress Note ---
Hospitalist Progress Note Date of Service Nov 15, 2017. (Melisa Viveros ., BABAK) Subjective Pt evaluation today including: conversation w/ patient, physical exam, chart review, lab review Voiding: no voiding problems Ms. Reza is nearly at baseline respiratory status, requiring 3L NC. She did have a bowel movement yesterday. She does not have other complaints. ROS Constitutional: no chills, aches, sweats or fever Respiratory: see HPI Cardiac: no chest pain, palpitations, edema, orthopnea or lightheadedness GI: no abdominal pain, nausea, vomiting, diarrhea or constipation : no dysuria or hesitancy Extremities: no joint pain or weakness Skin: no rash All other systems reviewed and negative (Melisa Viveros CRNP) Medications Medications Administered Medications (Trade) Dose Ordered Sig/John Paul Route Start Time Stop Time Status Last Admin Dose Admin Albuterol/ Ipratropium (Duoneb) 3 ml NOW STAT INH 11/09/17 15:41 11/09/17 15:43 DC 11/09/17 16:05 3 ML Lorazepam (Ativan Tab) 0.5 mg NOW STAT SL 11/09/17 19:01 11/09/17 19:31 DC 11/09/17 19:07 0.5 MG Enoxaparin Sodium (Lovenox Inj) 40 mg Q24H SQ 11/10/17 09:00 12/10/17 08:59 11/15/17 09:57 40 MG Magnesium Hydroxide (Milk Of Magnesia Susp) 30 ml Q6H PRN PO 11/09/17 19:15 12/09/17 19:14 11/14/17 08:36 30 ML Atorvastatin Calcium (Lipitor Tab) 10 mg HS PO 11/09/17 21:00 12/09/17 20:59 11/14/17 20:01 10 MG Cholecalciferol (Vitamin D Tab) 1,000 inter.unit QAM PO 11/10/17 09:00 12/10/17 08:59 11/15/17 09:56 1,000 INTER.UNIT Cyanocobalamin (Vitamin B-12 Tab) 1,000 mcg QAM PO 11/10/17 09:00 12/10/17 08:59 11/15/17 09:57 1,000 MCG Diltiazem HCl (Cardizem Cd Cap) 120 mg QPM PO 11/09/17 21:00 12/09/17 20:59 11/14/17 20:00 120 MG Fluticasone Propionate (Flonase Nasal [place]) 1 sprays BID NINO 11/09/17 21:00 11/10/17 15:25 DC 11/10/17 07:33 1 SPRAYS Lisinopril (Zestril Tab) 20 mg DAILY PO 11/10/17 09:00 12/10/17 08:59 11/15/17 09:57 20 MG Pantoprazole Sodium (Protonix Tab) 40 mg BID PO 11/09/17 21:00 12/09/17 20:59 11/15/17 09:57 40 MG Tiotropium [place] (Spiriva Handihaler Inhaler) 1 puff QAM INH 11/10/17 09:00 11/10/17 15:25 DC 11/10/17 07:32 1 PUFF Methylprednisolone Sodium Succinate 60 mg/Syringe 0.96 ml @ 1.5 mls/min TID IV 11/09/17 21:00 11/12/17 16:58 DC 11/12/17 13:17 1.5 MLS/MIN Doxycycline Hyclate (Vibramycin Cap) 100 mg BID PO 11/09/17 21:00 11/11/17 07:31 DC 11/10/17 21:39 100 MG Albuterol/ Ipratropium (Duoneb) 3 ml QIDR INH 11/09/17 20:00 12/09/17 19:59 11/15/17 07:21 3 ML Miscellaneous Information (Patient'S Height And/Or Weight Needed) 1 ea Q2H N/A 11/09/17 20:00 11/10/17 07:48 DC 11/10/17 07:03 1 EA Docusate Sodium (coLACE CAP) 100 mg BID PO 11/12/17 21:00 12/12/17 20:59 11/14/17 20:02 100 MG Docusate Sodium (coLACE CAP) 100 mg 1143 ONCE PO 11/12/17 11:43 11/12/17 11:51 DC 11/12/17 13:17 100 MG Methylprednisolone Sodium Succinate 40 mg/Syringe 0.64 ml @ 1.5 mls/min Q6H IV 11/12/17 18:00 11/14/17 13:16 DC 11/14/17 12:38 1.5 MLS/MIN Docusate Sodium (coLACE CAP) 100 mg NOW ONCE PO 11/13/17 11:00 11/13/17 11:16 DC 11/13/17 11:41 100 MG Prednisone (PredniSONE TAB) 40 mg BID PO 11/14/17 20:00 12/14/17 19:59 11/15/17 09:56 40 MG (Melisa Viveros CRNP) Objective Vital Signs Date Time Temp Pulse Resp B/P (MAP) Pulse Ox O2 Delivery O2 Flow Rate FiO2 11/15/17 10:00 Nasal Cannula 3.0 11/15/17 07:31 36.6 80 20 132/88 (103) 97 Nasal Cannula 3.0 11/15/17 07:21 80 18 96 Nasal Cannula 3.0 11/15/17 02:05 100 95 30 11/15/17 00:11 36.6 100 20 149/81 (103) 96 Nasal Cannula 3.0 11/14/17 23:59 Nasal Cannula 3.0 11/14/17 23:03 100 95 30 11/14/17 19:58 90 114/70 (85) 99 Nasal Cannula 3.0 11/14/17 19:33 80 18 94 Nasal Cannula 3.0 11/14/17 16:00 94 Nasal Cannula 3.0 11/14/17 14:57 36.9 91 20 123/76 (92) 94 Nasal Cannula 3.0 11/14/17 14:42 66 18 96 Nasal Cannula 3.0 11/14/17 11:06 61 18 96 Nasal Cannula 3.0 (Melisa Viveros CRNP) Physical Exam Notes: General: no distress Eyes: normal inspection, PERLL Respiratory: chest non tender, clear to auscultation, normal breath sounds, no respiratory distress, no accessory muscle use Cardiac: regular rate and rhythm, no rub or gallop, no murmur, no edema, no jvd GI/: active bowel sounds, no abd pain or tenderness, soft, non distended Extremities: normal range of motion, normal strength, non tender Neuro/Psych: alert and oriented x 3, normal mood and affect Skin: normal color, dry (Melisa Viveros CRNP) Laboratory Results Last 24 Hours Test 11/15/17 07:14 11/15/17 08:52 White Blood Count 4.35 K/uL Red Blood Count 3.69 M/uL Hemoglobin 11.1 g/dL Hematocrit 35.4 % Mean Corpuscular Volume 95.9 fL Mean Corpuscular Hemoglobin 30.1 pg Mean Corpuscular Hemoglobin Concent 31.4 g/dl RDW Standard Deviation 47.0 fL RDW Coefficient of Variation 13.5 % Platelet Count 110 K/uL Mean Platelet Volume 11.2 fL Sodium Level 135 mmol/L Potassium Level mmol/L 4.4 mmol/L Chloride Level 92 mmol/L Carbon Dioxide Level 39 mmol/L Anion Gap 3.0 mmol/L Blood Urea Nitrogen 27 mg/dl Creatinine 0.74 mg/dl Est Creatinine Clear Calc Drug Dose 56.8 ml/min Estimated GFR () 91.9 Estimated GFR (Non- 79.3 BUN/Creatinine Ratio 36.1 Random Glucose 85 mg/dl Calcium Level 9.1 mg/dl (Melisa Viveros CRNP) Assessment and Plan Ms. 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 - Titrated down to 40 prednisone bid yesterday by pulmonology, continue nebulizers, abx dc'd - Continue bipap hs, continue baseline 3L per protocol - nocturnal pulse ox completed, pulm recommending Trilogy for home - CT chest yesterday showed mild bronchiectasis but otherwise no acute changes - Palliative consult - Pulmonary consult - recommending pulm rehab Hypertension. - Continue lisinopril, diltiazem, furosemide - blood pressures well controlled Hyperglycemia. - Her last A1c was 5.4 less than a year ago. - continue to monitor, no ss necessary at this time Constipation - resolved - continue stool softners DNR Enoxaprin, SCDs Dispo - PT recommending rehab, patient requests [facility] (Melisa Viveros CRNP) EPIC SPECIALIST Physician Supervision Note: I interviewed and examined the patient. Discussed with Melisa Viveros NP and agree with findings and plan as documented in the note. Any exceptions or clarifications are listed here: None Patient is improving slowly but steadily considering to have to subacute rehab placement and pulmonary medicine is helping with non invasive ventilation Vital signs are stable Her lung exam remains with prolonged expiratory phase but continues with better air movement in all lung campa cardiac exam is regular COPD exacerbation with acute respiratory failure with hypoxia, support with supplemental oxygen attempting to qualify for out pt noninvasive ventilator continuing tapering steroids continuing bronchodilators PT/OT evaluation for appropriateness of subacute rehab Documented By: Julius Monroy (Julius Monroy M.D.)
--- NOTE | 2017-11-15 13:21 | Pulmonology Progress Note ---
Pulmonary Progress Note Date of Service Nov 15, 2017. Attending Dr. Webb Subjective Patient sitting up in bed with no discomfort. Tolerated BiPAP well overnight. No cough or sputum production. No fever or chills. Tolerating diet with no aspiration. No acute complaints Objective Vital Signs - as noted below Laboratory Data - as noted below Physical Exam: General - NAD. Pleasant and talkative Eyes - No icterus, gaze conjugate ENT - Mucosa moist, no lesions or candidiasis. Nasal cannula in place Neck - Supple, No JVD Lungs - No bronchospasm, rales, or rhonchi. Heart - Regular, rate controlled Abdomen - Soft, NT, ND, BS present Extremities - No edema, pedal pulses intact Neuro - A&OX3 Assessment & Plan 1. COPD, FEV1 of 39% dropped down from 56% within a period of 3 months. 2. Mild bronchiectasis noted on the CAT scan that has been increasing in size. 3. Hypoxia which is disproportionate to her level of exercise. Which is concerning for muscular weakness, MG antibodies has been sent. 4. Acute on chronic hypercapnic respiratory failure, responded well to BiPAP. 5. Multiple small pulmonary nodules. Plan: 1. Continue to ambulate the patient with physical therapy. 2. Continue steroids 40 mg p.o. twice daily. We will see how she is doing tomorrow before titrating 3. Continue with bronchodilators and oxygen. 4. Continue with BiPAP, Trilogy NIMV has been ordered and the rx was placed on the chart with settings as reflected below. She had PCO2 higher than 55, and she was trialed before on BiPAP and she did better with it. The patient does have also evidence of bronchiectasis, respiratory muscle fatigue, she is on 3 L of oxygen. She did have multiple admissions to the hospital due to altered mental status from CO2 retention. 5. Acetylcholine esterase antibodies level was sent, results are pending.. 6. Recent echocardiogram was done which showed diastolic heart failure, I did not see any evidence of LV dysfunction. Pulmonary artery pressure was just slightly above than 25. 7. Consider EMG as an outpatient. 8. Disposition plan to pulmonary rehab when a bed is available Due to chronic respiratory failure consequent to COPD, patient now requires a noninvasive home ventilator. Bilevel therapy with and without a rate would be ineffective as patient requires a volume targeted mode. Ventilation is required to decrease work of breathing and improve pulmonary status. Interruption of ventilator support would lead to decline of health status. NIMV settings should be AVAPS-AE; Breath rate: auto; Inspiratory time:auto; Sigh : off; IPAP min: 15; IPAP max: 15; EPAP min: 5; EPAP max: 5; targeted tidal volume: 450 mL during sleep and as needed. Auto ramp should be used. Thank you for including us in the care of this patient. We will continue to follow as long as the patient is inpatient. Outpatient follow-up appointment is been established. Data Medications: Current Inpatient Medications Medications (Trade) Dose Ordered Sig/John Paul Route Start Time Stop Time Status Last Admin Dose Admin Enoxaparin Sodium (Lovenox Inj) 40 mg Q24H SQ 11/10/17 09:00 12/10/17 08:59 11/15/17 09:57 40 MG Acetaminophen (Tylenol Tab) 650 mg Q4H PRN PO 11/09/17 19:15 12/09/17 19:14 Al Hydrox/Mg Hydrox/Simethicone (Maalox Max Susp) 15 ml Q4H PRN PO 11/09/17 19:15 12/09/17 19:14 Magnesium Hydroxide (Milk Of Magnesia Susp) 30 ml Q6H PRN PO 11/09/17 19:15 12/09/17 19:14 11/14/17 08:36 30 ML Polyethylene (Miralax Powder Packet) 17 gm DAILY PRN PO 11/09/17 19:15 12/09/17 19:14 Ondansetron HCl (Zofran Inj) 4 mg Q6H PRN IV 11/09/17 19:15 12/09/17 19:14 Atorvastatin Calcium (Lipitor Tab) 10 mg HS PO 11/09/17 21:00 12/09/17 20:59 11/14/17 20:01 10 MG Cholecalciferol (Vitamin D Tab) 1,000 inter.unit QAM PO 11/10/17 09:00 12/10/17 08:59 11/15/17 09:56 1,000 INTER.UNIT Cyanocobalamin (Vitamin B-12 Tab) 1,000 mcg QAM PO 11/10/17 09:00 12/10/17 08:59 11/15/17 09:57 1,000 MCG Diltiazem HCl (Cardizem Cd Cap) 120 mg QPM PO 11/09/17 21:00 12/09/17 20:59 11/14/17 20:00 120 MG Furosemide (Lasix Tab) 20 mg DAILY PRN PO 11/09/17 19:15 12/09/17 19:14 Lisinopril (Zestril Tab) 20 mg DAILY PO 11/10/17 09:00 12/10/17 08:59 11/15/17 09:57 20 MG Pantoprazole Sodium (Protonix Tab) 40 mg BID PO 11/09/17 21:00 12/09/17 20:59 11/15/17 09:57 40 MG Albuterol (Ventolin Hfa Inhaler) 1 puffs Q6H PRN INH 11/09/17 19:15 12/09/17 19:14 Albuterol/ Ipratropium (Duoneb) 3 ml QIDR INH 11/09/17 20:00 12/09/17 19:59 11/15/17 11:11 3 ML Albuterol/ Ipratropium (Duoneb) 3 ml Q2H PRN INH 11/09/17 20:45 12/09/17 20:44 Docusate Sodium (coLACE CAP) 100 mg BID PO 11/12/17 21:00 12/12/17 20:59 11/14/17 20:02 100 MG Miscellaneous Information (Order Awaiting Action) 1 ea QS N/A 11/12/17 16:00 12/12/17 15:59 Prednisone (PredniSONE TAB) 40 mg BID PO 11/14/17 20:00 12/14/17 19:59 11/15/17 09:56 40 MG Vital Signs: Date Time Temp Pulse Resp B/P (MAP) Pulse Ox O2 Delivery O2 Flow Rate FiO2 11/15/17 11:11 79 18 98 Nasal Cannula 3.0 11/15/17 10:00 Nasal Cannula 3.0 11/15/17 07:31 36.6 80 20 132/88 (103) 97 Nasal Cannula 3.0 11/15/17 07:21 80 18 96 Nasal Cannula 3.0 11/15/17 02:05 100 95 30 11/15/17 00:11 36.6 100 20 149/81 (103) 96 Nasal Cannula 3.0 11/14/17 23:59 Nasal Cannula 3.0 11/14/17 23:03 100 95 30 11/14/17 19:58 90 114/70 (85) 99 Nasal Cannula 3.0 11/14/17 19:33 80 18 94 Nasal Cannula 3.0 11/14/17 16:00 94 Nasal Cannula 3.0 11/14/17 14:57 36.9 91 20 123/76 (92) 94 Nasal Cannula 3.0 11/14/17 14:42 66 18 96 Nasal Cannula 3.0 Laboratory Results: Last 24 Hours Test 11/15/17 07:14 11/15/17 08:52 White Blood Count 4.35 K/uL Red Blood Count 3.69 M/uL Hemoglobin 11.1 g/dL Hematocrit 35.4 % Mean Corpuscular Volume 95.9 fL Mean Corpuscular Hemoglobin 30.1 pg Mean Corpuscular Hemoglobin Concent 31.4 g/dl RDW Standard Deviation 47.0 fL RDW Coefficient of Variation 13.5 % Platelet Count 110 K/uL Mean Platelet Volume 11.2 fL Sodium Level 135 mmol/L Potassium Level mmol/L 4.4 mmol/L Chloride Level 92 mmol/L Carbon Dioxide Level 39 mmol/L Anion Gap 3.0 mmol/L Blood Urea Nitrogen 27 mg/dl Creatinine 0.74 mg/dl Est Creatinine Clear Calc Drug Dose 56.8 ml/min Estimated GFR () 91.9 Estimated GFR (Non- 79.3 BUN/Creatinine Ratio 36.1 Random Glucose 85 mg/dl Calcium Level 9.1 mg/dl
[2017-11-15] MEDS: DILTIAZEM HCL 120 MG CAPCR PO SCH (19:49)
[2017-11-15] MEDS: ATORVASTATIN 10 MG TAB PO SCH (19:50)
[2017-11-16] VITALS (11 sets, daily range): BP systolic 103–111; BP diastolic 72–80; PULSE 66–95; TEMP 36.4–36.8; O2SAT 95–98
[2017-11-16 06:35] LABS: CALCIUM 8.7 mg/dl (8.5-10.1); CREATININE 0.69 mg/dl (0.60-1.20); POTASSIUM 4.7 mmol/L (3.5-5.1)
[2017-11-16] MEDS: ALBUT/IPRATROP 3MG/0.5MG NEB 3 ML VIAL INH SCH ×4 (07:42→19:40)
[2017-11-16] MEDS: LISINOPRIL 20 MG TAB PO SCH (07:59)
[2017-11-16] MEDS: CHOLECALCIFEROL 1000 INTER.UNIT TAB PO SCH (07:59)
[2017-11-16] MEDS: DOCUSATE SODIUM 100 MG CAP PO SCH ×2 (08:00→19:58)
[2017-11-16] MEDS: CYANOCOBALAMIN 500 MCG TAB (VIT B-12) PO SCH (08:00)
[2017-11-16] MEDS: PANTOprazole SOD 40 MG TAB PO SCH ×2 (08:00→19:59)
[2017-11-16] MEDS: ENOXAPARIN 40 MG/0.4 ML SYR SQ SCH (08:00)
--- NOTE | 2017-11-16 15:15 | Hospitalist Progress Note ---
Hospitalist Progress Note Date of Service Nov 16, 2017. (Melisa Viveros CRNP) Subjective Pt evaluation today including: conversation w/ patient, physical exam, chart review, lab review, review of inpatient medication list Voiding: no voiding problems Ms. Reza continues to be sob, continues at 3L NC. No cough. She continues to have significant GIL ROS Constitutional: no chills, aches, sweats or fever Respiratory: see HPI Cardiac: no chest pain, palpitations, edema, orthopnea or lightheadedness GI: no abdominal pain, nausea, vomiting, diarrhea or constipation : no dysuria or hesitancy Extremities: no joint pain or weakness Skin: no rash All other systems reviewed and negative (Melisa Viveros CRNP) Medications Medications Administered Medications (Trade) Dose Ordered Sig/John Paul Route Start Time Stop Time Status Last Admin Dose Admin Albuterol/ Ipratropium (Duoneb) 3 ml NOW STAT INH 11/09/17 15:41 11/09/17 15:43 DC 11/09/17 16:05 3 ML Lorazepam (Ativan Tab) 0.5 mg NOW STAT SL 11/09/17 19:01 11/09/17 19:31 DC 11/09/17 19:07 0.5 MG Enoxaparin Sodium (Lovenox Inj) 40 mg Q24H SQ 11/10/17 09:00 12/10/17 08:59 11/16/17 08:00 40 MG Magnesium Hydroxide (Milk Of Magnesia Susp) 30 ml Q6H PRN PO 11/09/17 19:15 12/09/17 19:14 11/14/17 08:36 30 ML Atorvastatin Calcium (Lipitor Tab) 10 mg HS PO 11/09/17 21:00 12/09/17 20:59 11/15/17 19:50 10 MG Cholecalciferol (Vitamin D Tab) 1,000 inter.unit QAM PO 11/10/17 09:00 12/10/17 08:59 11/16/17 07:59 1,000 INTER.UNIT Cyanocobalamin (Vitamin B-12 Tab) 1,000 mcg QAM PO 11/10/17 09:00 12/10/17 08:59 11/16/17 08:00 1,000 MCG Diltiazem HCl (Cardizem Cd Cap) 120 mg QPM PO 11/09/17 21:00 12/09/17 20:59 11/15/17 19:49 120 MG Fluticasone Propionate (Flonase Nasal [place]) 1 sprays BID NINO 11/09/17 21:00 11/10/17 15:25 DC 11/10/17 07:33 1 SPRAYS Lisinopril (Zestril Tab) 20 mg DAILY PO 11/10/17 09:00 12/10/17 08:59 11/16/17 07:59 20 MG Pantoprazole Sodium (Protonix Tab) 40 mg BID PO 11/09/17 21:00 12/09/17 20:59 11/16/17 08:00 40 MG Tiotropium [place] (Spiriva Handihaler Inhaler) 1 puff QAM INH 11/10/17 09:00 11/10/17 15:25 DC 11/10/17 07:32 1 PUFF Methylprednisolone Sodium Succinate 60 mg/Syringe 0.96 ml @ 1.5 mls/min TID IV 11/09/17 21:00 11/12/17 16:58 DC 11/12/17 13:17 1.5 MLS/MIN Doxycycline Hyclate (Vibramycin Cap) 100 mg BID PO 11/09/17 21:00 11/11/17 07:31 DC 11/10/17 21:39 100 MG Albuterol/ Ipratropium (Duoneb) 3 ml QIDR INH 11/09/17 20:00 12/09/17 19:59 11/16/17 11:20 3 ML Miscellaneous Information (Patient'S Height And/Or Weight Needed) 1 ea Q2H N/A 11/09/17 20:00 11/10/17 07:48 DC 11/10/17 07:03 1 EA Docusate Sodium (coLACE CAP) 100 mg BID PO 11/12/17 21:00 12/12/17 20:59 11/14/17 20:02 100 MG Docusate Sodium (coLACE CAP) 100 mg 1143 ONCE PO 11/12/17 11:43 11/12/17 11:51 DC 11/12/17 13:17 100 MG Methylprednisolone Sodium Succinate 40 mg/Syringe 0.64 ml @ 1.5 mls/min Q6H IV 11/12/17 18:00 11/14/17 13:16 DC 11/14/17 12:38 1.5 MLS/MIN Docusate Sodium (coLACE CAP) 100 mg NOW ONCE PO 11/13/17 11:00 11/13/17 11:16 DC 11/13/17 11:41 100 MG Prednisone (PredniSONE TAB) 40 mg BID PO 11/14/17 20:00 12/14/17 19:59 11/16/17 07:59 40 MG (Melisa Viveros CRNP) Objective Vital Signs Date Time Temp Pulse Resp B/P (MAP) Pulse Ox O2 Delivery O2 Flow Rate FiO2 11/16/17 11:20 75 16 98 Nasal Cannula 3.0 11/16/17 07:44 95 95 30 11/16/17 07:43 82 16 97 BiPAP/CPAP 30 11/16/17 07:40 Nasal Cannula 3.0 11/16/17 07:23 66 20 109/76 (87) 97 BiPAP 11/16/17 04:24 94 95 30 11/16/17 00:00 Nasal Cannula 3.0 11/15/17 23:18 36.4 94 18 108/64 (79) 100 Nasal Cannula 3.0 11/15/17 20:00 Nasal Cannula 3.0 11/15/17 19:36 74 14 98 Nasal Cannula 3.0 11/15/17 15:38 36.5 76 18 103/65 (78) 98 Nasal Cannula 3.0 11/15/17 15:29 Nasal Cannula 3.0 11/15/17 15:18 76 18 98 Nasal Cannula 3.0 (Melisa Viveros CRNP) Physical Exam Notes: General: no distress Eyes: normal inspection, PERLL Respiratory: chest non tender, diminished breath sounds, labored breathing at times Cardiac: regular rate and rhythm, no rub or gallop, no murmur, no edema, no jvd GI/: active bowel sounds, no abd pain or tenderness, soft, non distended Extremities: normal range of motion, normal strength, non tender Neuro/Psych: alert and oriented x 3, normal mood and affect Skin: normal color, dry (Melisa Viveros CRNP) Laboratory Results Last 24 Hours Test 11/16/17 05:40 Sodium Level 135 mmol/L Potassium Level 4.7 mmol/L Chloride Level 95 mmol/L Carbon Dioxide Level 39 mmol/L Anion Gap 1.0 mmol/L Blood Urea Nitrogen 28 mg/dl Creatinine 0.69 mg/dl Est Creatinine Clear Calc Drug Dose 60.9 ml/min Estimated GFR () 98.7 Estimated GFR (Non- 85.2 BUN/Creatinine Ratio 40.8 Random Glucose 121 mg/dl Calcium Level 8.7 mg/dl (Melisa Viveros .BABAK) Assessment and Plan Ms. 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 - Titrated down to 40 prednisone bid yesterday by pulmonology, continue nebulizers, abx dc'd - Continue bipap hs, continue baseline 3L per protocol - nocturnal pulse ox completed, pulm recommending Trilogy for home - CT chest yesterday showed mild bronchiectasis but otherwise no acute changes - Palliative consult - Pulmonary consult - recommending pulm rehab Hypertension. - Continue lisinopril, diltiazem, furosemide - blood pressures well controlled Hyperglycemia. - Her last A1c was 5.4 less than a year ago. - continue to monitor, no ss necessary at this time Constipation - resolved - continue stool softners DNR Enoxaprin, SCDs Dispo - PT recommending rehab, patient requests [facility], awaiting placement (Melisa Viveros CRNP) SLOT FLOORMAN Physician Supervision Note: I interviewed and examined the patient. Discussed with Melisa Viveros SLOT FLOORMAN and agree with findings and plan as documented in the note. Any exceptions or clarifications are listed here: None Patient is slowly and steadily improving will continue to wait for rehabilitation placement and having case management also work on noninvasive ventilation as the patient is in requirement of this prior to her discharge she has no coughing her vital signs show temp 36.4 pulse 90 respirations 18 BP BP is 109/76 she is 95% on 30% FiO2 Her lungs are diminished but she is good air movement in all lung campa just diminished overall she is no acute or wheezes her heart is regular COPD exacerbation with the chronic respiratory failure now with hypoxia which will benefit from nocturnal noninvasive ventilation will continue to work through this with case management with placement to acute rehab at [facility] if approved Documented By: Julius Monroy (Julius Monroy M.D.)
--- NOTE | 2017-11-16 17:06 | Pulmonology Progress Note ---
Pulmonary Progress Note Date of Service Nov 16, 2017. Attending Dr. Webb Subjective Patient doing well. Feel a little stronger today. Awaiting insurance approval for [facility]. No new complaints. Objective Vital Signs - as noted below Laboratory Data - as noted below Physical Exam: General - NAD. Sitting in bedside chair. Son and Daughter and grand-daughter present Eyes - No icterus, gaze conjugate ENT - Mucosa moist, no lesions or candidiasis. Nasal cannula in place. Neck - Supple, No JVD. No stridor Lungs - No bronchospasm, rales, or rhonchi. Heart - Regular, rate controlled Abdomen - Soft, NT, ND, BS present Extremities - No edema, pedal pulses intact. Safety socks in place Neuro - A&OX3 Assessment & Plan 1. COPD, FEV1 of 39% dropped down from 56% within a period of 3 months. 2. Mild bronchiectasis noted on the CAT scan that has been increasing in size. 3. Hypoxia which is disproportionate to her level of exercise. Which is concerning for muscular weakness, MG antibodies has been sent. 4. Acute on chronic hypercapnic respiratory failure, responded well to BiPAP. 5. Multiple small pulmonary nodules. Plan: 1. Continue to ambulate the patient with physical therapy. 2. Continue steroids 40 mg p.o. twice daily. Begin slow taper 3. Continue with bronchodilators and oxygen. 4. Continue with BiPAP, Trilogy NIMV has been ordered and the rx was placed on the chart with settings as reflected below. She had PCO2 higher than 55, and she was trialed before on BiPAP and she did better with it. The patient does have also evidence of bronchiectasis, respiratory muscle fatigue, she is on 3 L of oxygen. She did have multiple admissions to the hospital due to altered mental status from CO2 retention. 5. Acetylcholine esterase antibodies level was sent, results are pending.. 6. Recent echocardiogram was done which showed diastolic heart failure, I did not see any evidence of LV dysfunction. Pulmonary artery pressure was just slightly above than 25. 7. Consider EMG as an outpatient. 8. Disposition plan to rehab when a bed is available 9. Follow up with Dr. Ceja 11/29/17. Patient aware of appointment 10. Triology approved as follows Due to chronic respiratory failure consequent to COPD, patient now requires a noninvasive home ventilator. Bilevel therapy with and without a rate would be ineffective as patient requires a volume targeted mode. Ventilation is required to decrease work of breathing and improve pulmonary status. Interruption of ventilator support would lead to decline of health status. NIMV settings should be AVAPS-AE; Breath rate: auto; Inspiratory time:auto; Sigh : off; IPAP min: 15; IPAP max: 15; EPAP min: 5; EPAP max: 5; targeted tidal volume: 450 mL during sleep and as needed. Auto ramp should be used. Thank you for including us in the care of this patient. We will sign off at this time and follow as an outpatient. Data Medications: Current Inpatient Medications Medications (Trade) Dose Ordered Sig/John Paul Route Start Time Stop Time Status Last Admin Dose Admin Enoxaparin Sodium (Lovenox Inj) 40 mg Q24H SQ 11/10/17 09:00 12/10/17 08:59 11/16/17 08:00 40 MG Acetaminophen (Tylenol Tab) 650 mg Q4H PRN PO 11/09/17 19:15 12/09/17 19:14 Al Hydrox/Mg Hydrox/Simethicone (Maalox Max Susp) 15 ml Q4H PRN PO 11/09/17 19:15 12/09/17 19:14 Magnesium Hydroxide (Milk Of Magnesia Susp) 30 ml Q6H PRN PO 11/09/17 19:15 12/09/17 19:14 11/14/17 08:36 30 ML Polyethylene (Miralax Powder Packet) 17 gm DAILY PRN PO 11/09/17 19:15 12/09/17 19:14 Ondansetron HCl (Zofran Inj) 4 mg Q6H PRN IV 11/09/17 19:15 12/09/17 19:14 Atorvastatin Calcium (Lipitor Tab) 10 mg HS PO 11/09/17 21:00 12/09/17 20:59 11/15/17 19:50 10 MG Cholecalciferol (Vitamin D Tab) 1,000 inter.unit QAM PO 11/10/17 09:00 12/10/17 08:59 11/16/17 07:59 1,000 INTER.UNIT Cyanocobalamin (Vitamin B-12 Tab) 1,000 mcg QAM PO 11/10/17 09:00 12/10/17 08:59 11/16/17 08:00 1,000 MCG Diltiazem HCl (Cardizem Cd Cap) 120 mg QPM PO 11/09/17 21:00 12/09/17 20:59 11/15/17 19:49 120 MG Furosemide (Lasix Tab) 20 mg DAILY PRN PO 11/09/17 19:15 12/09/17 19:14 Lisinopril (Zestril Tab) 20 mg DAILY PO 11/10/17 09:00 12/10/17 08:59 11/16/17 07:59 20 MG Pantoprazole Sodium (Protonix Tab) 40 mg BID PO 11/09/17 21:00 12/09/17 20:59 11/16/17 08:00 40 MG Albuterol (Ventolin Hfa Inhaler) 1 puffs Q6H PRN INH 11/09/17 19:15 12/09/17 19:14 Albuterol/ Ipratropium (Duoneb) 3 ml QIDR INH 11/09/17 20:00 12/09/17 19:59 11/16/17 15:51 3 ML Albuterol/ Ipratropium (Duoneb) 3 ml Q2H PRN INH 11/09/17 20:45 12/09/17 20:44 Docusate Sodium (coLACE CAP) 100 mg BID PO 11/12/17 21:00 12/12/17 20:59 11/14/17 20:02 100 MG Miscellaneous Information (Order Awaiting Action) 1 ea QS N/A 11/12/17 16:00 12/12/17 15:59 Prednisone (PredniSONE TAB) 40 mg BID PO 11/14/17 20:00 12/14/17 19:59 11/16/17 07:59 40 MG Vital Signs: Date Time Temp Pulse Resp B/P (MAP) Pulse Ox O2 Delivery O2 Flow Rate FiO2 11/16/17 16:00 98 Nasal Cannula 3.0 11/16/17 15:52 91 16 98 Nasal Cannula 3.0 11/16/17 14:54 36.8 86 18 103/72 (82) 98 Nasal Cannula 3.0 11/16/17 11:20 75 16 98 Nasal Cannula 3.0 11/16/17 07:44 95 95 30 11/16/17 07:43 82 16 97 BiPAP/CPAP 30 11/16/17 07:40 Nasal Cannula 3.0 11/16/17 07:23 66 20 109/76 (87) 97 BiPAP 11/16/17 04:24 94 95 30 11/16/17 00:00 Nasal Cannula 3.0 11/15/17 23:18 36.4 94 18 108/64 (79) 100 Nasal Cannula 3.0 11/15/17 20:00 Nasal Cannula 3.0 11/15/17 19:36 74 14 98 Nasal Cannula 3.0 Laboratory Results: Last 24 Hours Test 11/16/17 05:40 Sodium Level 135 mmol/L Potassium Level 4.7 mmol/L Chloride Level 95 mmol/L Carbon Dioxide Level 39 mmol/L Anion Gap 1.0 mmol/L Blood Urea Nitrogen 28 mg/dl Creatinine 0.69 mg/dl Est Creatinine Clear Calc Drug Dose 60.9 ml/min Estimated GFR () 98.7 Estimated GFR (Non- 85.2 BUN/Creatinine Ratio 40.8 Random Glucose 121 mg/dl Calcium Level 8.7 mg/dl
[2017-11-16] MEDS: ATORVASTATIN 10 MG TAB PO SCH (19:58)
[2017-11-16] MEDS: DILTIAZEM HCL 120 MG CAPCR PO SCH (19:59)
[2017-11-17] VITALS (9 sets, daily range): BP systolic 98–138; BP diastolic 75–82; PULSE 72–98; TEMP 36.6; O2SAT 95–99
[2017-11-17] MEDS: ALBUT/IPRATROP 3MG/0.5MG NEB 3 ML VIAL INH SCH ×4 (07:26→19:03)
[2017-11-17 08:16] LABS: CALCIUM 8.8 mg/dl (8.5-10.1); CREATININE 0.59 mg/dl (0.60-1.20); POTASSIUM 4.3 mmol/L (3.5-5.1)
[2017-11-17] MEDS: CHOLECALCIFEROL 1000 INTER.UNIT TAB PO SCH (08:54)
[2017-11-17] MEDS: DOCUSATE SODIUM 100 MG CAP PO SCH ×2 (08:55→20:11)
[2017-11-17] MEDS: CYANOCOBALAMIN 500 MCG TAB (VIT B-12) PO SCH (08:55)
[2017-11-17] MEDS: LISINOPRIL 20 MG TAB PO SCH (08:55)
[2017-11-17] MEDS: PANTOprazole SOD 40 MG TAB PO SCH ×2 (08:56→20:11)
[2017-11-17] MEDS: ENOXAPARIN 40 MG/0.4 ML SYR SQ SCH (08:56)
--- NOTE | 2017-11-17 14:10 | Progress Note ---
Subjective Date of Service: Nov 17, 2017. Subjective this pt is in no distress she is awaiting placement for rehab, preliminary [facility] Problem List Medical Problems: (1) Altered mental status Status: Acute (2) COPD exacerbation Status: Acute (3) Dehydration Status: Acute (4) Dysphagia Status: Acute (5) Dyspnea Status: Acute (6) Dyspnea Status: Acute (7) Esophageal obstruction due to food impaction Status: Acute (8) Hypercapnia Status: Acute (9) Hypotension Status: Acute (10) Peripheral edema Status: Acute (11) Shortness of breath Status: Acute (12) UTI (urinary tract infection) Status: Acute Review of Systems Constitutional: + weakness, + fatigue, No fever, No chills Respiratory: + cough, + shortness of breath, + dyspnea on exertion, No sputum Cardiac: No chest pain, No edema Breast: No nipple discharge Abdomen: No pain, No nausea Female : No dysuria, No urinary frequency, No hematuria Psychiatric: No depression symptoms, No anhedonism, No anxiety Objective Vital Signs Date Time Temp Pulse Resp B/P (MAP) Pulse Ox O2 Delivery O2 Flow Rate FiO2 11/17/17 07:28 74 16 98 Nasal Cannula 3.0 11/17/17 07:24 36.6 81 18 138/82 (100) 97 3.0 11/17/17 00:00 Nasal Cannula 3.0 11/16/17 23:06 36.4 84 20 111/80 (90) 98 Room Air 11/16/17 22:12 92 95 30 11/16/17 19:42 72 16 98 Nasal Cannula 3.0 11/16/17 16:00 98 Nasal Cannula 3.0 11/16/17 15:52 91 16 98 Nasal Cannula 3.0 11/16/17 14:54 36.8 86 18 103/72 (82) 98 Nasal Cannula 3.0 11/16/17 11:20 75 16 98 Nasal Cannula 3.0 Physical Exam General Appearance: WD/WN, + mild distress Eyes: normal inspection, sclerae normal Respiratory/Chest: chest non-tender, + decreased breath sounds, + accessory muscle use Cardiovascular: regular rate, rhythm, no murmur Abdomen: normal bowel sounds, non tender, soft Extremities: no pedal edema, no calf tenderness Neurologic/Psychiatric: alert, oriented x 3 Laboratory Results Last 24 Hours Test 11/17/17 07:33 Assessment and Plan Ms. 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 - Titrated down to 40 prednisone bid by pulmonology, continue nebulizers, abx dc'd - Continue bipap hs, continue baseline 3L per protocol - nocturnal pulse ox completed, pulm recommending Trilogy for home - CT chest showed mild bronchiectasis but otherwise no acute changes - Pulmonary consult - recommending pulm rehab, once completed subacute physical rehab Hypertension, lisinopril, diltiazem, furosemide Hyperglycemia. no treatment as outpt A1c was 5.4 less than a year ago. Constipation treated with stool softners DNR Enoxaprin, SCDs Continued [facility] stay due to: multiple IV medications needed Discharge planning: home
[2017-11-17] MEDS: DILTIAZEM HCL 120 MG CAPCR PO SCH (20:11)
[2017-11-17] MEDS: ATORVASTATIN 10 MG TAB PO SCH (20:11)
[2017-11-18] VITALS (9 sets, daily range): BP systolic 118–131; BP diastolic 71–82; PULSE 68–105; TEMP 36.5–36.7; O2SAT 92–100
[2017-11-18] MEDS: ALBUT/IPRATROP 3MG/0.5MG NEB 3 ML VIAL INH SCH ×4 (07:10→19:50)
[2017-11-18 07:42] LABS: HEMATOCRIT 34.2 % (37-47); HEMOGLOBIN 10.8 g/dL (12.0-16.0); MEAN CELL VOLUME 95.3 fL (80-100); MEAN CORPUSCULAR HEMOGLOBIN 30.1 pg (25-34); MEAN CORPUSCULAR HGB CONC 31.6 g/dl (32-36); MEAN PLATELET VOLUME 9.4 fL (7.4-10.4); PLATELET COUNT 170 K/uL (130-400); RED CELL DISTRIBUTION WIDTH CV 13.8 % (11.5-14.5); RED CELL DISTRIBUTION WIDTH SD 47.9 fL (36.4-46.3); WHITE BLOOD COUNT 5.24 K/uL (4.8-10.8)
[2017-11-18 08:19] LABS: CALCIUM 8.8 mg/dl (8.5-10.1); CREATININE 0.68 mg/dl (0.60-1.20); POTASSIUM 4.6 mmol/L (3.5-5.1)
[2017-11-18] MEDS: PANTOprazole SOD 40 MG TAB PO SCH ×2 (08:31→20:15)
[2017-11-18] MEDS: CHOLECALCIFEROL 1000 INTER.UNIT TAB PO SCH (08:31)
[2017-11-18] MEDS: DOCUSATE SODIUM 100 MG CAP PO SCH ×2 (08:31→20:13)
[2017-11-18] MEDS: ENOXAPARIN 40 MG/0.4 ML SYR SQ SCH (08:32)
[2017-11-18] MEDS: LISINOPRIL 20 MG TAB PO SCH (08:32)
[2017-11-18] MEDS: CYANOCOBALAMIN 500 MCG TAB (VIT B-12) PO SCH (08:32)
--- NOTE | 2017-11-18 17:45 | Progress Note ---
Subjective Date of Service: Nov 18, 2017. Subjective pt remains stable awaiting placement initial denial for [facility] Problem List Medical Problems: (1) Altered mental status Status: Acute (2) COPD exacerbation Status: Acute (3) Dehydration Status: Acute (4) Dysphagia Status: Acute (5) Dyspnea Status: Acute (6) Dyspnea Status: Acute (7) Esophageal obstruction due to food impaction Status: Acute (8) Hypercapnia Status: Acute (9) Hypotension Status: Acute (10) Peripheral edema Status: Acute (11) Shortness of breath Status: Acute (12) UTI (urinary tract infection) Status: Acute Review of Systems Constitutional: + weakness, + fatigue, No fever, No chills Respiratory: + cough, + shortness of breath, + dyspnea on exertion Cardiac: No chest pain, No edema Abdomen: No pain, No nausea, No vomiting, No diarrhea Female : No dysuria, No urinary frequency Objective Vital Signs Date Time Temp Pulse Resp B/P (MAP) Pulse Ox O2 Delivery O2 Flow Rate FiO2 11/18/17 16:00 92 Nasal Cannula 3.0 30 11/18/17 15:10 105 20 92 Nasal Cannula 3.0 11/18/17 15:05 36.5 102 18 118/71 (87) 98 3.0 11/18/17 11:21 85 18 98 Nasal Cannula 3.0 11/18/17 08:45 Nasal Cannula 3.0 11/18/17 07:36 36.7 92 16 131/82 (98) 100 Nasal Cannula 3.0 11/18/17 07:17 68 18 98 Nasal Cannula 3.0 11/18/17 00:05 Nasal Cannula 3.0 11/17/17 22:29 36.6 98 18 98/82 (87) 96 BiPAP 11/17/17 22:09 89 95 30 11/17/17 19:05 90 18 99 Nasal Cannula 3.0 11/17/17 17:53 36.6 75 18 115/75 (88) 99 Room Air Physical Exam General Appearance: + mild distress (seems baseline), + thin Neck: supple, no JVD Respiratory/Chest: chest non-tender, + decreased breath sounds, + accessory muscle use Cardiovascular: regular rate, rhythm, no murmur Abdomen: normal bowel sounds, non tender, soft Extremities: no pedal edema, no calf tenderness Neurologic/Psychiatric: alert, oriented x 3 Laboratory Results Last 24 Hours Test 11/18/17 07:19 White Blood Count 5.24 K/uL Red Blood Count 3.59 M/uL Hemoglobin 10.8 g/dL Hematocrit 34.2 % Mean Corpuscular Volume 95.3 fL Mean Corpuscular Hemoglobin 30.1 pg Mean Corpuscular Hemoglobin Concent 31.6 g/dl RDW Standard Deviation 47.9 fL RDW Coefficient of Variation 13.8 % Platelet Count 170 K/uL Mean Platelet Volume 9.4 fL Sodium Level 136 mmol/L Potassium Level 4.6 mmol/L Chloride Level 96 mmol/L Carbon Dioxide Level 39 mmol/L Anion Gap 1.0 mmol/L Blood Urea Nitrogen 25 mg/dl Creatinine 0.68 mg/dl Est Creatinine Clear Calc Drug Dose 61.8 ml/min Estimated GFR () 99.2 Estimated GFR (Non- 85.6 BUN/Creatinine Ratio 36.3 Random Glucose 108 mg/dl Calcium Level 8.8 mg/dl Assessment and Plan Ms. 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 - Titrated down to 40 prednisone bid by pulmonology with taper, continue nebulizers, abx dc'd - Continue bipap hs, continue baseline 3L per protocol - nocturnal pulse ox completed, pulm recommending Trilogy for home - CT chest showed mild bronchiectasis but otherwise no acute changes - Pulmonary consult - recommending pulm rehab, once completed subacute physical rehab, initially denied [facility] will need to explore if qualifies subacute Hypertension, lisinopril, diltiazem, furosemide Hyperglycemia. no treatment as outpt A1c was 5.4 less than a year ago. Constipation treated with stool softeners DNR Enoxaprin, SCDs Continued [facility] stay due to: multiple IV medications needed Discharge planning: home
[2017-11-18] MEDS: ATORVASTATIN 10 MG TAB PO SCH (20:14)
[2017-11-18] MEDS: DILTIAZEM HCL 120 MG CAPCR PO SCH (20:15)
[2017-11-19] VITALS (9 sets, daily range): BP systolic 107–135; BP diastolic 64–84; PULSE 85–108; TEMP 36.5–36.7; O2SAT 96–100
[2017-11-19] MEDS: ALBUT/IPRATROP 3MG/0.5MG NEB 3 ML VIAL INH SCH ×4 (07:19→19:23)
[2017-11-19] MEDS ORDERED: NURSING VERBAL MED ORDER ONE (07:45)
[2017-11-19] MEDS: CHOLECALCIFEROL 1000 INTER.UNIT TAB PO SCH (07:50)
[2017-11-19] MEDS: LISINOPRIL 20 MG TAB PO SCH (07:50)
[2017-11-19] MEDS: ENOXAPARIN 40 MG/0.4 ML SYR SQ SCH (07:51)
[2017-11-19] MEDS: CYANOCOBALAMIN 500 MCG TAB (VIT B-12) PO SCH (07:51)
[2017-11-19] MEDS: PANTOprazole SOD 40 MG TAB PO SCH ×2 (07:52→21:30)
[2017-11-19] MEDS: DOCUSATE SODIUM 100 MG CAP PO SCH ×2 (08:23→21:29)
--- NOTE | 2017-11-19 15:49 | Hospitalist Progress Note ---
Hospitalist Progress Note Date of Service Nov 19, 2017. Subjective Pt evaluation today including: conversation w/ patient, physical exam, chart review, lab review, review of inpatient medication list Voiding: no voiding problems Ms. Reza feels about at her baseline today, sob especially with any exertion. Requiring 3L NC ROS Constitutional: no chills, aches, sweats or fever Respiratory: see HPI Cardiac: no chest pain, palpitations, edema, orthopnea or lightheadedness GI: no abdominal pain, nausea, vomiting, diarrhea or constipation : no dysuria or hesitancy Extremities: no joint pain or weakness Skin: no rash All other systems reviewed and negative Medications Medications Administered Medications (Trade) Dose Ordered Sig/John Paul Route Start Time Stop Time Status Last Admin Dose Admin Albuterol/ Ipratropium (Duoneb) 3 ml NOW STAT INH 11/09/17 15:41 11/09/17 15:43 DC 11/09/17 16:05 3 ML Lorazepam (Ativan Tab) 0.5 mg NOW STAT SL 11/09/17 19:01 11/09/17 19:31 DC 11/09/17 19:07 0.5 MG Enoxaparin Sodium (Lovenox Inj) 40 mg Q24H SQ 11/10/17 09:00 12/10/17 08:59 11/19/17 07:51 40 MG Magnesium Hydroxide (Milk Of Magnesia Susp) 30 ml Q6H PRN PO 11/09/17 19:15 12/09/17 19:14 11/14/17 08:36 30 ML Atorvastatin Calcium (Lipitor Tab) 10 mg HS PO 11/09/17 21:00 12/09/17 20:59 11/18/17 20:14 10 MG Cholecalciferol (Vitamin D Tab) 1,000 inter.unit QAM PO 11/10/17 09:00 12/10/17 08:59 11/19/17 07:50 1,000 INTER.UNIT Cyanocobalamin (Vitamin B-12 Tab) 1,000 mcg QAM PO 11/10/17 09:00 12/10/17 08:59 11/19/17 07:51 1,000 MCG Diltiazem HCl (Cardizem Cd Cap) 120 mg QPM PO 11/09/17 21:00 12/09/17 20:59 11/18/17 20:15 120 MG Fluticasone Propionate (Flonase Nasal [place]) 1 sprays BID NINO 11/09/17 21:00 11/10/17 15:25 DC 11/10/17 07:33 1 SPRAYS Lisinopril (Zestril Tab) 20 mg DAILY PO 11/10/17 09:00 12/10/17 08:59 11/19/17 07:50 20 MG Pantoprazole Sodium (Protonix Tab) 40 mg BID PO 11/09/17 21:00 12/09/17 20:59 11/19/17 07:52 40 MG Tiotropium [place] (Spiriva Handihaler Inhaler) 1 puff QAM INH 11/10/17 09:00 11/10/17 15:25 DC 11/10/17 07:32 1 PUFF Albuterol (Ventolin Hfa Inhaler) 1 puffs Q6H PRN INH 11/09/17 19:15 12/09/17 19:14 11/19/17 14:22 1 PUFFS Methylprednisolone Sodium Succinate 60 mg/Syringe 0.96 ml @ 1.5 mls/min TID IV 11/09/17 21:00 11/12/17 16:58 DC 11/12/17 13:17 1.5 MLS/MIN Doxycycline Hyclate (Vibramycin Cap) 100 mg BID PO 11/09/17 21:00 11/11/17 07:31 DC 11/10/17 21:39 100 MG Albuterol/ Ipratropium (Duoneb) 3 ml QIDR INH 11/09/17 20:00 12/09/17 19:59 11/19/17 15:16 3 ML Miscellaneous Information (Patient'S Height And/Or Weight Needed) 1 ea Q2H N/A 11/09/17 20:00 11/10/17 07:48 DC 11/10/17 07:03 1 EA Docusate Sodium (coLACE CAP) 100 mg BID PO 11/12/17 21:00 11/19/17 07:52 DC 11/18/17 20:13 100 MG Docusate Sodium (coLACE CAP) 100 mg 1143 ONCE PO 11/12/17 11:43 11/12/17 11:51 DC 11/12/17 13:17 100 MG Methylprednisolone Sodium Succinate 40 mg/Syringe 0.64 ml @ 1.5 mls/min Q6H IV 11/12/17 18:00 11/14/17 13:16 DC 11/14/17 12:38 1.5 MLS/MIN Docusate Sodium (coLACE CAP) 100 mg NOW ONCE PO 11/13/17 11:00 11/13/17 11:16 DC 11/13/17 11:41 100 MG Prednisone (PredniSONE TAB) 40 mg BID PO 11/14/17 20:00 12/14/17 19:59 11/19/17 07:51 40 MG Docusate Sodium (coLACE CAP) 200 mg QAM PO 11/19/17 08:00 12/19/17 07:59 11/19/17 08:23 200 MG Objective Vital Signs Date Time Temp Pulse Resp B/P (MAP) Pulse Ox O2 Delivery O2 Flow Rate FiO2 11/19/17 15:18 102 20 98 Nasal Cannula 3.0 11/19/17 11:16 93 20 96 Nasal Cannula 3.0 11/19/17 08:20 Nasal Cannula 3.0 11/19/17 07:26 36.7 85 20 135/84 (101) 99 3.0 11/19/17 07:22 108 24 98 Nasal Cannula 3.0 11/19/17 00:00 Nasal Cannula 3.0 11/18/17 23:12 36.7 92 18 124/79 (94) 99 BiPAP 3.0 11/18/17 22:10 88 95 30 11/18/17 19:51 92 20 96 Nasal Cannula 3.0 11/18/17 16:00 92 Nasal Cannula 3.0 30 Physical Exam Notes: General: no distress Eyes: normal inspection, PERLL Respiratory: chest non tender, clear to auscultation, normal breath sounds, no respiratory distress, Cardiac: regular rate and rhythm, no rub or gallop, no murmur, no edema, no jvd GI/: active bowel sounds, no abd pain or tenderness, soft, non distended Extremities: normal range of motion, normal strength, non tender Neuro/Psych: alert and oriented x 3, normal mood and affect Skin: normal color, dry Assessment and Plan Ms. 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 - Titrated down to 30 prednisone bid per pulm rec, continue nebulizers, abx dc'd - Continue bipap hs, continue baseline 3L per protocol - nocturnal pulse ox completed, pulm recommending Trilogy for home - CT chest showed mild bronchiectasis but otherwise no acute changes - Palliative consult - Pulmonary consult - recommending pulm rehab Hypertension. - Continue lisinopril, diltiazem, furosemide - blood pressures well controlled Hyperglycemia. - Her last A1c was 5.4 less than a year ago. - continue to monitor, no ss necessary at this time Constipation - resolved - continue stool softners DNR Enoxaprin, SCDs Dispo - PT recommending rehab, HS denied, awaiting placement at [facility] or [facility]
[2017-11-19] MEDS: DILTIAZEM HCL 120 MG CAPCR PO SCH (21:29)
[2017-11-19] MEDS: ATORVASTATIN 10 MG TAB PO SCH (21:30)
[2017-11-20] VITALS (11 sets, daily range): BP systolic 118–129; BP diastolic 73–90; PULSE 79–121; TEMP 36.7; O2SAT 91–100
[2017-11-20] MEDS: ALBUT/IPRATROP 3MG/0.5MG NEB 3 ML VIAL INH SCH ×4 (07:13→19:57)
[2017-11-20] MEDS: PANTOprazole SOD 40 MG TAB PO SCH ×2 (07:54→20:33)
[2017-11-20] MEDS: CYANOCOBALAMIN 500 MCG TAB (VIT B-12) PO SCH (07:55)
[2017-11-20] MEDS: DOCUSATE SODIUM 100 MG CAP PO SCH ×2 (07:55→20:34)
[2017-11-20] MEDS: CHOLECALCIFEROL 1000 INTER.UNIT TAB PO SCH (07:56)
[2017-11-20] MEDS: LISINOPRIL 20 MG TAB PO SCH (07:56)
[2017-11-20] MEDS: ENOXAPARIN 40 MG/0.4 ML SYR SQ SCH (07:57)
--- NOTE | 2017-11-20 15:30 | Hospitalist Progress Note ---
Hospitalist Progress Note Date of Service Nov 20, 2017. Subjective Pt evaluation today including: conversation w/ patient, physical exam, chart review, lab review, review of inpatient medication list Voiding: no voiding problems Ms. Reza feels about the same today, requiring 3L NC. She did notice a little chest twinge with some fluttering off an on today. She otherwise has no complaints ROS Constitutional: no chills, aches, sweats or fever Respiratory: she is chronically sob, no cough, sputum, or wheezing Cardiac: no chest pain, edema, orthopnea or lightheadedness GI: no abdominal pain, nausea, vomiting, diarrhea or constipation : no dysuria or hesitancy Extremities: no joint pain or weakness Skin: no rash All other systems reviewed and negative Medications Medications Administered Medications (Trade) Dose Ordered Sig/John [place] Route Start Time Stop Time Status Last Admin Dose Admin Albuterol/ Ipratropium (Duoneb) 3 ml NOW STAT INH 11/09/17 15:41 11/09/17 15:43 DC 11/09/17 16:05 3 ML Lorazepam (Ativan Tab) 0.5 mg NOW STAT SL 11/09/17 19:01 11/09/17 19:31 DC 11/09/17 19:07 0.5 MG Enoxaparin Sodium (Lovenox Inj) 40 mg Q24H SQ 11/10/17 09:00 12/10/17 08:59 11/20/17 07:57 40 MG Magnesium Hydroxide (Milk Of Magnesia Susp) 30 ml Q6H PRN PO 11/09/17 19:15 12/09/17 19:14 11/14/17 08:36 30 ML Atorvastatin Calcium (Lipitor Tab) 10 mg HS PO 11/09/17 21:00 12/09/17 20:59 11/19/17 21:30 10 MG Cholecalciferol (Vitamin D Tab) 1,000 inter.unit QAM PO 11/10/17 09:00 12/10/17 08:59 11/20/17 07:56 1,000 INTER.UNIT Cyanocobalamin (Vitamin B-12 Tab) 1,000 mcg QAM PO 11/10/17 09:00 12/10/17 08:59 11/20/17 07:55 1,000 MCG Diltiazem HCl (Cardizem Cd Cap) 120 mg QPM PO 11/09/17 21:00 12/09/17 20:59 11/19/17 21:29 120 MG Fluticasone Propionate (Flonase Nasal [place]) 1 sprays BID NINO 11/09/17 21:00 11/10/17 15:25 DC 11/10/17 07:33 1 SPRAYS Lisinopril (Zestril Tab) 20 mg DAILY PO 11/10/17 09:00 12/10/17 08:59 11/20/17 07:56 20 MG Pantoprazole Sodium (Protonix Tab) 40 mg BID PO 11/09/17 21:00 12/09/17 20:59 11/20/17 07:54 40 MG Tiotropium [place] (Spiriva Handihaler Inhaler) 1 puff QAM INH 11/10/17 09:00 11/10/17 15:25 DC 11/10/17 07:32 1 PUFF Albuterol (Ventolin Hfa Inhaler) 1 puffs Q6H PRN INH 11/09/17 19:15 12/09/17 19:14 11/19/17 14:22 1 PUFFS Methylprednisolone Sodium Succinate 60 mg/Syringe 0.96 ml @ 1.5 mls/min TID IV 11/09/17 21:00 11/12/17 16:58 DC 11/12/17 13:17 1.5 MLS/MIN Doxycycline Hyclate (Vibramycin Cap) 100 mg BID PO 11/09/17 21:00 11/11/17 07:31 DC 11/10/17 21:39 100 MG Albuterol/ Ipratropium (Duoneb) 3 ml QIDR INH 11/09/17 20:00 12/09/17 19:59 11/20/17 15:22 3 ML Miscellaneous Information (Patient'S Height And/Or Weight Needed) 1 ea Q2H N/A 11/09/17 20:00 11/10/17 07:48 DC 11/10/17 07:03 1 EA Docusate Sodium (coLACE CAP) 100 mg BID PO 11/12/17 21:00 11/19/17 07:52 DC 11/18/17 20:13 100 MG Docusate Sodium (coLACE CAP) 100 mg 1143 ONCE PO 11/12/17 11:43 11/12/17 11:51 DC 11/12/17 13:17 100 MG Methylprednisolone Sodium Succinate 40 mg/Syringe 0.64 ml @ 1.5 mls/min Q6H IV 11/12/17 18:00 11/14/17 13:16 DC 11/14/17 12:38 1.5 MLS/MIN Docusate Sodium (coLACE CAP) 100 mg NOW ONCE PO 11/13/17 11:00 11/13/17 11:16 DC 11/13/17 11:41 100 MG Prednisone (PredniSONE TAB) 40 mg BID PO 11/14/17 20:00 11/19/17 15:48 DC 11/19/17 07:51 40 MG Docusate Sodium (coLACE CAP) 100 mg HS PO 11/19/17 21:00 12/19/17 20:59 11/19/17 21:29 100 MG Docusate Sodium (coLACE CAP) 200 mg QAM PO 11/19/17 08:00 12/19/17 07:59 11/20/17 07:55 200 MG Prednisone (PredniSONE TAB) 30 mg DAILY PO 11/20/17 08:00 12/20/17 07:59 11/20/17 07:55 30 MG Objective Vital Signs Date Time Temp Pulse Resp B/P (MAP) Pulse Ox O2 Delivery O2 Flow Rate FiO2 11/20/17 15:22 92 18 91 Nasal Cannula 2.5 11/20/17 15:21 36.7 96 18 118/73 (88) 98 Nasal Cannula 2.5 11/20/17 12:53 121 91 11/20/17 11:27 98 18 97 Nasal Cannula 2.5 11/20/17 08:00 98 Nasal Cannula 3.0 11/20/17 07:16 79 18 96 Nasal Cannula 3.0 11/20/17 06:30 36.7 85 18 125/77 (93) 100 Nasal Cannula 3.0 11/20/17 00:00 BiPAP 11/19/17 23:00 36.5 97 20 107/64 (78) 98 BiPAP 11/19/17 21:45 105 97 30 11/19/17 21:28 103 125/75 (92) 11/19/17 19:24 94 18 98 Nasal Cannula 3.0 11/19/17 17:07 Nasal Cannula 11/19/17 15:50 36.6 104 19 129/67 (87) 100 Physical Exam Notes: General: no distress Eyes: normal inspection, PERLL Respiratory: chest non tender, clear to auscultation, normal breath sounds, no respiratory distress, no accessory muscle use Cardiac: irregular rate and rhythm, no rub or gallop, no murmur, no edema, no jvd GI/: active bowel sounds, no abd pain or tenderness, soft, non distended Extremities: normal range of motion, normal strength, non tender Neuro/Psych: alert and oriented x 3, normal mood and affect Skin: normal color, dry Laboratory Results Last 24 Hours Test 11/19/17 20:10 Bedside Glucose 138 mg/dl Assessment and Plan Ms. 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 - 30 prednisone bid - will titrate down to 20 mg bid tomorrow, abx dc'd - Continue bipap hs, continue baseline 3L per protocol - nocturnal pulse ox completed, pulm recommending Trilogy for home - CT chest showed mild bronchiectasis but otherwise no acute changes - Palliative consult - Pulmonary consult - recommending pulm rehab Irregular heart rate - no history of A.fib - will obtain EKG Hypertension. - Continue lisinopril, diltiazem, furosemide - blood pressures well controlled Hyperglycemia. - Her last A1c was 5.4 less than a year ago. - continue to monitor, no ss necessary at this time Constipation - resolved - continue stool softners DNR Enoxaprin, SCDs Dispo - PT recommending rehab, HS denied, awaiting placement at [facility]
[2017-11-20] MEDS: MAGNESIUM HYDROXIDE SUSP 30 ML UDC PO PRN (18:17)
[2017-11-20] MEDS: DILTIAZEM HCL 120 MG CAPCR PO SCH (20:34)
[2017-11-20] MEDS: ATORVASTATIN 10 MG TAB PO SCH (20:34)
[2017-11-21] VITALS (8 sets, daily range): BP systolic 100–145; BP diastolic 60–82; PULSE 81–107; TEMP 36.3–36.8; O2SAT 91–100
[2017-11-21] MEDS: ALBUT/IPRATROP 3MG/0.5MG NEB 3 ML VIAL INH SCH ×3 (07:04→15:29)
[2017-11-21 07:53] LABS: HEMATOCRIT 34.5 % (37-47); HEMOGLOBIN 10.9 g/dL (12.0-16.0); MEAN CORPUSCULAR HGB CONC 31.6 g/dl (32-36); MEAN PLATELET VOLUME 9.1 fL (7.4-10.4); PLATELET COUNT 175 K/uL (130-400); RED CELL DISTRIBUTION WIDTH CV 13.8 % (11.5-14.5); RED CELL DISTRIBUTION WIDTH SD 47.8 fL (36.4-46.3); WHITE BLOOD COUNT 6.11 K/uL (4.8-10.8)
[2017-11-21] MEDS: CYANOCOBALAMIN 500 MCG TAB (VIT B-12) PO SCH (08:15)
[2017-11-21] MEDS: CHOLECALCIFEROL 1000 INTER.UNIT TAB PO SCH (08:15)
[2017-11-21] MEDS: DOCUSATE SODIUM 100 MG CAP PO SCH (08:15)
[2017-11-21] MEDS: ENOXAPARIN 40 MG/0.4 ML SYR SQ SCH (08:16)
[2017-11-21] MEDS: PANTOprazole SOD 40 MG TAB PO SCH (08:16)
[2017-11-21] MEDS: LISINOPRIL 20 MG TAB PO SCH (08:16)
[2017-11-21 08:18] LABS: CREATININE 0.63 mg/dl (0.60-1.20)
[2017-11-21] MEDS ORDERED: PRD10 PO (15:17)
--- NOTE | 2017-11-21 15:26 | Discharge Instructions ---
Discharge Instructions Date of Service Nov 21, 2017. Admission Reason for Admission: Copd (Chronic Obstructive Pulmonary Disease) Discharge Discharge Diagnosis / Problem: copd Discharge Goals Goal(s): Improve disease control Activity Recommendations Activity Level: Up Ad Aymilet Therapies: Physical Therapy, Occupational Therapy . Additional Information Patient informed of condition: Yes Advance Directives: No DNR: Yes Level of Care: Acute Rehab Communicable Disease: No Prognosis: Stable Oxygen at (LPM): 3L [place] Coreas Catheter: No Current Hospital Diet Patient's current hospital diet: Regular Diet Discharge Diet Recommended Diet: Regular Diet Procedures Procedures Performed: Chest X ray Chest CT Pending Studies Studies pending at discharge: no Physician Orders On Transfer POLST Discussion: with POLST completion Laboratory Results 11/21/17 07:21 11/18/17 07:19 11/21/17 07:21 Test 11/09/17 16:04 11/09/17 16:11 11/09/17 16:13 11/09/17 18:13 Prothrombin Time 10.4 SECONDS (9.0-12.0) Prothromb Time International Ratio 1.0 (0.9-1.1) Activated Partial Thromboplast Time 24.5 SECONDS (21.0-31.0) Partial Thromboplastin Ratio 0.9 Total Bilirubin 0.5 mg/dl (0.2-1) Direct Bilirubin 0.2 mg/dl (0-0.2) Aspartate Amino Transf (AST/SGOT) 24 U/L (15-37) Alanine Aminotransferase (ALT/SGPT) 20 U/L (12-78) Alkaline Phosphatase 68 U/L (45-117) Total Creatine Kinase 130 U/L (26-192) Creatine Kinase MB 6.7 ng/ml (0.5-3.6) Creatine Kinase MB Ratio 5.2 (0-3.0) Total Protein 6.8 gm/dl (6.4-8.2) Albumin 3.5 gm/dl (3.4-5.0) Lipase 185 U/L (73-393) Bedside Troponin I < 0.030 ng/ml (0-0.045) Urine Color YELLOW Urine Appearance CLEAR (CLEAR) Urine pH 5.0 (4.5-7.5) Urine Specific [place] 1.017 (1.000-1.030) Urine Protein NEG (NEG) Urine Glucose (UA) NEG (NEG) Urine Ketones TRACE (NEG) Urine Occult Blood NEG (NEG) Urine Nitrite NEG (NEG) Urine Bilirubin NEG (NEG) Urine Urobilinogen NEG (NEG) Urine Leukocyte Esterase NEG (NEG) Venous Blood pH 7.22 (7.36-7.41) Venous Blood Partial Pressure CO2 112 mmHg (38.0-50.0) Venous Blood Partial Pressure O2 44 mmHg Venous Blood HCO3 45 mmol/L Venous Blood Oxygen Saturation 71.7 % Venous Blood Base Excess 13.1 mEq/L Test 11/11/17 07:21 11/11/17 10:24 11/13/17 07:14 11/18/17 07:19 Immature Granulocyte % (Auto) 0.2 % White Blood Count 5.59 K/uL (4.8-10.8) Red Blood Count 3.40 M/uL (4.2-5.4) Hemoglobin 10.2 g/dL (12.0-16.0) Hematocrit 31.9 % (37-47) Mean Corpuscular Volume 93.8 fL (80-100) Mean Corpuscular Hemoglobin 30.0 pg (25-34) Mean Corpuscular Hemoglobin Concent 32.0 g/dl (32-36) Platelet Count 173 K/uL (130-400) Mean Platelet Volume 9.7 fL (7.4-10.4) Neutrophils (%) (Auto) 85.7 % Lymphocytes (%) (Auto) 7.3 % Monocytes (%) (Auto) 6.6 % Eosinophils (%) (Auto) 0.0 % Basophils (%) (Auto) 0.2 % Neutrophils # (Auto) 4.79 K/uL (1.4-6.5) Lymphocytes # (Auto) 0.41 K/uL (1.2-3.4) Monocytes # (Auto) 0.37 K/uL (0.11-0.59) Eosinophils # (Auto) 0.00 K/uL (0-0.5) Basophils # (Auto) 0.01 K/uL (0-0.2) Immature Granulocyte # (Auto) 0.01 K/uL (0.00-0.02) Arterial Blood pH 7.42 (7.35-7.45) Arterial Blood Partial Pressure CO2 68 mmHg (35-46) Arterial Blood Partial Pressure O2 101 mm/Hg (80-95) Arterial Blood HCO3 44 mmol/L (19-24) Arterial Blood Oxygen Saturation 97.2 % (90-95) Arterial Blood Base Excess 16.7 mEq/L (-9-1.8) Arterial Blood Gas Delivery 3L [place] Test POS (POS) Phosphorus Level 2.8 mg/dl (2.5-4.9) Magnesium Level 1.9 mg/dl (1.8-2.4) Procalcitonin < 0.05 ng/ml (0-0.5) Acetylcholine Recept Modulating Ab 2 Anion Gap 1.0 mmol/L (3-11) BUN/Creatinine Ratio 36.3 (10-20) Calcium Level 8.8 mg/dl (8.5-10.1) Test 11/19/17 20:10 11/21/17 07:21 Bedside Glucose 138 mg/dl (70-90) Red Blood Count 3.63 M/uL (4.2-5.4) Mean Corpuscular Volume 95.0 fL (80-100) Mean Corpuscular Hemoglobin 30.0 pg (25-34) Mean Corpuscular Hemoglobin Concent 31.6 g/dl (32-36) RDW Standard Deviation 47.8 fL (36.4-46.3) RDW Coefficient of Variation 13.8 % (11.5-14.5) Mean Platelet Volume 9.1 fL (7.4-10.4) Est Creatinine Clear Calc Drug Dose 66.7 ml/min Estimated GFR () 101.7 Estimated GFR (Non- 87.7 Date/Time Source Procedure Growth Status 11/09/17 16:13 Urine , Clean Catch Urine Culture - Final MORE THAN THREE TYPES OF ORGANISMS MT... Complete Medical Emergencies . Who to Call and When: Medical Emergencies: If at any time you feel your situation is an emergency, please call 911 immediately. . Non-Emergent Contact Non-Emergency issues call your: Primary Care Provider Call Non-Emergent contact if: you have a fever, you have any medication questions . . "Provider Documentation" section prepared by Melisa Viveros. . Core Measure Problem Core Measures: None
--- NOTE | 2017-11-21 15:37 | Discharge Summary ---
Discharge Summary Date of Service Nov 21, 2017. Discharge Summary Admission Date: Nov 09, 2017 at 19:09 Discharge Date: Nov 21, 2017 Discharge Disposition: Rehab Principal Diagnosis: COPD Exacerbation Problems/Secondary Diagnoses: Irregular heart rate, Hypertension, Hyperglycemia, Constipation Procedures: (CHEST) THORAX WITHOUT CT DOSE: 286.55 mGy.cm CLINICAL HISTORY: 77 years-old Female with high resolution ct , eval for ILD. Chronic shortness of breath. TECHNIQUE: Multiaxial CT images of the chest were performed without contrast. A dose lowering technique was utilized adhering to the principles of ALARA. COMPARISON: Chest radiograph 11/09/2017, CTA of the chest 03/26/2017 and 03/08/2017. FINDINGS: Heterogeneous thyroid with a millimeter right thyroid nodule. Evaluation for adenopathy is limited without the use of IV contrast. No pathologically enlarged lymph nodes by CT size criteria. Heart is normal in size with trace pericardial effusion. Coronary arterial disease. No thoracic aortic aneurysm identified. No pneumothorax, pleural effusion, focal airspace consolidation or overt pulmonary edema. There is mild bronchiectasis without honeycombing or subpleural reticulation to suggest interstitial lung disease. Mild biapical pleural-parenchymal scarring. Mild tree-in-bud subsegmental nodularity of the right lower lobe as seen on images 147 and 160 of series 4 for example compatible with areas of infectious bronchiolitis. There are scattered solid pulmonary nodules of the bilateral lungs redemonstrated measuring up to 4 mm within the inferior segment lingula and 5 mm within the apical segment right upper lobe which are unchanged dating back to 03/08/2017 no new or progressively enlarged pulmonary nodules are identified. Central airways are patent. No acute process of the imaged upper abdomen. Mild subcutaneous body wall edema. Degenerative changes are seen about the shoulders and spine. The bones appear mildly demineralized. Mild levoscoliosis of the thoracic spine. IMPRESSION: 1. No acute intrathoracic abnormality identified. 2. Mild bilateral bronchiectasis without evidence of significant honeycombing or subpleural reticulation to suggest associated interstitial lung disease. 3. Subsegmental tree-in-bud nodularity of the right lower lobe compatible with infectious bronchiolitis. 4. Scattered unchanged pulmonary nodules throughout the bilateral lungs appear stable dating back to 03/08/2017 study measuring up to 5 mm. No new or progressively enlarged pulmonary nodules are identified. Electronically signed by: Ronald Rahman M.D. 11/12/2017 5:43 PM CHEST ONE VIEW PORTABLE HISTORY: Atypical CHEST PAIN COMPARISON: Chest 10/23/2017. FINDINGS: The patient's chin overlaps the right lung apex. No definite pneumothorax. Small linear scarlike density within the right midlung zone. Otherwise, the lungs are clear. The heart is normal in size. No pleural effusions. No pneumothorax. IMPRESSION: No acute process. Electronically signed by: Kulwinder Garcia M.D. 11/09/2017 4:01 PM Consultations: Dr. Webb from pulmonology Dr. Newton from palliative care Medication Reconciliation New Medications: Prednisone (Prednisone) 10 Mg Tab 30 MG PO DAILY for 9 Days, #18 TAB 30 mg x 3 days 20 mg x 3 days 10 mg x 3 days Continued Medications: Albuterol Sulfate (Proair Respiclick) 108 Mcg/Act Aer 1 PUFF INH Q6H PRN for Shortness of Breath Atorvastatin (Lipitor) 10 Mg Tab 10 MG PO HS, TAB Azelastine Hcl (Astelin Nasal [place]) 200 Sprays/30 Ml [place] 1 SPRAYS NA BID PRN for USE IN AFFECTED NOSTRIL, BTL Cholecalciferol (Vitamin D3) 1,000 Unit Tab 1000 INTER.UNIT PO QAM, TAB Cyanocobalamin (Vitamin B-12) 1,000 Mcg Tab 1000 MCG PO QAM, TAB Diltiazem Hcl Coated Beads (Cartia Xt) 120 Mg Cap 120 MG PO QPM Fluticasone Propionate (Nasal) (Flonase Allergy Relief) 50 Mcg/Act Spr 1 SPRAY NINO BID Furosemide (Lasix) 20 Mg Tab 20 MG PO DAILY PRN for Swelling of Feet, TAB Home O2 Therapy (Oxygen) Gas 2 LITERS NA CONTINOUS, BTL Ipratropium-Albuterol (Duoneb) 3 Ml Nebu 1 TREATMENT INH QID, INHA Lisinopril (Zestril) 20 Mg Tab 20 MG PO, TAB Metoprolol Succinate (Toprol Xl) 25 Mg Tabcr 25 MG PO DAILY, #30 TAB Pantoprazole (Protonix) 40 Mg Tab 40 MG PO BID, TAB Tiotropium [place] (Spiriva Handihaler) 30 Puff/540 Mcg Aerp 1 CAP INH QAM, INHALER Discontinued Medications: Potassium Ext Rel (Klor-Con) 20 Meq Tabcr 20 MEQ PO DAILY, TAB Discharge Exam ROS Constitutional: no chills, aches, sweats or fever Respiratory: + sob, no cough, sputum, or wheezing Cardiac: no chest pain, palpitations, edema, orthopnea or lightheadedness GI: no abdominal pain, nausea, vomiting, diarrhea or constipation : no dysuria or hesitancy Extremities: no joint pain or weakness Skin: no rash All other systems reviewed and negative General: no distress Eyes: normal inspection, PERLL Respiratory: chest non tender, clear to auscultation, diminished breath sounds , no respiratory distress, no accessory muscle use Cardiac: regular rate and rhythm, no rub or gallop, no murmur, no edema, no jvd GI/: active bowel sounds, no abd pain or tenderness, soft, non distended Extremities: normal range of motion, normal strength, non tender Neuro/Psych: alert and oriented x 3, normal mood and affect Skin: normal color, dry Hospital Course Ms. Reza is a 77 year old woman here with acute on chronic hypercapnic respiratory failure due to severe COPD. Acute on chronic hypercapnic respiratory failure secondary to severe COPD - Outpatient PFTs shows that she has severe if not end-stage chronic obstructive pulmonary disease. - 30 prednisone bid - will titrate down with slow abx taper for discharge, abx dc'd - Continue bipap hs, continue baseline 3L per protocol - nocturnal pulse ox completed, pulm recommending Trilogy for home - this has been set up through - CT chest showed mild bronchiectasis but otherwise no acute changes - Palliative consult - patient is DNR but not ready for hospice yet - Pulmonary consult - recommending pulm rehab Irregular heart rate - no history of A.fib - EKG just showing PACs and NSR Hypertension. - Continue lisinopril, diltiazem, furosemide - blood pressures well controlled Hyperglycemia. - Her last A1c was 5.4 less than a year ago. - no ss necessary at this time Constipation - resolved - continue stool softners Total Time Spent: Greater than 30 minutes This includes examination of the patient, discharge planning, medication reconciliation, and communication with other providers. Discharge Instructions Please refer to the electronic Patient Visit Report (Discharge Instructions) for additional information. Follow-Up Pulmonology in 1-2 weeks Pulmonary rehab Additional Copies To [facility]
== END 2017-11-21 16:30 | DRG 189 ==
LOC: C.EDB 15:24 → C.MS2W 19:09 → ENRESERV 19:48 → C.2T 11-10 14:19 → ENRESERV 11-13 13:56 → C.4E 11-13 14:53
PROVIDERS: ADMIT Family Medicine; ATTEND Internal Medicine Sports Medicine
DX: J96.22 Acute and chronic respiratory failure with hypercapnia (principal); J44.1 Chronic obstructive pulmonary disease with (acute) exacerbation; I10 Essential (primary) hypertension; Z88.8 Allergy status to other drugs, medicaments and biological substances; F41.9 Anxiety disorder, unspecified; K21.0 Gastro-esophageal reflux disease with esophagitis; R73.9 Hyperglycemia, unspecified; I49.9 Cardiac arrhythmia, unspecified; K59.00 Constipation, unspecified; E78.5 Hyperlipidemia, unspecified; Z87.891 Personal history of nicotine dependence; E86.0 Dehydration; Z99.81 Dependence on supplemental oxygen; Z66 Do not resuscitate

== ENCOUNTER → 2017-11-26 | Outpatient (CLI) | payer BC ==
[~2017-11-26] MED LIST changes: +ASTN; +IPRASOL4 INH; +METO25TA4 PO; +PRD10 PO
[2017-11-26 08:55] LABS: HEMATOCRIT 32.4 % (37-47); HEMOGLOBIN 10.1 g/dL (12.0-16.0); MEAN CELL VOLUME 96.1 fL (80-100); MEAN CORPUSCULAR HGB CONC 31.2 g/dl (32-36); MEAN PLATELET VOLUME 9.2 fL (7.4-10.4); PLATELET COUNT 178 K/uL (130-400); RED CELL DISTRIBUTION WIDTH CV 14.3 % (11.5-14.5); RED CELL DISTRIBUTION WIDTH SD 50.5 fL (36.4-46.3); WHITE BLOOD COUNT 6.06 K/uL (4.8-10.8)
[2017-11-26 09:04] LABS: BLOOD UREA NITROGEN 11 mg/dl (7-18); CALCIUM 8.7 mg/dl (8.5-10.1); CARBON DIOXIDE 40 mmol/L (21-32); CREATININE 0.59 mg/dl (0.60-1.20); GLUCOSE 81 mg/dl (70-99); POTASSIUM 4.1 mmol/L (3.5-5.1); SODIUM 139 mmol/L (136-145)
== END | disposition home or self-care (01) ==
LOC: C.LABCC 08:19
PROVIDERS: ATTEND Internal Medicine
DX: D64.9 Anemia, unspecified (principal); E87.1 Hypo-osmolality and hyponatremia

== ENCOUNTER → 2017-11-29 | Outpatient (CLI) | payer BC ==
[2017-11-29 08:24] LABS: ALBUMIN 3.4 gm/dl (3.4-5.0); ALT/SGPT 48 U/L (12-78); AST/SGOT 19 U/L (15-37); BLOOD UREA NITROGEN 16 mg/dl (7-18); CARBON DIOXIDE 44 mmol/L (21-32); CREATININE 0.93 mg/dl (0.60-1.20); GLUCOSE 84 mg/dl (70-99); POTASSIUM 4.4 mmol/L (3.5-5.1); SODIUM 131 mmol/L (136-145)
[2017-11-29 08:35] LABS: ALKALINE PHOSPHATASE 64 U/L (45-117); TOTAL PROTEIN 6.1 gm/dl (6.4-8.2)
== END ==
LOC: C.LABCC 07:52
PROVIDERS: ATTEND Internal Medicine
DX: R60.9 Edema, unspecified (principal)

== ENCOUNTER → 2017-12-11 | Outpatient (CLI) | payer BC ==
[2017-12-11 18:45] LABS: BLOOD UREA NITROGEN 25 mg/dl (7-18); CALCIUM 8.7 mg/dl (8.5-10.1); CARBON DIOXIDE 43 mmol/L (21-32); GLUCOSE 94 mg/dl (70-99); POTASSIUM 3.1 mmol/L (3.5-5.1); SODIUM 137 mmol/L (136-145)
== END ==
LOC: C.LABCC 17:13
PROVIDERS: ATTEND Internal Medicine
DX: E03.9 Hypothyroidism, unspecified (principal); E87.1 Hypo-osmolality and hyponatremia

== ENCOUNTER 2018-09-22 11:19 | Inpatient (IN) ==
[2018-09-22] MEDS ORDERED: ALBUT/IPRATROP 3MG/0.5MG NEB 3 ML VIAL INH STA (12:05)
[2018-09-22] MEDS ORDERED: methylPREDNISolone 125 MG/2 ML VIAL IV STA (12:05)
[2018-09-22 12:12] LABS: Basophils # (auto) 0.03 K/uL (0-0.2); Basophils % (auto) 0.4 %; Eosinophils % (auto) 1.4 %; Hemoglobin 12.1 g/dL (12.0-16.0); Immature Granulocytes # (auto) 0.01 K/uL (0.00-0.02); Immature Granulocytes % (auto) 0.1 %; Lymphocytes # (auto) 0.63 K/uL (1.2-3.4); Lymphocytes % (auto) 9.1 %; Mean Corpuscular Volume 93.5 fL (80-100); Mean Platelet Volume 9.3 fL (7.4-10.4); Monocytes # (auto) 0.45 K/uL (0.11-0.59); Monocytes % (auto) 6.5 %; Neutrophils # (auto) 5.74 K/uL (1.4-6.5); Neutrophils % (auto) 82.5 %; Platelet Count 184 K/uL (130-400); RDW Coefficient of Variation 14.5 % (11.5-14.5); RDW Standard Deviation 49.4 fL (36.4-46.3); Red Blood Count 4.17 M/uL (4.2-5.4); White Blood Count 6.96 K/uL (4.8-10.8)
[2018-09-22 12:23] LABS: Partial Thromboplastin Ratio 0.9; Partial Thromboplastin Time 25.6 Seconds (21.0-31.0)
[2018-09-22 12:25] LABS: Alanine Aminotransferase 17 U/L (12-78); Albumin Level 3.6 gm/dl (3.4-5.0); Alkaline Phosphatase 90 U/L (45-117); Aspartate Aminotransferase 12 U/L (15-37); Blood Urea Nitrogen 18 mg/dl (7-18); Calcium 9.6 mg/dl (8.5-10.1); Carbon Dioxide 37 mmol/L (21-32); Chloride 92 mmol/L (98-107); Creatinine Clr Calc Pharmacy 70.7 ml/min; Est GFR (Non-African American) 90.6; Globulin 3.6 gm/dl (2.5-4.0); Glucose 98 mg/dl (70-99); Magnesium 1.9 mg/dl (1.8-2.4); Potassium 4.7 mmol/L (3.5-5.1); Sodium 135 mmol/L (136-145); Total Protein 7.2 gm/dl (6.4-8.2); Troponin I < 0.015 ng/ml (0-0.045)
--- NOTE | 2018-09-22 12:51 | XRay Report ---
XR chest 1V portable CLINICAL HISTORY: 78 years-old Female presenting with Dyspnea. TECHNIQUE: Portable upright AP view of the chest was obtained. COMPARISON: 08/30/2018. FINDINGS: The patient is slightly SAMOAN rotated. Atherosclerosis of the aortic arch. Cardiac silhouette normal in size. Lungs are mildly hyperinflated. Exaggerated thoracic kyphosis suggested. Bandlike opacities in the right mid lung unchanged. Small apical predominant right pneumothorax with a pleural separation of 17 mm. Degenerative changes of the thoracic spine. Osteopenia may be present. Upper abdomen normal . IMPRESSION: 1. Small right apical pneumothorax. The report will be called/faxed according to standard departmental protocol. Electronically signed by: Júnior Arboleda M.D. 09/22/2018 12:50 PM
[2018-09-22 12:53] LABS: Bilirubin,Total 0.6 mg/dl (0.2-1)
[2018-09-22 13:33] LABS: Oxygen Saturation VBG 95.2 %; pH VBG 7.08 (7.36-7.41)
--- NOTE | 2018-09-22 13:34 | XRay Report ---
XR chest 1V portable CLINICAL HISTORY: 78 years-old Female presenting with acute change in breathing, CP, pneumo seen on [address] . TECHNIQUE: Portable upright AP view of the chest was obtained. COMPARISON: 09/22/2018 at 12:20 PM. FINDINGS: Cardiomediastinal silhouette normal. Redemonstration of the small right apical pneumothorax with a pl eural separation of 17 mm, unchanged. No focal lung opacity. Trace right pleural effusion may be pres ent. Degenerative changes of the thoracic spine. Degenerative changes of the glenohumeral joints. IMPRESSION: 1. Unchanged size of the small right apical pneumothorax. 2. Possible trace right pleural effusion. Electronically signed by: Júnior Arboleda M.D. 09/22/2018 1:33 PM
[2018-09-22 14:22] LABS: Appearance Urine Clear (Clear); Bilirubin Urine Negative (Negative); Blood Urine Negative (Negative); Color Urine Yellow; Glucose Urine UA Negative (Negative); Ketones Urine Negative (Negative); Leukocyte Esterase Urine Negative (Negative); Nitrite Urine Negative (Negative); Protein Urine Negative (Negative); Specific Gravity Urine 1.014 (1.000-1.030); Urobilinogen Urine Negative (Negative)
--- NOTE | 2018-09-22 14:29 | History & Physical Report ---
Date of Service September 22, 2018 Assessment & Plan (1) Acute hypercapnic respiratory failure: CO2 severely elevated at 152, pH is 7.08 will use BIPAP continuously repeat ABG at 1600 to see if she is improving some concerns that her condition will not improve without intubation which the patient does not want for now the goal would be to improve condition to point where patient is alert will then discuss hospice (2) Chronic hypercapnic respiratory failure: long history of CO2 retention she was prescribed Trilogy at night and recommended use during the day fear that she would need it almost 24 hours a day to prevent acute failure the patient has told family that she does not want to wear it no quality of life consult palliative care, discuss goals of care, hospice etc. (3) Spontaneous pneumothorax: almost exact same presentation as last time which resolved likely due to small bleb that popped patient would not want chest tube treat conservatively, repeat CXR in the morning would repeat CXR if she gets worse clinically (4) COPD exacerbation: greatly diminished breath sounds, no wheezing Solu Medrol 60 q12 hold on nebulizers as patient cannot come off the bipap (5) Respiratory failure: respiratory distress on arrival, tripod position actually tired out and became unresponsive, nearly stopped breathing prior to BIPAP being placed (6) Metabolic encephalopathy: due to elevated CO2 45 minutes spent on admission, discussions with ICU staff, ED physician, family at the bedside History of Present Illness Chief Complaint: non-responsive, was having difficult time breathing Primary Care Provider: Marcello Calle MD 78 yo female with history of COPD and chronic ventilatory failure, presented to the ED complaining of severe shortness of breath for two days at home. She has a history of respiratory acidosis, four weeks ago she was admitted to [facility] with a CO2 of 135. At that time she had a small right sided apical pneumothorax and she was treated with BIPAP. CO2 gradually improved and she was stable enough for discharge. She went home on Trilogy, instructed to use everynight all night and during the day as needed. She was sent on Prednisone taper. Per her family at the bedside, she did well for three weeks. She was using the Trilogy every night and during the day at times. There was an issue early last week where she ran out of [employer] for her nebulizer, she was out for two days, got a new script on 09/19. On Wednesday 09/20 she started to have increased shortness of breath all day long. No fever, no cough. She had some sinus congestion and rhinorrhea but this was typical for her according to the family. Her shortness of breath got worse despite using her Trilogy so she was brought to the ED today. According to the ED physician, she was in respiratory distress on arrival, she was in tripod position, nares flared. She improved a little bit after nebulizer and Solu Medrol. CXR showed a right sided apical pneumothorax. She then got fatigued and her respiratory rate decreased dramatically, she desaturated, HR went into the 130's and she became completely unresponsive. Placed on BIPAP and ABG obtained shortly after. Her CO2 was 152 and pH was 7.08, PaO2 normal at 105 and HCO3 44. Discussed the case with Dr. Webb in the ICU, without intubation and ventilation we are unsure if CO2 will improve. She does not want intubated, she is DNR according to family. We will admit to medical floor on continuous BIPAP and look for improvement. Family agrees that she needs to be transitioned to hospice if she pulls through, need to have a plan for when she decompensates again. Allergies Allergy/AdvReac Type Severity Reaction Status Date / Time cetirizine Allergy Unknown RASH Verified 09/22/18 11:48 simvastatin Allergy Unknown ABDOMINAL Verified 09/22/18 11:48 CRAMPS morphine AdvReac Unconscious Unverified 09/22/18 11:48 Home Medications Home Medications Medication Instructions Recorded Confirmed Type albuterol sulfate [ProAir 1 puff INHALATION Q6H PRN 05/12/18 09/22/18 History RespiClick] atorvastatin 10 mg PO DAILY 05/12/18 09/22/18 History escitalopram oxalate 10 mg PO DAILY 05/12/18 09/22/18 History fluticasone 1 spray INTRANASAL BID 05/12/18 09/22/18 History furosemide 20 mg PO BID PRN 05/12/18 09/22/18 History ipratropium-albuterol 3 ml INHALATION QID 05/12/18 09/22/18 History pantoprazole 40 mg PO BID 05/12/18 09/22/18 History metoprolol succinate 25 mg PO QAM 05/16/18 09/22/18 History lorazepam 0.5 mg PO DAILY PRN 08/26/18 09/22/18 History arformoterol [Brovana] 1 ml INHALATION DAILY 09/22/18 09/22/18 History azelastine 1 spray INTRANASAL BID PRN 09/22/18 09/22/18 History cholecalciferol (vitamin D3) 1,000 unit PO DAILY 09/22/18 09/22/18 History [Vitamin D3] cyanocobalamin (vitamin B-12) 1,000 mcg PO DAILY 09/22/18 09/22/18 History [Vitamin B-12] potassium chloride 20 meq PO BID 09/22/18 09/22/18 History Past Med/Surg History Medical History Hypertension (Chronic) COPD (chronic obstructive pulmonary disease) (Chronic) FEV1=25 in December 2017. Oxygen dependent - 2L during the day, BiPAP qHS Hypoxemia (Acute) History of hysterectomy On home oxygen therapy Surgical History S/P hysterectomy Family History Other Breast cancer Social History Current Living Situation: Alone Current Living Situation Comment: Unable to obtain Feels Safe at Home: Yes Smoking Status: Never smoker Hx Alcohol Use: No Hx Substance Use: No Beliefs That Will Affect Care: None Preferred Language: Belarusian Review of Systems Unobtainable due to cognitive status Physical Exam 2 Vital Signs (Past 24 Hours): Last Vital Signs Temp 36.7 C 09/22/18 11:20 Pulse 89 09/22/18 12:18 Resp 19 09/22/18 12:18 BP 123/97 09/22/18 11:20 Pulse Ox 90 09/22/18 12:18 Constitutional: WD/WN, vitals as above + thin Eyes: PERRL, conjunctivae normal, anicteric sclerae ENMT: external ear and nose normal, oropharynx normal Neck: trachea midline, no thyromegaly Respiratory: + labored breathing and + uses accessory muscles; no respiratory distress (on BIPAP) Auscultation: + diminished lung sounds (greatly reduces) ; no rales and no wheezes Cardiovascular: Rate/Rhythm: regular rhythm and + tachycardic Heart Sounds : normal S1 and normal S2; no murmur Vessels: normal peripheral pulses; no JVD Extremities: no edema Gastrointestinal (Abdomen): normal bowel sounds, soft, nontender, no hepatosplenomegaly Musculoskeletal: no cyanosis or clubbing, extremities motor strength 5/5 Skin: no rashes, warm and dry Neurologic: patellar DTR's 2+ bilat, sensation intact and PERRL, EOMI, accommodation nl, no face palsy, no dysarthria Psychiatric: Orientation: + not alert (lethargic, unresponsive), + not oriented to person, + not oriented to place and + not oriented to time Lymphatic: no cervical or axillary lymphadenopathy Results & Data Laboratory Results Laboratory Results - last 24 hr 09/22/18 09/22/18 09/22/18 11:00 11:00 11:00 WBC 6.96 RBC 4.17 L Hgb 12.1 Hct 39.0 MCV 93.5 MCH 29.0 MCHC 31.0 L RDW Std Deviation 49.4 H RDW Coeff of Tonya 14.5 Plt Count 184 MPV 9.3 Immature Gran % (Auto) 0.1 Neut % (Auto) 82.5 Lymph % (Auto) 9.1 [place] % (Auto) 6.5 Eos % (Auto) 1.4 Baso % (Auto) 0.4 Immature Gran # (Auto) 0.01 Neut # (Auto) 5.74 Lymph # (Auto) 0.63 L [place] # (Auto) 0.45 Eos # (Auto) 0.10 Baso # (Auto) 0.03 PT 10.0 INR 1.0 APTT 25.6 PTT Ratio 0.9 VBG pH VBG pCO2 VBG pO2 VBG HCO3 VBG O2 Saturation VBG Base Excess Barometric Pressure Sodium 135 L Potassium 4.7 Chloride 92 L Carbon Dioxide 37 H Anion Gap 2.0 L BUN 18 Creatinine 0.56 L Est Cr Clr Drug Dosing 70.7 Est GFR ( Amer) 105.0 Est GFR (Non-Af Amer) 90.6 BUN/Creatinine Ratio 33.0 H Glucose 98 POC Lactic Acid [place] Calcium 9.6 Magnesium 1.9 Total Bilirubin 0.6 AST 12 L ALT 17 Alkaline Phosphatase 90 Troponin I < 0.015 Total Protein 7.2 Albumin 3.6 Globulin 3.6 Albumin/Globulin Ratio 1.0 Urine Color Urine Appearance Urine pH Ur Specific [place] Urine Protein Urine Glucose (UA) Urine Ketones Urine Blood Urine Nitrite Urine Bilirubin Urine Urobilinogen Ur Leukocyte Esterase 09/22/18 09/22/18 09/22/18 13:01 13:19 13:40 WBC RBC Hgb Hct MCV MCH MCHC RDW Std Deviation RDW Coeff of Tonya Plt Count MPV Immature Gran % (Auto) Neut % (Auto) Lymph % (Auto) [place] % (Auto) Eos % (Auto) Baso % (Auto) Immature Gran # (Auto) Neut # (Auto) Lymph # (Auto) [place] # (Auto) Eos # (Auto) Baso # (Auto) PT INR APTT PTT Ratio VBG pH 7.08 L VBG pCO2 152 H VBG pO2 105 VBG HCO3 44 VBG O2 Saturation 95.2 VBG Base Excess 9.0 Barometric Pressure 715.8 Sodium Potassium Chloride Carbon Dioxide Anion Gap BUN Creatinine Est Cr Clr Drug Dosing Est GFR ( Amer) Est GFR (Non-Af Amer) BUN/Creatinine Ratio Glucose POC Lactic Acid [place] 0.51 L Calcium Magnesium Total Bilirubin AST ALT Alkaline Phosphatase Troponin I Total Protein Albumin Globulin Albumin/Globulin Ratio Urine Color Yellow Urine Appearance Clear Urine pH 5.0 Ur Specific [place] 1.014 Urine Protein Negative Urine Glucose (UA) Negative Urine Ketones Negative Urine Blood Negative Urine Nitrite Negative Urine Bilirubin Negative Urine Urobilinogen Negative Ur Leukocyte Esterase Negative Diagnostic Findings CHEST XRAY IMPRESSION: 1. Unchanged size of the small right apical pneumothorax. 2. Possible trace right pleural effusion. Code Status & VTE Plan Code Status DNR, DNI VTE Prophylaxis Plan VTE Prophylaxis will be ordered: Yes _ (1) Respiratory failure Chronicity: acute Respiratory failure complication:
[2018-09-22] MEDS ORDERED: ONDANSETRON INJ 2 MG/ML 2 ML VIAL IV PRN (16:53)
[2018-09-22 17:16] LABS: HCO3 ABG 42 mmol/L (19-24); PCO2 ABG 126 mmHg (35-46); PO2 ABG 41 mm/Hg (80-95)
[2018-09-22 17:17] LABS: Allen Test Pos (Pos)
--- NOTE | 2018-09-22 17:18 | Emergency Department Note ---
Entered by Alyce Landaverde acting as a scribe for ED Provider Note CHIEF COMPLAINT: Shortness of breath HISTORY OF PRESENT ILLNESS: The patient is a 78 year old female who presents to the Emergency Room with complaints of worsening shortness of breath that started 4 days ago. The patient notes she called he ambulance and was given breathing treatments and steroids. She reports those did not help with her shortness of breath. The patient states she has been using a nebulizer at home. She reports she has been admitted in the hospital a few times before for shortness of breath. The patient states she uses 2 liters of oxygen at home. She notes she has nonproductive cough that is not new. The patient states she has chills. Pt denies LOC, headache, fevers, diaphoresis, visual changes, neck pain, chest pain, nausea, vomiting, abdominal pain, back pain, melena, hematochezia, urinary symptoms, numbness, weakness, lymphadenopathy, rash, or other complaints. REVIEW OF SYSTEMS: See HPI for pertinent positives and negatives. A total of ten systems were reviewed and were otherwise negative. PMHx/PSHx: Left sided chest pain Hyperlipidemia Spontaneous pneumothorax SOCIAL HISTORY: Patient lives at home. PHYSICAL EXAM: GENERAL: Awake, alert, dyspneic-appearing, in mild distress HENT: Normocephalic, atraumatic. Oropharynx unremarkable. EYES: Normal conjunctiva. Sclera non-icteric. NECK: Inspection normal. Non-tender. Supple. No nuchal rigidity. FROM. No masses. RESPIRATORY: Diminished lung bases bilaterally. Crackles on the right side. Pursed lipped breathing. No wheezes. No rales. Normal respiratory effort. CARDIAC: Normal rate. Normal rhythm. No murmurs. No rubs. Extremities warm and well perfused. Pulses equal. No JVD. GI: Soft, non-distended. No tenderness to palpation. No rebound or guarding. No masses. RECTAL: Deferred. MUSCULOSKELETAL: Atraumatic. Chest examination reveals no tenderness. The back is symmetrical on inspection without obvious abnormality. There is no CVA tenderness to palpation. No joint edema. Back is kyphotic LOWER EXTREMITIES: Calves are equal size bilaterally and non-tender. No edema. No discoloration. NEURO: Normal sensorium. No sensory or motor deficits noted. SKIN: No rash or jaundice noted. EMERGENCY DEPARTMENT COURSE: 1207: Past medical records reviewed. The patient was evaluated in room B2, and a complete history and physical examination were performed. 1317: I checked on the patient. The patient has severe chest pain and difficulty breathing. She became semi-unresponsive and was put on bypass. The patient has small apical pneumothorax on the right side. On reassessment, there was mild JVD but no tracheal deviation. The patient had poor air movement and appeared very fatigue. Bypass was initiated. I put a call out for Dr. Madrid, Internal Medicine. Repeat chest x-ray showed no significant change from the first. Subsequently, the patient was breathing much easier, vital signs stabilized, and oxygen saturation went up from 86% to 97%. Repeat EKG showed normal sinus with sinus arrhythmia at 90 beats per minute. No ST elevation, no ST depression, no PVCs or PACs. There is some respiratory motion present. 1410: I checked on the patient. MEDICAL DECISION MAKING: Prior records/ancillary studies reviewed. Triage Nursing notes reviewed and agree them. Additional history obtained from the family. The patient's history was concerning for shortness of breath. Differential diagnosis: Etiologies such as pneumonia, COPD, reactive airway disease, CHF, cardiac ischemia, pulmonary embolism, pneumothorax, musculoskeletal, infections, gastrointestinal, as well as others were entertained. Physical examination: As above. The patient was in mild respiratory distress. She was tripoding and had pursed lip breathing. ER treatment provided: Hour-long DuoNeb On reassessment the patient began to feel worse. She was becoming more obtunded. She was hypoxic. She had very poor air movement. Repeat chest x-ray, EKG, and initiation of BiPAP was done. On reassessment the patient's vital signs stabilized. Hypoxia resolved. Diagnostic interpretation by me: The electrocardiogram was negative for pathologic change. The labs revealed an unremarkable CBC. The patient has an unremarkable chemistry panel except for an elevated CO2. Troponin negative. The patient has severe hypercarbia on her blood gas. Imaging studies: Chest x-ray as above. The patient has severe respiratory failure with hypercarbia. BiPAP was initiated. She will need admission to the hospital. Family notes that the patient is a DNR/DNI. This was discussed before her decompensation. Consultation: A consultation was placed with the hospitalist. The case was discussed and diagnostics were reviewed. The patient was evaluated in the ER for further treatment. IMPRESSION: Respiratory failure Right pneumothorax COPD exacerbation Hypercarbia PLAN: Admit The scribe's documentation has been prepared under my direction and personally reviewed by me in its entirety. I confirm that the note above accurately reflects all work, treatment, procedures, and medical decision making performed by me. CRITICAL CARE:I have personally spent greater than 40 minutes of critical care time in the direct management of this patient. This includes bedside care, interpretation of diagnostic studies, and testing, discussion with consultants, patient, and family members, and other required patient management activities. These minutes are in excess of all separately billable procedures. Impression & Plan Respiratory failure, Pneumothorax on right, COPD exacerbation, Hypercarbia Past Med/Surg History Medical History Hypertension (Chronic) COPD (chronic obstructive pulmonary disease) (Chronic) FEV1=25 in December 2017. Oxygen dependent - 2L during the day, BiPAP qHS Hypoxemia (Acute) History of hysterectomy On home oxygen therapy Surgical History S/P hysterectomy Family History Other Breast cancer Social History Current Living Situation: Alone Current Living Situation Comment: Unable to obtain Feels Safe at Home: Yes Smoking Status: Never smoker Hx Alcohol Use: No Hx Substance Use: No Beliefs That Will Affect Care: None Preferred Language: Bengali Results & Data Vital Signs Vital Signs - 24 hr 09/22/18 11:20 09/22/18 11:23 09/22/18 11:27 Temperature 36.7 C Temperature Source Oral Sepsis Recent Fever Within 48 Hours No Sepsis Action Taken by Nursing No Action Required Pulse Rate 83 88 99 H Pulse Rate [Right Finger] Pulse Rate from SpO2 Sensor Pulse Rhythm Regular Pulse Strength Normal Respiratory Rate 25 H 19 23 Respiratory Effort / Characteristics Spontaneous Accessory Muscle Use Labored Pursed Lip Short of Breath SOB on Exertion Tripoding Respiratory Depth Shallow Respiratory Pattern Regular Tachypnea Blood Pressure 123/97 123/97 Blood Pressure Mean 105 105 Blood Pressure Position Sitting Pulse Oximetry 2 L Oxygen Delivery Method Nasal Cannula Oxygen Flow Rate 2 Fraction of Inspired Oxygen 09/22/18 11:30 09/22/18 11:45 09/22/18 11:48 Temperature Temperature Source Sepsis Recent Fever Within 48 Hours Sepsis Action Taken by Nursing Pulse Rate 87 89 87 Pulse Rate [Right Finger] Pulse Rate from SpO2 Sensor 90 Pulse Rhythm Regular Pulse Strength Respiratory Rate 16 20 Respiratory Effort / Characteristics Respiratory Depth Respiratory Pattern Blood Pressure Blood Pressure Mean Blood Pressure Position Pulse Oximetry 94 94 Oxygen Delivery Method Nasal Cannula Oxygen Flow Rate 2 Fraction of Inspired Oxygen 09/22/18 12:00 09/22/18 12:15 09/22/18 12:18 Temperature Temperature Source Sepsis Recent Fever Within 48 Hours Sepsis Action Taken by Nursing Pulse Rate 95 H 92 H Pulse Rate [Right Finger] 89 Pulse Rate from SpO2 Sensor 94 H 93 H Pulse Rhythm Pulse Strength Respiratory Rate 20 23 19 Respiratory Effort / Characteristics Spontaneous Short of Breath Respiratory Depth Respiratory Pattern Blood Pressure Blood Pressure Mean Blood Pressure Position Pulse Oximetry 93 90 90 Oxygen Delivery Method Nasal Cannula Oxygen Flow Rate 3.5 Fraction of Inspired Oxygen 09/22/18 12:30 09/22/18 12:45 09/22/18 13:00 Temperature Temperature Source Sepsis Recent Fever Within 48 Hours Sepsis Action Taken by Nursing Pulse Rate 79 92 H Pulse Rate [Right Finger] Pulse Rate from SpO2 Sensor 83 91 H 99 H Pulse Rhythm Pulse Strength Respiratory Rate 20 31 H Respiratory Effort / Characteristics Respiratory Depth Respiratory Pattern Blood Pressure Blood Pressure Mean Blood Pressure Position Pulse Oximetry 93 97 97 Oxygen Delivery Method Oxygen Flow Rate Fraction of Inspired Oxygen 09/22/18 13:15 09/22/18 13:30 09/22/18 13:45 Temperature Temperature Source Sepsis Recent Fever Within 48 Hours Sepsis Action Taken by Nursing Pulse Rate 98 H 97 H Pulse Rate [Right Finger] Pulse Rate from SpO2 Sensor 98 H 99 H 97 H Pulse Rhythm Pulse Strength Respiratory Rate 20 20 Respiratory Effort / Characteristics Respiratory Depth Respiratory Pattern Blood Pressure 155/109 H Blood Pressure Mean 124 Blood Pressure Position Pulse Oximetry 96 94 98 Oxygen Delivery Method Oxygen Flow Rate Fraction of Inspired Oxygen 09/22/18 14:00 09/22/18 14:09 09/22/18 14:15 Temperature Temperature Source Sepsis Recent Fever Within 48 Hours Sepsis Action Taken by Nursing Pulse Rate 96 H 100 H 85 Pulse Rate [Right Finger] Pulse Rate from SpO2 Sensor 97 H 98 H 94 H Pulse Rhythm Pulse Strength Respiratory Rate 20 24 22 Respiratory Effort / Characteristics Respiratory Depth Respiratory Pattern Blood Pressure 152/101 H 154/97 H 145/90 H Blood Pressure Mean 118 116 108 Blood Pressure Position Pulse Oximetry 97 96 95 Oxygen Delivery Method Oxygen Flow Rate Fraction of Inspired Oxygen 09/22/18 14:28 09/22/18 16:40 Temperature Temperature Source Sepsis Recent Fever Within 48 Hours Sepsis Action Taken by Nursing Pulse Rate 87 82 Pulse Rate [Right Finger] Pulse Rate from SpO2 Sensor Pulse Rhythm Pulse Strength Respiratory Rate 22 22 Respiratory Effort / Characteristics Spontaneous Labored Pursed Lip Short of Breath Respiratory Depth Shallow Respiratory Pattern Rapid/Shallow Blood Pressure Blood Pressure Mean Blood Pressure Position Pulse Oximetry 98 91 Oxygen Delivery Method Oxygen Flow Rate Fraction of Inspired Oxygen 50 28 Home Medications Current Medication List: was personally reviewed by me Laboratory Data Attestation: I reviewed the patient's lab results. Result diagrams: 09/22/18 11:00 09/22/18 11:00 Lab Results 09/22/18 09/22/18 09/22/18 Range/Units 11:00 11:00 11:00 WBC 6.96 (4.8-10.8) K/uL RBC 4.17 L (4.2-5.4) M/uL Hgb 12.1 (12.0-16.0) g/dL Hct 39.0 (37-47) % MCV 93.5 (80-100) fL MCH 29.0 (25-34) pg MCHC 31.0 L (32-36) g/dL RDW Std Deviation 49.4 H (36.4-46.3) fL RDW Coeff of Tonya 14.5 (11.5-14.5) % Plt Count 184 (130-400) K/uL MPV 9.3 (7.4-10.4) fL Immature Gran % (Auto) 0.1 % Neut % (Auto) 82.5 % Lymph % (Auto) 9.1 % [place] % (Auto) 6.5 % Eos % (Auto) 1.4 % Baso % (Auto) 0.4 % Immature Gran # (Auto) 0.01 (0.00-0.02) K/uL Neut # (Auto) 5.74 (1.4-6.5) K/uL Lymph # (Auto) 0.63 L (1.2-3.4) K/uL [place] # (Auto) 0.45 (0.11-0.59) K/uL Eos # (Auto) 0.10 (0-0.5) K/uL Baso # (Auto) 0.03 (0-0.2) K/uL PT 10.0 (9.0-12.0) Seconds INR 1.0 (0.9-1.1) APTT 25.6 (21.0-31.0) Seconds PTT Ratio 0.9 VBG pH (7.36-7.41) VBG pCO2 (38-50) mmHg VBG pO2 mmHg VBG HCO3 mmol/L VBG O2 Saturation % VBG Base Excess mEq/L Barometric Pressure mm/Hg Sodium 135 L (136-145) mmol/L Potassium 4.7 (3.5-5.1) mmol/L Chloride 92 L (98-107) mmol/L Carbon Dioxide 37 H (21-32) mmol/L Anion Gap 2.0 L (3-11) BUN 18 (7-18) mg/dl Creatinine 0.56 L (0.6-1.2) mg/dl Est Cr Clr Drug Dosing 70.7 ml/min Est GFR ( Amer) 105.0 Est GFR (Non-Af Amer) 90.6 BUN/Creatinine Ratio 33.0 H (10-20) Glucose 98 (70-99) mg/dl POC Lactic Acid Sterling (0.90-1.70) mmol/L Calcium 9.6 (8.5-10.1) mg/dl Magnesium 1.9 (1.8-2.4) mg/dl Total Bilirubin 0.6 (0.2-1) mg/dl AST 12 L (15-37) U/L ALT 17 (12-78) U/L Alkaline Phosphatase 90 (45-117) U/L Troponin I < 0.015 (0-0.045) ng/ml Total Protein 7.2 (6.4-8.2) gm/dl Albumin 3.6 (3.4-5.0) gm/dl Globulin 3.6 (2.5-4.0) gm/dl Albumin/Globulin Ratio 1.0 (0.9-2) Urine Color Urine Appearance (Clear) Urine pH (4.5-7.5) Ur Specific Mason (1.000-1.030) Urine Protein (Negative) Urine Glucose (UA) (Negative) Urine Ketones (Negative) Urine Blood (Negative) Urine Nitrite (Negative) Urine Bilirubin (Negative) Urine Urobilinogen (Negative) Ur Leukocyte Esterase (Negative) 09/22/18 09/22/18 09/22/18 Range/Units 13:01 13:19 13:40 WBC (4.8-10.8) K/uL RBC (4.2-5.4) M/uL Hgb (12.0-16.0) g/dL Hct (37-47) % MCV (80-100) fL MCH (25-34) pg MCHC (32-36) g/dL RDW Std Deviation (36.4-46.3) fL RDW Coeff of Tonya (11.5-14.5) % Plt Count (130-400) K/uL MPV (7.4-10.4) fL Immature Gran % (Auto) % Neut % (Auto) % Lymph % (Auto) % [place] % (Auto) % Eos % (Auto) % Baso % (Auto) % Immature Gran # (Auto) (0.00-0.02) K/uL Neut # (Auto) (1.4-6.5) K/uL Lymph # (Auto) (1.2-3.4) K/uL [place] # (Auto) (0.11-0.59) K/uL Eos # (Auto) (0-0.5) K/uL Baso # (Auto) (0-0.2) K/uL PT (9.0-12.0) Seconds INR (0.9-1.1) APTT (21.0-31.0) Seconds PTT Ratio VBG pH 7.08 L (7.36-7.41) VBG pCO2 152 H (38-50) mmHg VBG pO2 105 mmHg VBG HCO3 44 mmol/L VBG O2 Saturation 95.2 % VBG Base Excess 9.0 mEq/L Barometric Pressure 715.8 mm/Hg Sodium (136-145) mmol/L Potassium (3.5-5.1) mmol/L Chloride (98-107) mmol/L Carbon Dioxide (21-32) mmol/L Anion Gap (3-11) BUN (7-18) mg/dl Creatinine (0.6-1.2) mg/dl Est Cr Clr Drug Dosing ml/min Est GFR ( Amer) Est GFR (Non-Af Amer) BUN/Creatinine Ratio (10-20) Glucose (70-99) mg/dl POC Lactic Acid Sterling 0.51 L (0.90-1.70) mmol/L Calcium (8.5-10.1) mg/dl Magnesium (1.8-2.4) mg/dl Total Bilirubin (0.2-1) mg/dl AST (15-37) U/L ALT (12-78) U/L Alkaline Phosphatase (45-117) U/L Troponin I (0-0.045) ng/ml Total Protein (6.4-8.2) gm/dl Albumin (3.4-5.0) gm/dl Globulin (2.5-4.0) gm/dl Albumin/Globulin Ratio (0.9-2) Urine Color Yellow Urine Appearance Clear (Clear) Urine pH 5.0 (4.5-7.5) Ur Specific Mason 1.014 (1.000-1.030) Urine Protein Negative (Negative) Urine Glucose (UA) Negative (Negative) Urine Ketones Negative (Negative) Urine Blood Negative (Negative) Urine Nitrite Negative (Negative) Urine Bilirubin Negative (Negative) Urine Urobilinogen Negative (Negative) Ur Leukocyte Esterase Negative (Negative) Administered Medications Discontinued Medications Albuterol (Duoneb) 12 ml INH ONE STA Stop: 09/22/18 12:06 Last Admin: 09/22/18 12:18 Dose: 12 ml Methylprednisolone (Solumedrol) 125 mg IV NOW STA Stop: 09/22/18 12:06 Last Admin: 09/22/18 14:18 Dose: Not Given Imaging Data Radiologist's Impression: Radiology results as stated below per my review and the radiologist's interpretation: XR chest 1V portable CLINICAL HISTORY: 78 years-old Female presenting with Dyspnea. TECHNIQUE: Portable upright AP view of the chest was obtained. COMPARISON: 08/30/2018. FINDINGS: The patient is slightly CZECH rotated. Atherosclerosis of the aortic arch. Cardiac silhouette normal in size. Lungs are mildly hyperinflated. Exaggerated thoracic kyphosis suggested. Bandlike opacities in the right mid lung unchanged. Small apical predominant right pneumothorax with a pleural separation of 17 mm. Degenerative changes of the thoracic spine. Osteopenia may be present. Upper abdomen normal. IMPRESSION: 1. Small right apical pneumothorax. The report will be called/faxed according to standard departmental protocol. Electronically signed by: Júnior Arboleda M.D. 09/22/2018 12:50 PM XR chest 1V portable CLINICAL HISTORY: 78 years-old Female presenting with acute change in breathing , CP, pneumo seen on . TECHNIQUE: Portable upright AP view of the chest was obtained. COMPARISON: 09/22/2018 at 12:20 PM. FINDINGS: Cardiomediastinal silhouette normal. Redemonstration of the small right apical pneumothorax with a pleural separation of 17 mm, unchanged. No focal lung opacity. Trace right pleural effusion may be present. Degenerative changes of the thoracic spine. Degenerative changes of the glenohumeral joints. IMPRESSION: 1. Unchanged size of the small right apical pneumothorax. 2. Possible trace right pleural effusion. Electronically signed by: Júnior Arboleda M.D. 09/22/2018 1:33 PM ECG Data Attestation: I personally reviewed and interpreted this ECG as follows: Indication: SOB/dyspnea Rate (beats per minute): 88 Rhythm: normal sinus Findings: no PAC, no PVC, no ST depression and no ST elevation Additional Comments: Repeat EKG showed normal sinus with sinus arrhythmia at 90 beats per minute. No ST elevation, no ST depression, no PVCs or PACs. There is some respiratory motion present. Blood Pressure Blood Pressure Findings: Normal blood pressure Blood Pressure Disposition: did not require urgent referral Discharge Plan Visit Data *Final* Discharge Date/Time: 09/22/18 16:55 Chief Complaint: Shortness of Breath/Dyspnea ED Provider: Jean Wheatley Discharge Problem: Respiratory failure, Pneumothorax on right, COPD exacerbation, Hypercarbia Patient Disposition: Admitted As Inpatient Discharge Instructions Interventions: ED Discharge Assessment Last Done: 09/22/18 16:55 The scribe's documentation has been prepared under my direction and personally reviewed by me in its entirety. I confirm that the note above accurately reflects all work, treatment, procedures, and medical decision making performed by me.
[2018-09-22 17:19] LABS: pH ABG 7.14 (7.35-7.45)
[2018-09-22] MEDS: ENOXAPARIN INJ 40 MG/0.4 ML SYR SQ SCH (20:16)
[2018-09-22] MEDS ORDERED: methylPREDNISolone 125 MG/2 ML VIAL IV SCH (21:00)
[2018-09-23] MEDS: methylPREDNISolone 60 MG in SYRINGE 0 ML IV SCH ×2 (00:08→11:56)
[2018-09-23] MEDS ORDERED: ACETAMINOPHEN 1,000 MG/100 ML VIAL IV PRN (00:20)
--- NOTE | 2018-09-23 07:45 | XRay Report ---
XR chest 1V portable CLINICAL HISTORY: follow up pneumothorax dyspnea COMPARISON STUDY: 09/22/2018 FINDINGS: Unchanging small right apical pneumothorax. Lungs otherwise appear clear. Chronic fibrotic scarring at both lung bases. Lungs otherwise appear clear. No significant cardiac enlargement. IMPRESSION: Unchanging small right apical pneumothorax. The above report was generated using voice recognition software. It may contain grammatical, syntax or spelling errors. Electronically signed by: Palomo Keys M.D. 09/23/2018 7:43 AM
[2018-09-23 09:24] LABS: HCO3 ABG 42 mmol/L (19-24); Oxygen Saturation ABG 97.6 % (90-95); PCO2 ABG 93 mmHg (35-46); PO2 ABG 119 mm/Hg (80-95); pH ABG 7.28 (7.35-7.45)
[2018-09-23 09:28] LABS: Allen Test Pos (Pos)
--- NOTE | 2018-09-23 15:19 | Palliative Care Consultation ---
Date of Consultation September 23, 2018 Assessment & Plan (1) Palliative care encounter: Patient is well-known to our service from her prior to hospitalizations with the last admission being only 3 weeks ago. Patient with chronic hypercapnic respiratory failure-is on O2 during the daytime with her trilogy BiPAP at night. Patient reports she started to use it an additional 1-1/2 hours during the daytime. Patient states this exacerbation was triggered by going 2 days without nebulization treatment-patient thought she had run out, it took 2 days to get a new prescription, as the daughter was putting the meds away she noted 2 boxes of duo nebs already in the home. Patient denies fever, chills, productive cough. CO2 on admission was 152- had altered mental status and was placed on BiPAP. Patient seen and examined in her room-patient son and daughter at bedside. Patient's healthcare power of title attorney is her other daughter Darlene. Again discussed home health versus hospice care-patient reports she will need to discuss it with her daughter Darlene-discussed that she can try hospice and if she is unhappy with it she can sign out, etc. Patient is more short of breath than on her prior hospitalization-pt with pursed lip breathing throughout most of the exam. -Chronic hypercapnic respiratory failure-patient will now require trilogy/BiPAP use during daytime as well as at night -COPD with exacerbation-due to not receiving her 4 times daily DuoNeb's for 2 days because she thought she ran out of them -Hypoxia-on O2 at 2 L when off her BiPAP -CODE STATUS-DNR, patient's previously filled out POLST form present at bedside -Patient and family met with a hospice agency on her last admission-readdressed with patient. Discussed that patient can try hospice and see if it is of benefit for her at home-she can sign out at any time. -Spontaneous right pneumothorax-small right apical pneumothorax was present on her last admission-resolved on its own. -[id number] on home Lasix and metoprolol Will continue to follow and assist with medical decision making and further discussion of hospice care at home after patient has time to speak with her daughter Darlene who is her POA. (2) Chronic hypercapnic respiratory failure: Repeated hospitalizations for same-patient will now require BiPAP during the daytime as well as at night with breaks only for eating (3) Metabolic encephalopathy: Improved with him improved PCO2 (4) Pneumothorax on right: Small right apical pneumothorax-stable, resolved during last hospitalization without intervention (5) Hypoxemia: Continue O2 when off BiPAP History of Present Illness Reason for Consultation: Address goals of care Requesting Physician: Dr. Dr. Serafin Madrid Attending Physician: Serafin Madrid, DO History of Present Illness Patient is well-known to our service from her prior to hospitalizations with the last admission being only 3 weeks ago. Patient with chronic hypercapnic respiratory failure-is on O2 during the daytime with her trilogy BiPAP at night. Patient reports she started to use it an additional 1-1/2 hours during the daytime. Patient states this exacerbation was triggered by going 2 days without nebulization treatment-patient thought she had run out, it took 2 days to get a new prescription, as the daughter was putting the meds away she noted 2 boxes of duo nebs already in the home. Patient denies fever, chills, productive cough. CO2 on admission was 152- had altered mental status and was placed on BiPAP. Patient seen and examined in her room-patient son and daughter at bedside. Patient's healthcare power of title attorney is her other daughter Darlene. Again discussed home health versus hospice care-patient reports she will need to discuss it with her daughter Darlene-discussed that she can try hospice and if she is unhappy with it she can sign out, etc. Patient is more short of breath than on her prior hospitalization-pt with pursed lip breathing throughout most of the exam. Allergies Allergy/AdvReac Type Severity Reaction Status Date / Time cetirizine Allergy Unknown RASH Verified 09/22/18 11:48 simvastatin Allergy Unknown ABDOMINAL Verified 09/22/18 11:48 CRAMPS morphine AdvReac Unconscious Unverified 09/22/18 11:48 Home Medications Home Medications Medication Instructions Recorded Confirmed Type albuterol sulfate [ProAir 1 puff INHALATION Q6H PRN 05/12/18 09/22/18 History RespiClick] atorvastatin 10 mg PO DAILY 05/12/18 09/22/18 History escitalopram oxalate 10 mg PO DAILY 05/12/18 09/22/18 History fluticasone 1 spray INTRANASAL BID 05/12/18 09/22/18 History furosemide 20 mg PO BID PRN 05/12/18 09/22/18 History ipratropium-albuterol 3 ml INHALATION QID 05/12/18 09/22/18 History pantoprazole 40 mg PO BID 05/12/18 09/22/18 History metoprolol succinate 25 mg PO QAM 05/16/18 09/22/18 History lorazepam 0.5 mg PO DAILY PRN 08/26/18 09/22/18 History arformoterol [Brovana] 1 ml INHALATION DAILY 09/22/18 09/22/18 History azelastine 1 spray INTRANASAL BID PRN 09/22/18 09/22/18 History cholecalciferol (vitamin D3) 1,000 unit PO DAILY 09/22/18 09/22/18 History [Vitamin D3] cyanocobalamin (vitamin B-12) 1,000 mcg PO DAILY 09/22/18 09/22/18 History [Vitamin B-12] potassium chloride 20 meq PO BID 09/22/18 09/22/18 History Patient History Medical History Hypertension (Chronic) COPD (chronic obstructive pulmonary disease) (Chronic) FEV1=25 in December 2017. Oxygen dependent - 2L during the day, BiPAP qHS Hypoxemia (Acute) History of hysterectomy On home oxygen therapy Surgical History S/P hysterectomy Family History Other Breast cancer Social History Current Living Situation: Alone Current Living Situation Comment: Unable to obtain Other Information That Helps Us Care for You: No Feels Safe at Home: Yes Smoking Status: Never smoker Hx Alcohol Use: No Hx Substance Use: No Beliefs That Will Affect Care: None Communication Ability: Effective Review of Systems Patient denies fever, chills, chest pain, or GI symptoms. No sick contacts, Physical Exam 2 Vital Signs (Past 24 Hours): Last Vital Signs Temp 36.6 C 09/23/18 08:05 Pulse 67 09/23/18 08:05 Resp 16 09/23/18 08:05 BP 101/65 09/23/18 08:05 Pulse Ox 96 09/23/18 08:05 Physical Exam: PE: Initially patient with BiPAP in place-remove BiPAP to carry on conversation-was on O2 at 2 L. Patient had increased work of breathing and pursed lipped respirations, remained alert and oriented able to participate in conversation HEENT: EOMI, normal hearing Respirations: Increased work of breathing, pursed lip breathing, on O2. Patient now requiring BiPAP throughout most of the daytime in addition to at night CV: Regular rate, no edema Abdomen: Not distended Neuro: Alert and oriented x4 Time Spent Attending Total time spent 55 minutes with greater than 50% of the time spent at bedside evaluating patient and discussing goals of care as well as treatment options.
--- NOTE | 2018-09-23 17:21 | Hospitalist Progress Note ---
Date of Service September 23, 2018 Assessment & Plan (1) Acute hypercapnic respiratory failure: CO2 severely elevated at 152, pH is 7.08 on admission improved to CO2 of 93 and pH of 7.28 patient much more alert and speaking clearly today continue BIPAP continuously repeat ABG in the morning (2) Chronic hypercapnic respiratory failure: long history of CO2 retention she was prescribed Trilogy at night and recommended use during the day fear that she would need it almost 24 hours a day to prevent acute failure the patient has told family that she does not want to wear it no quality of life consult palliative care, patient and family will meet with hospice (3) Spontaneous pneumothorax: almost exact same presentation as last time which resolved likely due to small bleb that popped CXR today shows no change, will repeat tomorrow AM (4) COPD exacerbation: greatly diminished breath sounds, no wheezing Solu Medrol 60 q12 today, likely tomorrow and then transition to Prednisone hold on nebulizers as patient cannot come off the bipap (5) Respiratory failure: respiratory distress on arrival, tripod position failure has resolved, no distress (6) Metabolic encephalopathy: due to elevated CO2 resolved today, CO2 down to 93 which is likely her baseline Subjective patient awake and alert this morning, speaking clearly she remembers feeling more and more short of breath prior to coming to the hospital she says that she is feeling much better, tolerating BIPAP repeat CXR shows that small right pneumothorax unchanged today ABG shows marked improvement in pH and CO2 family updated at the bedside Review of Systems All systems reviewed & are unremarkable except as noted in HPI & below Constitutional: + fatigue and + weakness; no fever, no chills and no sweats Respiratory: + dyspnea; no wheezing Cardiovascular: + dyspnea; no chest pain, no syncope and no edema Gastrointestinal: no nausea and no vomiting Physical Exam 2 Vital Signs (Past 24 Hours): Last Vital Signs Temp 36.4 C L 09/23/18 16:04 Pulse 75 09/23/18 16:04 Resp 20 09/23/18 16:04 BP 81/52 L 09/23/18 16:04 Pulse Ox 96 09/23/18 16:04 Constitutional: WD/WN, vitals as above + thin Eyes: PERRL, conjunctivae normal, anicteric sclerae ENMT: external ear and nose normal, oropharynx normal Neck: trachea midline, no thyromegaly Respiratory: no respiratory distress (on BIPAP) Auscultation: + diminished lung sounds (greatly reduces); no rales and no wheezes Cardiovascular: Rate/Rhythm: regular rhythm and + tachycardic Heart Sounds : normal S1 and normal S2; no murmur Vessels: normal peripheral pulses; no JVD Extremities: no edema Gastrointestinal (Abdomen): normal bowel sounds, soft, nontender, no hepatosplenomegaly Musculoskeletal: no cyanosis or clubbing, extremities motor strength 5/5 Skin: no rashes, warm and dry Neurologic: patellar DTR's 2+ bilat, sensation intact and PERRL, EOMI, accommodation nl, no face palsy, no dysarthria Psychiatric: A+Ox3, euthymic affect Lymphatic: no cervical or axillary lymphadenopathy Results & Data Laboratory Results Laboratory Results - last 24 hr 09/23/18 09:06 ABG pH 7.28 L ABG pCO2 93 H ABG pO2 119 H ABG HCO3 42 H ABG O2 Saturation 97.6 H ABG Base Excess 12.2 H [place] Test Pos Barometric Pressure 730.8 Oxygen Given 3.5L Diagnostic Findings CXR: right small apical pneumothorax unchanged from 09/22 Medications Administered Current Inpatient Medications Enoxaparin Sodium (Lovenox) 40 mg SQ QPM ALIN Stop: 10/22/18 20:59 Last Admin: 09/23/18 20:37 Dose: 40 mg Methylprednisolone 60 mg/ (Syringe) 0.96 mls @ 1.5 mls/min IV Q12H ALIN Stop: 10/23/18 00:00 Last Admin: 09/23/18 11:56 Dose: 1.5 mls/min Acetaminophen (Ofirmev) 1,000 mg in 100 mls @ 400 mls/hr IV Q8H PRN PRN Reason: Pain or Fever Stop: 10/23/18 00:19 Last Infusion: 09/23/18 01:21 Dose: Infused Ondansetron HCl (Zofran) 4 mg IV Q6H PRN PRN Reason: Nausea Stop: 10/22/18 16:52 _ (1) Respiratory failure Chronicity: acute Respiratory failure complication:
[2018-09-23] MEDS: ENOXAPARIN INJ 40 MG/0.4 ML SYR SQ SCH (20:37)
[2018-09-24] MEDS: methylPREDNISolone 60 MG in SYRINGE 0 ML IV SCH ×2 (00:27→11:49)
--- NOTE | 2018-09-24 07:20 | XRay Report ---
XR chest 1V portable CLINICAL HISTORY: 78 years-old Female presenting with pneumothorax. TECHNIQUE: Portable upright AP view of the chest was obtained. COMPARISON: 09/23/2018. FINDINGS: Atherosclerosis of the aortic arch. Cardiac silhouette normal in size. Persistent small right apical pneumothorax, which is slightly decreased in size in a pleural separation of 12 mm is now evident, pr eviously 14 mm. Lungs remain clear. No large effusion. Degenerative changes of the thoracic spine. IMPRESSION: 1. Stable to slight interval decrease in size of the small right apical pneumothorax. Electronically signed by: Júnior Arboleda M.D. 09/24/2018 7:18 AM
[2018-09-24 08:04] LABS: Hemoglobin 10.1 g/dL (12.0-16.0); Immature Granulocytes # (auto) 0.01 K/uL (0.00-0.02); Immature Granulocytes % (auto) 0.2 %; Lymphocytes # (auto) 0.55 K/uL (1.2-3.4); Mean Corpuscular Hgb Conc 31.6 g/dL (32-36); Mean Platelet Volume 8.9 fL (7.4-10.4); Monocytes # (auto) 0.17 K/uL (0.11-0.59); Monocytes % (auto) 2.8 %; Neutrophils # (auto) 5.38 K/uL (1.4-6.5); Platelet Count 165 K/uL (130-400); RDW Coefficient of Variation 14.5 % (11.5-14.5); RDW Standard Deviation 48.8 fL (36.4-46.3); Red Blood Count 3.48 M/uL (4.2-5.4); White Blood Count 6.11 K/uL (4.8-10.8)
[2018-09-24 08:10] LABS: Allen Test POS (Pos); HCO3 ABG 41 mmol/L (19-24); Oxygen Saturation ABG 92.7 % (90-95); PCO2 ABG 59 mmHg (35-46); PO2 ABG 65 mm/Hg (80-95); pH ABG 7.46 (7.35-7.45)
[2018-09-24 08:38] LABS: BUN Creatinine Ratio 59.3 (10-20); Calcium 9.3 mg/dl (8.5-10.1); Creatinine Clr Calc Pharmacy 75.1 ml/min; Est GFR (African American) 105.6; Est GFR (Non-African American) 91.1; Potassium 4.8 mmol/L (3.5-5.1)
[2018-09-24] MEDS ORDERED: LORazepam 0.5 MG TAB PO PRN (13:51)
[2018-09-24] MEDS ORDERED: ALBUT/IPRATROP 3MG/0.5MG NEB 3 ML VIAL NEB PRN (13:53)
[2018-09-24] MEDS: ALBUT/IPRATROP 3MG/0.5MG NEB 3 ML VIAL NEB SCH ×2 (15:15→19:20)
[2018-09-24] MEDS: AZELASTINE~ORDER AWAITING ACTION SCH (15:55)
--- NOTE | 2018-09-24 16:07 | Palliative Care Progress Note ---
Date of Service September 24, 2018 Assessment & Plan (1) Palliative care encounter: Patient is well-known to our service from her prior to hospitalizations with the last admission being only 3 weeks ago. Patient with chronic hypercapnic respiratory failure-is on O2 during the daytime with her trilogy BiPAP at night. Patient reports she started to use it an additional 1-1/2 hours during the daytime. Patient states this exacerbation was triggered by going 2 days without nebulization treatment-patient thought she had run out, it took 2 days to get a new prescription, as the daughter was putting the meds away she noted 2 boxes of duo nebs already in the home. CO2 on admission was 152- had altered mental status and was placed on BiPAP. Patient seen and examined in her room-patient son and grandson at bedside. Patient's healthcare power of employment attorney is her other daughter Darlene. Again discussed home health versus hospice care-patient reports she is willing to try hospice-is working with immigration case worker to choose an agency, has a list of agencies at her bedside. Son reports that they will talk to a family member regarding which agency to choose. Pt continues with pursed lip breathing, slightly less than on exam yesterday. -Chronic hypercapnic respiratory failure-patient will now require trilogy/BiPAP use during daytime as well as at night -patient will likely do a trial of 2 hours on 1 hour off, etc. -COPD with exacerbation-due to not receiving her 4 times daily DuoNeb's for 2 days because she thought she ran out of them -Hypoxia-on O2 at 2 L when off her BiPAP -CODE STATUS-DNR, patient's previously filled out POLST - form present at bedside -Patient and family met with a hospice agency on her last admission-readdressed with patient. Patient now willing to try hospice care at home-just discussing with family which agency to choose -Spontaneous right pneumothorax-small right apical pneumothorax was present on her last admission-resolved on its own -smaller on repeat chest x-ray-plan to recheck tomorrow.. -[id number] on home Lasix and metoprolol Will continue to follow and assist with medical decision making. Case management working with family to choose hospice care provider at home . (2) Chronic hypercapnic respiratory failure: Repeated hospitalizations for same-patient will now require BiPAP for several hours during the daytime as well as at night (3) Metabolic encephalopathy: Improved with him improved PCO2 (4) Pneumothorax on right: Small right apical pneumothorax-improving, plan for repeat chest x-ray in a.m. (5) Hypoxemia: Continue O2 at 2 L when off BiPAP Subjective Patient seen and examined, patient's son and grandson at bedside. Patient awake and alert, states her breathing has improved. Patient reports that her CO2 level dropped to 60-is able to be off her BiPAP for longer periods of time. Review of Systems Patient denies pain, fever, chills, chest pain, increased shortness of breath, or GI issues. Physical Exam 2 Vital Signs (Past 24 Hours): Last Vital Signs Temp 36.9 C 09/24/18 15:13 Pulse 88 09/24/18 15:15 Resp 18 09/24/18 15:15 BP 133/84 09/24/18 15:13 Pulse Ox 97 09/24/18 15:15 Physical Exam: PE: Alert and oriented HEENT: EOMI, normal hearing Respiratory: Continues to have pursed lip breathing, somewhat less than exam yesterday. Diminished breath sounds bilaterally. Patient off her BiPAP-on O2 at 2 L nasal cannula CV: Regular rate Abdomen: Not distended Neuro: Alert and oriented x4 Time Spent Attending Total time spent 35 minutes with greater than 50% of the time spent at bedside reviewing benefit versus burden of hospice care given patient's current condition and frequent hospitalizations. Will continue to follow to assist with medical decision making
[2018-09-24] MEDS: POTASSIUM CHLORIDE 20 MEQ TABCR PO SCH (17:55)
[2018-09-24] MEDS: PANTOprazole 40 MG TAB PO SCH (20:26)
[2018-09-24] MEDS: FLUTICASONE PROPIONATE NA SPR 16 GM BTL SCH (20:26)
[2018-09-24] MEDS: ENOXAPARIN INJ 40 MG/0.4 ML SYR SQ SCH (20:27)
[2018-09-24] MEDS ORDERED: Nursing to Pharmacy Communication ONE (20:33)
[2018-09-24] MEDS ORDERED: DOCUSATE SODIUM 100 MG CAP PO SCH (21:00)
--- NOTE | 2018-09-24 22:22 | Hospitalist Progress Note ---
Date of Service September 24, 2018 Assessment & Plan (1) Acute hypercapnic respiratory failure: CO2 severely elevated at 152, pH is 7.08 on admission treated with continuous BIPAP for 48 hours improved to CO2 of 59 and pH of 7.4 today only use BIPAP HS now patient much more alert and speaking clearly repeat ABG in the morning (2) Chronic hypercapnic respiratory failure: long history of CO2 retention she was prescribed Trilogy at night and recommended use during the day patient plans to use more during the day consult palliative care, patient and family will meet with hospice will go on hospice at home on discharge but knows she can opt out (3) Spontaneous pneumothorax: almost exact same presentation as last time which resolved likely due to small bleb that popped CXR today shows some mild improvement, repeat xray tomorrow (4) COPD exacerbation: greatly diminished breath sounds, no wheezing Solu Medrol 60 q12 today, Prednisone 50mg daily starting tomorrow with taper on discharge resume home nebulizers (5) Respiratory failure: respiratory distress on arrival, tripod position failure has resolved, no distress (6) Metabolic encephalopathy: due to elevated CO2 resolved today, CO2 down to 59 repeat CXR tomorrow, check labs start Prednisone 50mg daily PT/OT consults could be ready for d/c on /Sunday with home hospice Subjective patient doing much, much better today she is alert, oriented, very energized asking to walk to bathroom, wants her vidal out she wants to to therapy eating well reviewed labs, ABG shows CO2 actually down to 59 ordered BIPAP to be removed during the day, wear at night only discussed plan with palliative care, will try hospice at home, patient knows she can opt out if she wants CXR: pneumothorax smaller discussed with family at the bedside, could be ready to go home on Review of Systems All systems reviewed & are unremarkable except as noted in HPI & below Respiratory: + cough, + dyspnea and + dyspnea on exertion Cardiovascular: no chest pain Gastrointestinal: + constipation Physical Exam 2 Vital Signs (Past 24 Hours): Last Vital Signs Temp 36.9 C 09/24/18 15:13 Pulse 103 H 09/24/18 19:23 Resp 18 09/24/18 19:23 BP 133/84 09/24/18 15:13 Pulse Ox 93 09/24/18 19:23 Constitutional: WD/WN, vitals as above + thin Eyes: PERRL, conjunctivae normal, anicteric sclerae ENMT: external ear and nose normal, oropharynx normal Neck: trachea midline, no thyromegaly Respiratory: no respiratory distress (on BIPAP) Auscultation: + diminished lung sounds (greatly reduces); no rales and no wheezes Cardiovascular: Rate/Rhythm: regular rhythm and + tachycardic Heart Sounds : normal S1 and normal S2; no murmur Vessels: normal peripheral pulses; no JVD Extremities: no edema Gastrointestinal (Abdomen): normal bowel sounds, soft, nontender, no hepatosplenomegaly Musculoskeletal: no cyanosis or clubbing, extremities motor strength 5/5 Skin: no rashes, warm and dry Neurologic: patellar DTR's 2+ bilat, sensation intact and PERRL, EOMI, accommodation nl, no face palsy, no dysarthria Psychiatric: A+Ox3, euthymic affect Lymphatic: no cervical or axillary lymphadenopathy Results & Data Laboratory Results Laboratory Results - last 24 hr 09/24/18 09/24/18 09/24/18 07:51 07:51 07:51 WBC 6.11 RBC 3.48 L Hgb 10.1 L Hct 32.0 L MCV 92.0 MCH 29.0 MCHC 31.6 L RDW Std Deviation 48.8 H RDW Coeff of Tonya 14.5 Plt Count 165 MPV 8.9 Immature Gran % (Auto) 0.2 Neut % (Auto) 88.0 Lymph % (Auto) 9.0 [place] % (Auto) 2.8 Eos % (Auto) 0.0 Baso % (Auto) 0.0 Immature Gran # (Auto) 0.01 Neut # (Auto) 5.38 Lymph # (Auto) 0.55 L [place] # (Auto) 0.17 Eos # (Auto) 0.00 Baso # (Auto) 0.00 ABG pH 7.46 H ABG pCO2 59 H ABG pO2 65 L ABG HCO3 41 H ABG O2 Saturation 92.7 ABG Base Excess 14.6 H [place] Test POS Barometric Pressure 740.6 Oxygen Given 2L Sodium 135 L Potassium 4.8 Chloride 94 L Carbon Dioxide 38 H Anion Gap 3.0 BUN 33 H D Creatinine 0.55 L Est Cr Clr Drug Dosing 75.1 Est GFR ( Amer) 105.6 Est GFR (Non-Af Amer) 91.1 BUN/Creatinine Ratio 59.3 H Glucose 115 H Calcium 9.3 Diagnostic Findings XR chest 1V portable CLINICAL HISTORY: 78 years-old Female presenting with pneumothorax. TECHNIQUE: Portable upright AP view of the chest was obtained. COMPARISON: 09/23/2018. FINDINGS: Atherosclerosis of the aortic arch. Cardiac silhouette normal in size. Persistent small right apical pneumothorax, which is slightly decreased in size in a pleural separation of 12 mm is now evident, previously 14 mm. Lungs remain clear. No large effusion. Degenerative changes of the thoracic spine. IMPRESSION: 1. Stable to slight interval decrease in size of the small right apical pneumothorax. Medications Administered Current Inpatient Medications Albuterol (Duoneb) 3 ml NEB Q2H PRN PRN Reason: Dyspnea Stop: 10/24/18 13:52 Albuterol (Duoneb) 3 ml NEB QIDR ALIN Stop: 10/24/18 15:59 Last Admin: 09/24/18 19:20 Dose: 3 ml Arformoterol Tartrate (Brovana Neb) 7.5 mcg INH DAILY ALIN Stop: 10/25/18 08:59 Atorvastatin Calcium (Lipitor) 10 mg PO HS ALIN Stop: 10/25/18 20:59 Cyanocobalamin (Vitamin B-12) 1,000 mcg PO DAILY ALIN Stop: 10/25/18 08:59 Docusate Sodium (Colace) 100 mg PO BID ALIN Stop: 10/24/18 20:59 Last Admin: 09/24/18 20:26 Dose: 100 mg Enoxaparin Sodium (Lovenox) 40 mg SQ QPM ALIN Stop: 10/22/18 20:59 Last Admin: 09/24/18 20:27 Dose: Not Given Escitalopram Oxalate (Lexapro) 10 mg PO DAILY ALIN Stop: 10/25/18 08:59 Fluticasone Propionate (Flonase) 1 sprays NA BID ALIN Stop: 10/24/18 20:59 Last Admin: 09/24/18 20:26 Dose: 1 sprays Methylprednisolone 60 mg/ (Syringe) 0.96 mls @ 1.5 mls/min IV Q12H ALIN Stop: 10/23/18 00:00 Last Admin: 09/24/18 11:49 Dose: 1.5 mls/min Acetaminophen (Ofirmev) 1,000 mg in 100 mls @ 400 mls/hr IV Q8H PRN PRN Reason: Pain or Fever Stop: 10/23/18 00:19 Last Infusion: 09/23/18 01:21 Dose: Infused Lorazepam (Ativan) 0.5 mg PO DAILY PRN PRN Reason: Anxiety Stop: 10/24/18 13:50 Metoprolol Succinate (Toprol Xl) 25 mg PO QAM [facility] Stop: 10/25/18 08:59 Miscellaneous (Order Awaiting Action) 1 ea N/A QS [facility] Stop: 10/24/18 15:59 Last Admin: 09/24/18 15:55 Dose: Not Given Ondansetron HCl (Zofran) 4 mg IV Q6H PRN PRN Reason: Nausea Stop: 10/22/18 16:52 Pantoprazole Sodium (Protonix) 40 mg PO BID [facility] Stop: 10/24/18 20:59 Last Admin: 09/24/18 20:26 Dose: 40 mg Potassium Chloride (Klor-Con M20) 20 meq PO BID17 [facility] Stop: 10/24/18 16:59 Last Admin: 09/24/18 17:55 Dose: 20 meq Vitamin D (Vitamin D3) 1,000 units PO DAILY [facility] Stop: 10/25/18 08:59 _ (1) Respiratory failure Chronicity: acute Respiratory failure complication:
[2018-09-25] MEDS: AZELASTINE~ORDER AWAITING ACTION SCH ×3 (01:16→16:28)
[2018-09-25 07:07] LABS: Eosinophils # (auto) 0.04 K/uL (0-0.5); Eosinophils % (auto) 0.7 %; Hematocrit (blood only) 32.4 % (37-47); Hemoglobin 10.1 g/dL (12.0-16.0); Lymphocytes # (auto) 1.24 K/uL (1.2-3.4); Mean Corpuscular Hgb Conc 31.2 g/dL (32-36); Mean Corpuscular Volume 91.5 fL (80-100); Mean Platelet Volume 8.9 fL (7.4-10.4); Monocytes # (auto) 0.45 K/uL (0.11-0.59); Neutrophils % (auto) 69.3 %; Platelet Count 170 K/uL (130-400); RDW Coefficient of Variation 14.5 % (11.5-14.5); RDW Standard Deviation 49.3 fL (36.4-46.3); Red Blood Count 3.54 M/uL (4.2-5.4); White Blood Count 5.63 K/uL (4.8-10.8)
[2018-09-25 07:13] LABS: HCO3 ABG 40 mmol/L (19-24); Oxygen Saturation ABG 96.7 % (90-95); PCO2 ABG 65 mmHg (35-46); PO2 ABG 92 mm/Hg (80-95)
[2018-09-25] MEDS: ARFORMOTEROL TART 15MCG/2ML VIAL INH SCH (07:14)
[2018-09-25] MEDS: ALBUT/IPRATROP 3MG/0.5MG NEB 3 ML VIAL NEB SCH ×5 (07:14→18:58)
[2018-09-25 07:15] LABS: Allen Test Pos (Pos)
[2018-09-25 07:39] LABS: BUN Creatinine Ratio 37.2 (10-20); Calcium 8.7 mg/dl (8.5-10.1); Creatinine Clr Calc Pharmacy 76.5 ml/min; Est GFR (African American) 106.2; Est GFR (Non-African American) 91.7; Potassium 4.5 mmol/L (3.5-5.1)
[2018-09-25] MEDS: CHOLECALCIFEROL 1,000 UNITS TAB PO SCH (08:03)
[2018-09-25] MEDS: predniSONE 50 MG TAB PO SCH (08:03)
[2018-09-25] MEDS: POTASSIUM CHLORIDE 20 MEQ TABCR PO SCH ×2 (08:03→16:29)
[2018-09-25] MEDS: PANTOprazole 40 MG TAB PO SCH ×2 (08:03→21:01)
[2018-09-25] MEDS: ESCITALOPRAM OXALATE 10 MG TAB PO SCH (08:03)
[2018-09-25] MEDS: CYANOCOBALAMIN 500 MCG TABLET (VITAMIN B-12) PO SCH (08:03)
[2018-09-25] MEDS: METOPROLOL SUCC 25MG EXT REL TAB PO SCH (08:03)
[2018-09-25] MEDS: FLUTICASONE PROPIONATE NA SPR 16 GM BTL SCH ×2 (08:03→21:00)
--- NOTE | 2018-09-25 08:08 | XRay Report ---
XR chest 1V portable HISTORY: 78 years-old Female pneumothorax follow-up study in a patient with pneumothorax COMPARISON: Chest radiograph 09/24/2018 TECHNIQUE: Portable AP view of the chest FINDINGS: Can't mediastinal and hilar silhouettes are unchanged. Right apical pneumothorax redemonstrated, pleu ral separation at the apex of 1.4 cm, previously 1.2 cm. No left pneumothorax. No large pleural effus ion. Degenerative changes of the shoulders and spine. IMPRESSION: Slightly increased size of the right apical pneumothorax. The above report was generated using voice recognition software. It may contain grammatical, syntax o r spelling errors. Electronically signed by: Ronald Rahman M.D. 09/25/2018 8:07 AM
[2018-09-25] MEDS ORDERED: DOCUSATE SODIUM 100 MG CAP PO STA (08:09)
[2018-09-25] MEDS ORDERED: DOCUSATE SODIUM 100 MG CAP ONE (08:13)
[2018-09-25] MEDS ORDERED: ATORVASTATIN 10 MG TAB PO SCH ×2 (09:00→21:00)
--- NOTE | 2018-09-25 19:25 | Hospitalist Progress Note ---
Date of Service September 25, 2018 Assessment & Plan (1) Chronic hypercapnic respiratory failure: (2) Metabolic encephalopathy: (3) Respiratory failure: (4) COPD exacerbation: (5) Hypercarbia: (6) Spontaneous pneumothorax: (7) Left sided chest pain: (8) Hyperlipidemia: (9) Acute hypercapnic respiratory failure: (10) COPD with acute exacerbation: 78-year-old white female admitted on September 22, 2018, because of acute on chronic respiratory failure, acute hypercapnic respiratory failure: CO2 severely elevated at 152, pH is 7.08 on admission treated with continuous BIPAP for 48 hours PCO2 was 63 today, long history of CO2 retention consult palliative care, patient and family will meet with hospice, however patient told me today she said " I do not want to go home too earlier" Solu Medrol 60 q12 today, Prednisone 50mg daily starting tomorrow with taper on discharge resume home nebulizers Spontaneous pneumothorax: likely due to small bleb that popped due to elevated CO2 Chest x-ray which shows slightly increased size of the right apical pneumothorax in today could be ready for d/c on /Sunday with home hospice Subjective Feeling okay, conversational, however mild shortness of breath when talking, Significant difficulty breathing went up to the restroom with transport assistant, Constitutional: + fatigue and + weakness; no fever, no chills and no sweats Respiratory: + cough, + dyspnea and + dyspnea on exertion Gastrointestinal: + constipation Physical Exam Vital Signs (Past 24 Hours): Last Vital Signs Temp 36.8 C 09/25/18 16:06 Pulse 69 09/25/18 18:59 Resp 16 09/25/18 18:59 BP 93/60 L 09/25/18 16:06 Pulse Ox 97 09/25/18 18:59 Results & Data Laboratory Results Laboratory Results - last 24 hr 09/25/18 09/25/18 09/25/18 06:54 06:54 06:54 WBC 5.63 RBC 3.54 L Hgb 10.1 L Hct 32.4 L MCV 91.5 MCH 28.5 MCHC 31.2 L RDW Std Deviation 49.3 H RDW Coeff of Tonya 14.5 Plt Count 170 MPV 8.9 Immature Gran % (Auto) 0.0 Neut % (Auto) 69.3 Lymph % (Auto) 22.0 [place] % (Auto) 8.0 Eos % (Auto) 0.7 Baso % (Auto) 0.0 Immature Gran # (Auto) 0.00 Neut # (Auto) 3.90 Lymph # (Auto) 1.24 [place] # (Auto) 0.45 Eos # (Auto) 0.04 Baso # (Auto) 0.00 ABG pH 7.40 ABG pCO2 65 H ABG pO2 92 ABG HCO3 40 H ABG O2 Saturation 96.7 H ABG Base Excess 12.6 H [place] Test Pos Barometric Pressure 739.4 Oxygen Given 2L Sodium 135 L Potassium 4.5 Chloride 95 L Carbon Dioxide 39 H Anion Gap 1.0 L BUN 20 H Creatinine 0.54 L Est Cr Clr Drug Dosing 76.5 Est GFR ( Amer) 106.2 Est GFR (Non-Af Amer) 91.7 BUN/Creatinine Ratio 37.2 H Glucose 82 Calcium 8.7 (1) Respiratory failure Chronicity: acute (2) Hyperlipidemia Hyperlipidemia type: unspecified Qualified Code(s): E78.5 - Hyperlipidemia, unspecified
[2018-09-25] MEDS: ENOXAPARIN INJ 40 MG/0.4 ML SYR SQ SCH (21:00)
[2018-09-26] MEDS: AZELASTINE~ORDER AWAITING ACTION SCH ×3 (00:36→15:59)
[2018-09-26] MEDS: ALBUT/IPRATROP 3MG/0.5MG NEB 3 ML VIAL NEB SCH ×3 (07:26→15:44)
[2018-09-26] MEDS: ARFORMOTEROL TART 15MCG/2ML VIAL INH SCH (07:26)
[2018-09-26] MEDS: ESCITALOPRAM OXALATE 10 MG TAB PO SCH (08:09)
[2018-09-26] MEDS: FLUTICASONE PROPIONATE NA SPR 16 GM BTL SCH (08:09)
[2018-09-26] MEDS: predniSONE 50 MG TAB PO SCH (08:09)
[2018-09-26] MEDS: METOPROLOL SUCC 25MG EXT REL TAB PO SCH (08:09)
[2018-09-26] MEDS: CHOLECALCIFEROL 1,000 UNITS TAB PO SCH (08:09)
[2018-09-26] MEDS: PANTOprazole 40 MG TAB PO SCH (08:09)
[2018-09-26] MEDS: CYANOCOBALAMIN 500 MCG TABLET (VITAMIN B-12) PO SCH (08:09)
[2018-09-26] MEDS: POTASSIUM CHLORIDE 20 MEQ TABCR PO SCH ×2 (08:09→15:58)
--- NOTE | 2018-09-26 17:58 | Discharge Summary ---
Date of Service September 26, 2018 Admission HPI Per Admitting Provider 78 yo female with history of COPD and chronic ventilatory failure, presented to the ED complaining of severe shortness of breath for two days at home. She has a history of respiratory acidosis, four weeks ago she was admitted to [facility] with a CO2 of 135. At that time she had a small right sided apical pneumothorax and she was treated with BIPAP. CO2 gradually improved and she was stable enough for discharge. She went home on Trilogy, instructed to use everynight all night and during the day as needed. She was sent on Prednisone taper. Per her family at the bedside, she did well for three weeks. She was using the Trilogy every night and during the day at times. There was an issue early last week where she ran out of BitWall for her nebulizer, she was out for two days, got a new script on 09/19. On Wednesday 09/20 she started to have increased shortness of breath all day long. No fever, no cough. She had some sinus congestion and rhinorrhea but this was typical for her according to the family. Her shortness of breath got worse despite using her Trilogy so she was brought to the ED today. According to the ED physician, she was in respiratory distress on arrival, she was in tripod position, nares flared. She improved a little bit after nebulizer and Solu Medrol. CXR showed a right sided apical pneumothorax. She then got fatigued and her respiratory rate decreased dramatically, she desaturated, HR went into the 130's and she became completely unresponsive. Placed on BIPAP and ABG obtained shortly after. Her CO2 was 152 and pH was 7.08, PaO2 normal at 105 and HCO3 44. Discussed the case with Dr. Webb in the ICU, without intubation and ventilation we are unsure if CO2 will improve. She does not want intubated, she is DNR according to family. We will admit to medical floor on continuous BIPAP and look for improvement. Family agrees that she needs to be transitioned to hospice if she pulls through, need to have a plan for when she decompensates again. Principal Diagnosis no Discharge Data Allergies Allergy/AdvReac Type Severity Reaction Status Date / Time cetirizine Allergy Unknown RASH Verified 09/22/18 11:48 simvastatin Allergy Unknown ABDOMINAL Verified 09/22/18 11:48 CRAMPS morphine AdvReac Unconscious Unverified 09/22/18 11:48 Consultations 09/22/18 13:41 ED Decision to Admit Stat 09/22/18 16:53 Consult Case Management - Discharge Planning Routine Consult Palliative Care Routine Hospital Course (1) Chronic hypercapnic respiratory failure: (2) Metabolic encephalopathy: (3) Respiratory failure: (4) COPD exacerbation: (5) Hypercarbia: (6) Spontaneous pneumothorax: (7) Left sided chest pain: (8) Hyperlipidemia: (9) Acute hypercapnic respiratory failure: (10) COPD with acute exacerbation: 78-year-old white female admitted on September 22, 2018, because of acute on chronic respiratory failure, acute hypercapnic respiratory failure: CO2 severely elevated at 152, pH is 7.08 on admission treated with continuous BIPAP for 48 hours PCO2 was 63 today, long history of CO2 retention consult palliative care, patient and family met with hospice, Solu Medrol 60 q12 , Has been tapered to Prednisone 50mg daily We will continue tapering upon discharge such as: 40 mg p.o. daily times 3 days, then 30 mg p.o. daily times 3 days, then 20 mg p.o. daily times 3 days, and then 10 mg p.o. daily times 10 days, and PCP please adjust resume home nebulizers Spontaneous pneumothorax: likely due to small bleb that popped due to elevated CO2 Chest x-ray which shows slightly increased size of the right apical pneumothorax in today With the help of director case management and palliative care, patient and family understand poor prognosis, they agreed to home with home hospice care Subjective Subjective upon discharge: Generally feeling okay, up in the chair , however need to use bedside commode, she has significant dyspnea on exertion and desaturation when go to the restroom Denies nausea vomiting abdominal pain diarrhea constipation Denies chest pain palpitation Denied lower extremity swelling Denies facial droop or local weakness, Physical Exam Upon discharge: Vital signs stable,On nasal cannula on 3 L/minWhich is her baseline Constitutional: Looks tired and frail, mild pale, alert, cooperative and in no distress. Pulmonary: Clear to auscultation bilaterally. Occasional wheezing, Cardiac: Irregular rhythm with no murmur, gallop or rub. Abdomen: Soft, nontender with normal bowel sounds. Extremities: No edema. Skin: No rash, ecchymoses or petechiae. Neurological evaluation cranial nerves II through XII was intact and there was no focal deficits Total Time Total Time Spent Total Time Spent (In Minutes): 35 Discharge Plan Discharge Items Patient Disposition: Hospice - Home Reason For Visit: VENTILATORY FAILURE Discharge Diagnosis: acute hypercapnic respiratory failure pneumothorex Condition: Fair Discharge Goals: Decrease discomfort Specific Goals: hospice care Activity: As commented below Non-emergency contact: Primary Care Provider Call non-emergency contact if: you have any medication questions Diet: Regular Addtl Provider Instructions: you have acute hypercapnic respiratory failure I am giving you tapering dose of Prednisone 4 tab of 10mg for 3 days, then 3 tab of 10mg for 3 days, then , 2 tab of 10mg for 3 days, then 1 tab of 10mg for 10 days then follow up with pcp resume home nebulizers Spontaneous pneumothorax: please use BIPAP continuously during sleep you need to follow up with your primary care physician in 1 week, - take medication as instructed, never overdose or any misuse, or take with alcohol, because misuse of medicine may cause organ damage or , call me, or your primary care physician if have questions of discharge medicaitons. - call your primary care physician, or go to local emergency room if has any fever/chill, chest pain, shortness of breathing, nausea/vomiting/abdominal pain, facial droop/slurry speech/local weakness, or if has any questions. - fall precaution - diet as instructed Prescriptions: New prednisone 10 mg tablet 40 mg PO DAILY Qty: 37 RF: 0 Continued albuterol sulfate [ProAir RespiClick] 90 mcg/actuation Aerosol Powdr Breath Activated 1 puff INHALATION Q6H PRN (Reason: Shortness Of Breath Or Wheezing) RF: 0 ipratropium-albuterol 0.5 mg-3 mg(2.5 mg base)/3 mL Solution For Nebulization 3 ml INHALATION QID RF: 0 escitalopram oxalate 10 mg Tablet 10 mg PO DAILY RF: 0 atorvastatin 10 mg Tablet 10 mg PO DAILY RF: 0 pantoprazole 40 mg Tablet,Delayed Release (Dr/Ec) 40 mg PO BID RF: 0 furosemide 20 mg Tablet 20 mg PO BID PRN (Reason: Edema) RF: 0 fluticasone 50 mcg/actuation [place],Suspension 1 spray INTRANASAL BID RF: 0 metoprolol succinate 25 mg tablet extended release 24 hr 25 mg PO QAM RF: 0 cyanocobalamin (vitamin B-12) [Vitamin B-12] 1,000 mcg Tablet 1,000 mcg PO DAILY RF: 0 azelastine 137 mcg (0.1 %) Aerosol,[place] 1 spray INTRANASAL BID PRN (Reason: Unknown) RF: 0 cholecalciferol (vitamin D3) [Vitamin D3] 1,000 unit Tablet 1,000 unit PO DAILY RF: 0 arformoterol [Brovana] 15 mcg/2 mL Solution For Nebulization 1 ml INHALATION DAILY RF: 0 potassium chloride 20 mEq Tablet,Er Particles/Crystals 20 meq PO BID RF: 0 lorazepam 0.5 mg tablet 0.5 mg PO DAILY PRN (Reason: Anxiety) RF: 0 Stand-Alone Forms: [facility] Discharge Orders: Discharge Order (Routine); Ordered 09/26/18 Ordered By: Jamie Apodaca Admission Data Admit Date/Time: 09/22/18 14:18 Attending Provider: Jamie Apodaca Admit Provider: Serafin Madrid Primary Care Provider: Marcello Calle III Other Providers: Serafin Madrid ; Aundrea Newton ; Home,Nursing Agency Service: Medical Other Interventions: Discharge Summary Assessment (RN) Last Done: 09/26/18 15:35 DC Date/Time DO NOT enter until pt leaves facility: 09/26/18 16:45
== END 2018-09-26 16:45 | disposition hospice, home (50) | DRG 189 ==
LOC: ED 11:19 → 4W 14:18 → SUATTDRO 14:18 → 4W 16:55

== ENCOUNTER 2018-11-30 01:24 | Inpatient (IN) ==
[2018-11-30] MEDS ORDERED: ALBUT/IPRATROP 3MG/0.5MG NEB 3 ML VIAL NEB ONE (01:32)
[2018-11-30 02:23] LABS: HCO3 ABG 46 mmol/L (19-24); Oxygen Saturation ABG 98.8 % (90-95); PCO2 ABG 165 mmHg (35-46); PO2 ABG 179 mm/Hg (80-95)
[2018-11-30 02:24] LABS: Allen Test Pos (Pos)
[2018-11-30 02:27] LABS: pH ABG 7.07 (7.35-7.45)
[2018-11-30] MEDS ORDERED: ONDANSETRON INJ 2 MG/ML 2 ML VIAL IV PRN (05:31)
--- NOTE | 2018-11-30 05:38 | History & Physical Report ---
Date of Service November 30, 2018 Assessment & Plan (1) Comfort measures only status: Comfort measures only status due to end-stage chronic hypercapnic respiratory failure with associated metabolic encephalopathy-- We will continue BiPAP per family request. They prefer no other medications at this time. Any medications used otherwise will be on a symptom presentation basis. Present on Admission?: Yes (2) Chronic hypercapnic respiratory failure: See above Present on Admission?: Yes (3) Metabolic encephalopathy: See above Present on Admission?: Yes (4) Hypercarbia: See above Present on Admission?: Yes History of Present Illness Chief Complaint: The patient had been home with hospice, when she began to have difficulty breathing, the family called the hospice service, who reportedly told the family to place the patient back on BiPAP, but when she continued to have worsening respirations, they were told to bring the patient to the emergency department for assessment. Primary Care Provider: Marcello Calle MD The patient is a 78-year-old female with a history of chronic hypercapnic respiratory failure, severe COPD, metabolic encephalopathy, with last hospitalization from 09/22/2018-09/26/2018, during which time patient was seen by palliative care, and plan was for patient to be discharged to home with hospice care. When she began to have more severe respiratory symptoms, she was brought to the emergency department as noted above. The patient does have a POLST form which expresses her wishes to be comfort measures only. To confirm for patient's family that her situation was quite severe, the ED physician did order an ABG, which showed a severe respiratory acidosis: pH 7.07, PCO2 165, PO2 179, bicarb 46, O2 saturation 98.8 on BiPAP with 80% FiO2. The decision has been made for patient to be admitted to hospital with comfort m easures only, and after discussion with family, this will primarily consist of continuing BiPAP at current settings. Allergies Allergy/AdvReac Type Severity Reaction Status Date / Time cetirizine Allergy Unknown RASH Verified 11/30/18 04:03 simvastatin Allergy Unknown ABDOMINAL Verified 11/30/18 04:03 CRAMPS morphine AdvReac Unconscious Unverified 11/30/18 04:03 Home Medications Home Medications Medication Instructions Recorded Confirmed Type ProAir RespiClick 1 puff INHALATION Q6H PRN 05/12/18 11/30/18 History atorvastatin 10 mg PO DAILY 05/12/18 11/30/18 History escitalopram oxalate 10 mg PO DAILY 05/12/18 11/30/18 History fluticasone propionate 1 spray INTRANASAL BID 05/12/18 11/30/18 History furosemide 20 mg PO QAM 05/12/18 11/30/18 History ipratropium-albuterol 3 ml INHALATION QID 05/12/18 11/30/18 History pantoprazole 40 mg PO BID 05/12/18 11/30/18 History metoprolol succinate 25 mg PO QAM 05/16/18 11/30/18 History lorazepam 0.5 mg PO DAILY PRN 08/26/18 11/30/18 History Brovana 1 ml INHALATION DAILY 09/22/18 11/30/18 History azelastine 1 spray INTRANASAL BID PRN 09/22/18 11/30/18 History cholecalciferol (vitamin D3) 1,000 unit PO DAILY 09/22/18 11/30/18 History [Vitamin D3] cyanocobalamin (vitamin B-12) 1,000 mcg PO DAILY 09/22/18 11/30/18 History [Vitamin B-12] potassium chloride 20 meq PO BID 09/22/18 11/30/18 History docusate sodium 100 mg PO HS 11/30/18 11/30/18 History furosemide 20 mg PO . Q AFTERNOON PRN 11/30/18 11/30/18 History haloperidol lactate 1 mg PO Q4 PRN 11/30/18 11/30/18 History lorazepam 1 mg PO UD PRN 11/30/18 11/30/18 History prednisone 40 mg PO DAILY 11/30/18 11/30/18 History tiotropium bromide [Spiriva with 1 cap INHALATION DAILY 11/30/18 11/30/18 History HandiHaler] Past Med/Surg History Medical History Hypertension (Chronic) COPD (chronic obstructive pulmonary disease) (Chronic) FEV1=25 in December 2017. Oxygen dependent - 2L during the day, BiPAP qHS Hypoxemia (Acute) History of hysterectomy On home oxygen therapy Surgical History S/P hysterectomy Family History Other Breast cancer Social History Preferred Language: Korean Communication Ability: Effective Visual Impairment: No Limitations Beliefs That Will Affect Care: None Current Living Situation: Alone Current Living Situation Comment: Unable to obtain Feels Safe at Home: Yes Smoking Status: Never smoker Hx Alcohol Use: No Hx Substance Use: No Review of Systems Review of Systems: Limited due to patient's mental state Physical Exam Physical Exam: The patient is nonresponsive, normocephalic and atraumatic, lying in bed and in moderate to severe respiratory distress. HEENT--PERRL, EOMI, mucous membranes and oropharynx dry. Neck--No JVD. No bruits. Thyroid normal, trachea midline, no adenopathy. Heart--normal S1 and S2. No murmurs, rubs or gallops. Lungs--coarse breath sounds bilaterally. Abdomen--normal bowel sounds and soft. Nontender. Nondistended. Mildly tympanitic. Extremities--no cyanosis or clubbing. No edema. There are good distal pulses b/l. Dermatologic--normal skin turgor, normal color. Neurologic--cranial nerves II through XII grossly intact. Rheumatologic--limited exam Psychiatric--nonresponsive Results & Data Vital Signs (Past 12 Hours) Vital Signs Pulse Pulse Resp BP BP Pulse Ox 11/30/18 05:00 67 32 H 96/66 L 100 11/30/18 03:31 103 H 34 H 136/101 H 100 11/30/18 02:19 94 H 35 H 98 11/30/18 01:54 93 H 27 H 88 L 11/30/18 01:28 93 H 27 H 94 11/30/18 01:27 92 H 37 H 169/107 H 98 Laboratory Results Laboratory Results ABG pH 7.07 (7.35-7.45) L* 11/30/18 02:07 ABG pCO2 165 mmHg (35-46) H 11/30/18 02:07 ABG pO2 179 mm/Hg (80-95) H 11/30/18 02:07 ABG HCO3 46 mmol/L (19-24) H 11/30/18 02:07 ABG O2 Saturation 98.8 % (90-95) H 11/30/18 02:07 ABG Base Excess 10.4 mEq/L (-9-1.8) H 11/30/18 02:07 [place]ordo Test Pos (Pos) 11/30/18 02:07 Barometric Pressure 729.2 mm/Hg 11/30/18 02:07 Oxygen Given 80% 11/30/18 02:07 Code Status & VTE Plan Code Status DNR/DNI VTE Prophylaxis Plan VTE Prophylaxis will be ordered: Yes
[2018-11-30 05:52] VITALS: O2SAT 91
--- NOTE | 2018-11-30 08:06 | Emergency Department Note ---
Entered by Daniel Arevalo acting as a scribe for ED Provider Note Name: Binta Reza Age: 78, F Arrives Via: EMS Informant: Daughter CC: Respiratory problems HPI: A 78 year-old female arrives for evaluation of respiratory problems. The daughter of the patient states the patient had an O2 Sat in the 80s earlier in the day. The daughter states the patient has COPD and emphysema. She notes the patient has been on O2 for a year and half. She states the patient is on hospice. She states the patient uses Bi-PAP at home. The daughter denies the patient having fevers and vomiting. She states the patient took 40 mg of prednisone today. She notes she gave the patient Ativan an hour ago. The daughter states the patient did not have any chest pain. She states the patients O2 was in the 50s before coming to the ED. ROS: See above HPI for pertinent positives & negatives. A total of 10 systems reviewed and were otherwise negative. Past Medical History: See Below Past Surgical History: Hysterectomy Family History: Breast cancer Social History: On hospice. Never smoked. Home Medications: See Below. Allergies Cetirzine, simvastatin, morphine. Physical: Vitals: BP: 169/107. P: 92. R: 37. O2: 95 on 60% fio2 Bipap. Exam: GENERAL: Patient is in respiratory failure with inguinal respirations. Minimally responsive. At times she moves her arms to command. Obtunded. EYES: No scleral icterus, unremarkable pupils. ENT: Mucous membranes are dry, no nasal congestion. Old bruising on left lower neck / allie. NECK: No masses appreciated, no meningismus, trachea is midline. RESPIRATORY: Minimal lung sounds to all lung campa. Very tight. Cachectic. CARDIOVASCULAR: Regular rate and rhythm. No murmurs, rubs, gallops appreciated. GASTROINTESTINAL: Abdomen soft, non-tender, no peritonitis. Bowel sounds positive. No masses appreciated. BACK: No midline tenderness, no CVA tenderness EXTREMITIES: Normal motion all extremities, no cyanosis, no edema. Bruising on left forearm. NEUROLOGIC: Obtunded. No acute motor or sensory deficits, no focal weakness, cranial nerves grossly intact. SKIN: No rash, no jaundice, no diaphoresis. ED Course: Prior Medical Record, Triage/Nursing Notes, Medications, Allergies reviewed by Me Vital Signs: reviewed and remarkable for hypoxia, tachypnea, hypertension Labs: Reviewed and remarkable for abg with severe acidosis and CO2 elevation Interventions: Bipap, continuous neb Imaging: X ray results are stated below per my interpretation: Chest: 1 view: Diffuse scaring/emphysema with questionable right upper lobe pneumothorax Consults: 0250: I consulted with Dr. Olmos. He will evaluate the patient for further management. Reassessments/Times: 0125: The patient was evaluated in room A2, and a complete history and physical examination were performed. 0150: Patient is still on Bi-PAP. Daughter and nannette's are at bedside. They confirmed the patient does not want further intervention. They are agreeable to ABG for further evaluation. 0211: I reevaluated the patient. Minimal change since arrival. Family agreeable to hold off on further intervention. 0250: I consulted with Dr. Olmos. He will evaluate the patient for further management. Blood pressure: Normal. No Referral necessary Disposition: Hospitalization for comfort care Differentials: Differential: Infectious, Reactive Airway Disease, Pneumonia, Pneumothorax, COPD, CHF, ACS, Pulmonary Embolism, MSK, GI, Dissection, amongst other etiologies entertained. Medical Decision Makin yr old female with acute respiratory failure arrives via ems already having received 2 g IV mag, 125mg IV solumedrol, cpap, and nebulizer. Diffuse scarring on CXR with questionable right pneumo of minimal significance as this was previously seen, is not causing tension. Family arrived and they make clear she is DNR and comfort care only which is confirmed on paperwork that has come with patient. ABG done to confirm hypercapneic respiratory failure. After discussing with family they are comfortable with avoiding further testing. Patient obtunded and not requiring any sedation as not in any discomfort. Hospitalist consulted for end of life/comfort care. Hospice aware. Impression: Acute Hypercapnic Respiratory Failure Critical Care: I have personally spent greater than 30 minutes of critical care time in the direct management of this patient. Hypercapneic respiratory failure requiring BIPAP. This was a life/limb threatening event. This includes time spent evaluating patient, direct bedside care, chart review, placing orders, interpretation of diagnostic studies, discussion with consultants, and family members, as well as other required patient management activities. This 30 minutes is in excess of all separately billable procedures. Jamie Yo MD The scribe's documentation has been prepared under my direction and personally reviewed by me in its entirety. I confirm that the note above accurately reflects all work, treatment, procedures, and medical decision making performed by me. Impression & Plan Acute hypercapnic respiratory failure Past Med/Surg History Medical History Hypertension (Chronic) COPD (chronic obstructive pulmonary disease) (Chronic) FEV1=25 in December 2017. Oxygen dependent - 2L during the day, BiPAP qHS Hypoxemia (Acute) History of hysterectomy On home oxygen therapy Surgical History S/P hysterectomy Family History Other Breast cancer Social History Preferred Language: [place] Communication Ability: Impaired Visual Impairment: No Limitations Behavioral Health Director Required: No Beliefs That Will Affect Care: None Current Living Situation: Family Current Living Situation Comment: Unable to obtain Other Information That Helps Us Care for You: No Feels Safe at Home: Yes Smoking Status: Never smoker Hx Alcohol Use: No Hx Substance Use: No Results & Data Vital Signs Vital Signs - 24 hr 11/30/18 01:27 11/30/18 01:28 11/30/18 01:54 Sepsis Recent Fever Within 48 Hours No Sepsis Action Taken by Nursing No Action Required Pulse Rate 92 H 93 H Pulse Rate [Left Finger] 93 H Pulse Rhythm [Left Finger] Pulse Strength Normal Pulse Strength [Left Finger] Respiratory Rate 37 H 27 H 27 H Respiratory Effort / Characteristics Accessory Muscle Use Gasping/Agonal Spontaneous Gasping/Agonal Respiratory Depth Retractive Shallow Respiratory Pattern Agonal Agonal Blood Pressure 169/107 H Blood Pressure [Right Arm] Blood Pressure Mean 127 Blood Pressure Mean [Right Arm] Blood Pressure Position Sitting Blood Pressure Position [Right Arm] Pulse Oximetry 98 94 88 L Oxygen Delivery Method BiPAP Nebulizer BiPAP Oxygen Flow Rate Fraction of Inspired Oxygen 80 60 11/30/18 02:19 11/30/18 03:31 11/30/18 05:00 Sepsis Recent Fever Within 48 Hours Sepsis Action Taken by Nursing Pulse Rate 67 Pulse Rate [Left Finger] 94 H 103 H Pulse Rhythm [Left Finger] Regular Regular Pulse Strength Pulse Strength [Left Finger] Normal Normal Respiratory Rate 35 H 34 H 32 H Respiratory Effort / Characteristics Accessory Muscle Use Gasping/Agonal Gasping/Agonal Respiratory Depth Retractive Respiratory Pattern Agonal Blood Pressure 96/66 L Blood Pressure [Right Arm] 136/101 H Blood Pressure Mean Blood Pressure Mean [Right Arm] 112 Blood Pressure Position Blood Pressure Position [Right Arm] Sitting Pulse Oximetry 98 100 100 Oxygen Delivery Method BiPAP BiPAP Oxygen Flow Rate Fraction of Inspired Oxygen 11/30/18 05:15 11/30/18 06:17 11/30/18 07:11 Sepsis Recent Fever Within 48 Hours Sepsis Action Taken by Nursing Pulse Rate 99 H Pulse Rate [Left Finger] Pulse Rhythm [Left Finger] Pulse Strength Pulse Strength [Left Finger] Respiratory Rate 29 H Respiratory Effort / Characteristics Spontaneous Accessory Muscle Use Respiratory Depth Shallow Respiratory Pattern Rapid/Shallow Tachypnea Blood Pressure Blood Pressure [Right Arm] Blood Pressure Mean Blood Pressure Mean [Right Arm] Blood Pressure Position Blood Pressure Position [Right Arm] Pulse Oximetry 91 Oxygen Delivery Method BiPAP Oxygen Flow Rate 90 Fraction of Inspired Oxygen 80 80 Laboratory Data Lab Results 11/30/18 Range/Units 02:07 ABG pH 7.07 L* (7.35-7.45) ABG pCO2 165 H (35-46) mmHg ABG pO2 179 H (80-95) mm/Hg ABG HCO3 46 H (19-24) mmol/L ABG O2 Saturation 98.8 H (90-95) % ABG Base Excess 10.4 H (-9-1.8) mEq/L Gordo Test Pos (Pos) Barometric Pressure 729.2 mm/Hg Oxygen Given 80% Administered Medications Discontinued Medications Albuterol (Duoneb) 12 ml NEB ONE ONE Stop: 11/30/18 01:33 Last Admin: 11/30/18 01:53 Dose: 12 ml Documented by: [id number] Discharge Plan Visit Data *Final* Discharge Date/Time: 11/30/18 05:00 Chief Complaint: Respiratory Problems Stated Complaint: BREATHING DIFFICULTY ED Provider: Jamie Yo Discharge Problem: Acute hypercapnic respiratory failure Patient Disposition: Admitted As Inpatient Discharge Instructions Interventions: ED Discharge Assessment Last Done: 11/30/18 05:00 The scribe's documentation has been prepared under my direction and personally reviewed by me in its entirety. I confirm that the note above accurately reflects all work, treatment, procedures, and medical decision making performed by me.
--- NOTE | 2018-11-30 09:53 | XRay Report ---
XR chest 1V portable CLINICAL HISTORY: Shortness of breath. COMPARISON STUDY: Chest radiograph November 11, 2018. FINDINGS: A possible small right apical pneumothorax is noted. There is a small right pleural effusio n. There is no consolidation to suggest pneumonia. There is no evidence for pulmonary edema. Cardiome diastinal silhouette is unremarkable. Patient is rotated. IMPRESSION: 1. Possible small right apical pneumothorax. Radiographic follow-up is recommended. 2. Small right pleural effusion. Electronically signed by: Varinder Goode M.D. 11/30/2018 9:51 AM
--- NOTE | 2018-11-30 10:58 | Discharge Summary ---
Date of Service November 30, 2018 Admission HPI Per Admitting Provider The patient is a 78-year-old female with a history of chronic hypercapnic respiratory failure, severe COPD, metabolic encephalopathy, with last hospitalization from 09/22/2018-09/26/2018, during which time patient was seen by palliative care, and plan was for patient to be discharged to home with hospice care. When she began to have more severe respiratory symptoms, she was brought to the emergency department as noted above. The patient does have a POLST form which expresses her wishes to be comfort measures only. To confirm for patient's family that her situation was quite severe, the ED physician did order an ABG, which showed a severe respiratory acidosis: pH 7.07, PCO2 165, PO2 179, bicarb 46, O2 saturation 98.8 on BiPAP with 80% FiO2. The decision has been made for patient to be admitted to hospital with comfort measures only, and after discussion with family, this will primarily consist of continuing BiPAP at current settings. Principal Diagnosis Acute on chronic hypoxic and hypercapneic respiratory failure Discharge Exam Constitutional + thin; no acute distress ENMT Ears: no external ear abnormality BiPAP mask in place Neck trachea midline, no thyromegaly Respiratory normal respiratory effort, lungs clear to auscultation Cardiovascular RRR, no murmur, no edema Gastrointestinal (Abdomen) normal bowel sounds, soft, nontender, no hepatosplenomegaly Musculoskeletal Extremities: extremities normal to inspection; no cyanosis and no clubbing Skin no rashes, warm and dry Neurologic + obtunded Psychiatric Orientation: + not alert does twitch her eyelids in response to verbal and tactile stimuli Discharge Data Allergies Allergy/AdvReac Type Severity Reaction Status Date / Time cetirizine Allergy Unknown RASH Verified 11/30/18 04:03 simvastatin Allergy Unknown ABDOMINAL Verified 11/30/18 04:03 CRAMPS morphine AdvReac Unconscious Unverified 11/30/18 04:03 Consultations 11/30/18 03:00 ED Decision to Admit Stat 11/30/18 05:31 Consult Case Management - Discharge Planning Routine Hospital Course (1) Comfort measures only status: Comfort measures only status due to end-stage acute on chronic hypoxic and hypercapnic respiratory failure with associated metabolic encephalopathy-- We will continue BiPAP per family request x 2 days and if no response in mentation, will discontinue BiPAP. They prefer no other medications at this time. Any medications used otherwise will be on a symptom presentation basis. Will discharge and readmit under general inpatient Hospice. Her community mental health worker was in to visit today -add ativan prn agitation, haldol prn agitation, and levsin prn secretions -insert Coreas catheter for comfort (2) Chronic hypercapnic respiratory failure: Acute on chronic hypoxic and hypercapneic resp failure due to COPD exacerbation ABG on admission 7.07/165/179 on 80% FiO2 BiPAP as above (3) Metabolic encephalopathy: See above (4) Hypercarbia: See above Total Time Total Time Spent Total Time Spent (In Minutes): <30 min Total Time Includes: Examination of the Patient, Discharge Planning and Medication Reconciliation Discharge Plan Discharge Items Patient Disposition: Hospice - Medical Facility Reason For Visit: COMFORT MEASURES Discharge Diagnosis: Acute on chronic hypercapneic and hypoxic respiratory failure Condition: Critical Discharge Goals: Decrease discomfort Activity: As commented below Lifting: None Exercise/Sports: None Non-emergency contact: Primary Care Provider Call non-emergency contact if: your symptoms worsen Follow-up/Referrals: Marcello Calle III, MD [Primary Care Provider] - Diet: Nothing by mouth Addtl Provider Instructions: Discharged to general inpatient hospice Prescriptions: Discontinued ProAir RespiClick 90 mcg/actuation Aerosol Powdr Breath Activated 1 puff INHALATION Q6H PRN (Reason: Shortness Of Breath Or Wheezing) RF: 0 ipratropium-albuterol 0.5 mg-3 mg(2.5 mg base)/3 mL Solution For Nebulization 3 ml INHALATION QID RF: 0 escitalopram oxalate 10 mg Tablet 10 mg PO DAILY RF: 0 atorvastatin 10 mg Tablet 10 mg PO DAILY RF: 0 pantoprazole 40 mg Tablet,Delayed Release (Dr/Ec) 40 mg PO BID RF: 0 furosemide 20 mg Tablet 20 mg PO QAM RF: 0 fluticasone propionate 50 mcg/actuation [place],Suspension 1 spray INTRANASAL BID RF: 0 metoprolol succinate 25 mg tablet extended release 24 hr 25 mg PO QAM RF: 0 cyanocobalamin (vitamin B-12) [Vitamin B-12] 1,000 mcg Tablet 1,000 mcg PO DAILY RF: 0 azelastine 137 mcg (0.1 %) Aerosol,[place] 1 spray INTRANASAL BID PRN (Reason: Unknown) RF: 0 cholecalciferol (vitamin D3) [Vitamin D3] 1,000 unit Tablet 1,000 unit PO DAILY RF: 0 Brovana 15 mcg/2 mL Solution For Nebulization 1 ml INHALATION DAILY RF: 0 potassium chloride 20 mEq Tablet,Er Particles/Crystals 20 meq PO BID RF: 0 furosemide 20 mg Tablet 20 mg PO . Q AFTERNOON PRN (Reason: Edema) RF: 0 prednisone 20 mg Tablet 40 mg PO DAILY RF: 0 lorazepam 1 mg Tablet 1 mg PO UD PRN (Reason: see instruction) RF: 0 docusate sodium 100 mg Tablet 100 mg PO HS RF: 0 haloperidol lactate 2 mg/mL Concentrate 1 mg PO Q4 PRN (Reason: nausea,vomiting or agitation) RF: 0 Spiriva with HandiHaler 18 mcg Capsule, W/Inhalation Device 1 cap INHALATION DAILY RF: 0 lorazepam 0.5 mg tablet 0.5 mg PO DAILY PRN (Reason: Anxiety) RF: 0 Stand-Alone Forms: [facility] Discharge Orders: Discharge Order (Routine); Ordered 11/30/18 Ordered By: Ellen Maldonado Admission Data Admit Date/Time: 11/30/18 04:16 Attending Provider: Ellen Maldonado Admit Provider: Devin Olmos Primary Care Provider: Marcello Calle III Other Providers: Devin Olmos Service: Medical Other Interventions: Discharge Summary Assessment (RN) Last Done: 11/30/18 11:04 Pending Studies at Discharge: No DC Date/Time DO NOT enter until pt leaves facility: 11/30/18 11:05
[2018-11-30 11:05] VITALS: BP 136/101; PULSE 103
== END 2018-11-30 11:05 | disposition hospice, inpatient (51) | DRG 189 ==
LOC: ED 01:24 → SUATTDRO 04:16 → 4W 04:16

== ENCOUNTER 2018-11-30 11:05 | Inpatient (IN) ==
[2018-11-30] MEDS ORDERED: LORazepam 1 MG TAB SL PRN (11:42)
[2018-11-30] MEDS ORDERED: HYOSCYAMINE SULFATE 0.125 MG TAB SL PRN (11:42)
[2018-11-30] MEDS ORDERED: HALOPERIDOL 1 MG TAB PO PRN (11:42)
[2018-11-30] MEDS ORDERED: ONDANSETRON INJ 2 MG/ML 2 ML VIAL IV PRN (11:42)
[2018-11-30] MEDS ORDERED: LORazepam 0.5 MG/1 ML VIAL IV PRN (11:42)
--- NOTE | 2018-11-30 11:49 | History & Physical Bridge Note ---
Date of Service November 30, 2018 History & Physical Bridge Note I have examined the patient, reviewed the History & Physical and in the interval since the performance of the History & Physical I have noted the following changes of clinical significance: Pt admitted to general inpatient hospice after discharges from hospital same day. Please see discharge summary from previous admission for today's note.
[2018-11-30] MEDS ORDERED: LORazepam 0.25 MG/0.5 ML VIAL IV ONE (12:30)
--- NOTE | 2018-12-01 13:43 | Hospitalist Progress Note ---
Date of Service December 01, 2018 Assessment & Plan (1) Comfort measures only status: (1) Comfort measures only status: Comfort measures only status due to end-stage acute on chronic hypoxic and hypercapnic respiratory failure with associated metabolic encephalopathy-- Was on BiPAP per family request x 2 days and if she had no response --> remained obtunded and ABG was worse at 7.03/190 for pH and PaCO2. -family elected to dc BiPAP and pursue comfort care only -use morphine and ativan prn -continue haldol prn agitation, and levsin prn secretions -inserted Coreas catheter for comfort Expect her to pass away within the next 24 hours-was discussed with family and all present are in agreement with present plan Gave my condolences to all family members present (2) Acute hypercapnic respiratory failure: (3) Metabolic encephalopathy: (4) COPD (chronic obstructive pulmonary disease): (5) Hypertension: Subjective Pt remains obtunded today. She apparently fell out of bed last night and was found on her back on the floor, no apparent injury. Family wanted abg to see if BiPAP was having any effect on her CO2 retention prior to discontinuing BiPAP. Came back later in the evening to review the abg and was profoundly worse, not compatible with life. Family including 2 daughters, son, daughter in law, and 2 granddaughters all at bedside and all in agreement to withdraw the BiPAP and go to [facility] Review of Systems Review of Systems: Unobtainable due to reduced consciousness Physical Exam Constitutional: + thin; no acute distress (with BiPAP in place) Neck: trachea midline, no thyromegaly Respiratory: normal respiratory effort, lungs clear to auscultation Cardiovascular: Rate/Rhythm: regular rhythm and + tachycardic Heart Sounds: no murmur Extremities: no edema Gastrointestinal (Abdomen): Inspection/Auscultation: + abdomen abnormal to inspection (large abd wall hernia, reducible) Musculoskeletal: Extremities: extremities normal to inspection; no cyanosis and no clubbing Skin: no rashes, warm and dry Neurologic: + obtunded Psychiatric: Orientation: + not alert Results & Data Vital Signs (Past 12 Hours) Vital Signs Pulse Resp Pulse Ox 12/01/18 11:20 82 26 H 98 12/01/18 07:34 101 H 26 H 97 Laboratory Results 12/01/18 Range/Units 15:14 ABG pH 7.03 L* (7.35-7.45) ABG pCO2 190 H (35-46) mmHg ABG pO2 291 H (80-95) mm/Hg ABG HCO3 49 H (19-24) mmol/L ABG O2 Saturation 99.6 H (90-95) % ABG Base Excess 10.8 H (-9-1.8) mEq/L Gordo Test Pos (Pos) Barometric Pressure 726.0 mm/Hg Oxygen Given BIPAP-80% (1) COPD (chronic obstructive pulmonary disease) COPD type: unspecified COPD Qualified Code(s): J44.9 - Chronic obstructive pulmonary disease, unspecified (2) Hypertension Hypertension type: essential hypertension Qualified Code(s): I10 - Essential (primary) hypertension
[2018-12-01 15:24] LABS: HCO3 ABG 49 mmol/L (19-24); Oxygen Saturation ABG 99.6 % (90-95); PCO2 ABG 190 mmHg (35-46); PO2 ABG 291 mm/Hg (80-95)
[2018-12-01 15:27] LABS: pH ABG 7.03 (7.35-7.45)
[2018-12-01 15:28] LABS: Allen Test Pos (Pos)
[2018-12-01] MEDS ORDERED: MoRPHine SULFATE 2 MG/ML CARP IV PRN (17:19)
--- NOTE | 2018-12-08 22:40 | Death Summary ---
Date of Service December 01, 2018 Pronouncement Note Date and Time of Date of : 12/01/18 Time of : 21:08 PCOD Preliminary cause of : Respiratory failure with hypoxia and hypercapnia Contributing Factors (1) Comfort measures only status: (2) Acute hypercapnic respiratory failure: (3) Metabolic encephalopathy: (4) COPD (chronic obstructive pulmonary disease): (5) Hypertension: Summary Additional details: Comfort measures only status: Comfort measures only status due to end-stage acute on chronic hypoxic and hypercapnic respiratory failure with associated metabolic encephalopathy-- Was on BiPAP per family request x 2 days and had no response or improvement --> remained obtunded and ABG was worse at 7.03/190 for pH and PaCO2. -family elected to dc BiPAP and pursue comfort care only -used morphine and ativan prn for breathlessness or agitation, respectively -continue haldol prn agitation, and levsin prn secretions -inserted Coreas catheter for comfort She at 2108. I was not present for the pronouncement Additional Data Family: at bedside Attending/PCP notified?: Yes Attending physician: Ellen Maldonado MD Was code activated?: No Autopsy requested?: No bank examiner notified?: No Organ bank notified?: No
== END 2018-12-01 23:45 | disposition expired | DRG 951 ==
LOC: 4W 11:05
DX: J96.02 Acute respiratory failure with hypercapnia; Z51.5 Encounter for palliative care; J44.9 Chronic obstructive pulmonary disease, unspecified; W06.XXXA Fall from bed, initial encounter; G93.41 Metabolic encephalopathy; I10 Essential (primary) hypertension